=== PATIENT | female | born 1995 | race Caucasian/White ===

== ENCOUNTER 2024-07-10 13:00 | Outpatient (CLI) | payer OTHER, SELFPAY ==
[2024-07-10] VITALS (29 sets, daily range): PULSE 88–107; RESP 16; TEMP 36.7; O2SAT 93–100; BMI 30.2
[2024-07-10] MEDS: Lactated Ringers 1,000 ML 999 ML IV (14:00)
[2024-07-10 14:22] LABS: Absolute Lymphocyte Count 0.48 X10^3/uL (0.83-4.51); Absolute Neutrophil Count 7.3 X10^3/uL (2.0-7.7); Basophil# 0.04 X10^3/uL; Basophil% 0.5 % (0-1); Eosinophil# 0.01 X10^3/uL; Eosinophils% 0.1 % (0-5); Hematocrit 32.6 % (37-47); Lymphocyte # 0.48 X10^3/ul (0.83-4.51); Lymphocyte % 5.5 % (19-41); Mean Corp Hgb Conc 33.7 g/dL (32-36); Mean Corpuscular Hgb 30.8 pg (27.0-32.0); Mean Corpuscular Volume 91.3 fL (81-99); Mean Platelet Vol. 10.8 fl (6.2-12.0); Monocyte# 0.79 X10^3/uL; NRBC Flagged by Analyzer 0 % (0-5); Neutrophil # 7.26 X10^3/uL (2.7-7.7); Neutrophil % 82.7 % (47-70); POSITIVE DIFFERENTIAL YES; Platelet Count 175 K/mm3 (150-450); RBC Distribution Width CV 12.5 % (11.6-14.6); RBC Distribution Width SD 41.5 fl (35.1-43.9); Red Blood Count 3.57 M/mm3 (4.2-5.4); White Blood Count 8.8 K/mm3 (4.4-11.0)
[2024-07-10] MEDS: Ondansetron 4 MG/2 ML Vial IV (14:39)
[2024-07-10 14:42] LABS: ALB/GLOB Ratio 0.6 RATIO (0.9-2.4); AST(SGOT) 21 U/L (15-37); Alanine Aminotransfer ALT/SGPT 17 U/L (13-56); Albumin, Serum 2.4 g/dL (3.2-5.0); Alkaline Phosphatase 107 U/L (45-117); Anion Gap 8 (5-15); BUN 7 mg/dL (7-18); BUN/Creat Ratio 12.1 RATIO (10-20); Calcium,Total 8.7 mg/dL (8.5-10.1); Chloride 104 mmol/L (98-107); Creatinine, Serum 0.58 mg/dL (0.55-1.02); EST Glomerular Filtration Rate 129 mL/min (>60); Est Glom Filt Rate - Afr Amer 156 mL/min (>60); Globulin 3.8 g/dL (2.2-4.2); Glucose 136 mg/dL (74-106); Potassium 3.6 mmol/L (3.5-5.1); Protein, Total 6.2 g/dL (6.4-8.2); Sodium Level 134 mmol/L (136-145)
[2024-07-10] MEDS: LACTATED RINGERS 1,000 ML 999 ML IV (15:29)
[2024-07-10 15:59] LABS: ROM Internal Control Test YES-OK TO RESULT pt. (Internal QC); ROM Patient Test Negative (Negative); Record Kit Lot#, ROM+ K1866
[2024-07-10 16:11] LABS: Fetal Fibronectin Negative; Record Kit Lot#, fFN A4033
--- NOTE | 2024-07-10 17:22 | OB.TRI.NOTE ---
HPI - General General Date of Admission: 07/10/24 Date of Service: 07/03/24 Chief Complaint: decrease fm HPI Narrative JARVIS KING, is a 29 F who presents 2 para 0 at 32-3/7 weeks complaining of nausea and vomiting and diarrhea starting last night. Diarrhea has slowed down but she still having some loose stools. Last emesis was several hours ago but she has not been able to tolerate a lot of p.o. liquids. She still has nausea. She has noticed decreased movement. She admits to sick contacts who have had gastroenteritis in her family. She denies any contractions, vaginal bleeding or leaking of fluid. has been complicated to date by dichorionic diamniotic twin gestation. Maternal Data Information Final LIZZY: 09/01/24 Gestational age: 32 3/7 PFSH PFSH Home Medications ?Medication ?Instructions ?Recorded ?Last Taken ?Type vit no.95-ferrous 1 tab PO DAILY 07/10/24 07/09/24 History fumarate 28 mg-folic acid 800 mcg tablet () Allergy/AdvReac Type Severity Reaction Status Date / Time No Known Allergies Allergy Verified 07/10/24 14:08 Physical Exam Narrative Awake, alert, no acute distress Skin pale, dry Abdomen soft, nondistended, gravid NST FHR Rate Baby A Baseline: 140-150 Variability:: Moderate Decelerations:: None NST Reactive:: Yes FHR Category:: Category I Uterine Activity:: irreg ctxs FHR Rate Baby B Baseline: 140-150 Variability:: Moderate Accelerations:: 15 x 15 Decelerations:: None NST Reactive:: Yes FHR Category:: Category I Uterine Activity:: irreg ctxs Assessment & Plan (1) 32 weeks gestation of : (2) Dichorionic diamniotic twin in third trimester: PLAN: NST reactive x 2. Follow-up in the office as scheduled. (3) Gastroenteritis: (4) Dehydration: PLAN: Improved after IV fluids (5) Supervision of high risk in third trimester: PLAN: Some contractions on the monitor, patient did not appreciate them and they spaced out with IV fluids. fibronectin is negative. DC home to follow-up in the office or return as needed for signs or symptoms of labor (6) Decreased movement affecting management of mother, antepartum: PLAN: NST is reactive x 2. Discharge home with kick counts.
== END 2024-07-10 16:35 | disposition home or self-care (01) ==
LOC: WPOUT 13:12 → WP 13:52
PROVIDERS: PCP Family Medicine; Referring Provider Obstetrics & Gynecology; Visit Provider Obstetrics & Gynecology
DX: O99.613 Diseases of the digestive system complicating pregnancy, third trimester (principal); O36.8130 Decreased fetal movements, third trimester, not applicable or unspecified; O30.043 Twin pregnancy, dichorionic/diamniotic, third trimester; K52.9 Noninfective gastroenteritis and colitis, unspecified; O99.283 Endocrine, nutritional and metabolic diseases complicating pregnancy, third trimester; E86.0 Dehydration; O09.93 Supervision of high risk pregnancy, unspecified, third trimester; Z3A.32 32 weeks gestation of pregnancy
CPT/HCPCS: 96374; 96361; 36415; 59025; 59050; 80053; 82731; 84112; 85025; 99221; J7120; G0378; J2405

== ENCOUNTER 2024-08-18 19:23 | Inpatient (IN) | payer OTHER, SELFPAY ==
--- OUTSIDE RECORDS SUMMARY | 2024-08-18 19:19 | XMS RPT_ITS | CCD ---
Author Organization [facility] Care Team Providers Care Machine Rigger Name Role Phone Washington Tran MD Primary Care Provider WASHINGTON TRAN Primary Care Unavailab addi BAIRES, CONCHA Referring Unavailable BLANCA SKELTON Attending Unavailable WASHINGTON TRAN Primary Care Unavailab ELSIE Gomez Attending Unavailable WASHINGTON TRAN Primary Care Unavailab REBECCA Leavitt Attending Unavailable WASHINGTON TRAN Primary Care Unavailab ELSIE Gomez Attending Unavailable WASHINGTON TRAN Attending Unavailab WASHINGTON Mckeon Primary Care Unavailab WASHINGTON Mckeon Referring Unavailab WASHINGTON Mckeon Primary Care Unavailab WASHINGTON Mckeon Primary Care Unavailab BLANCA Delgado Attending Unavailable WASHINGTON TRAN Primary Care Unavailab le VENKATESH, REBECCA Referring Unavailable WASHINGTON TRAN Primary Care Unavailab addi BAIRES, CONCHA Attending Unavailable ROCHELLE RAMOS Attending Unavailable WASHINGTON TRAN Primary Care Unavailab WASHINGTON Mckeon Primary Care Unavailab WASHINGTON Mckeon Primary Care Unavailab le FONTANEZ, REBECCA Attending Unavailable WASHINGTON TRAN Primary Care Unavailab le FONTANEZ, REBECCA Referring Unavailable COREEN FONTANEZICA Attending Unavailable WASHINGTON TRAN Primary Care Unavailab addi FONTANEZ REBECCA Referring Unavailable WASHINGTON TRAN Primary Care Unavailab BLANCA Delgado Referring Unavailable WASHINGTON TRAN Primary Care Unavailab ELSIE Gomez Referring Unavailable WASHINGTON TRAN Primary Care Unavailab ELSIE Gomez Attending Unavailable WASHINGTON TRAN Primary Care Unavailab BLANCA Delgado Referring Unavailable BURSLEY, CHRISTOPHER B Primary Care Unavailab le PLOTTS, BLANCA Attending Unavailable REBECCA FONTANEZ Referring Unavailable BURSLEY, CHRISTOPHER B Primary Care Unavailab le WISWELL, CONCHA Attending Unavailable ROSA, RAFAELAOPHER B Primary Care Unavailab le PLOTTS, BLANCA Attending Unavailable BURSLEY, CHRISTOPHER B Primary Care Unavailab le WISWELL, CONCHA Referring Unavailable BURSLEY, CHRISTOPHER B Primary Care Unavailab le BURSLEY, CHRISTOPHER B Primary Care Unavailab le WISWELL, CONCHA Referring Unavailable BURSLEY, CHRISTOPHER B Primary Care Unavailab le PLOTTS, BLANCA Attending Unavailable BURSLEY, CHRISTOPHER B Primary Care Unavailab le PLOTTS, BLANCA Attending Unavailable WISWELL, CONCHA Referring Unavailable BURSLEY, CHRISTOPHER B Primary Care Unavailab le GERMAINELEY, RAFAELAOPHER B Primary Care Unavailab le WISWELL, CONCHA Referring Unavailable BURSLEY, CHRISTOPHER B Primary Care Unavailab le PLOTSANG, BLANCA Attending Unavailable ROSA, RAFAELAOPHER B Primary Care Unavailab le WISWELL, CONCHA Referring Unavailable BURSLEY, CHRISTOPHER B Primary Care Unavailab le WISWELL, CONCHA Referring Unavailable WISWELL, CONCHA Attending Unavailable ROSA, RAFAELAOPHER B Primary Care Unavailab STEPHANIE Marsh Attending Unavailab le PLOTSANG, BLANCA Referring Unavailable BURSLEY, CHRISTOPHER B Primary Care Unavailab le PLOTTS, BLANCA Attending Unavailable PLOTTS, BLANCA Referring Unavailable BURSLEY, CHRISTOPHER B Primary Care Unavailab le PLOTTS, BLANCA Referring Unavailable GERMAINELEY, CHRISTOPHER B Primary Care Unavailab le PLOTTS, BLANCA Referring Unavailable BURSLEY, CHRISTOPHER B Primary Care Unavailab le PLOTTS, BLANCA Attending Unavailable PLOTTS, BLANCA Referring Unavailable BURSLEY, CHRISTOPHER B Primary Care Unavailab le WISWELL, CONCHA Referring Unavailable BURSLEY, CHRISTOPHER B Primary Care Unavailab REBECCA Leavitt Referring Unavailable BURSLEY, CHRISTOPHER B Primary Care Unavailab REBECCA Leavitt Attending Unavailable ROSA, RAFAELAOPHER B Primary Care Unavailab le PLOTTS, BLANCA Referring Unavailable BURSLEY, CHRISTOPHER B Primary Care Unavailab addi SKELTON, BLANCA Attending Unavailable ROSA, RAFAELAOPHER B Primary Care Unavailab le GERMAINELEY, CHRISTOPHER B Primary Care Unavailab NOHEMY Frausto Attending Unavailable WASHINGTON TRAN Primary Care Unavailab BLANCA Delgado Referring Unavailable WASHINGTON TRAN Primary Care Unavailab addi SKELTONBLANCA Referring Unavailable WASHINGTON TRAN Primary Care Unavailab addi WESTSANGBLANCA Attending Unavailable WASHINGTON TRAN Primary Care Unavailab NOHEMY Frausto Attending Unavailable REBECCA FONTANEZ Referring Unavailable WASHINGTON TRAN Primary Care Unavailab addi WESTSANGBLANCA Referring Unavailable Medications Current Medications Medication Drug Class(es) Dates Sig (Normalized) Sig (Original) acetaminophen 325 mg / oxyCODONE hydrochloride 5 mg oral tablet (1 source) Opioid Agonist Start: 10-17-2023 End: 10-17-2023 oxyCODONE-acetami nophen (PERCOCET) 5-325 mg tablet Indications: Missed Take 2 tablets by mouth one time only for 1 dose. Bring to the office. Do not start before October 17, 2023. 2 tablet 0 10/17/2023 10/17/2023 Active Comment on above: Take 2 tablets by mo [facility] one time only for 1 dose. Bring to the office. Do not start before October 17, 2023. ALPRAZolam 0.5 mg oral tablet (1 source) Benzodiazepine Start: 10-17-2023 End: 10-17-2023 take 1 tablet by mouth once ALPRAZolam (XANAX) 0.5 mg tablet Indications: Missed Take 1 tablet by mouth one time only for 1 dose. Bring to office with you. Do not start before October 17, 2023. 1 tablet 0 10/17/2023 10/17/2023 Active Comment on above: Take 1 tablet by [place] one time only for 1 dose. Bring to office with you. Do not start before October 17, 2023. aspirin 81 mg oral tablet (20 sources) Platelet Aggregation Inhibitor, Nonsteroidal Anti-inflammatory Drug take 81 mg by mouth once daily BABY ASPIRIN ORAL Take 81 mg by mouth once daily. Active carbamide peroxide 65 mg/ml otic solution (2 sources) Start: 09-15-2023 End: 09-19-2023 carbamide peroxide (DEBROX) 6.5 % otic solution Indications: Impacted cerumen of right ear Use 5 Drops in the right ear two times a day for 4 days. 15 mL 1 09/15/2023 09/19/2023 Active Comment on above: Use 5 Drops in the r ight ear two times a day for 4 days. doxycycline hyclate 100 mg oral capsule (1 source) Tetracycline-class Drug Start: 10-17-2023 End: 10-17-2023 take 2 capsules by mouth once at mealtime doxycycline hyclate (VIBRAMYCIN) 100 mg capsule Take 2 capsules by mouth one time only for 1 dose. Take after procedure with food. 2 capsule 0 10/17/2023 10/17/2023 Active Comment on above: Take 2 capsules by m outh one time only for 1 dose. Take after procedure with food. 1 ml ketorolac tromethamine 30 mg/ml injection (2 sources) Nonsteroidal Anti-inflammatory Drug, Cyclooxygenase Inhibitor Start: 10-17-2023 End: 10-17-2023 keTORolac 30 mg injection (Toradol) ondansetron 4 mg oral tablet (2 sources) Serotonin-3 Receptor Antagonist Start: 07-10-2024 End: 07-20-2024 take 1 tablet by mouth every eight hours as needed ondansetron (ZOFRAN) 4 mg tablet Take 1 tablet by mouth every 8 hours as needed for nausea/vomiting for up to 10 days. 20 tablet 07/10/2024 07/20/2024 Active 25-IRON [id number] ORAL (20 sources) 25-IRON [id number]-MVSEF-NVA ORAL Take by mouth. Active 25-IRON [id number] ORAL Take by mouth. 0 Active Comment on above: Take by mouth. valACYclovir 500 mg oral tablet (20 sources) Herpesvirus Nucleoside Analog DNA Polymerase Inhibitor, Herpes Simplex Virus Nucleoside Analog DNA Polymerase Inhibitor, Herpes Zoster Virus Nucleoside Analog DNA Polymerase Inhibitor Start: take 1 tablet by mouth twice daily valACYclovir (VALTREX) 500 mg tablet Indications: Herpes genitalis in women Take 1 tablet by mouth two times a day. 60 tablet 1 08/06/2024 Active Start: 07-29-2022 End: 08-06-2024 take 1 tablet by mouth once daily valACYclovir (VALTREX) 500 mg tablet Indications: Herpes genitalis in women Take 1 tablet by mouth once daily. 90 tablet 3 08/06/2024 08/06/2024 Discontinued Comment on above: Take 1 tablet by jeremy th once daily. Completed/Discontinued Medications Medication Drug Class(es) Dates Sig (Normalized) Sig (Original) Carboxymethylcellulose (20 sources) End: CARBOXYMETHYLCELLULOSE SODIUM (REFRESH OPHTHALMIC) Use in eyes as needed. occ. use 0 05/06/2024 Discontinued CARBOXYMETHYLCEL LULOSE SODIUM (REFRESH OPHTHALMIC) Use in eyes as needed. occ. use 0 Active Comment on above: Use in eyes as neede d. occ. use Ethinyl Estradiol / Ferrous fumarate / Norethindrone (9 sources) Estrogen Start: 3 End: 3 take 1 tablet by mouth once daily , 1 mg-20 mcg (21)/75 mg (7) per tablet Indications: Medication refill take 1 tablet by mouth every day 84 tablet 0 07/11/2023 08/28/2023 Discontinued (Course of therapy completed) Start: 07-11-2023 take 1 tablet by jeremy th once daily , 1 mg-20 mcg (21)/75 mg (7) per tablet Indications: Medication refill take 1 tablet by mouth every day 84 tablet 0 07/11/2023 Active Start: 07-29-2022 End: 07-11-2023 take 1 tablet by mouth once daily, then take 0.05 tablet by mouth once Norethin Mac-Eth Estrad-FE (11/18, ,) 1 mg-20 mcg (21)/75 mg (7) per tablet Indications: Medication refill Take 1 tablet by mouth once daily. 84 tablet 3 07/29/2022 07/11/2023 Discontinued Start: 07-29-2022 take 1 tablet by jeremy th once daily, then take 0.05 tablet by mouth once Norethin Mac-Eth Estrad-FE (,) 1 mg-20 mcg (21)/75 mg (7) per tablet Indications: Medication refill Take 1 tablet by mouth once daily. 84 tablet 3 07/29/2022 Active Comment on above: Take 1 tablet by jeremy th once daily. take 1 tablet by jeremy th every day ibuprofen 800 mg oral tablet (4 sources) Nonsteroidal Anti-inflammatory Drug Start: 3 End: 3 take 1 tablet by mouth every eight hours as needed ibuprofen (MOTRIN) 800 mg tablet Take 1 tablet by mouth every 8 hours as needed for pain. 30 tablet 0 09/28/2023 10/13/2023 Discontinued (Course of therapy completed) Comment on above: Take 1 tablet by jeremy th every 8 hours as needed for pain. mineral oil 0.425 mg/mg / petrolatum 0.573 mg/mg ophthalmic ointment (20 sources) End: White Petrolatum-Mineral Oil (REFRESH PM) 57.3-42.5 % ointment Use in both eyes at bedtime as needed. 0 05/06/2024 Discontinued White Petrolatum -Mineral Oil (REFRESH PM) 57.3-42.5 % ointment Use in both eyes at bedtime as needed. 0 Active Comment on above: Use in both eyes at bedtime as needed. miSOPROStol 0.2 mg oral tablet (9 sources) Prostaglandin E1 Analog Start: 09-28-2023 End: 02-05-2024 miSOPROStol (CYTOTEC) 200 mcg tablet Please insert 4 tablets into vagina x1 4 tablet 0 10/06/2023 02/05/2024 Discontinued (Course of therapy completed) Comment on above: Please insert 4 tabl ets into vagina x1 vitamin b6 50 mg oral capsule (20 sources) End: 07-24-2024 pyridoxine, vitamin B6, (VITAMIN B-6) 50 mg cap Take by mouth. 07/24/2024 Discontinued (Course of therapy completed) pyridoxine, donna min B6, (VITAMIN B-6) 50 mg cap Take by mouth. 0 Active Comment on above: Take by mouth. Problems Active Problems Problem Classification Problem Date Documented Da te Episodic/Chronic Administrative/social admission (1 source) Repeated prescription; Translations: [Encounter for issue of repeat prescription] 07-11-2023 Episodic Diabetes or abnormal glucose tolerance complicating ; childbirth; or the puerperium (17 sources) Abnormal glucose level; Translations: [Abnormal glucose complicating ] Onset: 06-06-2024 06-06-2024 Episodic Immunizations and screening for infectious disease (2 sources) Vaccination needed; Translations: [Encounter for immunization] Episodic Other complications of ; puerperium affecting management of mother (1 source) Suspected disorder; Translations: [Maternal care for (suspected) abnormality and damage, unspecified, fetus 2] 05-06-2024 Episodic Other complications of (20 sources) High risk ; Translations: [Supervision of high risk , unspecified, first trimester] Onset: 08-28-2023 Resolved: 05-14-2024 08-28-2023 Episodic Other complications of (6 sources) Missed miscarriage; Translations: [Missed ] 09-18-2023 Episodic Other complications of (11 sources) Heartburn; Translations: [Other specified related conditions, third trimester] Onset: 07-03-2024 07-03-2024 Episodic Other ear and sense organ disorders (1 source) Impacted cerumen in right ear; Translations: [Impacted cerumen, right ear] 09-15-2023 Episodic Other infections; including parasitic (6 sources) History of sexually transmitted disease; Translations: [Personal history of other infectious and parasitic diseases] Onset: 07-31-2024 07-31-2024 Episodic Other infections; including parasitic (1 source) Personal history of other infectious and parasitic diseases; Translations: [History of herpes genitalis] Onset: 07-31-2024 Episodic Other and delivery including normal (20 sources) Normal ; Translations: [Encounter for supervision of normal first , unspecified trimester] Onset: 02-05-2024 08-22-2023 Episodic Other upper respiratory disease (20 sources) Seasonal allergy; Translations: [Other seasonal allergic rhinitis] Onset: 08-26-2022 Chronic Residual codes; unclassified (3 sources) Gestation period, 9 weeks; Translations: [9 weeks gestation of ] 08-28-2023 Episodic Residual codes; unclassified (1 source) FH: Thyroid disorder; Translations: [Family history of other endocrine, nutritional and metabolic diseases] 08-28-2023 Episodic Residual codes; unclassified (2 sources) Gestation period, 12 weeks; Translations: [12 weeks gestation of ] 09-15-2023 Episodic Residual codes; unclassified (1 source) Gestation period, 10 weeks; Translations: [10 weeks gestation of ] 02-05-2024 Episodic Residual codes; unclassified (1 source) Gestation period, 14 weeks; Translations: [14 weeks gestation of ] 03-04-2024 Episodic Residual codes; unclassified (1 source) Gestation period, 16 weeks; Translations: [16 weeks gestation of ] 03-20-2024 Episodic Residual codes; unclassified (1 source) Gestation period, 19 weeks; Translations: [19 weeks gestation of ] 04-08-2024 Episodic Residual codes; unclassified (6 sources) Gestation period, 20 weeks; Translations: [20 weeks gestation of ] Onset: 04-15-2024 04-15-2024 Episodic Residual codes; unclassified (3 sources) Gestation period, 23 weeks; Translations: [23 weeks gestation of ] 05-06-2024 Episodic Residual codes; unclassified (1 source) Gestation period, 26 weeks; Translations: [26 weeks gestation of ] 06-03-2024 Episodic Residual codes; unclassified (1 source) Gestation period, 27 weeks; Translations: [27 weeks gestation of ] 06-03-2024 Episodic Residual codes; unclassified (1 source) Gestation period, 28 weeks; Translations: [28 weeks gestation of ] 06-12-2024 Episodic Residual codes; unclassified (1 source) Gestation period, 29 weeks; Translations: [29 weeks gestation of ] 06-17-2024 Episodic Residual codes; unclassified (1 source) Gestation period, 30 weeks; Translations: [30 weeks gestation of ] 06-26-2024 Episodic Residual codes; unclassified (2 sources) Gestation period, 31 weeks; Translations: [31 weeks gestation of ] 07-03-2024 Episodic Residual codes; unclassified (1 source) Gestation period, 33 weeks; Translations: [33 weeks gestation of ] 07-16-2024 Episodic Residual codes; unclassified (1 source) Gestation period, 34 weeks; Translations: [34 weeks gestation of ] 07-24-2024 Episodic Residual codes; unclassified (1 source) Gestation period, 35 weeks; Translations: [35 weeks gestation of ] 07-31-2024 Episodic Residual codes; unclassified (2 sources) Gestation period, 36 weeks; Translations: [36 weeks gestation of ] 08-06-2024 Episodic Residual codes; unclassified (1 source) 36 weeks gestation of ; Translations: [36 weeks gestation of ] Onset: 08-07-2024 Episodic Residual codes; unclassified (1 source) 30 weeks gestation of ; Translations: [30 weeks gestation of ] Onset: 06-26-2024 Episodic Residual codes; unclassified (1 source) 28 weeks gestation of ; Translations: [28 weeks gestation of ] Onset: 06-12-2024 Episodic Residual codes; unclassified (1 source) 23 weeks gestation of ; Translations: [23 weeks gestation of ] Onset: 06-03-2024 Episodic Spontaneous (2 sources) Retained products after miscarriage; Translations: [Incomplete spontaneous without complication] 10-13-2023 Episodic Unclassified (20 sources) [facility] Education - COMMON Onset: 01-30-2024 01-30-2024 Unclassified (20 sources) Education - [place] Onset: 01-30-2024 01-30-2024 Viral infection (12 sources) Herpes simplex of female genitalia; Translations: [Herpesviral infection of other urogenital tract] Onset: 08-26-2022 Chronic Past or Other Problems Problem Classification Problem Date Documented Date Episodic/Chronic Blindness and vision defects (20 sources) Myopia; Translations: [Myopia, unspecified eye] Onset: 03-08-2016 03-08-2016 Episodic Hemorrhage during ; abruptio placenta; placenta previa (2 sources) Antepartum hemorrhage; Translations: [Hemorrhage in early , unspecified] Onset: 01-12-2024 01-12-2024 Episodic Other complications of ; puerperium affecting management of mother (20 sources) condition affecting obstetrical care of mother; Translations: [Maternal care for (suspected) abnormality and damage, unspecified, fetus 1] Onset: 05-07-2024 05-07-2024 Episodic Other complications of ; puerperium affecting management of mother (1 source) Maternal care for (suspected) abnormality and damage, unspecified, fetus 2; Translations: [ abnormality affecting management of mother, fetus 2 of multiple gestation] Onset: 05-09-2024 Episodic Other complications of (20 sources) Genital herpes simplex in mother complicating ; Translations: [Other infections with a predominantly sexual mode of transmission complicating , unspecified trimester] Onset: 08-26-2022 08-28-2023 Episodic Other complications of (2 sources) Supervision of high risk , unspecified, first trimester; Translations: [Supervision of high risk in first trimester] Onset: 02-05-2024 Episodic Other complications of (1 source) Supervision of high risk , unspecified, third trimester; Translations: [Supervision of high risk in third trimester] Onset: 05-14-2024 Episodic Other complications of (1 source) Supervision of high risk , unspecified, second trimester; Translations: [Encounter for supervision of high risk in second trimester, antepartum] Onset: 02-05-2024 Episodic Other complications of (1 source) Other infections with a predominantly sexual mode of transmission complicating , unspecified trimester; Translations: [Genital herpes simplex virus (HSV) infection in mother affecting ] Onset: 02-05-2024 Episodic Other complications of (1 source) Missed ; Translations: [Missed ] Onset: 02-19-2024 Episodic Other screening for suspected conditions (not mental disorders or infectious disease) (5 sources) Patient encounter status; Translations: [Encounter for screening for nuchal translucency] Onset: 02-19-2024 02-19-2024 Episodic Residual codes; unclassified (20 sources) Gestation period, 24 weeks; Translations: [24 weeks gestation of ] Onset: 04-15-2024 05-14-2024 Episodic Residual codes; unclassified (1 source) 10 weeks gestation of ; Translations: [10 weeks gestation of ] Onset: 05-14-2024 Episodic Residual codes; unclassified (1 source) 24 weeks gestation of ; Translations: [24 weeks gestation of ] Onset: 05-14-2024 Episodic Residual codes; unclassified (1 source) 20 weeks gestation of ; Translations: [20 weeks gestation of ] Onset: 04-15-2024 Episodic Residual codes; unclassified (1 source) 19 weeks gestation of ; Translations: [19 weeks gestation of ] Onset: 04-08-2024 Episodic Residual codes; unclassified (1 source) 9 weeks gestation of ; Translations: [9 weeks gestation of ] Onset: 04-08-2024 Episodic Residual codes; unclassified (1 source) 12 weeks gestation of ; Translations: [12 weeks gestation of ] Onset: 02-05-2024 Episodic Residual codes; unclassified (1 source) Family history of other endocrine, nutritional and metabolic diseases; Translations: [Family history of thyroid disorder] Onset: 09-01-2023 Episodic Results Test Name Value Interpretation Reference Range Niraj Horton 08-07-2024 CNOV Office Visit (OBGYWM ) ----- JARVIS KING ([id number]) 1995 F Date Time Provider Department 08/07/24 2:30 PM BLANCA SKELTON OBSAAD During your visit today, we recorded the following information about you: Blood pressure Weight 126/78 88.5 kg Blanca Skelton APRN.CNM 08/07/2024 4:37 PM Signed CP - CENTERING S: Jarvis King is a 29 year old female who presents at 36 weeks gestation for a routine visit and centering. Seen in office yesterday for SHARATH and to discuss plan of care for delivery. Denies headache, visual changes, chest pain, shortness of breath, vaginal bleeding, leakage of fluid, or dysuria. Feeling well, no complaints. O: See flow sheet Gen: No apparent distress Abd: Gravid, nontender ASSESSMENT/PLAN: 1. Supervision of high risk in third trimester - ICD9: V23.9, ICD10: O09.93 (primary diagnosis) 2. Dichorionic diamniotic twin in third trimester - ICD9: 651.03, V91.03, ICD10: O30.043 3. 36 weeks gestation of - ICD9: V22.2, ICD10: Z3A.36 4. History of herpes genitalis - ICD9: V12.09, ICD10: Z86.19 - GBS negative - Continue Valacyclovir PO daily - Seen by physician and induction of labor scheduled for 08/18/24 7pm Cytotec/ Sahw - Labor precautions reviewed and when to call office - RTO 1 week for NST/SHARATH MADELAINE Don Amanda, MA 08/07/2024 2:31 PM Signed SEQUENTIAL SCREENINGS The [facility] offers sequential screenings for women who are interested in screenings for chromosomal abnormalities and certain defects during a . The sequential screen combines ultrasound and blood tests to determine the risk of chromosomal abnormalities, including Down's Syndrome (Trisomy 21) and Trisomy 18, as well as open neural tube defects including spina bifida. Ultrasound examination is performed between 11 weeks and 13 weeks gestational age. Blood tests are drawn after the ultrasound and again later in the between 15 and 21 weeks gestational age. Please let your physician know if you are interested in this testing. It will require an appointment with our assessment technician. This is not an ultrasound performed by a physician in our office during a routine visit. SIGNS AND SYMPTOMS OF LABOR 1. Contractions every 10 minutes or more often 2. Clear, pink, or brownish fluid (water) leaking from vagina 3. Feeling that baby is pushing down, pressure 4. Low, dull backache 5. Cramps that feel like a period 6. Cramps with or without diarrhea If you notice any of the above symptoms, contact our office at [phone] and ask to speak with a nurse. After hours, you can call doctors registry at [phone] OR call [facility] at [phone] and ask to have the doctor computational theory scientist paged. If you consider this an emergency, dial 9-0-7 or go to your nearest emergency department. NEED HELP? Are you dealing with a violent or abusive relationship? Are you a victim of rape or sexual assult? Call [facility] ([place]) 24 hour Crisis Hotline: 163.914.5872 or 411-717-5604. MANUAL Your Guide to a Healthy manual is now on-line. Visit [email or web address] to download your free copy Allergies As of Date: 08/07/2024 (No Known Allergies) Date Reviewed: 08/07/2024 Reviewed by: Blanca Skelton APRN.CNM - Fully Assessed Reason for Visit: Care [86] Primary Visit Diagnosis:Supervision of high risk in third trimester [O09.93] Other Visit Diagnoses:Dichorionic diamniotic twin in third trimester [O30.043] 36 weeks gestation of [Z3A.36] History of herpes genitalis [Z86.19] Prescriptions as of 08/07/2024 - valACYclovir (VALTREX) 500 mg tablet Take 1 tablet by mouth two times a day. - BABY ASPIRIN ORAL Take 81 mg by mouth once daily. - 25-IRON [id number] ORAL Take by mouth. Problem List As Of Date 08/07/2024 Noted Resolved Myopia [H52.10] 03/08/2016 Genital herpes simplex virus (HSV) infection in*08/26/2022 Seasonal allergies [J30.2] 08/26/2022 Supervision of high risk in first tri*08/28/2023 Dichorionic diamniotic twin in second*02/05/2024 Encounter for supervision of high risk pregnanc*02/05/2024 05/14/2024 24 weeks gestation of [Z3A.24] 04/15/2024 abnormality affecting management of mothe*05/07/2024 Abnormal glucose complicating [O99.81*06/06/2024 Heartburn during [O26.899, R12] 07/03/2024 History of herpes genitalis [Z86.19] 07/31/2024 Other instructions from your clinician: SEQUENTIAL SCREENINGS The [facility] offers sequential screenings for women who are interested in screenings for chromosomal abnormalities and certain defects during a . The sequential screen combines ultrasound and blood tests to deter (more content not included)... Normal [facility] ROUTINE, GROUP B ST REP PCRon 07-31-2024 ROUTINE, GROUP B STREP PCR GROUP B STREP PCR: Negative for Group B Streptococcus by PCR. Normal [facility] Comment on above: Performed By: #### G BPCR ####[facility] LABCLIA [id number] [address] STATES OF [facility] CNOVon 07-24-2024 CNOV Office Visit (OBGYWM ) ----- JARVIS KING ([id number]) 1995 F Date Time Provider Department 07/24/24 2:30 PM REBECCA FNOTANEZ During your visit today, we recorded the following information about you: Blood pressure Weight 116/68 85.3 kg StepheniePhani MA 07/24/2024 2:24 PM Signed SEQUENTIAL SCREENINGS The [facility] offers sequential screenings for women who are interested in screenings for chromosomal abnormalities and certain defects during a . The sequential screen combines ultrasound and blood tests to determine the risk of chromosomal abnormalities, including Down's Syndrome (Trisomy 21) and Trisomy 18, as well as open neural tube defects including spina bifida. Ultrasound examination is performed between 11 weeks and 13 weeks gestational age. Blood tests are drawn after the ultrasound and again later in the between 15 and 21 weeks gestational age. Please let your physician know if you are interested in this testing. It will require an appointment with our assessment technician. This is not an ultrasound performed by a physician in our office during a routine visit. SIGNS AND SYMPTOMS OF LABOR 1. Contractions every 10 minutes or more often 2. Clear, pink, or brownish fluid (water) leaking from vagina 3. Feeling that baby is pushing down, pressure 4. Low, dull backache 5. Cramps that feel like a period 6. Cramps with or without diarrhea If you notice any of the above symptoms, contact our office at [phone] and ask to speak with a nurse. After hours, you can call doctors registry at [phone] OR call [facility] at [phone] and ask to have the doctor computational theory scientist paged. If you consider this an emergency, dial 9--3 or go to your nearest emergency department. NEED HELP? Are you dealing with a violent or abusive relationship? Are you a victim of rape or sexual assult? Call [facility] ([place]) 24 hour Crisis Hotline: 640.889.1034 or 749-802-3975. MANUAL Your Guide to a Healthy manual is now on-line. Visit [email or web address] to download your free copy Rebecca Fontanez APRN.CNM 07/24/2024 3:06 PM Addendum ABRAM-Centering Group S: Jarvis King is a 29 year old female who presents at 34w3d with LIZZY:09/01/2024, by Ultrasound for a routine visit. Denies headache, visual changes, chest pain, shortness of breath, vaginal bleeding, leakage of fluid, or dysuria. Feeling well, no complaints. O: See flow sheet Gen: No apparent distress Abd: Gravid, nontender S=D, 40 lb TWG Growth US at 32 weeks The EFW is 1589 g grams, at the 15%. AC is at the 28% for Fetus A. The EFW is 1698 g grams, at the 28% percentile. AC is at the 45% percentile for Fetus B. - Normal amniotic fluid volume with an MVP of 7 cm for Fetus A and 6 cm for Fetus B. Vertex/Vertex ASSESSMENT/PLAN: 1. Encounter for supervision of high risk in second trimester, antepartum -ASA 81mg PO once daily -Discussed IOL at 38-39 weeks, will await next growth US and discuss further. 2. Dichorionic diamniotic twin in second trimester -Growth ultrasound every 4 weeks at 24 weeks -Weekly NST at 36 weeks 3. 24 weeks gestation of 4. 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 -Recommend increasing to 500mg PO BID at 36 weeks. 5. abnormality affecting management of mother, fetus 2 of multiple gestation - echo normal, no further follow up -PTL precautions reviewed and when to call -RTO in 2 weeks Rebecca Fontanez APRN.CNM Allergies As of Date: 07/24/2024 (No Known Allergies) Date Reviewed: 07/24/2024 Reviewed by: Phani Casiano MA - Fully Assessed Reason for Visit: Care [86] Primary Visit Diagnosis:Supervision of high risk in third trimester [O09.93] Other Visit Diagnoses:Dichorionic diamniotic twin in second trimester [O30.042] 34 weeks gestation of [Z3A.34] Order(s): NON-STRESS TEST [[id number]] Order #: [id number] STANDING URINE OB DIP B/O [[id number]] Order #: [id number] Prescriptions as of 07/24/2024 - BABY ASPIRIN ORAL Take 81 mg by mouth once daily. - 25-IRON [id number] ORAL Take by mouth. - valACYclovir (VALTREX) 500 mg tablet Take 1 tablet by mouth once daily. Problem List As Of Date 07/24/2024 Noted Resolved Myopia [H52.10] 03/08/2016 Genital herpes simplex virus (HSV) infection in*08/26/2022 Seasonal allergies [J30.2] 08/26/2022 Supervision of high risk in first tri*08/28/2023 Dichorionic diamniotic twin in second*02/05/2024 Encounter for supervision of high risk pregnanc*02/05/2024 05/14/2024 24 weeks gestation of [Z3A.24] 04/15/2024 abnormality affecting managemen (more content not included)... [facility] ([facility]GYWM) ----- JARVIS KING ([id number]) 1995 F Date Time Provider Department 07/10/24 NOHEMY LYN OBGYWM During your visit today, we recorded the following information about you: Leatha Alva RN 07/10/2024 9:13 AM Signed Patient 32w3d calling with concerns of vomiting and diarrhea since 8 pm last night. Approximately 4-5 episodes of each. States she is trying to sip Gatorade and ice chips and has been able to keep them down for the last 3 hours. The last time patient vomited was 6 am. The last time patient ate was dinner at 6 pm last night. Patient having cramping from the upset stomach and diarrhea but denies any pain currently. Patient has not taken anything for the vomiting or diarrhea. Patient states she had chills last night but denies any fever. Patient currently concerned with decreased movement. Patient states she has been dozing off and on this morning and unsure if she has any movement this morning. States unsure if movement last night or if it was just from the cramping and diarrhea. Patient is supposed to come in to office today for centering appointment, but states she probably won't make it because she doesn't want to get anyone sick. Do you want patient to be seen for decreased movement in office? KAYLEN Gates Rebecca L, MD 07/10/2024 11:40 AM Signed Have her come in for NST and BP check and we ask she please put on a mask when she arrives. If she has decreased urine output to [facility] for NST and IVF. If she thinks she can stay hydrated then immodium and push fluids and I can rx something for nausea. MD Lukas Birch Tara, RN 07/10/2024 12:11 PM Signed Called Pt and Pt states she definitely does feel dehydrated. Advised to go to [facility] for NST and IV fluids. Voiced understanding. [facility] notified. Malika Gaytan RN Allergies As of Date: 07/10/2024 (No Known Allergies) Date Reviewed: 06/26/2024 Reviewed by: Phani Casiano MA - Fully Assessed Reason for Visit: OB-decreased movement [Other] Prescriptions as of 07/10/2024 - BABY ASPIRIN ORAL Take 81 mg by mouth once daily. - pyridoxine, vitamin B6, (VITAMIN B-6) 50 mg cap Take by mouth. - 25-IRON [id number] ORAL Take by mouth. - valACYclovir (VALTREX) 500 mg tablet Take 1 tablet by mouth once daily. Problem List As Of Date 07/10/2024 Noted Resolved Myopia [H52.10] 03/08/2016 Genital herpes simplex virus (HSV) infection in*08/26/2022 Seasonal allergies [J30.2] 08/26/2022 Supervision of high risk in first tri*08/28/2023 Dichorionic diamniotic twin in second*02/05/2024 Encounter for supervision of high risk pregnanc*02/05/2024 05/14/2024 24 weeks gestation of [Z3A.24] 04/15/2024 abnormality affecting management of mothe*05/07/2024 Abnormal glucose complicating [O99.81*06/06/2024 Heartburn during [O26.899, R12] 07/03/2024 Encounter Status:Closed by NOHEMY LYN on 07/10/24 Normal [facility] Examination level ultrasound on 07-03-2024 [facility] Radiology Study observation (narrative) [facility] CNOVon 06-26-2024 CNOV Office Visit (OBGYWM ) ----- JARVIS KING ([id number]) 1995 F Date Time Provider Department 06/26/24 2:30 PM BLANCA SKELTON OBBARTWM During your visit today, we recorded the following information about you: Blood pressure Weight 116/64 83.5 kg Blanca Skelton APRN.CNM 06/26/2024 4:02 PM Signed CP- CENTERING #6 S: Jarvis King is a 29 year old female who presents at 30.3 weeks gestation for a routine visit. Positive movements. Still having difficulty differentiating between baby A and B. Feeling tightening in hands. No pain at this time. Denies headache, visual changes, chest pain, shortness of breath, vaginal bleeding, leakage of fluid, or dysuria. O: See flow sheet Gen: No apparent distress Abd: Gravid, nontender S= D measuring 2 weeks ahead ASSESSMENT/PLAN: 1. 30 weeks gestation of - ICD9: V22.2, ICD10: Z3A.30 (primary diagnosis) 2. Supervision of high risk in third trimester - ICD9: V23.9, ICD10: O09.93 3. Dichorionic diamniotic twin in third trimester - ICD9: 651.03, V91.03, ICD10: O30.043 - Elevated 1 hour - 3 hour GTT normal - PTL precautions and kick counts reviewed - RTO 2 weeks- growth US and SHARATH Skelton, PLACIDO.CN Phani Casiano MA 06/26/2024 2:36 PM Signed SEQUENTIAL SCREENINGS The [facility] offers sequential screenings for women who are interested in screenings for chromosomal abnormalities and certain defects during a . The sequential screen combines ultrasound and blood tests to determine the risk of chromosomal abnormalities, including Down's Syndrome (Trisomy 21) and Trisomy 18, as well as open neural tube defects including spina bifida. Ultrasound examination is performed between 11 weeks and 13 weeks gestational age. Blood tests are drawn after the ultrasound and again later in the between 15 and 21 weeks gestational age. Please let your physician know if you are interested in this testing. It will require an appointment with our assessment technician. This is not an ultrasound performed by a physician in our office during a routine visit. SIGNS AND SYMPTOMS OF LABOR 1. Contractions every 10 minutes or more often 2. Clear, pink, or brownish fluid (water) leaking from vagina 3. Feeling that baby is pushing down, pressure 4. Low, dull backache 5. Cramps that feel like a period 6. Cramps with or without diarrhea If you notice any of the above symptoms, contact our office at [phone] and ask to speak with a nurse. After hours, you can call doctors registry at [phone] OR call [facility] at [phone] and ask to have the doctor computational theory scientist paged. If you consider this an emergency, dial 9-1-6 or go to your nearest emergency department. NEED HELP? Are you dealing with a violent or abusive relationship? Are you a victim of rape or sexual assult? Call [facility] ([place]) 24 hour Crisis Hotline: 850.312.5758 or 595-496-8568. MANUAL Your Guide to a Healthy manual is now on-line. Visit [email or web address] [email or web address] to download your free copy Allergies As of Date: 06/26/2024 (No Known Allergies) Date Reviewed: 06/26/2024 Reviewed by: Phani Casiano MA - Fully Assessed Reason for Visit: Care [86] Primary Visit Diagnosis:30 weeks gestation of [Z3A.30] Other Visit Diagnoses:Supervision of high risk in third trimester [O09.93] Dichorionic diamniotic twin in third trimester [O30.043] Prescriptions as of 06/26/2024 - BABY ASPIRIN ORAL Take 81 mg by mouth once daily. - pyridoxine, vitamin B6, (VITAMIN B-6) 50 mg cap Take by mouth. - 25-IRON NUB-EDFPI-SYT ORAL Take by mouth. - valACYclovir (VALTREX) 500 mg tablet Take 1 tablet by mouth once daily. Problem List As Of Date 06/26/2024 Noted Resolved Myopia [H52.10] 03/08/2016 Genital herpes simplex virus (HSV) infection in*08/26/2022 Seasonal allergies [J30.2] 08/26/2022 Supervision of high risk in first tri*08/28/2023 Dichorionic diamniotic twin in second*02/05/2024 Encounter for supervision of high risk pregnanc*02/05/2024 05/14/2024 24 weeks gestation of [Z3A.24] 04/15/2024 abnormality affecting management of mothe*05/07/2024 Abnormal glucose complicating [O99.81*06/06/2024 Other instructions from your clinician: SEQUENTIAL SCREENINGS The [facility] offers sequential screenings for women who are interested in screenings for chromosomal abnormalities and certain defects during a . The sequential screen combines ultrasound and blood tests to determine the risk of chromosomal abnormalities, including Down's Syndrome (Trisomy 21) and Trisomy 18, as well as open neural tube defects including spina bifida. Ultrasound examination is performed (more content not included)... Normal [facility] CNOVon 06-12-2024 CNOV Office Visit (OBGYWM ) ----- JARVIS KING ([id number]) 1995 F Date Time Provider Department 06/12/24 2:30 PM BLANCA SKELTON OBGYWM During your visit today, we recorded the following information about you: Blood pressure Weight 114/62 81.6 kg Blanca Skelton APRN.CNM 06/12/2024 4:48 PM Signed CP- CENTERING GROUP #5 S: Jarvis King is a 29 year old female who present at at 28 weeks gestation for a routine visit and centering group. Feeling good. Positive movements. Failed GCT but passed GTT. Still watching diet and carbohydrate/sugar intake. Denies headache, visual changes, chest pain, shortness of breath, vaginal bleeding, leakage of fluid, or dysuria. Feeling well, no complaints. O: See flow sheet Gen: No apparent distress Abd: Gravid, nontender ASSESSMENT/PLAN: 1. 28 weeks gestation of - ICD9: V22.2, ICD10: Z3A.28 (primary diagnosis) 2. Supervision of high risk in third trimester - ICD9: V23.9, ICD10: O09.93 3. Dichorionic diamniotic twin in second trimester - ICD9: 651.03, V91.03, ICD10: O30.042 P: 1) PTL precautions reviewed and when to call 2) RTO 2 weeks Blanca Skelton APRN.Phani Corona MA 06/12/2024 2:30 PM Signed SEQUENTIAL SCREENINGS The [facility] offers sequential screenings for women who are interested in screenings for chromosomal abnormalities and certain defects during a . The sequential screen combines ultrasound and blood tests to determine the risk of chromosomal abnormalities, including Down's Syndrome (Trisomy 21) and Trisomy 18, as well as open neural tube defects including spina bifida. Ultrasound examination is performed between 11 weeks and 13 weeks gestational age. Blood tests are drawn after the ultrasound and again later in the between 15 and 21 weeks gestational age. Please let your physician know if you are interested in this testing. It will require an appointment with our assessment technician. This is not an ultrasound performed by a physician in our office during a routine visit. SIGNS AND SYMPTOMS OF LABOR 1. Contractions every 10 minutes or more often 2. Clear, pink, or brownish fluid (water) leaking from vagina 3. Feeling that baby is pushing down, pressure 4. Low, dull backache 5. Cramps that feel like a period 6. Cramps with or without diarrhea If you notice any of the above symptoms, contact our office at [phone] and ask to speak with a nurse. After hours, you can call doctors registry at [phone] OR call [facility] at [phone] and ask to have the doctor computational theory scientist paged. If you consider this an emergency, dial 9-6-5 or go to your nearest emergency department. NEED HELP? Are you dealing with a violent or abusive relationship? Are you a victim of rape or sexual assult? Call [facility] ([place]) 24 hour Crisis Hotline: 510.160.8933 or 204-590-8687. MANUAL Your Guide to a Healthy manual is now on-line. Visit [email or web address] [email or web address] to download your free copy Allergies As of Date: 06/12/2024 (No Known Allergies) Date Reviewed: 06/12/2024 Reviewed by: Phani Casiano MA - Fully Assessed Reason for Visit: Care [86] Primary Visit Diagnosis:28 weeks gestation of [Z3A.28] Other Visit Diagnoses:Supervision of high risk in third trimester [O09.93] Dichorionic diamniotic twin in second trimester [O30.042] Prescriptions as of 06/12/2024 - BABY ASPIRIN ORAL Take 81 mg by mouth once daily. - pyridoxine, vitamin B6, (VITAMIN B-6) 50 mg cap Take by mouth. - 25-IRON FVL-NACMQ-AZJ ORAL Take by mouth. - valACYclovir (VALTREX) 500 mg tablet Take 1 tablet by mouth once daily. Problem List As Of Date 06/12/2024 Noted Resolved Myopia [H52.10] 03/08/2016 Genital herpes simplex virus (HSV) infection in*08/26/2022 Seasonal allergies [J30.2] 08/26/2022 Supervision of high risk in first tri*08/28/2023 Dichorionic diamniotic twin in second*02/05/2024 Encounter for supervision of high risk pregnanc*02/05/2024 05/14/2024 24 weeks gestation of [Z3A.24] 04/15/2024 abnormality affecting management of mothe*05/07/2024 Abnormal glucose complicating [O99.81*06/06/2024 Other instructions from your clinician: SEQUENTIAL SCREENINGS The [facility] offers sequential screenings for women who are interested in screenings for chromosomal abnormalities and certain defects during a . The sequential screen combines ultrasound and blood tests to determine the risk of chromosomal abnormalities, including Down's Syndrome (Trisomy 21) and Trisomy 18, as well as open neural tube defects including spina bifida. Ultrasound examination is performed between 11 weeks and 13 weeks gestational (more content not included)... Normal [facility] GLUCOSE GESTATIONAL, 1 HOURo n 06-07-2024 Glucose 1 Hr post Unsp challenge [Mass/Vol] 192 mg/dL High 74-179 [facility] Comment on above: Order Comment: Terra novak Type: BLOOD SPECIMENOrdering Facility: [facility] Address: [address] [place] [address] Result Comment: [facility] Congress of Obstetricians and Gynecologists (Andra/Halina) guidelines state gestational diabetes mellitus is present when 2 or more of the plasma glucose concentrations meet or exceed the following levels: fastin mg/dl, 1 hr: 180 mg/dl, 2 hr: 155 mg/dl, and 3 hr: 140 mg/dl. Performed By: #### G TGST1 ####[facility] LABCLIA [id number] [address] OF [facility] GLUCOSE GESTATIONAL, 2 HOURo n 06-07-2024 Glucose 2 Hr post Unsp challenge [Mass/Vol] 149 mg/dL Normal 74-154 [facility] Comment on above: Order Comment: Terra novak Type: BLOOD SPECIMENOrdering Facility: [facility] Address: [address] [place] [address] Result Comment: [facility] Congress of Obstetricians and Gynecologists (Andra/Halina) guidelines state gestational diabetes mellitus is present when 2 or more of the plasma glucose concentrations meet or exceed the following levels: fastin mg/dl, 1 hr: 180 mg/dl, 2 hr: 155 mg/dl, and 3 hr: 140 mg/dl. Performed By: #### G TGST2 ####[facility] LABCLIA [id number] [place] [address] GLUCOSE GESTATIONAL, 3 HOURo n 06-07-2024 Glucose 3 Hr post Unsp challenge [Mass/Vol] 99 mg/dL Normal 74-139 [facility] Comment on above: Order Comment: Terra novak Type: BLOOD SPECIMENOrdering Facility: [facility] Address: [address] [place] [address] Result Comment: [facility] Congress of Obstetricians and Gynecologists ([place]ou[place]) guidelines state gestational diabetes mellitus is present when 2 or more of the plasma glucose concentrations meet or exceed the following levels: fastin mg/dl, 1 hr: 180 mg/dl, 2 hr: 155 mg/dl, and 3 hr: 140 mg/dl. Performed By: #### G TGST3 ####[facility] LABCLIA [id number] [address] GLUCOSE GESTATIONAL, FASTING on 06-07-2024 Glucose post fast [Mass/Vol] 91 mg/dL Normal 74-94 [facility] Comment on above: Order Comment: Terra novak Type: BLOOD SPECIMENOrdering Facility: [facility] Address: [address] [place] [address] Result Comment: [facility] Congress of Obstetricians and Gynecologists ([place]/Coustan) guidelines state gestational diabetes mellitus is present when 2 or more of the plasma glucose concentrations meet or exceed the following levels: fastin mg/dl, 1 hr: 180 mg/dl, 2 hr: 155 mg/dl, and 3 hr: 140 mg/dl. Performed By: #### G TGSTF ####[facility] LABCLIA [id number] [address] OF [facility] CNPAngely 06-06-2024 CNPN Telephone (OBGYWM) ----- JARVIS KING ([id number]) 1995 F Date Time Provider Department 06/06/24 CONCHA BAIRES OBSAAD During your visit today, we recorded the following information about you: Concha Baires MD 06/06/2024 10:01 AM Signed See result note 3 hr GTT ordered Allergies As of Date: 06/06/2024 (No Known Allergies) Date Reviewed: 06/03/2024 Reviewed by: Elsie Moreno MD - Fully Assessed Reason for Visit: Orders [681] Primary Visit Diagnosis:Abnormal glucose complicating [O99.810] Order(s):GEST GLUC GINI, 3-HR, 100 GM, FASTING [SQGTGST3] Order #: [id number] FUTURE Prescriptions as of 06/06/2024 - BABY ASPIRIN ORAL Take 81 mg by mouth once daily. - pyridoxine, vitamin B6, (VITAMIN B-6) 50 mg cap Take by mouth. - 25-IRON TQE-RUEYF-PZJ ORAL Take by mouth. - valACYclovir (VALTREX) 500 mg tablet Take 1 tablet by mouth once daily. Problem List As Of Date 06/06/2024 Noted Resolved Myopia [H52.10] 03/08/2016 Genital herpes simplex virus (HSV) infection in*08/26/2022 Seasonal allergies [J30.2] 08/26/2022 Supervision of high risk in first tri*08/28/2023 Dichorionic diamniotic twin in second*02/05/2024 Encounter for supervision of high risk pregnanc*02/05/2024 05/14/2024 24 weeks gestation of [Z3A.24] 04/15/2024 abnormality affecting management of mothe*05/07/2024 Abnormal glucose complicating [O99.81*06/06/2024 Encounter Status:Closed by CONCHA BAIRES on 06/06/24 Normal [facility] [place] 06-05-2024 CNPN Telephone (OBGYWM) ----- CHRISTINEJARVIS R ([id number]) 1995 F Date Time Provider Department 06/05/24 REBECCA FONTANEZ During your visit today, we recorded the following information about you: Malika Gaytan RN 06/05/2024 3:06 PM Signed ----- Message from Rebecca Fontanez APRN.CNM sent at 06/05/2024 1:08 PM EDT ----- Reviewed, please update PN record. Repeat in 4 weeks. MADELAINE Giraldo Tara, RN 06/05/2024 3:06 PM Signed Left message for patient to call office. Pt needs ultrasound scheduled in 4 weeks. KAYLEN Townsend Jennifer, RN 06/05/2024 3:15 PM Signed Patient notified. US scheduled. Elsie Lauren RN Allergies As of Date: 06/05/2024 (No Known Allergies) Date Reviewed: 06/03/2024 Reviewed by: Elsie Moreno MD - Fully Assessed Prescriptions as of 06/05/2024 - BABY ASPIRIN ORAL Take 81 mg by mouth once daily. - pyridoxine, vitamin B6, (VITAMIN B-6) 50 mg cap Take by mouth. - 25-IRON OHI-JUSMN-BOJ ORAL Take by mouth. - valACYclovir (VALTREX) 500 mg tablet Take 1 tablet by mouth once daily. Problem List As Of Date 06/05/2024 Noted Resolved Myopia [H52.10] 03/08/2016 Genital herpes simplex virus (HSV) infection in*08/26/2022 Seasonal allergies [J30.2] 08/26/2022 Supervision of high risk in first tri*08/28/2023 Dichorionic diamniotic twin in second*02/05/2024 Encounter for supervision of high risk pregnanc*02/05/2024 05/14/2024 24 weeks gestation of [Z3A.24] 04/15/2024 abnormality affecting management of mothe*05/07/2024 Encounter Status:Closed by ELSIE LAUREN on 06/05/24 Normal [facility] CBC W Auto Differential pane l (Bld)on 06-03-2024 Basophils (Bld) [#/Vol] 0.03 10*3/uL Normal <0.11 [facility] Comment on above: Order Comment: Speci men Type: BLOOD SPECIMENOrdering Facility: [facility] Address: [address] [place] [address] Performed By: #### 5 7021-8 ####[facility] LABCLIA [id number] [place] [address] [place] Basophils/100 WBC (Bld) 0.3 % Normal [facility] Comment on above: Order Comment: Speci men Type: BLOOD SPECIMENOrdering Facility: [facility] Address: [address] [place] [address] Performed By: #### 5 7021-8 ####[facility] LABCLIA [id number] [place] [address] [place] Differential cell count method Nom (Bld) Auto Normal [facility] Comment on above: Order Comment: Speci men Type: BLOOD SPECIMENOrdering Facility: [facility] Address: [address] [place] [address] Performed By: #### 5 7021-8 ####[facility] LABCLIA [id number] [place] [address] [place] Eosinophils (Bld) [#/Vol] 0.09 10*3/uL Normal <0.46 [facility] Comment on above: Order Comment: Speci men Type: BLOOD SPECIMENOrdering Facility: [facility] Address: [address] [place] [address] Performed By: #### 5 7021-8 ####[facility] LABCLIA [id number] [place] [address] [place] Eosinophils/100 WBC (Bld) 1.0 % Normal [facility] Comment on above: Order Comment: Speci men Type: BLOOD SPECIMENOrdering Facility: [facility] Address: [address] [place] [address] Performed By: #### 5 7021-8 ####[facility] LABIA [id number] [place] [address] [place] Erythrocyte distribution width (RBC) [Ratio] 12.4 % Normal 11.5-15.0 [facility] Comment on above: Order Comment: Speci men Type: BLOOD SPECIMENOrdering Facility: [facility] Address: [address] [place] [address] Performed By: #### 5 7021-8 ####[facility] LABIA [id number] [place] [address] [place] Hematocrit (Bld) [Volume fraction] 34.4 % Low 36.0-46.0 [facility] Comment on above: Order Comment: Speci men Type: BLOOD SPECIMENOrdering Facility: [facility] Address: [address] [place] [address] Performed By: #### 5 7021-8 ####[facility] [id number] [place] [address] [place] Hemoglobin (Bld) [Mass/Vol] 11.3 g/dL Low 11.5-15.5 [facility] Comment on above: Order Comment: Speci men Type: BLOOD SPECIMENOrdering Facility: [facility] Address: [address] [place] [address] Performed By: #### 5 7021-8 ####[facility] LABIA [id number] [place] [address] [place] Immature granulocytes (Bld) [#/Vol] 0.19 10*3/uL High <0.10 [facility] Comment on above: Order Comment: Speci men Type: BLOOD SPECIMENOrdering Facility: [facility] Address: [address] [place] [address] Performed By: #### 5 7021-8 ####[facility] LABCLIA [id number] [place] [address] [place] Immature granulocytes/100 WBC (Bld) 2.1 % Normal [facility] Comment on above: Order Comment: Speci men Type: BLOOD SPECIMENOrdering Facility: [facility] Address: [address] [place] [address] Performed By: #### 5 7021-8 ####[facility] LABCLIA [id number] [place] [address] [place] Lymphocytes (Bld) [#/Vol] 1.71 10*3/uL Normal 1.00-4.00 [facility] Comment on above: Order Comment: Speci men Type: BLOOD SPECIMENOrdering Facility: [facility] Address: [address] [place] [address] Performed By: #### 5 7021-8 ####[facility] LABCLIA [id number] [place] [address] [place] Lymphocytes/100 WBC (Bld) 18.8 % Normal [facility] Comment on above: Order Comment: Speci men Type: BLOOD SPECIMENOrdering Facility: [facility] Address: [address] [place] [address] Performed By: #### 5 7021-8 ####[facility] LABCLIA [id number] [place] [address] [place] MCH (RBC) [Entitic mass] 31.6 pg Normal 26.0-34.0 [facility] Comment on above: Order Comment: Speci men Type: BLOOD SPECIMENOrdering Facility: [facility] Address: [address] [place] [address] Performed By: #### 5 7021-8 ####[facility] LABCLIA [id number] [place] [address] [place] MCHC (RBC) [Mass/Vol] 32.8 g/dL Normal 30.5-36.0 [facility] Comment on above: Order Comment: Speci men Type: BLOOD SPECIMENOrdering Facility: [facility] Address: [address] [place] [address] Performed By: #### 5 7021-8 ####[facility] LABIA [id number] [place] [address] [place] MCV (RBC) [Entitic vol] 96.1 fL Normal 80.0-100.0 [facility] Comment on above: Order Comment: Speci men Type: BLOOD SPECIMENOrdering Facility: [facility] Address: [address] [place] [address] Performed By: #### 5 7021-8 ####[facility] LABIA [id number] [place] [address] [place] Monocytes (Bld) [#/Vol] 0.96 10*3/uL High <0.87 [facility] Comment on above: Order Comment: Speci men Type: BLOOD SPECIMENOrdering Facility: [facility] Address: [address] [place] [address] Performed By: #### 5 7021-8 ####[facility] LABIA [id number] [place] [address] [place] Monocytes/100 WBC (Bld) 10.6 % Normal [facility] Comment on above: Order Comment: Speci men Type: BLOOD SPECIMENOrdering Facility: [facility] Address: [address] [place] [address] Performed By: #### 5 7021-8 ####[facility] LABIA [id number] [place] [address] [place] Neutrophils (Bld) [#/Vol] 6.10 10*3/uL Normal 1.45-7.50 [facility] Comment on above: Order Comment: Speci men Type: BLOOD SPECIMENOrdering Facility: [facility] Address: [address] [place] [address] Performed By: #### 5 7021-8 ####[facility] LABCLIA [id number] [place] [address] [place] Neutrophils/100 WBC (Bld) 67.2 % Normal [facility] Comment on above: Order Comment: Speci men Type: BLOOD SPECIMENOrdering Facility: [facility] Address: [address] [place] [address] Performed By: #### 5 7021-8 ####[facility] LABCLIA [id number] [place] [address] [place] Nucleated RBC (Bld) [#/Vol] 10*3/uL Normal <0.01 [facility] Comment on above: Order Comment: Speci men Type: BLOOD SPECIMENOrdering Facility: [facility] Address: [address] [place] [address] Performed By: #### 5 7021-8 ####[facility] LABIA [id number] [place] [address] [place] Nucleated RBC/100 WBC (Bld) [Ratio] 0.0 /100 WBC Normal [facility] Comment on above: Order Comment: Speci men Type: BLOOD SPECIMENOrdering Facility: [facility] Address: [address] [place] [address] Performed By: #### 5 7021-8 ####[facility] LABIA [id number] [place] [address] [place] Platelet mean volume (Bld) [Entitic vol] 10.9 fL Normal 9.0-12.7 [facility] Comment on above: Order Comment: Speci men Type: BLOOD SPECIMENOrdering Facility: [facility] Address: [address] [place] [address] Performed By: #### 5 7021-8 ####[facility] LABIA [id number] [place] [address] [place] Platelets (Bld) [#/Vol] 201 10*3/uL Normal 150-400 [facility] Comment on above: Order Comment: Speci men Type: BLOOD SPECIMENOrdering Facility: [facility] Address: [address] [place] [address] Performed By: #### 5 7021-8 ####[facility] LABCLIA [id number] [place] [address] [place] RBC (Bld) [#/Vol] 3.58 10*6/uL Low 3.90-5.20 [facility] Comment on above: Order Comment: Speci men Type: BLOOD SPECIMENOrdering Facility: [facility] Address: [address] [place] [address] Performed By: #### 5 7021-8 ####[facility] LABCLIA [id number] [place] [address] [place] WBC (Bld) [#/Vol] 9.08 10*3/uL Normal 3.70-11.00 [facility] Comment on above: Order Comment: Speci men Type: BLOOD SPECIMENOrdering Facility: [facility] Address: [address] [place] [address] Performed By: #### 5 7021-8 ####[facility] LABCLIA [id number] [place] [id number] [place] Examination level ultrasound on 06-03-2024 [facility] Radiology Study observation (narrative) [facility] GESTATIONAL GLUCOSE SCREEN, 1-HOUR, 50 GRAM, NON-FASTINGon 06-03-2024 Glucose [Mass/Vol] 174 mg/dL High 74-134 [facility] Comment on above: Order Comment: Speci men Type: BLOOD SPECIMENOrdering Facility: [facility] Address: [address] [place] [address] Result Comment: [facility] Congress of Obstetricians and Gynecologists (Andra/Halina) guidelines state a gestational diabetes mellitus positive screen is made, in women not previously diagnosed with overt diabetes, when the 1 hr plasma glucose level is equal to or above 140 mg/dL. The [facility] Peer Specialist and [facility] recommends a 135 mg/dL cutoff. Performed By: #### G LTGST ####[facility] LABIA [id number] [place] [address] [place] Reagin and Treponema pallidu m IgG and IgM [Interp]on 06-03-2024 T. pallidum IgG+IgM IA Ql (S) Non-Reactive Normal Nonreactive [facility] Comment on above: Order Comment: Speci men Type: BLOOD SPECIMENOrdering Facility: [facility] Address: [address] [place] [address] Performed By: #### 7 3752-8 ####[facility] LABIA [id number] [place] [address] [place] Reagin+T pallidum IgG+IgM Se rPl-Impon 06-03-2024 Reagin and Treponema pallidum IgG and IgM [Interp] Cannot exclude recent Treponemal infection if specimen collected within 7-10 days after appearance of suspect lesions or 2-3 weeks after an exposure. Clinical correlation is required. Normal [facility] Comment on above: Order Comment: Speci men Type: BLOOD SPECIMENOrdering Facility: [facility] Address: [address] [place] [address] Performed By: #### 7 3752-8 ####[facility] [id number] [place] [address] [place] Examination level ultrasound on 05-15-2024 Indication DCDA twins, Limited scan Impression 29 yo at 24w2d presenting for follow up in the setting of DCDA twins. Anatomy scan completed previously with concern on last growth 1 week ago for possible enlarged PA on 3VV in Twin B. Now s/p unremarkable echoes. - Live, dichorionic/diamniotic twin intrauterine . - Normal amniotic fluid volume with an MVP of 5.3 cm for Fetus A and 5.2 cm for Fetus B. - The placenta is anterior, fundal for Fetus A and posterior, fundal for Fetus B. - No malformations visualized on a limited survey as detailed below. Recommendations Continue serial growth scans every 4 weeks. Maternal Assessment Height 165 cm Height (ft) 5 ft Height (in) 5 in Physical Exam Initial weight (lb) 148 lb Initial BMI 24.63 kg/m Maternal assessment other: 2 Para 0 Fetus A: Growth Overview Exam date GA BPD (mm) HC (mm) AC (mm) FL (mm) HL (mm) EFW (g) 04/08/2024 19w 1d 44.8 68% 163.3 46% 135.1 40% 27.3 33% 26.5 23% 253 22% 05/06/2024 23w 1d 55.7 39% 203.8 30% 187.2 53% 37 17% 528 24% Fetus B: Growth Overview Exam date GA BPD (mm) HC (mm) AC (mm) FL (mm) HL (mm) EFW (g) 04/08/2024 19w 1d 43.7 54% 161.5 42% 140.4 55% 29.1 59% 26.9 28% 276 44% 05/06/2024 23w 1d 57.5 63% 207.8 40% 182.2 38% 40.2 60% 553 35% Method Transabdominal ultrasound examination Twin . Number of fetuses: 2. Dichorionic-diamniotic Dating GA by prior assessment 24 w + 2 d LIZZY by prior assessment: 09/01/2024 Assigned: based on stated LIZZY, selected on 05/14/2024 Assigned GA 24 w + 2 d Assigned LIZZY: 09/01/2024 Fetus A: General Evaluation Cardiac activity present. FHR 153 bpm. movements: present. Presentation: cephalic, maternal right Placenta: Placental site: anterior, fundal Umbilical cord: Cord vessels: 3 vessel cord Amniotic fluid: Amount of AF: normal amount. MVP 5.3 cm Fetus B: General Evaluation Cardiac activity present. FHR 151 bpm. movements: present. Presentation: cephalic, maternal left Placenta: Placental site: posterior, fundal Umbilical cord: Cord vessels: 3 vessel cord Amniotic fluid: Amount of AF: normal amount. MVP 5.2 cm Fetus A: Biometry Standard EFW by: Hadlock (HC-AC-FL) Extended Inventory Accountant 6.5 mm Other Structures FHR 153 bpm Fetus B: Biometry Standard EFW by: Hadlock (HC-AC-FL) Extended Inventory Accountant 4.9 mm Other Structures FHR 151 bpm Performed By: Leatha Pickett RDMS, RVT Read By: Stephanie Barrera MD. MATERNAL MEDICINE [facility] CNOVon 05-14-2024 CNOV Office Visit (OBGYWM ) ----- JARVIS KING ([id number]) 1995 F Date Time Provider Department 05/14/24 2:30 PM REBECCA FONTANEZ OBBARTWCeleste During your visit today, we recorded the following information about you: Blood pressure Weight 114/56 77.5 kg Phani Casiano MA 05/14/2024 1:17 PM Signed SEQUENTIAL SCREENINGS The [facility] offers sequential screenings for women who are interested in screenings for chromosomal abnormalities and certain defects during a . The sequential screen combines ultrasound and blood tests to determine the risk of chromosomal abnormalities, including Down's Syndrome (Trisomy 21) and Trisomy 18, as well as open neural tube defects including spina bifida. Ultrasound examination is performed between 11 weeks and 13 weeks gestational age. Blood tests are drawn after the ultrasound and again later in the between 15 and 21 weeks gestational age. Please let your physician know if you are interested in this testing. It will require an appointment with our assessment technician. This is not an ultrasound performed by a physician in our office during a routine visit. SIGNS AND SYMPTOMS OF LABOR 1. Contractions every 10 minutes or more often 2. Clear, pink, or brownish fluid (water) leaking from vagina 3. Feeling that baby is pushing down, pressure 4. Low, dull backache 5. Cramps that feel like a period 6. Cramps with or without diarrhea If you notice any of the above symptoms, contact our office at [phone] and ask to speak with a nurse. After hours, you can call doctors registry at [phone] OR call [facility] at [phone] and ask to have the doctor computational theory scientist paged. If you consider this an emergency, dial 6-1-5 or go to your nearest emergency department. NEED HELP? Are you dealing with a violent or abusive relationship? Are you a victim of rape or sexual assult? Call [facility] ([place]) 24 hour Crisis Hotline: 695.988.6639 or 890-794-2005. MANUAL Your Guide to a Healthy manual is now on-line. Visit [email or web address] to download your free copy Rebecca Fontanez APRN.CNM 05/14/2024 4:03 PM Signed Rebecca Doll APRN.CNM 05/14/2024 4:03 PM Signed [facility] #[facility] S: Jarvis King is a 29 year old female who presents at 24w2d with LIZZY:09/01/2024, by Ultrasound for a routine visit. Denies headache, visual changes, chest pain, shortness of breath, vaginal bleeding, leakage of fluid, or dysuria. Feeling well, no complaints. O: See flow sheet Gen: No apparent distress Abd: Gravid, nontender S=D, 22 lb TWG US today, awaiting on formal results. ASSESSMENT/PLAN: 1. Encounter for supervision of high risk in second trimester, antepartum -CBC, RPR, and 1hr GCT next visit -Started ASA 81mg PO once daily -Recommend signing up for CBE and classes. 2. Dichorionic diamniotic twin in second trimester -MFM consult today -Growth ultrasound every 4 weeks at 24 weeks -Weekly NST at 36 weeks 3. 24 weeks gestation of 4. 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 -Recommend increasing to 500mg PO BID at 36 weeks. 5. abnormality affecting management of mother, fetus 2 of multiple gestation - echo normal, no further follow up -PTL precautions reviewed and when to call -RTO in 4 weeks Rebecca Fontanez APRN.CNM Allergies As of Date: 05/14/2024 (No Known Allergies) Date Reviewed: 05/14/2024 Reviewed by: Phani Casiano MA - Fully Assessed Reason for Visit: Care [86] Primary Visit Diagnosis:Encounter for supervision of high risk in second trimester, antepartum [O09.92] Other Visit Diagnoses:Dichorionic diamniotic twin in second trimester [O30.042] 24 weeks gestation of [Z3A.24] Genital herpes simplex virus (HSV) infection in mother affecting [O98.319, A60.09] abnormality affecting management of mother, fetus 2 of multiple gestation [O35.9XX2] Order(s): NON-STRESS TEST [[id number]] Order #: [id number] STANDING Prescriptions as of 05/14/2024 - BABY ASPIRIN ORAL Take 81 mg by mouth once daily. - pyridoxine, vitamin B6, (VITAMIN B-6) 50 mg cap Take by mouth. - 25-IRON CON-LHMKN-[id number] ORAL Take by mouth. - valACYclovir (VALTREX) 500 mg tablet Take 1 tablet by mouth once daily. Problem List As Of Date 05/14/2024 Noted Resolved Myopia [H52.10] 03/08/2016 Genital herpes simplex virus (HSV) infection in*08/26/2022 Seasonal allergies [J30.2] 08/26/2022 Supervision of high risk in first tri*08/28/2023 Dichorionic diamniotic twin in second*02/05/2024 Encounter for supervision of high risk pregnanc*02/05/2024 05/14/2024 (more content not included)... Normal [facility] Examination level ultrasound on 05-14-2024 Radiology Study observation (narrative) [facility] Examination level ultrasound on 05-06-2024 [facility] Radiology Study observation (narrative) [facility] CNOVon 04-15-2024 CNOV Office Visit (OBGYWM ) ----- JARVIS KING ([id number]) 1995 F Date Time Provider Department 04/15/24 2:30 PM BLANCA SKELTON During your visit today, we recorded the following information about you: Blood pressure Weight 108/64 74.4 kg Phani Casiano MA 04/15/2024 2:29 PM Signed SEQUENTIAL SCREENINGS The [facility] offers sequential screenings for women who are interested in screenings for chromosomal abnormalities and certain defects during a . The sequential screen combines ultrasound and blood tests to determine the risk of chromosomal abnormalities, including Down's Syndrome (Trisomy 21) and Trisomy 18, as well as open neural tube defects including spina bifida. Ultrasound examination is performed between 11 weeks and 13 weeks gestational age. Blood tests are drawn after the ultrasound and again later in the between 15 and 21 weeks gestational age. Please let your physician know if you are interested in this testing. It will require an appointment with our assessment technician. This is not an ultrasound performed by a physician in our office during a routine visit. SIGNS AND SYMPTOMS OF LABOR 1. Contractions every 10 minutes or more often 2. Clear, pink, or brownish fluid (water) leaking from vagina 3. Feeling that baby is pushing down, pressure 4. Low, dull backache 5. Cramps that feel like a period 6. Cramps with or without diarrhea If you notice any of the above symptoms, contact our office at [phone] and ask to speak with a nurse. After hours, you can call doctors registry at [phone] OR call [facility] at [phone] and ask to have the doctor computational theory scientist paged. If you consider this an emergency, dial 1-6-2 or go to your nearest emergency department. NEED HELP? Are you dealing with a violent or abusive relationship? Are you a victim of rape or sexual assult? Call [facility] ([place]) 24 hour Crisis Hotline: 337.156.2502 or 002-462-3930. MANUAL Your Guide to a Healthy manual is now on-line. Visit [email or web address] to download your free copy Blanca Skelton APRN.CNM 04/15/2024 4:46 PM Signed [facility] #2 S: Jarvis King is a 29 year old female who presents at 20 weeks gestation for SHARATH / Centering group. Feeling good. Appetite increased. No movement to date and sometimes feels panic due to not feeling movement. Reassurance provided. Denies headache, visual changes, chest pain, shortness of breath, vaginal bleeding, leakage of fluid, or dysuria. Feeling well, no complaints. O: See flow sheet Gen: No apparent distress Abd: Gravid, non tender ASSESSMENT/PLAN: 1. 20 weeks gestation of - ICD9: V22.2, ICD10: Z3A.20 (primary diagnosis) 2. Dichorionic diamniotic twin in second trimester - ICD9: 651.03, V91.03, ICD10: O30.042 3. Encounter for supervision of high risk in second trimester, antepartum - ICD9: V23.9, ICD10: O09.92 - Reviewed anatomy US results with patient and - PTL precautions reviewed and when to call - RTO 4 weeks or sooner if needed Blanca Skelton APRN.CNM Allergies As of Date: 04/15/2024 (No Known Allergies) Date Reviewed: 04/08/2024 Reviewed by: Melina Wilson MA - Fully Assessed Reason for Visit: Care [86] Primary Visit Diagnosis:20 weeks gestation of [Z3A.20] Other Visit Diagnoses:Dichorionic diamniotic twin in second trimester [O30.042] Encounter for supervision of high risk in second trimester, antepartum [O09.92] Genital herpes simplex virus (HSV) infection in mother affecting [O98.319, A60.09] Prescriptions as of 04/15/2024 - pyridoxine, vitamin B6, (VITAMIN B-6) 50 mg cap Take by mouth. - 25-IRON OZZ-[id number] ORAL Take by mouth. - valACYclovir (VALTREX) 500 mg tablet Take 1 tablet by mouth once daily. - CARBOXYMETHYLCELLULOSE SODIUM (REFRESH OPHTHALMIC) Use in eyes as needed. occ. use - White Petrolatum-Mineral Oil (REFRESH PM) 57.3-42.5 % ointment Use in both eyes at bedtime as needed. Problem List As Of Date 04/15/2024 Noted Resolved Myopia [H52.10] 03/08/2016 Genital herpes simplex virus (HSV) infection in*08/26/2022 Seasonal allergies [J30.2] 08/26/2022 Supervision of high risk in first tri*08/28/2023 Dichorionic diamniotic twin in second*02/05/2024 Encounter for supervision of high risk pregnanc*02/05/2024 20 weeks gestation of [Z3A.20] 04/15/2024 Other instructions from your clinician: SEQUENTIAL SCREENINGS The [facility] offers sequential screenings for women who are interested in screenings for chromosomal abnormalities and certain defects during a . The sequential screen combines ultrasound and blood tests to determine the risk o (more content not included)... Normal [facility] ALPHA FETOPRO MATERNALon AFP, MATERNAL 0.60 MoM Normal [facility] Comment on above: Order Comment: Speci men Type: BLOOD SPECIMENOrdering Facility: [facility] Address: [address] [place] [address] Result Comment: 65.5 7 ng/mL Performed By: #### A FPMAT ####[facility] LABCLIA [id number] [place] [id number] [place] DATE OF COLLECTION #1 04/08/24 Normal [facility] Comment on above: Order Comment: Speci men Type: BLOOD SPECIMENOrdering Facility: [facility] Address: [address] [place] [address] Performed By: #### A FPMAT ####[facility] LABCLIA [id number] [place] [id number] [place] DATE RECEIVED 04/09/24 [facility] Comment on above: Order Comment: Speci men Type: BLOOD SPECIMENOrdering Facility: [facility] Address: [address] [place] [address] Performed By: #### A FPMAT ####[facility] LABCLIA [id number] [place] [id number] [place] LIZZY 09/01/24 Normal [facility] Comment on above: Order Comment: Speci men Type: BLOOD SPECIMENOrdering Facility: [facility] Address: [address] [place] [address] Performed By: #### A FPMAT ####[facility] LABCLIA [id number] [place] [address] [place] [place] GESTATION AT DATE OF SAMPLE 19 weeks 1 days (by scan) Normal [facility] Comment on above: Order Comment: Speci men Type: BLOOD SPECIMENOrdering Facility: [facility] Address: [address] [place] [address] Performed By: #### A FPMAT ####[facility] LABCLIA [id number] [place] [address] [place] INSULIN DEPENDENT DIABETES None Normal [facility] Comment on above: Order Comment: Surendrai men Type: BLOOD SPECIMENOrdering Facility: [facility] Address: [address] [place] [address] Performed By: #### A FPMAT ####[facility] LABCLIA [id number] [place] [address] [place] IVF No Normal [facility] Comment on above: Order Comment: Terra novak Type: BLOOD SPECIMENOrdering Facility: [facility] Address: [address] [place] [address] Performed By: #### A FPMAT ####[facility] LABCLIA [id number] [place] [address] [place] MATERNAL AFP COMMENT See comments below Normal [facility] Comment on above: Order Comment: Speci men Type: BLOOD SPECIMENOrdering Facility: [facility] Address: [address] [place] [address] Result Comment: INTE RPRETATION Screening result : Screen negative Risk of NTD : 1 in 1,700 Comment : The interpretation is for NTD only A screen negative result does not exclude the possibility of a neural tube defect, because screening does not detect all affected pregnancies Performed By: #### A FPMAT ####[facility] LABCLIA [id number] [place] [address] [place] MATERNAL AGE AT LIZZY 29 years Normal [facility] Comment on above: Order Comment: Speci men Type: BLOOD SPECIMENOrdering Facility: [facility] Address: [address] [place] [address] Performed By: #### A FPMAT ####[facility] LABIA [id number] [place] [address] [place] PATIENT'S WEIGHT DAY OF COLLECTION 159 lb. Normal [facility] Comment on above: Order Comment: Terra novak Type: BLOOD SPECIMENOrdering Facility: [facility] Address: [address] [place] [address] Performed By: #### A FPMAT ####[facility] LABCLIA [id number] [place] [address] [place] INTERP-MATERNAL AFP Negative Normal Screen Negative [facility] Comment on above: Order Comment: Terra novak Type: BLOOD SPECIMENOrdering Facility: [facility] Address: [address] [place] [address] Performed By: #### A FPMAT ####[facility] LABCLIA [id number] [place] [address] [place] PREVIOUS NTD None Normal [facility] Comment on above: Order Comment: Terra novak Type: BLOOD SPECIMENOrdering Facility: [facility] Address: [address] [place] [address] Performed By: #### A FPMAT ####[facility] LABCLIA [id number] [place] [address] [place] RISK OF NTD ;1:1700 Normal [facility] Comment on above: Order Comment: Speci men Type: BLOOD SPECIMENOrdering Facility: [facility] Address: [address] [place] [address] Performed By: #### A FPMAT ####[facility] LABIA [id number] [address] SAMPLE #1 [id number] Normal [facility] Comment on above: Order Comment: Speci men Type: BLOOD SPECIMENOrdering Facility: [facility] Address: [address] [place] [address] Performed By: #### A FPMAT ####[facility] [id number] [address] STAFF REVIEW (MATERNAL SCREENS) Reviewed by Aron Gruber MD, Ph.D ([id number]) Normal [facility] Comment on above: Order Comment: Speci men Type: BLOOD SPECIMENOrdering Facility: [facility] Address: [address] [place] [address] Performed By: #### A FPMAT ####[facility] [id number] [address] CNPAngely 04-05-2024 CNPN Telephone (OBGYWM) ----- JARVIS KING ([id number]) 1995 F Date Time Provider Department 04/05/24 BLANCA SKELTON During your visit today, we recorded the following information about you: Sophie Cadena RN 04/05/2024 4:25 PM Signed Please file anatomy u/s order. Patient is scheduled on Monday. Sophie Cadena RN Allergies As of Date: 04/05/2024 (No Known Allergies) Date Reviewed: 03/20/2024 Reviewed by: Phani Casiano MA - Fully Assessed Reason for Visit: Orders [681] Primary Visit Diagnosis:Dichorionic diamniotic twin in second trimester [O30.042] Order(s):OBSTETRIC ULTRASOUND [facility] [[id number]] Order #: [id number]: 1 FUTURE Prescriptions as of 04/05/2024 - pyridoxine, vitamin B6, (VITAMIN B-6) 50 mg cap Take by mouth. - 25-IRON VTW-UVRSH-IVT ORAL Take by mouth. - valACYclovir (VALTREX) 500 mg tablet Take 1 tablet by mouth once daily. - CARBOXYMETHYLCELLULOSE SODIUM (REFRESH OPHTHALMIC) Use in eyes as needed. occ. use - White Petrolatum-Mineral Oil (REFRESH PM) 57.3-42.5 % ointment Use in both eyes at bedtime as needed. Problem List As Of Date 04/05/2024 Noted Resolved Myopia [H52.10] 03/08/2016 Genital herpes simplex virus (HSV) infection in*08/26/2022 Seasonal allergies [J30.2] 08/26/2022 Supervision of high risk in first tri*08/28/2023 Dichorionic diamniotic twin in first *02/05/2024 Encounter for supervision of high risk pregnanc*02/05/2024 Encounter Status:Closed by BLANCA SKELTON on 04/05/24 [facility] CNOVon 03-20-2024 CNOV Office Visit (OBGYWM ) ----- JARVIS KING ([id number]) 1995 F Date Time Provider Department 03/20/24 2:30 PM BLANCA SKELTON OBGYWM During your visit today, we recorded the following information about you: Blood pressure Weight 116/64 72 kg Phani Casiano MA 03/20/2024 2:34 PM Signed SEQUENTIAL SCREENINGS The [facility] offers sequential screenings for women who are interested in screenings for chromosomal abnormalities and certain defects during a . The sequential screen combines ultrasound and blood tests to determine the risk of chromosomal abnormalities, including Down's Syndrome (Trisomy 21) and Trisomy 18, as well as open neural tube defects including spina bifida. Ultrasound examination is performed between 11 weeks and 13 weeks gestational age. Blood tests are drawn after the ultrasound and again later in the between 15 and 21 weeks gestational age. Please let your physician know if you are interested in this testing. It will require an appointment with our assessment technician. This is not an ultrasound performed by a physician in our office during a routine visit. SIGNS AND SYMPTOMS OF LABOR 1. Contractions every 10 minutes or more often 2. Clear, pink, or brownish fluid (water) leaking from vagina 3. Feeling that baby is pushing down, pressure 4. Low, dull backache 5. Cramps that feel like a period 6. Cramps with or without diarrhea If you notice any of the above symptoms, contact our office at [phone] and ask to speak with a nurse. After hours, you can call doctors registry at [phone] OR call [facility] at [phone] and ask to have the doctor computational theory scientist paged. If you consider this an emergency, dial 9-5-0 or go to your nearest emergency department. NEED HELP? Are you dealing with a violent or abusive relationship? Are you a victim of rape or sexual assult? Call [facility] ([place]) 24 hour Crisis Hotline: 605.328.5630 or 343-819-7244. MANUAL Your Guide to a Healthy manual is now on-line. Visit [email or web address] to download your free copy Blanca Skelton APRN.CNM 03/20/2024 4:07 PM Signed CP CENTERING #1 S: Jarvis King is a 29 year old female who presents at 16.3 weeks gestation for a routine visit. Last visit 4 weeks ago and had ultrasound. No movement to date. Appetite improving. Denies headache, visual changes, chest pain, shortness of breath, vaginal bleeding, leakage of fluid, or dysuria. Feeling well, no complaints. O: See flow sheet Gen: No apparent distress Abd: Gravid, nontender ASSESSMENT/PLAN: 1. Dichorionic diamniotic twin in second trimester - ICD9: 651.03, V91.03, ICD10: O30.042 (primary diagnosis) 2. 16 weeks gestation of - ICD9: V22.2, ICD10: Z3A.16 P: 1) PTL precautions reviewed and when to call 2) RTO 4 weeks for anatomy US and SHARATH Skelton APRN.CNM Allergies As of Date: 03/20/2024 (No Known Allergies) Date Reviewed: 03/20/2024 Reviewed by: Phani Casiano MA - Fully Assessed Reason for Visit: Care [86] Primary Visit Diagnosis:Dichorionic diamniotic twin in second trimester [O30.042] Other Visit Diagnosis:16 weeks gestation of [Z3A.16] Prescriptions as of 03/20/2024 - pyridoxine, vitamin B6, (VITAMIN B-6) 50 mg cap Take by mouth. - 25-IRON BSE-OZEGI-ADY ORAL Take by mouth. - valACYclovir (VALTREX) 500 mg tablet Take 1 tablet by mouth once daily. - CARBOXYMETHYLCELLULOSE SODIUM (REFRESH OPHTHALMIC) Use in eyes as needed. occ. use - White Petrolatum-Mineral Oil (REFRESH PM) 57.3-42.5 % ointment Use in both eyes at bedtime as needed. Problem List As Of Date 03/20/2024 Noted Resolved Myopia [H52.10] 03/08/2016 Genital herpes simplex virus (HSV) infection in*08/26/2022 Seasonal allergies [J30.2] 08/26/2022 Supervision of high risk in first tri*08/28/2023 Dichorionic diamniotic twin in first *02/05/2024 Encounter for supervision of high risk pregnanc*02/05/2024 Other instructions from your clinician: SEQUENTIAL SCREENINGS The [facility] offers sequential screenings for women who are interested in screenings for chromosomal abnormalities and certain defects during a . The sequential screen combines ultrasound and blood tests to determine the risk of chromosomal abnormalities, including Down's Syndrome (Trisomy 21) and Trisomy 18, as well as open neural tube defects including spina bifida. Ultrasound examination is performed between 11 weeks and 13 weeks gestational age. Blood tests are drawn after the ultrasound and again later in the between 15 and 21 weeks gestational age. Please let your physician know if you are interested in this testing. It will require an appointment with our ul (more content not included)... Normal [facility] [id number] PLUSon 02-20-2024 Cell-free DNA./Cell-fiordaliza e DNA.total Dosage of chromosome-specifi c cfDNA (cfDNA) [Molar fraction] Normal [facility] Comment on above: Order Comment: Speci men Type: BLOOD SPECIMENOrdering Facility: [facility] Address: [address] [place] [address] Performed By: #### M AT21, [id number], MAT21C ####[facility] LABCLIA [id number] [place] [address] Chr 13+18+21+X+Y aneuploidy Dosage of chromosome-specifi c cfDNA Ql (cfDNA) Abnormal [facility] Comment on above: Order Comment: Speci men Type: BLOOD SPECIMENOrdering Facility: [facility] Address: [address] [place] [address] Result Comment: Test not performed. Performed By: #### M AT21, [id number], MAT21C ####[facility] LABCLIA [id number] [place] [address] Citation Jose Alfredo (Reference lab test) TNP Normal [facility] Comment on above: Order Comment: Speci men Type: BLOOD SPECIMENOrdering Facility: [facility] Address: [address] [place] [address] Result Comment: 1. P yadiel ROMERO, et al. Claudette Med. 2012;14(3):296-305. 2. Radha TATE, et al. Prenat Diag. 2013;33(6):591-597. 3. Estrada Young et al. Clin Chem. 2015 Apr;61(4):608-616. 4. Olman ROMERO, et al. Claudette Med. 2011;13(11):913-920. 5. ACOG/SMFM Practice Bulletin No. 226, Jul 2020. Performed By: #### M AT21, [id number], MAT21C ####[facility] LABCLIA [id number] [place] [address] Gestational age Estimated from conception date Twins Normal [facility] Comment on above: Order Comment: Speci scarlet Type: BLOOD SPECIMENOrdering Facility: [facility] Address: [address] [place] [address] Performed By: #### M AT21, [id number], MAT21C ####[facility] LABCLIA [id number] [place] [address] GESTATIONALAGE AGE > OR = 9W Yes Normal [facility] Comment on above: Order Comment: Terra novak Type: BLOOD SPECIMENOrdering Facility: [facility] Address: [address] [place] [address] Performed By: #### M AT21, [id number], MAT21C ####[facility] LABCLIA [id number] [place] [address] Laboratory comment Jose Alfredo (Report) [facility] Comment on above: Order Comment: Terra novak Type: BLOOD SPECIMENOrdering Facility: [facility] Address: [address] [place] [address] Result Comment: The MaterniT(R) 21 PLUS laboratory-developed test (LDT) analyzes circulating cell-free DNA from a maternal blood sample. This test is used for screening purposes and not diagnostic. Clinical correlation is recommended. Validation data on twin pregnancies is limited and the ability of this test to detect aneuploidy in higher multiple gestations has not yet been validated. Performed By: #### M AT21, [id number], MAT21C ####[facility] LABCLIA [id number] [place] [address] director of distribution name Nom (Provider) [facility] Comment on above: Order Comment: Terra novak Type: BLOOD SPECIMENOrdering Facility: [facility] Address: [address] [place] [address] Result Comment: Test order updated. Sample processing and resulting under different accession number. No action needed. For inquiries, the physician may contact Client Services at [phone]. [facility] Pop Alatorre MD, PhD, Director, [employer] Performed By: #### M AT21, [id number], MAT21 ####[facility] LABCLIA [id number] [place] [address] LIMITATIONS OF THE TEST [facility] Normal [facility] Comment on above: Order Comment: Speci men Type: BLOOD SPECIMENOrdering Facility: [facility] Address: [address] [place] [address] Result Comment: Patricia driscoll the results of these tests are highly reliable, discordant results, including inaccurate sex prediction, may occur due to placental, maternal, or mosaicism or neoplasm; vanishing twin; prior maternal organ transplant; or other causes. These tests are screening tests and not diagnostic; they do not replace the accuracy and precision of diagnosis with CVS or amniocentesis. A patient with a positive test result should be referred for genetic counseling and offered invasive diagnosis for confirmation of test results.[5] The results of this testing, including the benefits and limitations, should be discussed with a qualified healthcare provider. management decisions, including termination of the , should not be based on the results of these tests alone. The healthcare provider is responsible for the use of this information in the management of their patient. Sex chromosomal aneuploidies are not reportable for known multiple gestations. A negative result does not ensure an unaffected nor does it exclude the possibility of other chromosomal abnormalities or defects which are not a part of these tests. An uninformative result may be reported, the causes of which may include, but are not limited to, insufficient sequencing coverage, noise or artifacts in the region, amplification or sequencing bias, or insufficient fraction. These tests are not intended to identify pregnancies at risk for neural tube defects or ventral wall defects. Testing for whole chromosome abnormalities (including sex chromosomes) and for subchromosomal abnormalities could lead to the potential discovery of both and maternal genomic abnormalities that could have major, minor, or no, clinical significance. Evaluating the significance of a positive or a non-reportable result may involve both invasive testing and additional studies on the mother. Such investigations may lead to a diagnosis of maternal chromosomal or subchromosomal abnormalities, which on occasion may be associated with benign or malignant maternal neoplasms. These tests may not accurately identify triploidy, balanced rearrangements, or the precise location of subchromosomal duplications or deletions; these may be detected by diagnosis with CVS or amniocentesis. The ability to report results may be impacted by maternal BMI, maternal weight, maternal systemic lupus erythematosus (SLE) and/or by certain pharmaceutical agents such as low molecular weight heparin (for example: Lovenox(R), Xaparin(R), Clexane(R) and Fragmin(R)). Performed By: #### M AT21, [id number], MAT21C ####[facility] LABCLIA [id number] [place] [id number] NEGATIVE PREDICTIVE VALUE TNP Normal [facility] Comment on above: Order Comment: Speci men Type: BLOOD SPECIMENOrdering Facility: [facility] Address: [address] [place] [address] Result Comment: The Negative Predictive Value (NPV) for trisomy 21, 18, and 13 is greater than 99%. The NPV for SCA and ESS cannot be calculated as SCA and ESS are only reported when an abnormality is detected. Performed By: #### M AT21, [id number], MAT21C ####[facility] LABCLIA [id number] [place] [id number] NOTE TNP Normal [facility] Comment on above: Order Comment: Speci scarlet Type: BLOOD SPECIMENOrdering Facility: [facility] Address: [address] [place] [address] Result Comment: [employer] is a subsidiary of [employer], using the brand [facility]. This test was developed and its performance characteristics determined by [facility]. It has not been cleared or approved by the Food and Drug Administration. This laboratory is certified under the Clinical Laboratory Improvement Amendments (CLIA) as qualified to perform high complexity clinical laboratory testing and accredited by the [employer] (CAP). Performed By: #### M AT21, [id number], MAT21C ####[facility] LABCLIA [id number] [place] [address] PERFORMANCE CHARACTERISTICS TNP Normal [facility] Comment on above: Order Comment: Terra novak Type: BLOOD SPECIMENOrdering Facility: [facility] Address: [address], [place] [address] Result Comment: ! Sex ! Accuracy: 99.4% ! ! ! ! Region (associated syndrome) ! Est. Sens# ! Est. Spec ! ! ! ! Trisomy 21 (Down Syndrome) ! 99.1% ! 99.9% ! ! ! ! Trisomy 18 (Ceballos Syndrome) ! >99.9% ! 99.6% ! ! ! ! Trisomy 13 (Patau Syndrome) ! 91.7% ! 99.7% ! ! ! ! Sex Chromosome Aneuploidies## ! 96.2% ! 99.7% ! ! ! * As reported in ISCA database nstd37 [https://www.ncbi.nlm.nih.gov/dbvar/studies/nstd37/ ] # Estimated Sensitivity. Sensitivity estimated across the observed size distribution of each syndrome [per ISCA database nstd37] and across the range of fractions observed in routine clinical NIPT. Actual sensitivity can also be influenced by other factors such as the size of the event, total sequence counts, amplification bias, or sequence bias. ## Vera gestation only. Performed By: #### Celeste AT21, [id number], ALICIA21C ####[facility]The RoundsIA [id number] [place] [address] Reference Lab Test Method [facility] Normal [facility] Comment on above: Order Comment: Terra novak Type: BLOOD SPECIMENOrdering Facility: [facility] Address: [address] [place], [place] [id number] Result Comment: Circ ulating cell-free DNA was purified from the plasma component of maternal blood. The extracted DNA was then converted into a genomic DNA library for aneuploidy analysis of chromosomes 21, 18, and 13 via next generation sequencing.[1] Optional findings based on the test order include sex chromosome aneuploidy (SCA)[2], and enhanced sequencing series (ESS)[3], which will only be reported on as an additional finding when an abnormality is detected. SCA testing includes information on X and Y representation, while ESS testing includes deletions in selected regions (22q, 15q, 11q, 8q, 5p, 4p, 1p) and trisomy of chromosomes 16 and 22. Performed By: #### M AT21, [id number], MAT21C ####[facility] [id number] [place] [address] Test performance information Jose Alfredo (Unsp spec) [place] Normal [facility] Comment on above: Order Comment: Terra novak Type: BLOOD SPECIMENOrdering Facility: [facility] Address: [address] [place] [address] Result Comment: The performance characteristics of the MaterniT(R) 21 PLUS laboratory-developed test (LDT) have been determined in a clinical validation study with women at increased risk for chromosomal aneuploidy.[1-4] Performed By: #### M AT21, [id number], MAT21C ####[facility] LABCLIA [id number] [place] [address] [id number]???MULTIPLESon 02-20-2024 Cell-free DNA./Cell-fiordaliza e DNA.total Dosage of chromosome-specifi c cfDNA (cfDNA) [Molar fraction] 7% Normal [facility] Comment on above: Order Comment: Speci men Type: BLOOD SPECIMENOrdering Facility: [facility] Address: [address] [place] [address] Performed By: #### M AT21, [id number], MAT21C ####[facility] LABCLIA [id number] [place] [address] Chr 13+18+21+X+Y aneuploidy Dosage of chromosome-specifi c cfDNA Ql (cfDNA) Negative Normal [facility] Comment on above: Order Comment: Speci men Type: BLOOD SPECIMENOrdering Facility: [facility] Address: [address] [place] [address] Performed By: #### M AT21, [id number], MAT21C ####[facility] LABCLIA [id number] [place] [address] Chr 21 trisomy Dosage of chromosome-specifi c cfDNA Ql (cfDNA) Negative Normal [facility] Comment on above: Order Comment: Speci men Type: BLOOD SPECIMENOrdering Facility: [facility] Address: [address] [place] [address] Performed By: #### M AT21, [id number], MAT21C ####[facility] LABCLIA [id number] [place] [address] Citation Jose Alfredo (Reference lab test) Comment Normal [facility] Comment on above: Order Comment: Speci men Type: BLOOD SPECIMENOrdering Facility: [facility] Address: [address] [place] [address] Result Comment: 1. P yadiel ROMERO, et al. Claudette Med. 2012;14(3):296-305. 2. Radha TATE et al. Prenat Diag. 2013;33(6):591-597. 3. Estrada C, et al. Clin Chem. 2015 Apr;61(4):608-616. 4. Olman ROMERO, et al. Claudette Med. 2011;13(11):913-920. 5. ACOG/SMFM Practice Bulletin No. 226, Jul 2020. Performed By: #### M AT21, [id number], MAT21C ####[facility] LABCLIA [id number] [place] [id number] Laboratory comment Jose Alfredo (Report) Comment Normal [facility] Comment on above: Order Comment: Surendrai scarlet Type: BLOOD SPECIMENOrdering Facility: [facility] Address: [address] [place] [address] Result Comment: The MaterniT(R) 21 PLUS laboratory-developed test (LDT) analyzes circulating cell-free DNA from a maternal blood sample. This test is used for screening purposes and not diagnostic. Clinical correlation is recommended. Validation data on twin pregnancies is limited and the ability of this test to detect aneuploidy in higher multiple gestations has not yet been validated. Performed By: #### M AT21, [id number], MAT21C ####[facility] [id number] [place] [id number] director of distribution name Nom (Provider) Comment Normal [facility] Comment on above: Order Comment: Speci men Type: BLOOD SPECIMENOrdering Facility: [facility] Address: [address] [place] [address] Result Comment: This specimen showed an expected representation of chromosome 21, 18 and 13 material. Clinical correlation is suggested. This is a reported twin gestation with Y chromosome material detected. Based on the amount of Y material, the probability of male/female twins is 95.6% and male/male twins is 4.4% (Jake et al., PLOS ONE 2021). Results should be interpreted in the context of chorionicity and other clinical information. Comment Pop Alatorre MD, PhD, Director, [employer] Performed By: #### M AT21, [id number], MAT21 ####[facility] LABCLIA [id number] [place] [address] LIMITATIONS OF THE TEST Comment Normal [facility] Comment on above: Order Comment: Speci men Type: BLOOD SPECIMENOrdering Facility: [facility] Address: [address] [place] [address] Result Comment: Patricia driscoll the results of these tests are highly reliable, discordant results, including inaccurate sex prediction, may occur due to placental, maternal, or mosaicism or neoplasm; vanishing twin; prior maternal organ transplant; or other causes. These tests are screening tests and not diagnostic; they do not replace the accuracy and precision of diagnosis with CVS or amniocentesis. A patient with a positive test result should be referred for genetic counseling and offered invasive diagnosis for confirmation of test results.[5] The results of this testing, including the benefits and limitations, should be discussed with a qualified healthcare provider. management decisions, including termination of the , should not be based on the results of these tests alone. The healthcare provider is responsible for the use of this information in the management of their patient. Sex chromosomal aneuploidies are not reportable for known multiple gestations. A negative result does not ensure an unaffected nor does it exclude the possibility of other chromosomal abnormalities or defects which are not a part of these tests. An uninformative result may be reported, the causes of which may include, but are not limited to, insufficient sequencing coverage, noise or artifacts in the region, amplification or sequencing bias, or insufficient fraction. These tests are not intended to identify pregnancies at risk for neural tube defects or ventral wall defects. Testing for whole chromosome abnormalities (including sex chromosomes) and for subchromosomal abnormalities could lead to the potential discovery of both and maternal genomic abnormalities that could have major, minor, or no, clinical significance. Evaluating the significance of a positive or a non-reportable result may involve both invasive testing and additional studies on the mother. Such investigations may lead to a diagnosis of maternal chromosomal or subchromosomal abnormalities, which on occasion may be associated with benign or malignant maternal neoplasms. These tests may not accurately identify triploidy, balanced rearrangements, or the precise location of subchromosomal duplications or deletions; these may be detected by diagnosis with CVS or amniocentesis. The ability to report results may be impacted by maternal BMI, maternal weight, maternal systemic lupus erythematosus (SLE) and/or by certain pharmaceutical agents such as low molecular weight heparin (for example: Lovenox(R), Xaparin(R), Clexane(R) and Fragmin(R)). Performed By: #### M AT21, [id number], MAT21C ####[facility] LABCLIA [id number] [place] [address] NEGATIVE PREDICTIVE VALUE Note Normal [facility] Comment on above: Order Comment: Speci men Type: BLOOD SPECIMENOrdering Facility: [facility] Address: [address] [place] [address] Result Comment: The Negative Predictive Value (NPV) for trisomy 21, 18, and 13 is greater than 99%. The NPV for SCA and ESS cannot be calculated as SCA and ESS are only reported when an abnormality is detected. Performed By: #### M AT21, 6122476, MAT21C ####[facility] LABCLIA [id number] [place] [id number] NOTE Comment Normal [facility] Comment on above: Order Comment: Speci men Type: BLOOD SPECIMENOrdering Facility: [facility] Address: [address] [place] [address] Result Comment: See Notes [employer] is a subsidiary of [employer], using the brand [facility]. This test was developed and its performance characteristics determined by [facility]. It has not been cleared or approved by the Food and Drug Administration. This laboratory is certified under the Clinical Laboratory Improvement Amendments (CLIA) as qualified to perform high complexity clinical laboratory testing and accredited by the [employer] [place] [employer] (CAP). Performed By: #### M AT21, 1455923, MAT21C ####[facility] LABCLIA [id number] [place] [address] PERFORMANCE CHARACTERISTICS Note Normal [facility] Comment on above: Order Comment: Speci men Type: BLOOD SPECIMENOrdering Facility: [facility] Address: [address], [place] [address] Result Comment: ! Sex ! Accuracy: 99.4% ! ! ! ! Region (associated syndrome) ! Est. Sens# ! Est. Spec ! ! ! ! Trisomy 21 (Down Syndrome) ! 99.1% ! 99.9% ! ! ! ! Trisomy 18 (Ceballos Syndrome) ! >99.9% ! 99.6% ! ! ! ! Trisomy 13 (Patau Syndrome) ! 91.7% ! 99.7% ! ! ! ! Sex Chromosome Aneuploidies## ! 96.2% ! 99.7% ! ! ! * As reported in ISCA database nstd37 [https://www.ncbi.nlm.nih.gov/dbvar/studies/nstd37/ ] # Estimated Sensitivity. Sensitivity estimated across the observed size distribution of each syndrome [per ISCA database nstd37] and across the range of fractions observed in routine clinical NIPT. Actual sensitivity can also be influenced by other factors such as the size of the event, total sequence counts, amplification bias, or sequence bias. ## Vera gestation only. Performed By: #### M AT21, 3995526, MAT21C ####[facility] LABThe RoundsIA [id number] [place] [address] POSITIVE PREDICTIVE VALUE N/A Normal [facility] Comment on above: Order Comment: Terra novak Type: BLOOD SPECIMENOrdering Facility: [facility] Address: [address] [place] [address] Performed By: #### M AT21, 1197643, MAT21C ####[facility] LABCLIA [id number] [place] [address] Reference Lab Test Method Comment Normal [facility] Comment on above: Order Comment: Terra novak Type: BLOOD SPECIMENOrdering Facility: [facility] Address: [address] [place] [address] Result Comment: See Notes Circulating cell-free DNA was purified from the plasma component of maternal blood. The extracted DNA was then converted into a genomic DNA library for aneuploidy analysis of chromosomes 21, 18, and 13 via next generation sequencing.[1] Optional findings based on the test order include sex chromosome aneuploidy (SCA)[2], and enhanced sequencing series (ESS)[3], which will only be reported on as an additional finding when an abnormality is detected. SCA testing includes information on X and Y representation, while ESS testing includes deletions in selected regions (22q, 15q, 11q, 8q, 5p, 4p, 1p) and trisomy of chromosomes 16 and 22. Performed By: #### M AT21, 4612103, MAT21C ####[facility] LABCLIA [id number] [place] [address] Sex Dosage of chromosome-specifi c cfDNA Nom (cfDNA) Comment Normal [facility] Comment on above: Order Comment: Speci men Type: BLOOD SPECIMENOrdering Facility: [facility] Address: [address] [place] [address] Result Comment: Cons istent with Male Performed By: #### M AT21, 7053754, MAT21C ####[facility] LABCLIA [id number] [place] [address] Test performance information Jose Alfredo (Unsp spec) Comment Normal [facility] Comment on above: Order Comment: Speci men Type: BLOOD SPECIMENOrdering Facility: [facility] Address: [address] [place] [address] Result Comment: The performance characteristics of the MaterniT(R) 21 PLUS laboratory-developed test (LDT) have been determined in a clinical validation study with women at increased risk for chromosomal aneuploidy.[1-4] Performed By: #### M AT21, 1582552, MAT21C ####[facility] LABCLIA [id number] [place] [address] Trisomy 13 risk Dosage of chromosome-specifi c cfDNA Ql (cfDNA) [Interp] Negative Normal [facility] Comment on above: Order Comment: Speci men Type: BLOOD SPECIMENOrdering Facility: [facility] Address: [address] [place] [address] Performed By: #### M AT21, 1329781, MAT21C ####[facility] LABCLIA [id number] [place] [address] Trisomy 18 risk Dosage of chromosome-specifi c cfDNA Ql (Plasma cell-free+WBC DNA) [Interp] Negative Normal [facility] Comment on above: Order Comment: Speci men Type: BLOOD SPECIMENOrdering Facility: [facility] Address: [address] [place] [address] Performed By: #### M AT21, 0104163, MAT21C ####[facility] LABCLIA [id number] [place] [address] SPECIMEN STATUS REPORTon SPECIMEN STATUS REPORT Comment Normal [facility] Comment on above: Order Comment: Speci men Type: BLOOD SPECIMENOrdering Facility: [facility] Address: [address] [place] [address] Result Comment: Writ ten Authorization Written Authorization Written Authorization Received. Authorization received from ELSIE MORENO MD 02-23-2024 Logged by Sandeep Sotelo Performed By: #### M AT21, 5113990, MAT21C ####[facility] LABCLIA [id number] [place] [address] B-HCG SerPl-aCncon 4 HCG.beta subunit Qn 319321.0 m[IU]/mL High <5.0 [facility] Comment on above: Order Comment: Speci men Type: BLOOD SPECIMENOrdering Facility: [facility] Address: [address] [place] [address] Result Comment: LYLA TITATIVE HCG NORMAL RANGES Weeks of Gestation (Weeks Since LMP) 3 Weeks (5.8-71.2 mIU/mL) 4 Weeks (9.5-750 mIU/mL) 5 Weeks (217-7138 mIU/mL) 6 Weeks (158-04209 mIU/mL) 7 Weeks (3697-544369 mIU/mL) 8 Weeks (17352-089392 mIU/mL) 9 Weeks (84684-462356 mIU/mL) 10 Weeks (91188-941288 mIU/mL) 12 Weeks (49598-670147 mIU/mL) Referenced to 4th IS of [facility] Performed By: #### 2 1198-7 ####[facility] LABCLIA [id number] [place] [address] [place] CBC panel Auto (Bld)on 02-18 Erythrocyte distribution width (RBC) [Ratio] 12.1 % Normal 11.5-15.0 [facility] Comment on above: Order Comment: Speci men Type: BLOOD SPECIMENOrdering Facility: [facility] Address: [address] [place] [address] Performed By: #### 5 8410-2 ####[facility] TRUDYNCSHAKILAA [id number] [place] [address] [place] Hematocrit (Bld) [Volume fraction] 34.5 % Low 36.0-46.0 [facility] Comment on above: Order Comment: Speci men Type: BLOOD SPECIMENOrdering Facility: [facility] Address: [address] [place] [address] Performed By: #### 5 8410-2 ####[facility] VIPINMOUNDSVILLENCLIA [id number] [place] [address] [place] Hemoglobin (Bld) [Mass/Vol] 11.8 g/dL Normal 11.5-15.5 [facility] Comment on above: Order Comment: Speci men Type: BLOOD SPECIMENOrdering Facility: [facility] Address: [address] [place] [address] Performed By: #### 5 8410-2 ####[facility] [id number] [place] [address] [place] MCH (RBC) [Entitic mass] 30.5 pg Normal 26.0-34.0 [facility] Comment on above: Order Comment: Speci men Type: BLOOD SPECIMENOrdering Facility: [facility] Address: [address] [place] [address] Performed By: #### 5 8410-2 ####[facility] [id number] [place] [address] [place] MCHC (RBC) [Mass/Vol] 34.2 g/dL Normal 30.5-36.0 [facility] Comment on above: Order Comment: Speci men Type: BLOOD SPECIMENOrdering Facility: [facility] Address: [address] [place] [address] Performed By: #### 5 8410-2 ####[facility] VIPINMarlenaNCLIA [id number] [place] [address] [place] MCV (RBC) [Entitic vol] 89.1 fL Normal 80.0-100.0 [facility] Comment on above: Order Comment: Speci men Type: BLOOD SPECIMENOrdering Facility: [facility] Address: [address] [place] [address] Performed By: #### 5 8410-2 ####[facility] [id number] [place] [address] [place] Nucleated RBC (Bld) [#/Vol] 10*3/uL Normal <0.01 [facility] Comment on above: Order Comment: Speci men Type: BLOOD SPECIMENOrdering Facility: [facility] Address: [address] [place] [address] Performed By: #### 5 8410-2 ####[facility] [id number] [place] [address] [place] Platelet mean volume (Bld) [Entitic vol] 10.4 fL Normal 9.0-12.7 [facility] Comment on above: Order Comment: Speci men Type: BLOOD SPECIMENOrdering Facility: [facility] Address: [address] [place] [address] Performed By: #### 5 8410-2 ####[facility] [id number] [place] [address] [place] Platelets (Bld) [#/Vol] 250 10*3/uL Normal 150-400 [facility] Comment on above: Order Comment: Speci men Type: BLOOD SPECIMENOrdering Facility: [facility] Address: [address] [place] [address] Performed By: #### 5 8410-2 ####[facility] [id number] [place] [address] [place] RBC (Bld) [#/Vol] 3.87 10*6/uL Low 3.90-5.20 [facility] Comment on above: Order Comment: Speci men Type: BLOOD SPECIMENOrdering Facility: [facility] Address: [address] [place] [address] Performed By: #### 5 8410-2 ####[facility] [id number] [place] [address] [place] WBC (Bld) [#/Vol] 10.51 10*3/uL Normal 3.70-11.00 [facility] Comment on above: Order Comment: Speci men Type: BLOOD SPECIMENOrdering Facility: [facility] Address: [address] [place] [address] Performed By: #### 5 8410-2 ####[facility] VIPINMOUNDSVILLENCLIA [id number] [address] OF [facility] CNPNon 02-19-2024 CNPN Telephone (OBGYWM) ----- JARVIS KING ([id number]) 1995 F Date Time Provider Department 02/19/24 ELSIE MORENO During your visit today, we recorded the following information about you: Elsie Lauren RN 02/19/2024 1:43 PM Signed 12w1d Patient with Di/Di twins here for US and wants Materni 21 ordered. Order pending with the # of fetus changed to two. Please file. Thank you. Elsie Lauren RN Allergies As of Date: 02/19/2024 (No Known Allergies) Date Reviewed: 02/05/2024 Reviewed by: Tamia Johnson MA - Fully Assessed Reason for Visit: [id number] Order [Other] Primary Visit Diagnosis:Dichorionic diamniotic twin in first trimester [O30.041] Order(s):[id number] PLUS [SQMAT21] Order #: [id number] FUTURE Prescriptions as of 02/19/2024 - pyridoxine, vitamin B6, (VITAMIN B-6) 50 mg cap Take by mouth. - 25-IRON WUV-CBXLQ-REY ORAL Take by mouth. - valACYclovir (VALTREX) 500 mg tablet Take 1 tablet by mouth once daily. - CARBOXYMETHYLCELLULOSE SODIUM (REFRESH OPHTHALMIC) Use in eyes as needed. occ. use - White Petrolatum-Mineral Oil (REFRESH PM) 57.3-42.5 % ointment Use in both eyes at bedtime as needed. Problem List As Of Date 02/19/2024 Noted Resolved Myopia [H52.10] 03/08/2016 Genital herpes simplex virus (HSV) infection in*08/26/2022 Seasonal allergies [J30.2] 08/26/2022 Supervision of high risk in first tri*08/28/2023 Dichorionic diamniotic twin in first *02/05/2024 Encounter for supervision of high risk pregnanc*02/05/2024 Encounter Status:Closed by ELSIE MORENO on 02/19/24 Normal [facility] nuchal translucency me asured by Callie 02-19-2024 Indication First trimester screening Di-Di twins Impression REMOTE READ 1. Live, dichorionic/diamniotic twin . 2. Ririe rump length measurement is consistent with the established gestational age for both fetuses. 3. The crown rump lengths are concordant. 4. No gross abnormalities are noted for either fetus. 5. The nuchal translucency measurement appears within normal limits for both fetuses. The measurement is 1.8 mm for fetus A and 1.3 mm for fetus B. Maternal Structures: Left Ovary: Size 39 mm x 32 mm x 20 mm Recommendations Return for detailed anatomy ultrasound Maternal Assessment Height 165 cm Height (ft) 5 ft Height (in) 5 in Physical Exam Initial weight (lb) 148 lb Initial BMI 24.63 kg/m Maternal assessment other: 2 Para 0 Method Transabdominal ultrasound examination Twin . Number of fetuses: 2. Dichorionic-diamniotic Dating GA by prior assessment 12 w + 1 d LIZZY by prior assessment: 09/01/2024 Ultrasound examination on: 02/19/2024 GA by U/S based upon: CRL GA by U/S 12 w + 0 d LIZZY by U/S: 09/02/2024 GA by U/S based upon (Fetus 2): CRL GA by U/S (Fetus 2) 12 w + 3 d LIZZY by U/S (Fetus 2): 08/30/2024 Assigned: based on stated LIZZY, selected on 02/19/2024 Assigned GA 12 w + 1 d Assigned LIZZY: 09/01/2024 Fetus A: General Evaluation Cardiac activity present Placenta: anterior Cord vessels: 3 vessel cord Amniotic fluid: normal amount Fetus B: General Evaluation Cardiac activity present Placenta: posterior Cord vessels: 3 vessel cord Amniotic fluid: normal amount Fetus A: Biometry Standard FHR 168 bpm CRL 53.7 mm 12w 0d 24% Hadlock NT 1.80 mm Fetus B: Biometry Standard FHR 162 bpm CRL 59.1 mm 12w 3d 57% Hadlock NT 1.30 mm Fetus A: Anatomy The following structures appear normal: Cranium. Face. Abdominal wall. Stomach. Bladder. Arms. Legs. Fetus B: Anatomy The following structures appear normal: Cranium. Face. Abdominal wall. Stomach. Bladder. Arms. Legs. Maternal Structures Uterus / Cervix Uterus: Visualized Uterus length 177 mm Uterus width 152 mm Uterus height 84 mm Uterus Vol 1,180.7 cm Ovaries / Tubes / Adnexa Rt ovary: Not visualized Lt ovary: Visualized Lt ovary D1 39 mm Lt ovary D2 32 mm Lt ovary D3 20 mm Lt ovary Vol 13.2 cm Performed By: Leatha Pickett RDMS, RVT Read By: Steph Seth M.D. MATERNAL MEDICINE [facility] Radiology Study observation (narrative) [facility] HBV surface Ag Ser Qlon 01-29 HBV surface Ag Ql (S) Negative Normal Negative [facility] Comment on above: Order Comment: Speci men Type: BLOOD SPECIMENOrdering Facility: [facility] Address: [address] [place] [address] Performed By: #### 5 195-3, 22980-9, 02446-6 ####[facility] LABCLIA [id number] [place] [address] [place] HCV Ab Ser Qlon 02-19-2024 HCV Ab Ql (S) Negative Normal Negative [facility] Comment on above: Order Comment: Speci men Type: BLOOD SPECIMENOrdering Facility: [facility] Address: [address] [place] [address] Result Comment: The result suggests no evidence of active infection with Hepatitis C virus. Should recent infection be suspected, repeat testing may be considered 4-6 weeks after this draw. Performed By: #### 1 6128-1 ####[facility] LABCLIA [id number] [place] [address] [place] HIV 1+2 Ab IA Qlon HIV 1 and 2 Ab IA.rapid Nom (S/P/Bld) Normal [facility] Comment on above: Order Comment: Speci men Type: BLOOD SPECIMENOrdering Facility: [facility] Address: [address] [place] [address] Result Comment: Test not indicated. Performed By: #### 5 195-3, 18938-9, 39594-0 ####[facility] LABCLIA [id number] [place] [address] [place] HIV 1+2 Ab+HIV1 p24 Ag IA Ql Non-Reactive Normal Nonreactive [facility] Comment on above: Order Comment: Speci men Type: BLOOD SPECIMENOrdering Facility: [facility] Address: [address] [place] [address] Performed By: #### 5 195-3, 44482-4, 33811-8 ####[facility] LABCLIA [id number] [place] [address] [place] HIV immunoassay testing algorithm interpretation (S/P/Bld) [Interp] Normal [facility] Comment on above: Order Comment: Speci men Type: BLOOD SPECIMENOrdering Facility: [facility] Address: [address] [place] [address] Result Comment: No e vidence of HIV-1 or HIV-2 infection. Should recent infection be suspected, repeat testing may be considered 2-3 weeks after this draw. [place] Rev. Code 3701.243(E): This information has been disclosed to you from confidential records protected from disclosure by state law. ???You shall make no further disclosure of this information without the specific, written, and informed release of the individual to whom it pertains or as otherwise permitted by state law. A general authorization for the release of medical or other information is not sufficient for the purpose of the release of HIV test results or diagnoses. Performed By: #### 5 195-3, 41310-1, 81950-6 ####[facility] LABCLIA [id number] [address] [place] HbA1c (Bld)on 02-19-2024 Average glucose Estimated from glycated hemoglobin (Bld) [Mass/Vol] 108 mg/dL Normal [facility] Comment on above: Order Comment: [facility] Type: BLOOD SPECIMENOrdering Facility: [facility] Address: [address] [place] [address] Result Comment: eAG: (Estimated average glucose) is a calculated value from HgbA1c and is patient relations representative of the average blood glucose level in the last 2-3 month period. Performed By: #### 5 5454-3 ####[facility] LABIA [id number] [address] [place] HbA1c (Bld) [Mass fraction] 5.4 % Normal 4.3-5.6 [facility] Comment on above: Order Comment: [facility] Type: BLOOD SPECIMENOrdering Facility: [facility] Address: [address] [place] [address] Result Comment: [place] Diabetes Association guidelines indicate that patients with HgbA1c in the range 5.7-6.4% are at increased risk for development of diabetes, and intervention by lifestyle modification may be beneficial. HgbA1c greater or equal to 6.5% is considered diagnostic of diabetes. Performed By: #### 5 5454-3 ####[facility] LABCLIA [id number] [place] [address] [place] RUBELLA IGG ANTIBODYon 02-18 RUBELLA IGG AB, QUAL Positive Normal Positive [facility] Comment on above: Order Comment: Speci men Type: BLOOD SPECIMENOrdering Facility: [facility] Address: [address] [place] [address] Result Comment: The result suggests recent or past exposure to Rubella virus or history of Rubella vaccination. Positive result may also be seen due to presence of passively-transferred antibodies. Please correlate with patient's history. Performed By: #### R UBIGG ####[facility] LABCLIA [id number] [place] [address] [place] Reagin and Treponema pallidu m IgG and IgM [Interp]on 02-19-2024 T. pallidum IgG+IgM IA Ql (S) Non-Reactive Normal Nonreactive [facility] Comment on above: Order Comment: Speci men Type: BLOOD SPECIMENOrdering Facility: [facility] Address: [address] [place] [address] Performed By: #### 5 195-3, 34069-3, 89629-8 ####[facility] LABCLIA [id number] [place] [address] [place] Reagin+T pallidum IgG+IgM Se rPl-Impon 02-19-2024 Reagin and Treponema pallidum IgG and IgM [Interp] Cannot exclude recent Treponemal infection if specimen collected within 7-10 days after appearance of suspect lesions or 2-3 weeks after an exposure. Clinical correlation is required. Normal [facility] Comment on above: Order Comment: Speci men Type: BLOOD SPECIMENOrdering Facility: [facility] Address: [address] [place] [address] Performed By: #### 5 195-3, 10143-7, 25666-4 ####[facility] LABCLIA [id number] [place] [address] [place] TYPE + SCREEN PRENATALon ABO O Normal [facility] Comment on above: Order Comment: Speci men Type: BLOOD SPECIMENOrdering Facility: [facility] Address: [address] [place] [address] Performed By: #### T SPN ####[facility] BANKCLIA [id number] [place] [address] [place] HISTORICAL AB SCR STATUS Negative Normal [facility] Comment on above: Order Comment: Speci men Type: BLOOD SPECIMENOrdering Facility: [facility] Address: [address] [place] [address] Performed By: #### T SPN ####[facility]TTE [facility] [id number] [place] [address] [place] Rh Nom (Bld) Positive Normal [facility] Comment on above: Order Comment: Speci men Type: BLOOD SPECIMENOrdering Facility: [facility] Address: [address] [place] [address] Performed By: #### T SPN ####[facility] BLOOD BANKIA [id number] [place] [address] [place] TYPE AND SCREEN EXPIRATION 02/22/2024 23:59 Normal [facility] Comment on above: Order Comment: Speci men Type: BLOOD SPECIMENOrdering Facility: [facility] Address: [address] [place] [address] Performed By: #### T SPN ####[facility] BLOOD BANKCLIA [id number] [place] [address] [place] Bacteria Ur Culton 4 Bacteria identified Cx Nom (U) ORGANISM ID: 1 10,000 -<50,000 CFU/ml Normal urogenital virgilio Normal [facility] Comment on above: Performed By: #### 6 30-4 ####[facility] LABCLIA [id number] [place] [address] [place] C. trachomatis+N. gonorrhoea e DNA FELIX+probe Ql (Unsp spec)on 02-05-2024 C. trachomatis rRNA FELIX+probe Ql (Unsp spec) Negative Normal Negative for Chlamydia trachomatis by amplificaton [facility] Comment on above: Order Comment: Speci men Type: SWABOrdering Facility: [facility] Address: [address] [place] [address] Performed By: #### 3 6902-5 ####[facility] LABCLIA [id number] [address] [place] N. gonorrhoeae rRNA FELIX+probe Ql (Unsp spec) Negative Normal Negative for Neisseria gonorrhoeae by amplification [facility] Comment on above: Order Comment: Speci men Type: SWABOrdering Facility: [facility] Address: [address] [place] [address] Performed By: #### 3 6902-5 ####[facility] LABCLIA [id number] [address] [place] [facility] JARVIS KING ([id number]) 1995 F Date Time Provider Department 02/05/24 HISTORICAL OBGWSR During your visit today, we recorded the following information about you: Kirill Swan 02/05/2024 10:23 AM Signed Referral sent to [facility] team to assist with scheduling. Allergies As of Date: 02/05/2024 (No Known Allergies) Date Reviewed: 02/05/2024 Reviewed by: Tamia Johnson MA - Fully Assessed Prescriptions as of 02/05/2024 - pyridoxine, vitamin B6, (VITAMIN B-6) 50 mg cap Take by mouth. - 25-IRON TZX-DWBNK-ZPS ORAL Take by mouth. - valACYclovir (VALTREX) 500 mg tablet Take 1 tablet by mouth once daily. - CARBOXYMETHYLCELLULOSE SODIUM (REFRESH OPHTHALMIC) Use in eyes as needed. occ. use - White Petrolatum-Mineral Oil (REFRESH PM) 57.3-42.5 % ointment Use in both eyes at bedtime as needed. Problem List As Of Date 02/05/2024 Noted Resolved Myopia [H52.10] 03/08/2016 Genital herpes simplex virus (HSV) infection in*08/26/2022 Seasonal allergies [J30.2] 08/26/2022 Supervision of high risk in first tri*08/28/2023 Dichorionic diamniotic twin in first *02/05/2024 Encounter for supervision of high risk pregnanc*02/05/2024 Encounter Status:Closed by KIRILL SWAN on 02/05/24 Normal [facility] HIGH RISK HUMAN PAPILLOMA RUTHANN (HPV), PCR FOR DETECTION AND GENOTYPINGon 02-05-2024 HPV 16 Ag Ql (Unsp spec) Negative Normal Negative for HPV DNA high risk type 16 by PCR [facility] Comment on above: Order Comment: Speci men Type: FLUID SPECIMENOrdering Facility: [facility] Address: [address] [place] [address] Performed By: #### L [id number], HPVHRT ####[facility] LABCLIA [id number] [place] [address] [place] HPV 18 Ag Ql (Unsp spec) Negative Normal Negative for HPV DNA high risk type 18 by PCR [facility] Comment on above: Order Comment: Speci men Type: FLUID SPECIMENOrdering Facility: [facility] Address: [address] [place] [address] Performed By: #### L [id number], HPVHRT ####[facility] LABCLIA [id number] [place] [address] [place] HPV 31+33+35+39+45+51+ 52+56+58+59+66+68 DNA FELIX+probe Ql (Cvx) Negative for HPV DNA high risk types: 31,33,35,39,45,51,52,56,5 8,59,66,68 by PCR. Normal Negative for HPV DNA high risk types: 31,33,35,39,45,5 1,52,56,58,59,66 ,68 by PCR. [facility] Comment on above: Order Comment: Speci men Type: FLUID SPECIMENOrdering Facility: [facility] Address: [address] [place] [address] Performed By: #### L [id number], HPVHRT ####[facility] LABCLIA [id number] [place] [address] [place] PAP TESTon 02-05-2024 ADEQUACY Satisfactory for interpretation. Normal [facility] Comment on above: Order Comment: Speci men Type: FLUID SPECIMENOrdering Facility: [facility] Address: [address] [place] [address] Performed By: #### L [id number], HPVHRT ####[facility] LABCLIA [id number] [place] [address] [place] CASE REPORT Normal [facility] Comment on above: Order Comment: Speci men Type: FLUID SPECIMENOrdering Facility: [facility] Address: [address] [place] [address] Result Comment: Gyne cologic Cytology Report Case: [id number] Authorizing Provider: Blanca Skelton APRN.CNM Collected: 02/05/2024 09:32 AM Ordering Location: OB/Gynecology Received: 02/05/2024 12:24 PM First Screen: [place], [place], [place], ASCP Specimen: Pap Test, ThinPrep, Cervix Performed By: #### L [id number], HPVHRT ####[facility] LABCLIA [id number] [place] [address] [place] CLINICAL HISTORY, CYTOLOGY, ELECTRICAL DESIGNER DRAFTER Routine Exam Normal [facility] Comment on above: Order Comment: Speci men Type: FLUID SPECIMENOrdering Facility: [facility] Address: [address] [place] [address] Performed By: #### L [id number], HPVHRT ####[facility] LABCLIA [id number] [place] [address] [place] FINAL PERFORMING LAB Normal [facility] Comment on above: Order Comment: Speci men Type: FLUID SPECIMENOrdering Facility: [facility] Address: [address] [place] [address] Result Comment: Tech nical component, compo caster screening performed at [facility], [address] [place], [place] [id number] CLIA# [id number] Diagnostic interpretation performed at [facility], [address] [place], [place] [address] CLIA# [id number] [employer] Supervisor: Noel Seymour M.D. Performed By: #### L [id number], HPVHRT ####[facility] LABCLIA [id number] [place] [address] [place] HPV REFLEX Yes HPV Normal [facility] Comment on above: Order Comment: Speci men Type: FLUID SPECIMENOrdering Facility: [facility] Address: [address] [place] [address] Performed By: #### L [id number], HPVHRT ####[facility] LABCLIA [id number] [place] [address] [place] INTERPRETATION, CYTOLOGY, ELECTRICAL DESIGNER DRAFTER Normal [facility] Comment on above: Order Comment: Speci men Type: FLUID SPECIMENOrdering Facility: [facility] Address: [address] [place] [address] Result Comment: Nega tive for intraepithelial lesion or malignancy. Performed By: #### L [id number], HPVHRT ####[facility] LABCLIA [id number] [address] [place] LMP 11/09/2023 Normal [facility] Comment on above: Order Comment: Speci men Type: FLUID SPECIMENOrdering Facility: [facility] Address: [address] [place] [address] Performed By: #### L [id number], HPVHRT ####[facility] LABCLIA [id number] [address] [place] PAP DISCLAIMER COMMENT The Pap Smear is a screening test for cervical cancer. False negative results occur with all screening tests, emphasizing the need for rescreening at recommended intervals, and clinical correlation. Normal [facility] Comment on above: Order Comment: Speci men Type: FLUID SPECIMENOrdering Facility: [facility] Address: [address] [place] [address] Performed By: #### L [id number], HPVHRT ####[facility] LABIA [id number] [address] [place] PAP CORPORATE PLANNER COMMENT This specimen has be en analyzed by the ThinPrep Imaging System, an automated imaging and review system, which assists the laboratory in evaluating cells on ThinPrep Pap tests. Following automated imaging, selected luque from every slide are reviewed by a compo caster. Normal [facility] Comment on above: Order Comment: Speci men Type: FLUID SPECIMENOrdering Facility: [facility] Address: [address] [place] [address] Performed By: #### L [id number], HPVHRT ####[facility] LABIA [id number] [address] [place] O[place] 01-30-2024 [facility] Telephone (OBGYW) ----- JARVIS KING ([id number]) 1995 F Date Time Provider Department 01/30/24 BLANCA SKELTON During your visit today, we recorded the following information about you: Greer Dolan, RN 01/30/2024 2:00 PM Signed Left message for patient to return phone call. Patient has an appointment with Blanca Skelton for NOB appointment. I attempted to call her to get an update on how she is doing and get intake questions completed. Patient had quant HCG's done 01/11 and 01/14 for c/o brown spotting. Please transfer her to hi or [facility] when she returns phone call Sophie Cadena RN 01/30/2024 3:12 PM Signed Patient called back and transferred to [facility] to complete intake questions. Sophie Cadena RN Allergies As of Date: 01/30/2024 (No Known Allergies) Date Reviewed: 10/17/2023 Reviewed by: Rochelle Ramos MD - Fully Assessed Reason for Visit: 02/04 NOB Intake Questions [Other] Prescriptions as of 01/30/2024 - miSOPROStol (CYTOTEC) 200 mcg tablet Please insert 4 tablets into vagina x1 - 25-IRON [id number]-[id number]-NDE ORAL Take by mouth. - valACYclovir (VALTREX) 500 mg tablet Take 1 tablet by mouth once daily. - CARBOXYMETHYLCELLULOSE SODIUM (REFRESH OPHTHALMIC) Use in eyes as needed. occ. use - White Petrolatum-Mineral Oil (REFRESH PM) 57.3-42.5 % ointment Use in both eyes at bedtime as needed. Problem List As Of Date 01/30/2024 Noted Resolved Myopia [H52.10] 03/08/2016 Genital herpes simplex virus (HSV) infection in*08/26/2022 Seasonal allergies [J30.2] 08/26/2022 Supervision of high risk in first tri*08/28/2023 Encounter Status:Closed by SOPHIE CADENA on 01/30/24 Normal [facility] B-HCG SerPl-aCncon HCG.beta subunit Qn 103141.0 m[IU]/mL High <5.0 [facility] Comment on above: Order Comment: Speci men Type: BLOOD SPECIMENOrdering Facility: [facility] Address: [address] [place] [address] Result Comment: LYLA TITATIVE HCG NORMAL RANGES Weeks of Gestation (Weeks Since LMP) 3 Weeks (5.8-71.2 mIU/mL) 4 Weeks (9.5-750 mIU/mL) 5 Weeks (217-7138 mIU/mL) 6 Weeks (158-60699 mIU/mL) 7 Weeks (3697-188252 mIU/mL) 8 Weeks (63517-257548 mIU/mL) 9 Weeks (46031-204591 mIU/mL) 10 Weeks (98846-198084 mIU/mL) 12 Weeks (87951-456349 mIU/mL) Referenced to 4th IS of NIBS Performed By: #### 2 1198-7 ####[facility] LABCLIA [id number] [place] [address] [place] [facility] 4 [place] [address].0 m[IU]/mL High <5.0 [facility] Comment on above: Order Comment: Speci men Type: BLOOD SPECIMENOrdering Facility: [facility] Address: [address] [place] [address] Result Comment: LYLA TITATIVE HCG NORMAL RANGES Weeks of Gestation (Weeks Since LMP) 3 Weeks (5.8-71.2 mIU/mL) 4 Weeks (9.5-750 mIU/mL) 5 Weeks (217-7138 mIU/mL) 6 Weeks (158-13972 mIU/mL) 7 Weeks (3697-261793 mIU/mL) 8 Weeks (59251-971035 mIU/mL) 9 Weeks (46389-647790 mIU/mL) 10 Weeks (04650-965860 mIU/mL) 12 Weeks (06712-157599 mIU/mL) Referenced to 4th IS of NIBSC Performed By: #### 2 1198-7 ####[facility] LABCLIA [id number] [place] [address], [place] [address] [place] [facility] CNOVon 10-17-2023 CNOV Office Visit (OBGYWM ) ----- JARVIS KING ([id number]) 1995 F Date Time Provider Department 10/17/23 11:10 AM ROCHELLE RAMOS OBGYWM During your visit today, we recorded the following information about you: Pulse Blood pressure Weight 70/minute 98/64 67.6 kg Elsie Lauren RN 10/17/2023 12:35 PM Signed Pre Procedure Assessment: Jarvis King is a 28 year old here for an JOSELYN procedure. Patient's last menstrual period was Patient's last menstrual period was 06/23/2023 (exact date). (approximate). Reason for procedure: Missed Anxiolytic Checklist Has ride home? Yes Current use of prescribed or non-prescribed opioids or benzos: No Medications: Patient self-administered:Xanax 0.5 MG, Toradol 30 MG IM - see MARIANELA Percocet x1 tablet per patient request as she has never had this medication. Blood Type: O Hemoglobin: Hemoglobin Date Value Ref Range Status 09/01/2023 12.2 11.5 - 15.5 g/dL Final Rhophylac Administered:No Procedure end time: 1152 Post Procedure Assessment: Time of first post-procedure assessment: 1155 Vitals: BP 100/66 HR 66 SpO2 99 RR 12 Bleeding:Light Pain rating: none Time of second post-procedure assessment: 1208 Vitals: BP 100/74 HR 80 SpO2 96 RR 12 Bleeding:Light Pain Rating: none Patient discharged via wheelchair accompanied by nurse and . Reviewed discharge instructions. Patient and voiced understanding. All questions answered. KAYLEN Hood Karmon, MD 10/17/2023 1:23 PM Signed UNIVERSAL PROTOCOL / SAFETY CHECKLIST Procedure to be Performed: IPAS Sign In: A Moment of CARE was completed. Personnel directly involved with the procedure wore the appropriate PPE (Personal Protective Equipment). Patient/Surrogate Stated/Verified: PATIENT VERIFIED(optional for EMERGENT procedures): Patient name, Date of , Relevant allergies, and The intended procedure Time Out Communication: Intended patient and procedure match the source documents. Consent documented and matches the intended procedure. Relevant labs, photos, and/or imaging studies have been reviewed. Medications required for procedure verified. Sign Out: SIGN OUT (optional for EMERGENT procedures): All specimen containers correctly labeled. All instruments, equipment, possible retained foreign bodies accounted for. Post-procedure follow-up management communicated and Plan of Care Visit completed when applicable. Procedure note: Speculum was placed in the vagina. After prepping the cervix with betadine paracervical block was performed using 10cc of 1% lidocaine with 1:100,000 epi. Cervix was grasped with single tooth tenaculum. Cervix was dilated. Using sterile technique, the Manual Vacuum Aspiration device with size 6 cannula was inserted into the uterus and contents were evacuated. Post-procedure ultrasound confirmed no retained tissue. Post-procedure vital signs were obtained and stable Specimen was sent to pathology Patient tolerated procedure well. PLAN: Patient was advised to observe for signs and symptoms of infection including but not limited to fever, malodorous vaginal discharge and/or pain. Bleeding expectations were reviewed. Follow up: 1-2 weeks if desired by patient MD Xin Rojas Jennifer, RN 10/17/2023 11:[address] [facility] DANDC POST-OP INSTRUCTIONS What you need to know after having a DANDC. The following instructions will help you know what to expect in the days following your procedure. Do not however hesitate to call if you have questions or concerns. Activities Do not drink alcohol or drive for at least 24 hours following your surgery. Rest and limit activity until pain and nausea/dizziness subside. Exercise is discouraged for the first 24 hours. Aerobic activity may increase heart rate and blood pressure leading to increased bleeding. Sexual Activity You may resume sexual activity 1 week after your procedure. For a miscarriage, please wait until you have completed one menstrual cycle before you attempt to conceive another . Diet Try eating a light evening meal the day of surgery. Tea, soup, toast, Jell-o or crackers may help relieve mild nausea. Vaginal Bleeding Wash hands before and after changing your romana-pad. Change pads every 4 hours as needed. Your normal period will resume in 4 to 6 weeks. Pain Control/Medications You may have a sore throat for a few days. Use throat lozenges or gargle with salt water to help relieve the soreness. Abdominal pain and cramping is expected. An analgesic (Ibuprofen or Tylenol) will be prescribed over the counter. Pain may cause nausea. You are advised to take your prescribed analgesic. When to contact your physician *Contact your physician immediately if you experience any of the following Persistent nausea and (more content not included)... Normal [facility] SURGICAL PATHOLOGYon 023 CASE REPORT Normal [facility] Comment on above: Order Comment: Speci scarlet Type: TISSUE SPECIMENOrdering Facility: [facility] Address: [address] [place] [address] Result Comment: Surg ica Pathology Report Case: [id number] Authorizing Provider: Rochelle Ramos MD Collected: 10/17/2023 01:30 PM Ordering Location: OB/Gynecology Received: 10/17/2023 04:42 PM Pathologist: Tim Demarco MD Specimen: PRODUCTS OF CONCEPTION Performed By: #### S ####[facility] LABIA [id number] [place] [address] [place] CLINICAL HISTORY mab Normal [facility] Comment on above: Order Comment: Speci scarlet Type: TISSUE SPECIMENOrdering Facility: [facility] Address: [address] [place] [address] Performed By: #### S ####[facility] LABIA [id number] [place] [address] [place] FINAL DIAGNOSIS Normal [facility] Comment on above: Order Comment: Terra novak Type: TISSUE SPECIMENOrdering Facility: [facility] Address: [address] [place] [address] Result Comment: A. U terine contents, aspiration following missed : - Fragments of posse cellular mucin, benign endometrium, benign endocervical tissue, hemorrhage, fibrin, necrotic decidua, squamous mucosa, and possible degenerated chorionic villi; compatible with clinical history of remote/missed Performed By: #### S ####[facility] LABCLIA [id number] [address] OF [facility] FINAL PERFORMING LAB Normal [facility] Comment on above: Order Comment: Speci men Type: TISSUE SPECIMENOrdering Facility: [facility] Address: [address] [place] [address] Result Comment: Diag nostic interpretation performed at [facility], [address] [place] [address] CLIA# [id number] [employer] Supervisor: Noel Seymour M.D. Performed By: #### S ####[facility] LABCLIA [id number] [address] GROSS DESCRIPTION Normal [facility] Comment on above: Order Comment: Speci men Type: TISSUE SPECIMENOrdering Facility: [facility] Address: [address] [place] [address] Result Comment: A. P RODUCTS OF CONCEPTION Received in formalin labeled as products of conception , are multiple hemorrhagic soft tissue fragments aggregating to 3.5 x 2.5 x 0.5 cm. Definitive chorionic villi are not grossly appreciated. Vesicles and parts are not present. The entire specimen is submitted in A1-A2. [place] October 18, 2023 12:55 PM Gross examination performed at [facility], [address] [place] [address] CLIA# [id number] Performed By: #### S ####[facility] LABIA [id number] [address] [place] CNOVon 10-13-2023 CNOV Office Visit (OBGYWM ) ----- JARVIS KING ([id number]) 1995 F Date Time Provider Department 10/13/23 11:30 AM BLANCA SKELTON During your visit today, we recorded the following information about you: Blanca Skelton APRN.CNM 10/13/2023 4:27 PM Addendum Jarvis King is a 28 year old female who presents for follow up visit for missed miscarriage. She is s/p two rounds of Cytotec vaginally and seen today for follow up ultrasound. Most recent dose of Cytotec taken last Monday. Reports experiencing minimal bleeding and cramping. Denies any current bleeding or pain. Per US the endometrial lining is still 1.2 cm with visible complex areas. REVIEW OF SYSTEMS Abdomen: No bloating, early satiety, indigestion, or increased flatulence. No abdominal pain, nausea, vomiting, diarrhea, or constipation. Bladder: No dysuria, gross hematuria, urinary frequency, urinary urgency, or incontinence. Breast: No breast lumps, nipple d/c, overlying skin changes, redness or skin retraction. 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 Missed - ICD9: 632, ICD10: O02.1 2. Retained products of conception after miscarriage - RH positive - 10/09/23 HCG level- 29.5 - Discussed US findings with patient who desires IPAS - Orders signed and patient scheduled for 10/17/23 - Support provided Blanca Skelton APRN.CNM Allergies As of Date: 10/13/2023 (No Known Allergies) Date Reviewed: 10/13/2023 Reviewed by: Melina Wilson MA - Fully Assessed Reason for Visit: Follow Up [171] Cmt: MAB Primary Visit Diagnosis:Missed [O02.1] Other Visit Diagnosis:Retained products of conception after miscarriage [O03.4] Order(s):[START ON 10/17/2023] keTORolac 30 mg injection (Toradol)Disp: Rfl: [START ON 10/17/2023] ALPRAZolam (XANAX) 0.5 mg tabletTake 1 tablet by mouth one time only for 1 dose. Bring to office with you. Do not start before October 17, 2023.Disp: 1 tabletRfl: 0 [START ON 10/17/2023] oxyCODONE-acetaminophen (PERCOCET) 5-325 mg tabletTake 2 tablets by mouth one time only for 1 dose. Bring to the office. Do not start before October 17, 2023.Disp: 2 tabletRfl: 0 [START ON 10/17/2023] doxycycline hyclate (VIBRAMYCIN) 100 mg capsuleTake 2 capsules by mouth one time only for 1 dose. Take after procedure with food.Disp: 2 capsuleRfl: 0 WHI (OFFICE IPAS) [[id number]] Order #: [id number] Prescriptions as of 10/13/2023 - ALPRAZolam (XANAX) 0.5 mg tablet Take 1 tablet by mouth one time only for 1 dose. Bring to office with you. Do not start before October 17, 2023. - oxyCODONE-acetaminophen (PERCOCET) 5-325 mg tablet Take 2 tablets by mouth one time only for 1 dose. Bring to the office. Do not start before October 17, 2023. - doxycycline hyclate (VIBRAMYCIN) 100 mg capsule Take 2 capsules by mouth one time only for 1 dose. Take after procedure with food. - miSOPROStol (CYTOTEC) 200 mcg tablet Please insert 4 tablets into vagina x1 - 25-IRON GNE-YVIBS-QLT ORAL Take by mouth. - valACYclovir (VALTREX) 500 mg tablet Take 1 tablet by mouth once daily. - CARBOXYMETHYLCELLULOSE SODIUM (REFRESH OPHTHALMIC) Use in eyes as needed. occ. use - White Petrolatum-Mineral Oil (REFRESH PM) 57.3-42.5 % ointment Use in both eyes at bedtime as needed. Facility-Administered Medications as of 10/13/2023 - keTORolac 30 mg injection (Toradol) Problem List As Of Date 10/13/2023 Noted Resolved Myopia [H52.10] 03/08/2016 Genital herpes simplex virus (HSV) infection in*08/26/2022 Seasonal allergies [J30.2] 08/26/2022 Supervision of high risk in first tri*08/28/2023 Prescriptions ordered this encounter Disp Refills Start End KETOROLAC 30 MG/ML (1 ML) INJECTION * 10/17/2023 10/17/2023 Route: INTRAMUSCULA ALPRAZOLAM 0.5 MG TABLET 1 ta* 0 10/17/2023 10/17/2023 Route: ORAL Sig: Take 1 tablet by mouth one time only for 1 dose. Bring to office with you. Do not start before October 17, 2023. OXYCODONE-ACETAMINOPHEN 5 MG-325 MG * 2 ta* 0 10/17/2023 10/17/2023 Route: ORAL Sig: Take 2 tablets by mouth one time only for 1 dose. Bring to the office. Do not start before October 17, 2023. DOXYCYCLINE HYCLATE 100 MG CAPSULE 2 ca* 0 10/17/2023 10/17/2023 Route: ORAL Sig: Take 2 capsules by mouth one time only for 1 dose. Take after procedure with food. Medications Discontinued During This Encounter Prescriptions - ibuprofen (MOTRIN) 800 mg tablet (Discontinued) Take 1 tablet by mouth every 8 hours as needed for pain. Disposition: Return in about 4 days (around 10/17/2023) for IPAS. Follow-up and Disposition History for Encounter Date Provider De (more content not included)... Normal [facility] OBSTETRIC ULTRASOUND WHIon 1 12-14-2022 [facility] B-HCG SerPl-aCncon 3 HCG.beta subunit Qn 29.5 m[IU]/mL High <5.0 [facility] Comment on above: Order Comment: Speci men Type: BLOOD SPECIMENOrdering Facility: [facility] Address: [address] [place] [address] Result Comment: LYLA TITATIVE HCG NORMAL RANGES Weeks of Gestation (Weeks Since LMP) 3 Weeks (5.8-71.2 mIU/mL) 4 Weeks (9.5-750 mIU/mL) 5 Weeks (217-7138 mIU/mL) 6 Weeks (158-23187 mIU/mL) 7 Weeks (3697-042521 mIU/mL) 8 Weeks (65073-587114 mIU/mL) 9 Weeks (78753-895629 mIU/mL) 10 Weeks (62517-269549 mIU/mL) 12 Weeks (60644-900216 mIU/mL) Referenced to 4th [facility] Performed By: #### 2 1198-7 ####[facility] LABSTEFANO [id number] MARITZA ELAM [id number] [place], [place] [id number] [place] CNOVon 10-06-2023 CNOV Office Visit (OBGYWM ) ----- JARVIS KING ([id number]) 1995 F Date Time Provider Department 10/06/23 2:30 PM BLANCA SKELTON OBGYWM During your visit today, we recorded the following information about you: Blood pressure Weight 102/64 67.6 kg Blanca Skelton APRN.CNM 10/06/2023 4:51 PM Signed Jarvis King is a 28 year old female who presents for problem visit of follow up for missed miscarriage. Placed Cytotec 800 mcg vaginally last Monday morning and began bleeding and passing large clots by the evening. Had heavy bleeding on Monday and it then began to lighten up. Currently today just having small amounts of bleeding/spotting. Denies any current pain. US today pending. REVIEW OF SYSTEMS Abdomen: No bloating, early satiety, indigestion, or increased flatulence. No abdominal pain, nausea, vomiting, diarrhea, or constipation. Bladder: No dysuria, gross hematuria, urinary frequency, urinary urgency, or incontinence. Breast: No breast lumps, nipple d/c, overlying skin changes, redness or skin retraction. 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 Missed - ICD9: 632, ICD10: O02.1 - HCG level- patient did not get level drawn to date - RH positive - US today shows endometrial lining- 1.8 cm with blood clot present. Discussed findings with Dr. Baires which recommended another dose of Cytotec 800 mcg vaginally tonight and repeat ultrasound next week in office. - Called and spoke with patient which agrees with plan of care. - She would like to try second dose of medication first before having IPAS - Support provided - RTO - next week for US and follow up Blanca Skelton APRN.CNM Referring Provider: BLANCA SKELTON [[id number]] Allergies As of Date: 10/06/2023 (No Known Allergies) Date Reviewed: 10/06/2023 Reviewed by: Phani Casiano Cma - Fully Assessed Reason for Visit: Follow Up [171] Cmt: Missed AB Primary Visit Diagnosis:Missed [O02.1] Order(s):miSOPROStol (CYTOTEC) 200 mcg tabletPlease insert 4 tablets into vagina x1Disp: 4 tabletRfl: 0 OBSTETRIC ULTRASOUND WHI [[id number]] Order #: [id number]: 1 FUTURE Prescriptions as of 10/06/2023 - miSOPROStol (CYTOTEC) 200 mcg tablet Please insert 4 tablets into vagina x1 - ibuprofen (MOTRIN) 800 mg tablet Take 1 tablet by mouth every 8 hours as needed for pain. - 25-IRON [id number] ORAL Take by mouth. - valACYclovir (VALTREX) 500 mg tablet Take 1 tablet by mouth once daily. - CARBOXYMETHYLCELLULOSE SODIUM (REFRESH OPHTHALMIC) Use in eyes as needed. occ. use - White Petrolatum-Mineral Oil (REFRESH PM) 57.3-42.5 % ointment Use in both eyes at bedtime as needed. Problem List As Of Date 10/06/2023 Noted Resolved Myopia [H52.10] 03/08/2016 Genital herpes simplex virus (HSV) infection in*08/26/2022 Seasonal allergies [J30.2] 08/26/2022 Supervision of high risk in first tri*08/28/2023 Prescriptions ordered this encounter Disp Refills Start End MISOPROSTOL 200 MCG TABLET 4 ta* 0 10/06/2023 Sig: Please insert 4 tablets into vagina x1 Medications Discontinued During This Encounter Prescriptions - miSOPROStol (CYTOTEC) 200 mcg tablet (Discontinued) Please insert 4 tablets into vagina x1 Disposition: Return in about 1 week (around 10/13/2023). Follow-up and Disposition History for Encounter Date Provider Department Center 10/06/2023 [id number] SKELTON Silvia Carroll Encounter Status:Closed by BLANCA SKELTON on 10/06/23 Normal [facility] OBSTETRIC ULTRASOUND WHIon 1 12-07-2022 [facility] CNPNon 09-28-2023 CNPN Telephone (MARSGYWCeleste) ----- JARVIS KING ([id number]) 1995 F Date Time Provider Department 09/28/23 BLANCA SKELTON During your visit today, we recorded the following information about you: Blanca Skelton APRN.CNM 09/28/2023 5:04 PM Signed Patient interested in now moving on to medical management for missed miscarriage. She stated she has been having minimal spotting since 09/20/23. Denies any cramping or pain. Reviewed R/B/A to medical intervention and answered patient's questions. She is planning on placing medication Monday night. Advised a refill will be placed and if no result in 24 hour, she can repeat dose. Reviewed bleeding precautions and when to contract provider or go to ED. She is already scheduled for in office visit with formal ultrasound next week. Support provided. Patient voiced understanding and appreciative for call and discussion. scallop cutter provider notified of plan of care this weekend. Blanca Skelton APRN.CNM Allergies As of Date: 09/28/2023 (No Known Allergies) Date Reviewed: 09/18/2023 Reviewed by: Blanca Skelton APRN.CNM - Fully Assessed Reason for Visit: Patient Update [1234] Order(s):miSOPROStol (CYTOTEC) 200 mcg tabletPlease insert 4 tablets into vagina x1Disp: 4 tabletRfl: 1 ibuprofen (MOTRIN) 800 mg tabletTake 1 tablet by mouth every 8 hours as needed for pain.Disp: 30 tabletRfl: 0 Prescriptions as of 09/28/2023 - miSOPROStol (CYTOTEC) 200 mcg tablet Please insert 4 tablets into vagina x1 - ibuprofen (MOTRIN) 800 mg tablet Take 1 tablet by mouth every 8 hours as needed for pain. - 25-IRON [id number] ORAL Take by mouth. - valACYclovir (VALTREX) 500 mg tablet Take 1 tablet by mouth once daily. - CARBOXYMETHYLCELLULOSE SODIUM (REFRESH OPHTHALMIC) Use in eyes as needed. occ. use - White Petrolatum-Mineral Oil (REFRESH PM) 57.3-42.5 % ointment Use in both eyes at bedtime as needed. Problem List As Of Date 09/28/2023 Noted Resolved Myopia [H52.10] 03/08/2016 Genital herpes simplex virus (HSV) infection in*08/26/2022 Seasonal allergies [J30.2] 08/26/2022 Supervision of high risk in first tri*08/28/2023 Prescriptions ordered this encounter Disp Refills Start End MISOPROSTOL 200 MCG TABLET 4 ta* 1 09/28/2023 Sig: Please insert 4 tablets into vagina x1 IBUPROFEN 800 MG TABLET 30 t* 0 09/28/2023 Route: ORAL Sig: Take 1 tablet by mouth every 8 hours as needed for pain. Encounter Status:Closed by BLANCA SKELTON on 09/28/23 [facility] [place] 09-18-2023 [facility] ----- JARVIS KING ([id number]) 1995 F Date Time Provider Department 09/18/23 WASHINGTON TRAN During your visit today, we recorded the following information about you: Natalie Ba Ma 09/18/2023 9:57 AM Signed ----- Message from Washington Tran MD sent at 09/17/2023 2:12 PM EST ----- Normal labs. Natalie Ba Ma 09/18/2023 9:58 AM Signed The documentation for this note was completed by Natalie Ba Ma acting as scribe for Washington Tran MD. September 18, 2023 9:58 AM. Allergies As of Date: 09/18/2023 (No Known Allergies) Date Reviewed: 09/15/2023 Reviewed by: Yesy Glover LPN - Fully Assessed Reason for Visit: Results [95] Prescriptions as of 09/18/2023 - carbamide peroxide (DEBROX) 6.5 % otic solution Use 5 Drops in the right ear two times a day for 4 days. - 25-IRON [id number]-MXZ ORAL Take by mouth. - valACYclovir (VALTREX) 500 mg tablet Take 1 tablet by mouth once daily. - CARBOXYMETHYLCELLULOSE SODIUM (REFRESH OPHTHALMIC) Use in eyes as needed. occ. use - White Petrolatum-Mineral Oil (REFRESH PM) 57.3-42.5 % ointment Use in both eyes at bedtime as needed. Problem List As Of Date 09/18/2023 Noted Resolved Myopia [H52.10] 03/08/2016 Genital herpes simplex virus (HSV) infection in*08/26/2022 Seasonal allergies [J30.2] 08/26/2022 Supervision of high risk in first tri*08/28/2023 Encounter Status:Closed by NATALIE BA MA on 09/18/[address] [facility] JARVIS [id number]) 1995 F Date Time Provider Department 09/18/23 BLANCA SKELTON OBSAAD During your visit today, we recorded the following information about you: Blanca Skelton APRN.CNM 09/18/2023 2:32 PM Signed Patient found to have MISSED MISCARRIAGE today via ultrasound. 12.3 weeks gestation by dates but measuring 9.1 weeks gestation. Discussed options with patient and . They would like to go home and think about options. They will contract office this week with decision. Please keep phone note open until they reach out. MADELAINE Don Jennifer RN 09/19/2023 4:36 PM Signed See [employer] message. Blanca Skelton APRN.CNM 09/20/2023 12:54 PM Signed Thank you! Blanca Skelton APRN.CNM Allergies As of Date: 09/18/2023 (No Known Allergies) Date Reviewed: 09/18/2023 Reviewed by: Blanca Skelton APRN.CNM - Fully Assessed Reason for Visit: Patient Update [1234] Prescriptions as of 09/20/2023 - 25-IRON [id number] ORAL Take by mouth. - valACYclovir (VALTREX) 500 mg tablet Take 1 tablet by mouth once daily. - CARBOXYMETHYLCELLULOSE SODIUM (REFRESH OPHTHALMIC) Use in eyes as needed. occ. use - White Petrolatum-Mineral Oil (REFRESH PM) 57.3-42.5 % ointment Use in both eyes at bedtime as needed. Problem List As Of Date 09/18/2023 Noted Resolved Myopia [H52.10] 03/08/2016 Genital herpes simplex virus (HSV) infection in*08/26/2022 Seasonal allergies [J30.2] 08/26/2022 Supervision of high risk in first tri*08/28/2023 Encounter Status:Closed by BLANCA SKELTON on 09/20/23 Normal [facility] NUCHAL TRANSLUCENCY WHIon [facility] CNOVon 09-15-2023 CNOV Office Visit (FAMPWS ) ----- JARVIS KING ([id number]) 1995 F Date Time Provider Department 09/15/23 8:40 AM WASHINGTON TRAN During your visit today, we recorded the following information about you: Pulse Respiration Blood pressure Weight 70/minute 16/minute 110/62 67.7 kg Washington Tran MD 09/15/2023 7:46 PM Signed Chief Complaint Patient presents with: Physical HPI Jarvis King is a 28 year old female who presents here today for annual physical. Notes she is 12 weeks . . Planned . Established with OB and is on vitamin. Feels safe at home. Last pap 06/2021 which was normal. PHQ-2 / Depression screen He in the past two weeks denies having felt down, depressed, hopeless or with little interest or pleasure in doing things. No genital herpes flares with Valtrex. Allergies mild this year. Not on rx OTC. Up to date on flu shot. Refusing COVID vaccine. Past medical history, appointments, medications, allergies reviewed. 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 Seasonal allergies Year round Previous Surgical History PAST SURGICAL HISTORY Procedure Laterality Date DENTAL SURGERY HX wisdom Family History FAMILY HISTORY Problem Relation Age of Onset Thyroid Mother No Known Problems Sister No Known Problems Sister Thyroid Sister Diabetes Maternal Grandmother Cancer Maternal Grandmother Lung, non-smoker Cataract Maternal Grandmother Cancer Maternal Grandfather Lung, non-smoker Cataract Maternal Grandfather Cancer Paternal Grandmother breast Cancer Paternal Grandfather unk Breast Cancer Paternal Aunt Patient Allergies ALLERGIES No Known Allergies Current Medications Current Outpatient Medications on File Prior to Visit Medication Sig 25-IRON [id number] ORAL Take by mouth. valACYclovir (VALTREX) 500 mg tablet Take 1 tablet by mouth once daily. CARBOXYMETHYLCELLULOSE SODIUM (REFRESH OPHTHALMIC) Use in eyes as needed. occ. use White Petrolatum-Mineral Oil (REFRESH PM) 57.3-42.5 % ointment Use in both eyes at bedtime as needed. No current facility-administered medications on file prior to visit. Social History Social History Tobacco Use Smoking status: Never Smokeless tobacco: Never Vaping Use Vaping Use: Never used Substance Use Topics Alcohol use: Not Currently Alcohol/week: 4.0 standard drinks of alcohol Types: 4 Standard drinks or equivalent per week Drug use: Never Review of Symptoms REVIEW OF SYSTEMS GENERAL: No weight loss, malaise or fevers HEENT: Negative for frequent or significant headaches, No changes in hearing or vision, no nose bleeds or other nasal problems NECK: Negative for lumps, goiter, pain and significant neck swelling RESPIRATORY: Negative for cough, hemoptysis, wheezing, COPD, dyspnea or shortness of breath CARDIOVASCULAR: Negative for chest pain, leg swelling, hypertension, CHF or palpitations GI: No nausea, vomiting, or diarrhea : No history of dysuria, frequency or incontinence 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 bleeding, abnormal vaginal discharge MUSCULOSKELETAL: Negative for joint pain or swelling, back pain or muscle pain SKIN: Negative for lesions, rash, and itching PSYCH: Negative for sleep disturbance, mood disorder and recent psychosocial stressors HEMATOLOGY/LYMPHOLOGY: Negative for prolonged bleeding, bruising easily or swollen nodes ENDOCRINE: Negative for cold or heat intolerance, polyuria, polydipsia and goiter NEURO: No history of headaches, syncope, paralysis, seizures or tremors EXAM: BP 110/62 Pulse 70 Resp 16 Wt 67.7 kg (149 lb 3.2 oz) LMP 06/23/2023 (Exact Date) SpO2 99% BMI 24.27 kg/m? General Appearance: Well appearing, alert, in no acute distress, well-hydrated, well nourished.. Skin: Skin color, texture, turgor normal, no suspicious rashes or lesions. Head: Normocephalic, no masses, lesions, tenderness or abnormalities. Eyes: Anicteric sclera. Pupils are equally round and reactive to light. Extraocular movements are intact. . Ears: Positive findings: cerumen on right, amount Moderate. Left canal and TM normal. Nose/Sinuses: Nares normal, septum midline, mucosa normal, no drainage or sinus tenderness. Oropharynx: Lips, mucosa, and tongue normal, teeth and gums normal, oropharynx normal. Neck: Supple, no adenopathy; thyroid symmetric, normal size, no bruits. Lungs: Lungs clear to auscultation. No wheezing, rhonchi, rales.. Heart: RRR without murmur, gallop, or rubs. No ectopy. Abdomen: Normal abdominal exam, Abdomen soft, non-tender. Bowel sounds normal. No masses, organomegaly. Extremities: No deformities, edema, skin discoloration, clubbing or cyanosis. Good capillary refill. . Peripheral Pulses: Normal. Lymph (more content not included)... Normal [facility] metabolic 2000 panelon 09-15-2023 Albumin [Mass/Vol] 4.1 g/dL 3.9 - 4.9 g/dL [facility] ALP [Catalytic activity/Vol] 52 U/L 34 - 123 U/L [facility] ALT [Catalytic activity/Vol] 10 U/L 7 - 38 U/L [facility] Anion gap [Moles/Vol] 10 mmol/L 9 - 18 mmol/L [facility] AST [Catalytic activity/Vol] 18 U/L 13 - 35 U/L [facility] Bilirubin [Mass/Vol] 0.5 mg/dL 0.2 - 1.3 mg/dL [facility] Calcium [Mass/Vol] 9.5 mg/dL 8.5 - 10.2 mg/dL [facility] Chloride [Moles/Vol] 103 mmol/L 97 - 105 mmol/L [facility] CO2 [Moles/Vol] 24 mmol/L 22 - 30 mmol/L [facility] Creatinine [Mass/Vol] 0.51 mg/dL Low 0.58 - 0.96 mg/dL [facility] Estimated Glomerular Filtration Rate 129 mL/min/1.73m >=60 mL/min/1.73m [facility] Glucose [Mass/Vol] 89 mg/dL 74 - 99 mg/dL [facility] Potassium [Moles/Vol] 4.3 mmol/L 3.7 - 5.1 mmol/L [facility] Protein [Mass/Vol] 7.3 g/dL 6.3 - 8.0 g/dL [facility] Sodium [Moles/Vol] 137 mmol/L 136 - 144 mmol/L [facility] Urea nitrogen [Mass/Vol] 5 mg/dL Low 7 - 21 mg/dL [facility] Albumin [Mass/Vol] 4.1 g/dL Normal 3.9-4.9 [facility] Comment on above: Order Comment: Speci men Type: BLOOD SPECIMENOrdering Facility: [facility] Address: [address] [place] [address] Performed By: #### 2 4323-8, 72336-9 ####[facility] LABCLIA [id number] [place] [address] [place] ALP [Catalytic activity/Vol] 52 U/L Normal 34-123 [facility] Comment on above: Order Comment: Speci men Type: BLOOD SPECIMENOrdering Facility: [facility] Address: [address] [place] [address] Performed By: #### 2 4323-8, 57119-1 ####[facility] LABCLIA [id number] [place] [address] [place] ALT [Catalytic activity/Vol] 10 U/L Normal 7-38 [facility] Comment on above: Order Comment: Speci men Type: BLOOD SPECIMENOrdering Facility: [facility] Address: [address] [place] [address] Performed By: #### 2 4323-8, 00389-1 ####[facility] LABCLIA [id number] [place] [address] [place] Anion gap [Moles/Vol] 10 mmol/L Normal 9-18 [facility] Comment on above: Order Comment: Speci men Type: BLOOD SPECIMENOrdering Facility: [facility] Address: [address] [place] [address] Performed By: #### 2 4323-8, 14516-6 ####[facility]CLIA [id number] [place] [address] [place] AST [Catalytic activity/Vol] 18 U/L Normal 13-35 [facility] Comment on above: Order Comment: Speci men Type: BLOOD SPECIMENOrdering Facility: [facility] Address: [address] [place] [address] Performed By: #### 2 4323-8, 41908-9 ####[facility] LABCLIA [id number] [place] [address] [place] Bilirubin [Mass/Vol] 0.5 mg/dL Normal 0.2-1.3 [facility] Comment on above: Order Comment: Speci men Type: BLOOD SPECIMENOrdering Facility: [facility] Address: [address] [place] [address] Performed By: #### 2 4323-8, 33033-0 ####[facility] LABCLIA [id number] [place] [address] [place] Calcium [Mass/Vol] 9.5 mg/dL Normal 8.5-10.2 [facility] Comment on above: Order Comment: Speci men Type: BLOOD SPECIMENOrdering Facility: [facility] Address: [address] [place] [address] Performed By: #### 2 4328, ####[facility] LABCLIA [id number] [place] [address] [place] Chloride [Moles/Vol] 103 mmol/L Normal 97-105 [facility] Comment on above: Order Comment: Speci men Type: BLOOD SPECIMENOrdering Facility: [facility] Address: [address] [place] [address] Performed By: #### 2 4323-8, ####[facility] LABCLIA [id number] [place] [id number] [place] CO2 [Moles/Vol] 24 mmol/L Normal 22-30 [facility] Comment on above: Order Comment: Speci men Type: BLOOD SPECIMENOrdering Facility: [facility] Address: [address] [place] [address] Performed By: #### 2 4323-8, 91798-4 ####[facility]CLIA [id number] [place] [address] [place] Creatinine [Mass/Vol] 0.51 mg/dL Low 0.58-0.96 [facility] Comment on above: Order Comment: Terra novak Type: BLOOD SPECIMENOrdering Facility: [facility] Address: [address] [place] [address] Performed By: #### 2 4323-8, 92124-9 ####[facility] LABCLIA [id number] [address] Creatinine and Glomerular filtration rate.predicted panel (S/P/Bld) 129 mL/min/1.73m??? Normal >=60 [facility] Comment on above: Order Comment: Terra novak Type: BLOOD SPECIMENOrdering Facility: [facility] Address: [address] [place] [address] Result Comment: Katy mated Glomerular Filtration Rate (eGFR) is calculated using the 2020 CKD-EPI creatinine equation. This equation utilizes serum creatinine, sex, and age as parameters. The creatinine assay has traceable calibration to isotope dilution-mass spectrometry. Refer to KDIGO guidelines for clinical interpretation. In patients with unstable renal function, e.g. those with acute kidney injury, the eGFR may not accurately reflect actual GFR. Performed By: #### 2 4323-8, 44395-8 ####[facility] LABCLIA [id number] [place] [address] [place] Glucose [Mass/Vol] 89 mg/dL Normal 74-99 [facility] Comment on above: Order Comment: Terra novak Type: BLOOD SPECIMENOrdering Facility: [facility] Address: [address] [place] [address] Result Comment: The [place] Diabetes Association (ADA) provides guidance for cutoff values for fasting glucose and random glucose. The ADA defines fasting as no caloric intake for at least 8 hours. Fasting plasma glucose results between 100 to 125 mg/dL indicate increased risk for diabetes (prediabetes). Fasting plasma glucose results greater than or equal to 126 mg/dL meet the criteria for diagnosis of diabetes. In the absence of unequivocal hyperglycemia, results should be confirmed by repeat testing. In a patient with classic symptoms of hyperglycemia or hyperglycemic crisis, random plasma glucose results greater than or equal to 200 mg/dL meet the criteria for diagnosis of diabetes. Reference: Standards of Medical Care in Diabetes 2016, [place] [employer]. Diabetes Care. 2016.39(Suppl 1). Performed By: #### 2 4323-8, 87255-9 ####[facility] LABCLIA [id number] [address] [address] [place] Potassium [Moles/Vol] 4.3 mmol/L Normal 3.7-5.1 [facility] Comment on above: Order Comment: Speci men Type: BLOOD SPECIMENOrdering Facility: [facility] Address: [address] [place] [address] Performed By: #### 2 4323-8, 54785-4 ####[facility] LABCLIA [id number] [place] [address] [place] Protein [Mass/Vol] 7.3 g/dL Normal 6.3-8.0 [facility] Comment on above: Order Comment: Speci men Type: BLOOD SPECIMENOrdering Facility: [facility] Address: [address] [place] [address] Performed By: #### 2 4323-8, ####[facility] LABCLIA [id number] [place] [address] [place] Sodium [Moles/Vol] 137 mmol/L Normal 136-144 [facility] Comment on above: Order Comment: Speci men Type: BLOOD SPECIMENOrdering Facility: [facility] Address: [address] [place] [address] Performed By: #### 2 4323-8, 10371-4 ####[facility] LABCLIA [id number] [place] [id number] [place] Urea nitrogen [Mass/Vol] 5 mg/dL Low 7-21 [facility] Comment on above: Order Comment: Speci men Type: BLOOD SPECIMENOrdering Facility: [facility] Address: [address] [place] [id number] Performed By: #### 2 4323-8, 84098-6 ####[facility] LABCLIA [id number] [place] [address] [place] Lipid 1996 panelon 3 Cholesterol [Mass/Vol] 195 mg/dL <200 mg/dL [facility] Cholesterol in HDL [Mass/Vol] 96 mg/dL >39 mg/dL [facility] Cholesterol in LDL [Mass/Vol] 91 mg/dL <100 mg/dL [facility] Cholesterol in LDL/Cholesterol in HDL [Mass ratio] 0.95 {ratio} <2.54 [facility] Cholesterol in VLDL [Mass/Vol] 8 mg/dL <30 mg/dL [facility] [facility] Cholesterol non HDL [Mass/Vol] 99 mg/dL <130 mg/dL [facility] Cholesterol.total/ Cholesterol in HDL [Mass ratio] 2.03 {ratio} <5.10 [facility] Fasting Time 14 hrs [facility] Triglyceride [Mass/Vol] 39 mg/dL <150 mg/dL [facility] Cholesterol [Mass/Vol] 195 mg/dL Normal <200 [facility] Comment on above: Order Comment: Speci men Type: BLOOD SPECIMENOrdering Facility: [facility] Address: [address] [place] [address] Result Comment: <200 mg/dL, Desirable 200-239 mg/dL, Borderline high >239 mg/dL, High Performed By: #### 2 4323-8, 38809-6 ####[facility] LABCLIA [id number] [place] [address] [place] Cholesterol in HDL [Mass/Vol] 96 mg/dL Normal >39 [facility] Comment on above: Order Comment: Speci men Type: BLOOD SPECIMENOrdering Facility: [facility] Address: [address] [place] [address] Result Comment: 40-5 9 mg/dL, Acceptable >59 mg/dL, High: Negative risk factor for coronary heart disease <40 mg/dL, Low: Positive risk factor for coronary heart disease Performed By: #### 2 4323-8, 83663-0 ####[facility] LABCLIA [id number] [place] [address] [place] Cholesterol in LDL [Mass/Vol] 91 mg/dL Normal <100 [facility] Comment on above: Order Comment: Speci men Type: BLOOD SPECIMENOrdering Facility: [facility] Address: [address] [place] [address] Result Comment: <100 mg/dL, Optimal 100-129 mg/dL, Near optimal/above optimal 130-159 mg/dL, Borderline high 160-189 mg/dL, High >189 mg/dL, Very high Secondary prevention optimal LDL Cholesterol levels are recommended to be < 70 mg/dL Performed By: #### 2 4323-8, 95305-2 ####[facility] LABCLIA [id number] [address] [facility] Cholesterol in LDL/Cholesterol in HDL [Mass ratio] 0.95 {ratio} Normal <2.54 [facility] Comment on above: Order Comment: Speci men Type: BLOOD SPECIMENOrdering Facility: [facility] Address: [address] [place] [address] Result Comment: Refhugo moya: 1. National Cholesterol Education Program ATP III Guideline At-A-Glance Quick Desk Reference: National Heart, Lung, and Blood [place]. National Institutes of Health. 2001: NIH Publication No. 01-3305. 2. An International Atherosclerosis Society position paper: global recommendations for the management of dyslipidemia: executive summary, Atherosclerosis. 2014: 232(2):410-413. Performed By: #### 2 4323-8, 18032-5 ####[facility] LABCLIA [id number] [place] [address] [place] Cholesterol in VLDL [Mass/Vol] 8 mg/dL Normal <30 [facility] Comment on above: Order Comment: Surendrai men Type: BLOOD SPECIMENOrdering Facility: [facility] Address: [address] [place] [address] Performed By: #### 2 4323-8, 81014-5 ####[facility] LABCLIA [id number] [address] [place] Cholesterol non HDL [Mass/Vol] 99 mg/dL Normal <130 [facility] Comment on above: Order Comment: Speci men Type: BLOOD SPECIMENOrdering Facility: [facility] Address: [address] [place] [address] Result Comment: <130 mg/dL, Optimal 130-159 mg/dL, Near optimal/above optimal 160-189 mg/dL, Borderline high 190-219 mg/dL, High >219 mg/dL, Very high Secondary prevention optimal non HDL Cholesterol levels are recommended to be <100 mg/dL Performed By: #### 2 4323-8, 43557-3 ####[facility] LABCLIA [id number] [place] [address] [place] Cholesterol.total/ Cholesterol in HDL [Mass ratio] 2.03 {ratio} Normal <5.10 [facility] Comment on above: Order Comment: Speci men Type: BLOOD SPECIMENOrdering Facility: [facility] Address: [address] [place] [address] Performed By: #### 2 4323-8, 31535-2 ####[facility] LABCLIA [id number] [address] [place] FASTING TIME 14 hrs Normal [facility] Comment on above: Order Comment: Speci men Type: BLOOD SPECIMENOrdering Facility: [facility] Address: [address] [place] [address] Performed By: #### 2 4323-8, 27538-5 ####[facility] LABCLIA [id number] [place] [address] [place] Triglyceride [Mass/Vol] 39 mg/dL Normal <150 [facility] Comment on above: Order Comment: Speci men Type: BLOOD SPECIMENOrdering Facility: [facility] Address: [address] [place] [address] Result Comment: <150 mg/dL, Normal 150-199 mg/dL, Borderline high 200-499 mg/dL, High >499 mg/dL, Very high Performed By: #### 2 4323-8, 15629-6 ####[facility] LABCLIA [id number] [facility] [id number] [address] [place] CBC panel Auto (Bld)on 09-01 Erythrocyte distribution width (RBC) [Ratio] 11.9 % Normal 11.5-15.0 [facility] Comment on above: Order Comment: Speci men Type: BLOOD SPECIMENOrdering Facility: [facility] Address: [address] [place] [address] Performed By: #### 5 8410-2 ####[facility] [id number] [place] [address] [place] Hematocrit (Bld) [Volume fraction] 35.4 % Low 36.0-46.0 [facility] Comment on above: Order Comment: Speci men Type: BLOOD SPECIMENOrdering Facility: [facility] Address: [address] [place] [address] Performed By: #### 5 8410-2 ####[facility] [id number] [place] [address] [place] Hemoglobin (Bld) [Mass/Vol] 12.2 g/dL Normal 11.5-15.5 [facility] Comment on above: Order Comment: Speci men Type: BLOOD SPECIMENOrdering Facility: [facility] Address: [address] [place] [address] Performed By: #### 5 8410-2 ####[facility] [id number] [place] [address] [place] MCH (RBC) [Entitic mass] 31.1 pg Normal 26.0-34.0 [facility] Comment on above: Order Comment: Speci men Type: BLOOD SPECIMENOrdering Facility: [facility] Address: [address] [place] [address] Performed By: #### 5 8410-2 ####[facility] [id number] [place] [address] [place] MCHC (RBC) [Mass/Vol] 34.5 g/dL Normal 30.5-36.0 [facility] Comment on above: Order Comment: Speci men Type: BLOOD SPECIMENOrdering Facility: [facility] Address: [address] [place] [address] Performed By: #### 5 8410-2 ####[facility] [id number] [place] [address] [place] MCV (RBC) [Entitic vol] 90.3 fL Normal 80.0-100.0 [facility] Comment on above: Order Comment: Speci men Type: BLOOD SPECIMENOrdering Facility: [facility] Address: [address] [place] [address] Performed By: #### 5 8410-2 ####[facility] [id number] [place] [address] [place] Nucleated RBC (Bld) [#/Vol] 10*3/uL Normal <0.01 [facility] Comment on above: Order Comment: Speci men Type: BLOOD SPECIMENOrdering Facility: [facility] Address: [address] [place] [address] Performed By: #### 5 8410-2 ####[facility] [id number] [place] [address] [place] Platelet mean volume (Bld) [Entitic vol] 10.3 fL Normal 9.0-12.7 [facility] Comment on above: Order Comment: Speci men Type: BLOOD SPECIMENOrdering Facility: [facility] Address: [address] [place] [address] Performed By: #### 5 8410-2 ####[facility] [id number] [place] [address] [place] Platelets (Bld) [#/Vol] 237 10*3/uL Normal 150-400 [facility] Comment on above: Order Comment: Speci men Type: BLOOD SPECIMENOrdering Facility: [facility] Address: [address] [place] [address] Performed By: #### 5 8410-2 ####[facility] [id number] [place] [address] [place] RBC (Bld) [#/Vol] 3.92 10*6/uL Normal 3.90-5.20 [facility] Comment on above: Order Comment: Speci men Type: BLOOD SPECIMENOrdering Facility: [facility] Address: [address] [place] [address] Performed By: #### 5 8410-2 ####[facility] [id number] [place] [address] [place] WBC (Bld) [#/Vol] 7.07 10*3/uL Normal 3.70-11.00 [facility] Comment on above: Order Comment: Speci men Type: BLOOD SPECIMENOrdering Facility: [facility] Address: [address] [place] [address] Performed By: #### 5 8410-2 ####[facility] [id number] [place] [address] [place] HBV surface Ag Ser Qlon HBV surface Ag Ql (S) Negative Normal Negative [facility] Comment on above: Order Comment: Speci men Type: BLOOD SPECIMENOrdering Facility: [facility] Address: [address] [place] [address] Performed By: #### 3 1201-7, 5195-3, 62266-0 ####[facility] LABCLIA [id number] [place] [address] [place] HCV Ab Ser Qlon 09-01-2023 HCV Ab Ql (S) Negative Normal Negative [facility] Comment on above: Order Comment: Speci men Type: BLOOD SPECIMENOrdering Facility: [facility] Address: [address] [place] [address] Result Comment: The result suggests no evidence of active infection with Hepatitis C virus. Should recent infection be suspected, repeat testing may be considered 4-6 weeks after this draw. Performed By: #### 1 6128-1 ####[facility] LABIA [id number] [place] [address] [place] HIV 1+2 Ab IA Qlon 3 HIV 1 and 2 Ab IA.rapid Nom Normal [facility] Comment on above: Order Comment: Speci men Type: BLOOD SPECIMENOrdering Facility: [facility] Address: [address] [place] [address] Result Comment: Test not indicated. Performed By: #### 3 1201-7, 5195-3, 90519-7 ####[facility] LABIA [id number] [place] [address] [place] HIV 1+2 Ab+HIV1 p24 Ag IA Ql Non-Reactive Normal Nonreactive [facility] Comment on above: Order Comment: Speci men Type: BLOOD SPECIMENOrdering Facility: [facility] Address: [address] [place] [address] Performed By: #### 3 1201-7, 5195-3, 77328-9 ####[facility] [id number] [place] [address] [place] HIV immunoassay testing algorithm interpretation (S/P/Bld) [Interp] Normal [facility] Comment on above: Order Comment: Speci men Type: BLOOD SPECIMENOrdering Facility: [facility] Address: [address] [place] [address] Result Comment: No e vidence of HIV-1 or HIV-2 infection. Should recent infection be suspected, repeat testing may be considered 2-3 weeks after this draw. [place] Rev. Code 3701.243(E): This information has been disclosed to you from confidential records protected from disclosure by state law. ???You shall make no further disclosure of this information without the specific, written, and informed release of the individual to whom it pertains or as otherwise permitted by state law. A general authorization for the release of medical or other information is not sufficient for the purpose of the release of HIV test results or diagnoses. Performed By: #### 3 1201-7, 5195-3, 56705-9 ####[facility] LABIA [id number] [place] [address] [place] RUBELLA IGG ABon 09-01-2023 RUBELLA IGG AB, QUAL Positive Normal Positive [facility] Comment on above: Order Comment: Speci men Type: BLOOD SPECIMENOrdering Facility: [facility] Address: [address] [place] [address] Result Comment: The result suggests recent or past exposure to Rubella virus or history of Rubella vaccination. Positive result may also be seen due to presence of passively-transferred antibodies. Please correlate with patient's history. Performed By: #### R UBIGG ####[facility] LABIA [id number] [place] [address] [place] Reagin and Treponema pallidu m IgG and IgM [Interp]on 09-01-2023 T. pallidum IgG+IgM IA Ql (S) Non-Reactive Normal Nonreactive [facility] Comment on above: Order Comment: Speci men Type: BLOOD SPECIMENOrdering Facility: [facility] Address: [address] [place] [address] Performed By: #### 3 1201-7, 5195-3, 87463-1 ####[facility] LABIA [id number] [place] [address] [place] Reagin+T pallidum IgG+IgM Se rPl-Impon 09-01-2023 Reagin and Treponema pallidum IgG and IgM [Interp] Cannot exclude recent Treponemal infection if specimen collected within 7-10 days after appearance of suspect lesions or 2-3 weeks after an exposure. Clinical correlation is required. Normal [facility] Comment on above: Order Comment: Speci men Type: BLOOD SPECIMENOrdering Facility: [facility] Address: [address] [place] [address] Performed By: #### 3 1201-7, 5195-3, 09108-0 ####[facility] LABCLIA [id number] [place] [address] [place] TSH SerPl-aCncon 09-01-2023 TSH Qn 0.699 m[IU]/L Normal 0.270-4.200 [facility] Comment on above: Order Comment: Speci men Type: BLOOD SPECIMENOrdering Facility: [facility] Address: [address] [place] [address] Result Comment: If t he patient is , TSH reference range varies by gestational period: First Trimester (weeks 9-12): 0.180-2.990 mIU/L Second Trimester: 0.110-3.980 mIU/L Third Trimester: 0.480-4.710 mIU/L Jesse Sheth et al. A Practical Approach for the Verifications and Determination of Site- and Trimester-Specific Reference Intervals for Thyroid Function tests in . Thyroid, 2019:29:3:412-420. Ranjit E, et al. 2017 Guidelines of the [place] Thyroid Association for the Diagnosis and Management of Thyroid Disease during and the . Thyroid, 2017:27:3:315-389. Performed By: #### 3 016-3 ####[facility] LABCLIA [id number] [place] [address] [place] TYPE + SCREEN PRENATALon ABO O Normal [facility] Comment on above: Order Comment: Speci men Type: BLOOD SPECIMENOrdering Facility: [facility] Address: [address] [place] [address] Performed By: #### T SPN ####[facility] BLOOD BANKIA [id number] [place] [address] [place] HISTORICAL AB SCR STATUS Negative Normal [facility] Comment on above: Order Comment: Speci men Type: BLOOD SPECIMENOrdering Facility: [facility] Address: [address] [place] [address] Performed By: #### T SPN ####[facility] BLOOD BANKCLIA [id number] [place] [address] [place] Rh Nom (Bld) Positive Normal [facility] Comment on above: Order Comment: Speci men Type: BLOOD SPECIMENOrdering Facility: [facility] Address: [address] [place] [address] Performed By: #### T SPN ####[facility] BLOOD BANKCLIA [id number] [place] [address] [place] TYPE AND SCREEN EXPIRATION 09/04/2023 23:59 Normal [facility] Comment on above: Order Comment: Speci men Type: BLOOD SPECIMENOrdering Facility: [facility] Address: [address] [place] [address] Performed By: #### T SPN ####[facility] BLOOD BANKCLIA [id number] [place] [address] [place] Bacteria Ur Culton Bacteria identified Cx Nom (U) ORGANISM ID: 1 <10,000 CFU/ml Normal urogenital virgilio Normal [facility] Comment on above: Performed By: #### 6 30-4 ####[facility] LABCLIA [id number] [place] [address] [place] C. trachomatis+N. gonorrhoea e DNA FELIX+probe Ql (Unsp spec)on 08-28-2023 C. trachomatis rRNA FELIX+probe Ql (Unsp spec) Negative Normal Negative for Chlamydia trachomatis by amplificaton [facility] Comment on above: Order Comment: Speci men Type: SWABOrdering Facility: [facility] Address: [address] [place] [address] Performed By: #### 3 6902-5 ####[facility] LABCLIA [id number] [place] [address] [place] N. gonorrhoeae rRNA FELIX+probe Ql (Unsp spec) Negative Normal Negative for Neisseria gonorrhoeae by amplification [facility] Comment on above: Order Comment: Speci men Type: SWABOrdering Facility: [facility] Address: [address] [place] [address] Performed By: #### 3 6902-5 ####[facility] LABCLIA [id number] [address] [id number], [place] [address] [place] No Panel Informationon 08-28 [facility] CNNURSEon 08-22-2023 [facility] Nurse Visit (OBGYWM) ----- BILLJARVIS OVALLE ([id number]) 1995 F Date Time Provider Department 08/22/23 9:00 AM NURSE [facility] OBGYWM During your visit today, we recorded the following information about you: Last Period 06/23/23 Greer Dolan RN 08/22/2023 10:04 AM Signed INITIAL OB ASSESSMENT OB Provider: Greer Dolan RN HPI: Jarvis is a 28 year old White here to establish Obstetrical Care. Patient's last menstrual period was 06/23/2023 (exact date). from OB Dating Form. Cycles regular was planned Complaints: None OB History T0 L0 SAB0 IAB0 Ectopic0 Multiple0 Live Births0 Patient's Risk Screening for delivery: Have you had a prior vera between 20w and 36w6d?: No MEDICAL/PSYCHOSOCIAL HISTORY: History of hemorrhage or bleeding concerns: No Thyroid Disease: No History of chronic hypertension: No History of pre-existing diabetes: No No results found for: ABORHD No weight on file for this encounter. History of abnormal pap: No Prior treatment for cervical dysplasia: none. 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 I don't have enough money to pay my bills: Never Within the past 12 months, have you worried that your food would run out before you had money to buy more: Never In the past 12 months, has lack of reliable transportation kept you from going to medical appointments or work, or from keeping things needed for daily living: Never In the past 12 months, have you had any concerns about having a place to live, or about the condition or quality of your housing: Never Are there any cultural or spiritual needs we should be aware of: No Depression/Anxiety Screening: denies symptoms of depression. OB Depression and Anxiety Screening- This Encounter (since 08/21/2023) None Genetic Screening: Partner present: No Patient verbalized knowledge of partner family health history: Yes Do you or your partner have any personal or family history of defects not previously discussed: No Do you have history of a complicated by anomaly, genetic condition, or demise: No ACOG Recommended Screening Screening for early gestational diabetes testing: Criteria for early testing requires elevated BMI plus one other risk factor: No weight on file for this encounter. (risk factor if > than 25 or 23 in Americans) Additional risk factors: None She does not meet ACOG criteria for early gestational DM screening. 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 valACYclovir (VALTREX) 500 mg tablet Take 1 tablet by mouth once daily. 90 tablet 3 CARBOXYMETHYLCELLULOSE SODIUM (REFRESH OPHTHALMIC) Use in eyes as needed. occ. use White Petrolatum-Mineral Oil (REFRESH PM) 57.3-42.5 % ointment Use in both eyes at bedtime as needed. 11/18, 28, 1 mg-20 mcg (21)/75 mg (7) per tablet take 1 tablet by mouth every day 84 tablet 0 No current facility-administered medications for this visit. Allergies As of Date: 08/22/2023 (No Known Allergies) Fully Assessed 08/22/2023 Does patient have penicillin allergy: Greer Nguyen RN 08/22/2023 10:04 AM Signed DISTANCE HEALTH VISIT This Team Access Model visit is a phone encounter. It required patient-provider interaction for the medical decision making as documented below. I have communicated my name and active licensure. The patient's identity and physical location were verified at the time of this visit. Patient has a history of herpes. Discussed the risks of outbreaks during and advised patient to report any outbreaks should they occur. (more content not included)... Normal [facility] Vital Signs Date Time Vital Sign Value Performing Clinician Rajii tommy 08-14-2024 14:05-0400 Body mass index (BMI) [Ratio] 33.12 kg/m2 Nohemy Lyn MD Work Phone: [facility] 08-14-2024 14:05-0400 Body weight 90.27 kg Nohemy Lyn MD Work Phone: [facility] 08-14-2024 14:05-0400 Diastolic blood pressure 82 mm[Hg] Nohemy Lyn MD Work Phone: [facility] 08-14-2024 14:05-0400 Systolic blood pressure 134 mm[Hg] Nohemy Lyn MD Work Phone: [facility] 08-07-2024 14:31-0400 Body mass index (BMI) [Ratio] 32.45 kg/m2 Blanca Skelton NETWORK CONTROL SUPERVISOR.CNM Work Phone: [facility] 08-07-2024 14:31-0400 Body weight 88.45 kg Blanca Skelton NETWORK CONTROL SUPERVISOR.CNM Work Phone: [facility] 08-07-2024 14:31-0400 Diastolic blood pressure 78 mm[Hg] Blanca Skelton NETWORK CONTROL SUPERVISOR.CNM Work Phone: [facility] 08-07-2024 14:31-0400 Systolic blood pressure 126 mm[Hg] Blanca Skelton NETWORK CONTROL SUPERVISOR.CNM Work Phone: [facility] 08-06-2024 14:25-0400 Body mass index (BMI) [Ratio] 32.28 kg/m2 Nohemy Lyn MD Work Phone: [facility] 08-06-2024 14:25-0400 Body weight 88 kg Nohemy Lyn MD Work Phone: [facility] 08-06-2024 14:25-0400 Diastolic blood pressure 77 mm[Hg] Nohemy Lyn MD Work Phone: [facility] 08-06-2024 14:25-0400 Systolic blood pressure 126 mm[Hg] Nohemy Lyn MD Work Phone: [facility] 07-31-2024 15:44-0400 Body mass index (BMI) [Ratio] 31.78 kg/m2 Blanca Skelton NETWORK CONTROL SUPERVISOR.CNM Work Phone: [facility] 07-31-2024 15:44-0400 Body weight 86.64 kg Blanca Plotsang NETWORK CONTROL SUPERVISOR.CNM Work Phone: [facility] 07-31-2024 15:44-0400 Diastolic blood pressure 70 mm[Hg] Blanca Westts NETWORK CONTROL SUPERVISOR.CNM Work Phone: [facility] 07-31-2024 15:44-0400 Systolic blood pressure 124 mm[Hg] Blanca Plotsang NETWORK CONTROL SUPERVISOR.CNM Work Phone: [facility] 07-24-2024 14:26-0400 Body mass index (BMI) [Ratio] 31.28 kg/m2 Rebecca Fontanez NETWORK CONTROL SUPERVISOR.CNM Work Phone: [facility] 07-24-2024 14:26-0400 Body weight 85.28 kg Rebecca Fontanez NETWORK CONTROL SUPERVISOR.CNM Work Phone: [facility] 07-24-2024 14:26-0400 Diastolic blood pressure 68 mm[Hg] Rebecca Fontanez NETWORK CONTROL SUPERVISOR.CNM Work Phone: [facility] 07-24-2024 14:26-0400 Systolic blood pressure 116 mm[Hg] Rebecca Fontanez NETWORK CONTROL SUPERVISOR.CNM Work Phone: [facility] 07-16-2024 08:09-0400 Body mass index (BMI) [Ratio] 30.95 kg/m2 Elsie Moreno MD Work Phone: [facility] 07-16-2024 08:09-0400 Body weight 84.37 kg Elsie Moreno MD Work Phone: [facility] 07-16-2024 08:09-0400 Diastolic blood pressure 60 mm[Hg] Elsie Moreno MD Work Phone: [facility] 07-16-2024 08:09-0400 Systolic blood pressure 120 mm[Hg] Elsie Moreno MD Work Phone: [facility] 07-03-2024 16:02-0400 Body mass index (BMI) [Ratio] 30.85 kg/m2 Blanca Skelton NETWORK CONTROL SUPERVISOR.CNM Work Phone: [facility] 07-03-2024 16:02-0400 Body weight 84.1 kg Blanca Skelton NETWORK CONTROL SUPERVISOR.CNM Work Phone: [facility] 07-03-2024 16:02-0400 Diastolic blood pressure 68 mm[Hg] Blanca Plotts NETWORK CONTROL SUPERVISOR.CNM Work Phone: [facility] 07-03-2024 16:02-0400 Systolic blood pressure 104 mm[Hg] Blanca Skelton NETWORK CONTROL SUPERVISOR.CNM Work Phone: [facility] 06-26-2024 14:39-0400 Body mass index (BMI) [Ratio] 30.62 kg/m2 Blanca Skelton NETWORK CONTROL SUPERVISOR.CNM Work Phone: [facility] 06-26-2024 14:39-0400 Body weight 83.46 kg Blanca Plotts NETWORK CONTROL SUPERVISOR.CNM Work Phone: [facility] 06-26-2024 14:39-0400 Diastolic blood pressure 64 mm[Hg] Blanca Plotts NETWORK CONTROL SUPERVISOR.CNM Work Phone: [facility] 06-26-2024 14:39-0400 Systolic blood pressure 116 mm[Hg] Blanca Plotts NETWORK CONTROL SUPERVISOR.CNM Work Phone: [facility] 06-17-2024 15:54-0400 Body mass index (BMI) [Ratio] 29.79 kg/m2 Concha Baires MD Work Phone: [facility] 06-17-2024 15:54-0400 Body weight 81.19 kg Concha Baires MD Work Phone: [facility] 06-17-2024 15:54-0400 Diastolic blood pressure 62 mm[Hg] Concha Baires MD Work Phone: [facility] 06-17-2024 15:54-0400 Systolic blood pressure 124 mm[Hg] Concha Baires MD Work Phone: [facility] 06-12-2024 14:32-0400 Body mass index (BMI) [Ratio] 29.95 kg/m2 Blanca Plotts NETWORK CONTROL SUPERVISOR.CNM Work Phone: [facility] 06-12-2024 14:32-0400 Body weight 81.65 kg Blanca Plotts NETWORK CONTROL SUPERVISOR.CNM Work Phone: [facility] 06-12-2024 14:32-0400 Diastolic blood pressure 62 mm[Hg] Blanca Plotts NETWORK CONTROL SUPERVISOR.CNM Work Phone: [facility] 06-12-2024 14:32-0400 Systolic blood pressure 114 mm[Hg] Blanca Plotts NETWORK CONTROL SUPERVISOR.CNM Work Phone: [facility] 06-03-2024 15:41-0400 Body mass index (BMI) [Ratio] 29.45 kg/m2 Elsie Moreno MD Work Phone: [facility] 06-03-2024 15:41-0400 Body weight 80.29 kg Elsie Moreno MD Work Phone: [facility] 06-03-2024 15:41-0400 Diastolic blood pressure 64 mm[Hg] Elsie Moreno MD Work Phone: [facility] 06-03-2024 15:41-0400 Systolic blood pressure 118 mm[Hg] Elsie Moreno MD Work Phone: [facility] 05-14-2024 13:17-0400 Body mass index (BMI) [Ratio] 28.42 kg/m2 Rebecca Fontanez NETWORK CONTROL SUPERVISOR.CNM Work Phone: [facility] 05-14-2024 13:17-0400 Body weight 77.47 kg Rebecca Fontanez NETWORK CONTROL SUPERVISOR.CNM Work Phone: [facility] 05-14-2024 13:17-0400 Diastolic blood pressure 56 mm[Hg] Rebecca Fontanez NETWORK CONTROL SUPERVISOR.CNM Work Phone: [facility] 05-14-2024 13:17-0400 Systolic blood pressure 114 mm[Hg] Rebecca Fontanez NETWORK CONTROL SUPERVISOR.CNM Work Phone: [facility] 05-14-2024 10:38-0400 Body mass index (BMI) [Ratio] 28.42 kg/m2 Stephanie Barrera MD Work Phone: [facility] 05-14-2024 10:38-0400 Body weight 77.47 kg Stephanie crawford MD Work Phone: [facility] 05-14-2024 10:38-0400 Diastolic blood pressure 56 mm[Hg] Stephanie Barrera MD Work Phone: [facility] 05-14-2024 10:38-0400 Systolic blood pressure 114 mm[Hg] Stephanie Barrera MD Work Phone: [facility] 05-06-2024 08:53-0400 Body mass index (BMI) [Ratio] 28.16 kg/m2 Concha Baires MD Work Phone: [facility] 05-06-2024 08:53-0400 Body weight 76.75 kg Concha Baires MD Work Phone: [facility] 05-06-2024 08:53-0400 Diastolic blood pressure 64 mm[Hg] Concha Baires MD Work Phone: [facility] 05-06-2024 08:53-0400 Systolic blood pressure 120 mm[Hg] Concha Baires MD Work Phone: [facility] 04-15-2024 14:30-0400 Body mass index (BMI) [Ratio] 27.29 kg/m2 Blanca Plotts NETWORK CONTROL SUPERVISOR.CNM Work Phone: [facility] 04-15-2024 14:30-0400 Body weight 74.39 kg Blanca Plotts NETWORK CONTROL SUPERVISOR.CNM Work Phone: [facility] 04-15-2024 14:30-0400 Diastolic blood pressure 64 mm[Hg] Blanca Plotts NETWORK CONTROL SUPERVISOR.CNM Work Phone: [facility] 04-15-2024 14:30-0400 Systolic blood pressure 108 mm[Hg] Blanca Plotts NETWORK CONTROL SUPERVISOR.CNM Work Phone: [facility] 04-08-2024 09:39-0400 Body mass index (BMI) [Ratio] 27.36 kg/m2 Concha Baires MD Work Phone: [facility] 04-08-2024 09:39-0400 Body weight 74.57 kg Concha Baires MD Work Phone: [facility] 04-08-2024 09:39-0400 Diastolic blood pressure 62 mm[Hg] Concha Baires MD Work Phone: [facility] 04-08-2024 09:39-0400 Systolic blood pressure 110 mm[Hg] Concha Baires MD Work Phone: [facility] 03-20-2024 16:39-0400 Body mass index (BMI) [Ratio] 26.43 kg/m2 Blanca Plotts NETWORK CONTROL SUPERVISOR.CNM Work Phone: [facility] 03-20-2024 16:39-0400 Body weight 72.03 kg Blanca Plotts NETWORK CONTROL SUPERVISOR.CNM Work Phone: [facility] 03-20-2024 16:39-0400 Diastolic blood pressure 64 mm[Hg] Blanca Plotts NETWORK CONTROL SUPERVISOR.CNM Work Phone: [facility] 03-20-2024 16:39-0400 Systolic blood pressure 116 mm[Hg] Blanca Plotts NETWORK CONTROL SUPERVISOR.CNM Work Phone: [facility] 03-04-2024 12:56-0400 Body mass index (BMI) [Ratio] 26.13 kg/m2 Elsie Moreno MD Work Phone: [facility] 03-04-2024 12:56-0400 Body weight 71.22 kg Elsie Moreno MD Work Phone: [facility] 03-04-2024 12:56-0400 Diastolic blood pressure 68 mm[Hg] Elsie Moreno MD Work Phone: [facility] 03-04-2024 12:56-0400 Systolic blood pressure 112 mm[Hg] Elsie Moreno MD Work Phone: [facility] 02-05-2024 08:47-0400 Body height 165.1 cm Blanca Plotts NETWORK CONTROL SUPERVISOR.CNM Work Phone: [facility] 02-05-2024 08:47-0400 Body weight 67.13 kg Blanca Plotts NETWORK CONTROL SUPERVISOR.CNM Work Phone: [facility] 02-05-2024 08:47-0400 Diastolic blood pressure 58 mm[Hg] Blanca Plotts NETWORK CONTROL SUPERVISOR.CNM Work Phone: [facility] 02-05-2024 08:47-0400 Systolic blood pressure 100 mm[Hg] Blanca Plotts NETWORK CONTROL SUPERVISOR.CNM Work Phone: [facility] 10-06-2023 14:35-0500 Body weight 67.59 kg Blanca Skelton NETWORK CONTROL SUPERVISOR.CNM Work Phone: [facility] 10-06-2023 14:35-0500 Diastolic blood pressure 64 mm[Hg] Blanca Westts NETWORK CONTROL SUPERVISOR.CNM Work Phone: [facility] 10-06-2023 14:35-0500 Systolic blood pressure 102 mm[Hg] Blanca Westsang NETWORK CONTROL SUPERVISOR.CNM Work Phone: [facility] 09-15-2023 08:50-0500 Body weight 67.68 kg Washington Tran MD Work Phone: [facility] 09-15-2023 08:50-0500 Diastolic blood pressure 62 mm[Hg] Washington Tran MD Work Phone: [facility] 09-15-2023 08:50-0500 Heart rate 70 /min Washington Tran MD Work Phone: [facility] 09-15-2023 08:50-0500 Respiratory rate 16 /min Washington Tran MD Work Phone: [facility] 09-15-2023 08:50-0500 SaO2% (BldA) [Mass fraction] 99 % Washington Tran MD Work Phone: [facility] 09-15-2023 08:50-0500 Systolic blood pressure 110 mm[Hg] Washington Tran MD Work Phone: [facility] 08-28-2023 08:47-0400 Body weight 66.59 kg Rebecca Fontanez NETWORK CONTROL SUPERVISOR.CNM Work Phone: [facility] 08-28-2023 08:47-0400 Diastolic blood pressure 64 mm[Hg] Rebecca Fontanez NETWORK CONTROL SUPERVISOR.CNM Work Phone: [facility] 08-28-2023 08:47-0400 Systolic blood pressure 112 mm[Hg] Rebecca Fontanez NETWORK CONTROL SUPERVISOR.CNM Work Phone: [facility] 08-26-2022 08:23-0400 Body height 167 cm Washington Tran MD Work Phone: [facility] 08-26-2022 08:23-0400 Body weight 64.59 kg Washington Tran MD Work Phone: [facility] 08-26-2022 08:23-0400 Diastolic blood pressure 70 mm[Hg] Washington Tran MD Work Phone: [facility] 08-26-2022 08:23-0400 Heart rate 66 /min Washington Tran MD Work Phone: [facility] 08-26-2022 08:23-0400 SaO2% (BldA) [Mass fraction] 99 % Washington Tran MD Work Phone: [facility] 08-26-2022 08:23-0400 Systolic blood pressure 108 mm[Hg] Washington Tran MD Work Phone: [facility] Encounters Encounter Date Encounter Type Care Provider Facility Start: 08-14-2024 End: 08-14-2024 Patient encounter procedure Nohemy Lyn MD Work Phone: OB/Gynecology Comment on above: Supervision of high risk in third trimester (Primary Dx); Dichorionic diamniotic twin in third trimester Start: 08-14-2024 End: 08-14-2024 ambulatory WASHINGTON TRAN Facility:[facility] Start: 08-07-2024 End: 08-07-2024 ambulatory WASHINGTON TRAN Facility:[facility] Start: 08-07-2024 End: 08-07-2024 Patient encounter procedure Blanca Skelton APRN.CNM Work Phone: OB/Gynecology Comment on above: Supervision of high risk in third trimester (Primary Dx); Dichorionic diamniotic twin in third trimester; 36 weeks gestation of ; History of herpes genitalis Start: 08-06-2024 End: 08-06-2024 Patient encounter procedure Nohemy Lyn MD Work Phone: OB/Gynecology Comment on above: Supervision of high risk in third trimester (Primary Dx); Dichorionic diamniotic twin in third trimester; 36 weeks gestation of ; Herpes genitalis in women Start: 08-06-2024 End: 08-06-2024 ambulatory WASHINGTON TRAN Facility:[facility] Start: 07-31-2024 End: 07-31-2024 Patient encounter procedure Blanca Skelton APRN.CNM Work Phone: OB/Gynecology Comment on above: 35 weeks gestation o f (Primary Dx); Supervision of high risk in third trimester; Dichorionic diamniotic twin in second trimester; History of herpes genitalis; Genital herpes simplex virus (HSV) infection in mother affecting ; Supervision of high risk in first trimester Start: 07-31-2024 End: 07-31-2024 ambulatory WASHINGTON TRAN Facility:[facility] Start: 07-24-2024 End: 07-24-2024 [facility] Start: 07-24-2024 End: 07-24-2024 Patient encounter procedure Rebecca Fontanez APRN.CNM Work Phone: OB/Gynecology Comment on above: Supervision of high risk in third trimester (Primary Dx); Dichorionic diamniotic twin in second trimester; 34 weeks gestation of Start: 07-16-2024 End: 07-16-2024 ambulatory WASHINGTON TRAN Facility:[facility] Start: 07-16-2024 End: 07-16-2024 Patient encounter procedure Elsie Moreno MD Work Phone: OB/Gynecology Comment on above: Dichorionic diamniot ic twin in third trimester (Primary Dx); 33 weeks gestation of ; Supervision of high risk in third trimester Start: 07-10-2024 End: 07-10-2024 Telephone encounter Nohemy Lyn MD Work Phone: OB/Gynecology Comment on above: OB-decreased m ovement Start: 07-09-2024 End: 07-17-2024 ambulatory [facility] OB/Gynecology Comment on above: FMLA Start: 07-09-2024 End: 07-17-2024 E-mail encounter from caregiver [facility] OB/Gynecology Start: 07-03-2024 End: 07-03-2024 ambulatory WASHINGTON TRAN Facility:[facility] Start: 07-03-2024 End: 07-03-2024 Patient encounter procedure Blanca Skelton APRN.CNM Work Phone: OB/Gynecology Comment on above: 31 weeks gestation o f (Primary Dx); Supervision of high risk in third trimester; Dichorionic diamniotic twin in third trimester; Need for vaccination; Heartburn during in third trimester Encounter for ultras ound to check growth (Primary Dx); Dichorionic diamniotic twin in second trimester; 31 weeks gestation of Start: 06-26-2024 End: 06-26-2024 ambulatory WASHINGTON TRAN Facility:[facility] Start: 06-26-2024 End: 06-26-2024 Patient encounter procedure Blanca Skelton APRN.CNM Work Phone: OB/Gynecology Comment on above: 30 weeks gestation o f (Primary Dx); Supervision of high risk in third trimester; Dichorionic diamniotic twin in third trimester Start: 06-18-2024 End: 06-18-2024 ambulatory Rebecca Fontanez APRN.CNM Work Phone: OB/Gynecology Comment on above: Non Stress Savannah t Start: 06-17-2024 End: 06-17-2024 ambulatory WASHINGTON TRAN Facility:[facility] Start: 06-17-2024 End: 06-17-2024 Patient encounter procedure Concha Baires MD Work Phone: OB/Gynecology Comment on above: Supervision of high risk in third trimester (Primary Dx); 29 weeks gestation of ; Dichorionic diamniotic twin in third trimester Start: 06-12-2024 End: 06-12-2024 Patient encounter procedure Blanca Skelton APRN.CNM Work Phone: OB/Gynecology Comment on above: 28 weeks gestation o f (Primary Dx); Supervision of high risk in third trimester; Dichorionic diamniotic twin in second trimester Start: 06-12-2024 End: 06-12-2024 ambulatory WASHINGTON TRAN Facility:[facility] Start: 06-07-2024 End: 06-07-2024 ambulatory [facility] Facility:[facility] Start: 06-06-2024 Telephone encounter Concha izaguirre MD Work Phone: OB/Gynecology Comment on above: Orders Start: 06-05-2024 Telephone encounter Rebecca espana APRN.CNM Work Phone: OB/Gynecology Start: 06-03-2024 End: 06-03-2024 Patient encounter procedure Elsie Moreno MD Work Phone: OB/Gynecology Comment on above: Encounter for superv ision of high risk in second trimester, antepartum (Primary Dx); Dichorionic diamniotic twin in second trimester; 26 weeks gestation of Dichorionic diamniot ic twin in second trimester (Primary Dx); Encounter for ultrasound to check growth; 27 weeks gestation of Start: 06-03-2024 End: 06-03-2024 [facility] Start: 05-14-2024 End: 05-14-2024 Patient encounter procedure Rebecca Fontanez APRN.CNM Work Phone: OB/Gynecology Comment on above: Encounter for superv ision of high risk in second trimester, antepartum (Primary Dx); Dichorionic diamniotic twin in second trimester; 24 weeks gestation of ; Genital herpes simplex virus (HSV) infection in mother affecting ; abnormality affecting management of mother, fetus 2 of multiple gestation Start: 05-14-2024 End: 05-14-2024 Patient encounter procedure Stephanie Barrera MD Work Phone: Maternal Medicine Comment on above: Dichorionic diamniot ic twin in second trimester (Primary Dx); 24 weeks gestation of ; screening for malformation using ultrasonics Start: 05-14-2024 End: 05-14-2024 ambulatory WASHINGTON TRAN Facility:[facility] Start: 05-07-2024 End: 05-07-2024 ambulatory Karen Dc MD Work Phone: Pediatric Cardiology Start: 05-07-2024 End: 05-07-2024 Patient encounter procedure Karen Dc MD Work Phone: Pediatric Cardiology Start: 05-06-2024 End: 05-06-2024 ambulatory [facility] OB[facility]cology Comment on above: echo Start: 05-06-2024 E-mail encounter shannon grullon caregiver [facility] OB/Gynecology Start: 05-06-2024 End: 05-06-2024 Patient encounter procedure Concha Baires MD Work Phone: OB/Gynecology Comment on above: 23 weeks gestation o f (Primary Dx); Dichorionic diamniotic twin in second trimester; Encounter for supervision of high risk in second trimester, antepartum Dichorionic diamniot ic twin in second trimester (Primary Dx); Suspected anomaly, antepartum, fetus 2 of multiple gestation; 23 weeks gestation of Start: 04-15-2024 End: 04-15-2024 ambulatory WASHINGTON TRAN Facility:[facility] Start: 04-15-2024 End: 04-15-2024 Patient encounter procedure Blanca Skelton APRN.CNM Work Phone: OB/Gynecology Comment on above: 20 weeks gestation o f (Primary Dx); Dichorionic diamniotic twin in second trimester; Encounter for supervision of high risk in second trimester, antepartum; Genital herpes simplex virus (HSV) infection in mother affecting Start: 04-08-2024 End: 04-08-2024 Patient encounter procedure Concha Baires MD Work Phone: OB/Gynecology Comment on above: 19 weeks gestation o f (Primary Dx); Dichorionic diamniotic twin in second trimester Start: 04-08-2024 End: 04-08-2024 ambulatory WASHINGTON TRAN Facility:[facility] Start: 04-05-2024 Telephone encounter Blanca cota APRN.CNM Work Phone: OB/Gynecology Comment on above: Orders Start: 03-20-2024 End: 03-20-2024 ambulatory WASHINGTON TRAN Facility:[facility] Start: 03-20-2024 End: 03-20-2024 Patient encounter procedure Blanca Skelton APRN.CNM Work Phone: OB/Gynecology Comment on above: Dichorionic diamniot ic twin in second trimester (Primary Dx); 16 weeks gestation of Start: 03-04-2024 End: 03-04-2024 ambulatory WASHINGTON TRAN Facility:[facility] Start: 03-04-2024 End: 03-04-2024 Patient encounter procedure Elsie Moreno MD Work Phone: OB/Gynecology Comment on above: 14 weeks gestation o f (Primary Dx); Dichorionic diamniotic twin in second trimester Start: 02-23-2024 Chart abstracting Raheem Tejada [facility] Work Phone: Genetic Healthcare Comment on above: NIPT Update Start: 02-20-2024 End: 02-20-2024 ambulatory WASHINGTON TRAN Facility:[facility] Start: 02-19-2024 End: 02-19-2024 ambulatory WASHINGTON TRAN Facility:[facility] Start: 02-19-2024 Telephone encounter Elsie glasgow MD Work Phone: OB/Gynecology Comment on above: Uglnple23 Order Start: 02-19-2024 End: 02-19-2024 Patient encounter procedure Vice President [employer] [facility] Work Phone: OB/Gynecology Comment on above: Encounter for (NT) n uchal translucency scan (Primary Dx); Dichorionic diamniotic twin in first trimester; 12 weeks gestation of Start: 02-19-2024 End: 02-19-2024 ambulatory WASHINGTON TRAN Facility:[facility] Start: 02-05-2024 Telephone encounter Historical Mat ernal Medicine Start: 02-05-2024 End: 02-05-2024 ambulatory WASHINGTON TRAN Facility:[facility] Start: 02-05-2024 End: 02-05-2024 Patient encounter procedure Blanca Skelton APRN.CNM Work Phone: OB/Gynecology Comment on above: 10 weeks gestation o f (Primary Dx); Encounter for supervision of high risk in first trimester, antepartum; with uncertain dates in first trimester; Dichorionic diamniotic twin in first trimester; Genital herpes simplex virus (HSV) infection in mother affecting Start: 01-30-2024 Telephone encounter Blanca cota APRN.CHELA Work Phone: OB/Gynecology Comment on above: 02/04 NOB Intake [facility] Start: 01-15-2024 End: 01-15-2024 ambulatory WASHINGTON TRAN Facility:[facility] Start: 01-12-2024 End: 01-12-2024 ambulatory Blanca Skelton APRN.CNM Work Phone: OB/Gynecology Comment on above: Possible second misc arriage Start: 10-17-2023 End: 10-17-2023 ambulatory ROCHELLE RAMOS Facility:[facility] Start: 10-13-2023 End: 10-13-2023 [facility] Start: 10-13-2023 End: 10-13-2023 Patient encounter procedure Blanca Skelton APRN.CHELA Work Phone: OB/Gynecology Comment on above: Missed (Theresa jim Dx); Retained products of conception after miscarriage Retained products of conception after miscarriage (Primary Dx); Missed Start: 10-09-2023 End: 10-09-2023 ambulatory WASHINGTON TRAN Facility:[facility] Start: 10-06-2023 End: 10-06-2023 ambulatory [facility] Facility:[facility] Start: 10-06-2023 End: 10-06-2023 Patient encounter procedure Blanca Skelton APRN.CNCeleste Work Phone: OB/Gynecology Comment on above: Missed (Theresa jim Dx) Missed Start: 09-28-2023 Telephone encounter lBanca cota APRN.CNM Work Phone: OB/Gynecology Comment on above: Patient Update Start: 09-19-2023 ambulatory Blanca johnson APRN.CNM Work Phone: OB/Gynecology Comment on above: Missed miscarriage Start: 09-18-2023 End: 09-18-2023 Patient encounter procedure 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 President [employer] [facility] Work Phone: OB/Gynecology Comment on above: Missed [O02 .1] (Primary Dx); Supervision of normal first , antepartum; 9 weeks gestation of Start: 09-18-2023 End: 09-18-2023 ambulatory WASHINGTON TARN Facility:[facility] Start: 09-15-2023 End: 09-15-2023 ambulatory WASHINGTON TRAN Facility:[facility] Start: 09-15-2023 End: 09-15-2023 Patient encounter procedure Washington Tran MD Work Phone: Family Medicine [facility] Comment on above: Annual physical exam (Primary Dx); Impacted cerumen of right ear; 12 weeks gestation of ; Genital herpes simplex virus (HSV) infection in mother affecting ; Seasonal allergies Start: 09-01-2023 End: 09-01-2023 ambulatory WASHINGTON TRAN Facility:[facility] Start: 08-30-2023 ambulatory Rebecca Fontanez APRN.CNM Work Phone: OB/Gynecology Comment on above: Sep 25 Appts Resched ule? Start: 08-28-2023 End: 08-28-2023 Patient encounter procedure Rebecca Fontanez APRN.CNM Work Phone: OB/Gynecology Comment on above: Supervision of salty l first , antepartum (Primary Dx); 9 weeks gestation of ; with uncertain dates in first trimester Start: 08-28-2023 End: 08-28-2023 ambulatory WASHINGTON TRAN Facility:[facility] Start: 08-28-2023 End: 08-28-2023 [facility] WASHINGTON TRAN Facility:[facility] Start: 08-28-2023 End: 08-28-2023 Patient encounter procedure Rebecca Fontanez APRN.CNM Work Phone: OB/Gynecology Comment on above: Supervision of salty l first , antepartum (Primary Dx); 9 weeks gestation of ; Genital herpes simplex virus (HSV) infection in mother affecting ; Family history of thyroid disorder; Supervision of high risk in first trimester Start: 08-22-2023 End: 08-22-2023 ambulatory WASHINGTON TRAN Facility:[facility] Start: 08-22-2023 End: 08-22-2023 Nursing evaluation of patient and report Nurse [facility] Work Phone: OB/Gynecology Comment on above: Supervision of salty erna first , antepartum (Primary Dx); Herpes genitalis in women Start: 08-18-2023 Refill Washington Tran MD Work Phone: Family [facility] [place] Comment on above: Refill Request Start: 08-16-2023 Telephone encounter Rebecca espana NETWORK CONTROL SUPERVISOR.CNM Work Phone: Urology Comment on above: upcoming appointment Start: 07-11-2023 Refill Marysol Mchugh MD Work Phone: OB/Gynecology Comment on above: Refill Request; Refi ll Request Start: 11-16-2022 ambulatory Washington Tran MD Work Phone: Family [facility] [place] Comment on above: Billing Change Reque st Start: 11-04-2022 Telephone encounter Vasiliy Tran MD Work Phone: Family [facility] [place] Comment on above: Billing (Error in co de for annual physical) Start: 08-26-2022 End: 08-26-2022 Patient encounter procedure Washington Tran MD Work Phone: [facility] [place] Comment on above: Annual physical exam (Primary Dx); Herpes genitalis in women; Seasonal allergies; Need for COVID-19 vaccine Procedures Date Procedure Procedure Detail Performing Clinician Start: 07-31-2024 RSV VACCINE, BIVALEN T (ABRYSVO) Blanca Skelton NETWORK CONTROL SUPERVISOR.CNM Work Phone: Start: 07-03-2024 Us preg uterus after 1st trimest / gestation Concha Baires MD Work Phone: Start: 06-03-2024 Us preg uterus after 1st trimest 1/1st gestation Blanca Skelton NETWORK CONTROL SUPERVISOR.CNM Work Phone: Start: 05-14-2024 Us preg uterus after 1st trimest /1st gestation Concha Baires MD Work Phone: Start: 05-06-2024 Us preg uterus after 1st trimest 1/ gestation Concha Baires MD Work Phone: Start: 02-19-2024 Antibody screen DAYA TRAN Comment on above: Order Comment: Speci men Type: BLOOD SPECIMENOrdering Facility: [facility] Address: [address] [place] [address] Performed By: #### T SPN ####CC MAIN BLOOD BANKCLIA [id number] [place] [address] [place] Start: 02-19-2024 Us nuchal dominguez slucency 1st gestation Blanca Skelton NETWORK CONTROL SUPERVISOR.CNM Work Phone: Start: 10-13-2023 Us preg uterus after 1st trimest 1/ gestation Blanca Skelton NETWORK CONTROL SUPERVISOR.CNM Work Phone: Start: 10-06-2023 Us preg uterus after 1st trimest 1/1st gestation Blanca Skelton NETWORK CONTROL SUPERVISOR.CNM Work Phone: Start: 09-18-2023 Us nuchal dominguez slucency 1st gestation Rebecca Fontanez NETWORK CONTROL SUPERVISOR.CNM Work Phone: Start: 09-01-2023 Antibody screen DAYA TRAN Comment on above: Order Comment: Speci men Type: BLOOD SPECIMENOrdering Facility: [facility] Address: [address] [place] [address] Performed By: #### T SPN ####CC MAIN BLOOD BANKCLIA [id number] [place] [address] [place] Start: 08-28-2023 Us uterus l imited 1/> fetuses Rebecca Fontanez NETWORK CONTROL SUPERVISOR.CNM Work Phone: Start: 08-26-2022 Zenring-Pull COVI D-19 BIVALENT BOOSTER VACCINE, AGE 12+ YR Washington Tran MD Work Phone: Plan of Treatment Date Care Activity Detail Author Start: 07-03-2034 Urine microalbumin profile DTaP,Tdap,Td Vaccine (10 - Td or Tdap) [facility] Start: 03-20-2029 Urine microalbumin profile [facility] Start: 02-04-2029 Screening for malign ant neoplasm of cervix [facility] Start: 07-16-2026 Pap Testing Pap Testing [facility] Start: 07-16-2026 Screening for malign ant neoplasm of cervix Pap Testing [facility] Start: 10-01-2024 End: 10-01-2024 Patient encounter procedure 10/01/2024 9:00 AM EST Office Visit OB/Gynecology [address] [place], [place] [id number] Rochelle Ramos MD [address] [place] [id number] PP OB/Gynecology Comment on above: PP Start: 09-15-2024 Covid-19 Vaccine () Covid-19 Vaccine () [facility] Comment on above: Postponed from 06/30 (Declined at this time) Start: 09-15-2024 HPV Testing HPV Testing [facility] Comment on above: Postponed from 03/17 (Declined at this time) Start: 09-15-2024 Screening for malign ant neoplasm of cervix HPV Testing [facility] Comment on above: Postponed from 03/17 (Declined at this time) Start: 08-28-2024 End: 08-28-2024 Patient encounter procedure Maternal Medicine Comment on above: Growth u/s OB Start: 08-26-2024 End: 08-26-2024 Patient encounter procedure 08/26/2024 10:50 AM EDT Office Visit OB/Gynecology [address] [place], [place] [id number] Nohemy Lyn MD [address] [place] [id number] PP OB/Gynecology Comment on above: PP Start: 08-21-2024 End: 08-21-2024 Patient encounter procedure 08/21/2024 2:30 PM EDT Office Visit OB/Gynecology [address] [place] [address] Rebceca Fontanez APRN.CNM [address] [place] [address] centering OB/Gynecology Comment on above: centering Start: 08-14-2024 End: 08-14-2024 Patient encounter procedure 08/14/2024 3:10 PM EDT Routine Office Visit OB/Gynecology [address] [place] [address] Nohemy Lyn MD [address] [place] [address] OB OB/Gynecology Comment on above: OB Start: 08-14-2024 End: 08-14-2024 Patient encounter procedure OB/Gynecology Comment on above: OB Encounter for superv ision of high risk in second trimester, antepartum [O09.92]; Dichorionic diamniotic twin in second trimester [O30.042] Start: 08-07-2024 End: 08-07-2024 Patient encounter procedure 08/07/2024 2:30 PM EDT Office Visit OB/Gynecology [address] [place] [address] Blanca Skelton APRN.CNM [address] [place] [address] centering OB/Gynecology Comment on above: centering Start: 08-06-2024 End: 08-06-2024 Patient encounter procedure OB/Gynecology Comment on above: Encounter for superv ision of high risk in second trimester, antepartum [O09.92]; Dichorionic diamniotic twin in second trimester [O30.042] Start: 07-31-2024 End: 07-31-2024 Patient encounter procedure Maternal Medicine Comment on above: Growth OB Start: 07-24-2024 End: 07-24-2024 Patient encounter procedure OB/Gynecology Comment on above: centering centering - FMLA pap erwork in [facility] chart prep folder Start: 07-16-2024 PAP TESTING PAP TESTING [facility] Start: 07-10-2024 End: 07-10-2024 Patient encounter procedure 07/10/2024 2:30 PM EDT Office Visit OB/Gynecology [address] [place] [address] Blanca Skelton APRN.CNM [address] [place] [address] centering OB/Gynecology Comment on above: centering Start: 07-07-2024 RSV Vaccine (1 - Ris k 1-dose series) RSV Vaccine (1 - Risk 1-dose series) [facility] Start: 07-03-2024 End: 07-03-2024 Patient encounter procedure OB/Gynecology Comment on above: Growth OB Start: 06-30-2024 Covid-19 Vaccine ( season) Covid-19 Vaccine ( season) [facility] Start: 06-30-2024 Covid-19 Vaccine ( season) Covid-19 Vaccine ( season) [facility] Start: 06-30-2024 Influenza vaccination Influenza Vacc ine (#1) [facility] Start: 06-30-2024 RSV Vaccine (1 - Ris k 1-dose series) RSV Vaccine (1 - Risk 1-dose series) [facility] Start: 06-26-2024 End: 06-26-2024 Patient encounter procedure 06/26/2024 2:30 PM EDT Office Visit OB/Gynecology [address] [place] [address] Blanca Skelton APRN.CNM [address] [place] [address] centering OB/Gynecology Comment on above: centering Start: 06-17-2024 End: 06-17-2024 Patient encounter procedure 06/17/2024 3:40 PM EDT Routine Office Visit OB/Gynecology [address] [place] [address] Concha Baires MD [address] [place] [address] OB OB/Gynecology Comment on above: OB Start: 06-12-2024 End: 06-12-2024 Patient encounter procedure 06/12/2024 2:30 PM EDT Office Visit OB/Gynecology [address] [place] [address] Blnaca Skelton APRN.CN [address] [place] [address] centering OB/Gynecology Comment on above: centering Start: 06-07-2024 End: 06-07-2024 ambulatory 06/07/2024 8:45 AM EDT Results Only [place] [facility] Draw Station [address] [place] [address] Blood work, Abnormal glucose complicating [O99.810] [facility] Draw Station Comment on above: Blood work, Abnormal glucose complicating [O99.810] Start: 06-06-2024 End: 09-05-2024 CBC W Auto Differential panel - Blood COMPLETE BLOOD COUNT AND DIFFERENTIAL Lab Routine 23 weeks gestation of Dichorionic diamniotic twin in second trimester Encounter for supervision of high risk in second trimester, antepartum Expected: 06/06/2024 (Approximate), Expires: 09/05/2024 [facility] Comment on above: Expected: 06/06/2024 (Approximate), Expires: 09/05/2024 Start: 06-06-2024 End: 09-05-2024 GEST GLUC GINI, 3-HR, 100 GM, FASTING GEST GLUC GINI, 3-HR, 100 GM, FASTING Lab Routine Abnormal glucose complicating Expected: 06/06/2024, Expires: 09/05/2024 [facility] Work Phone: Comment on above: Expected: 06/06/2024 , Expires: 09/05/2024 Start: 06-06-2024 End: 09-05-2024 GESTATIONAL GLUCOSE SCREEN, 1-HOUR, 50 GRAM, NON-FASTING GESTATIONAL GLUCOSE SCREEN, 1-HOUR, 50 GRAM, NON-FASTING Lab Routine 23 weeks gestation of Dichorionic diamniotic twin in second trimester Encounter for supervision of high risk in second trimester, antepartum Expected: 06/06/2024 (Approximate), Expires: 09/05/2024 [facility] Work Phone: Comment on above: Expected: 06/06/2024 (Approximate), Expires: 09/05/2024 Start: 06-06-2024 End: 09-05-2024 SYPHILIS TOTAL W/REFLEX SYPHILIS TOTAL W/REFLEX Lab Routine 23 weeks gestation of Dichorionic diamniotic twin in second trimester Encounter for supervision of high risk in second trimester, antepartum Expected: 06/06/2024 (Approximate), Expires: 09/05/2024 [facility] Comment on above: Expected: 06/06/2024 (Approximate), Expires: 09/05/2024 Start: 06-03-2024 End: 06-03-2024 Patient encounter procedure OB/Gynecology Comment on above: Twins Growth OB Start: 06-03-2024 End: 06-03-2024 ambulatory 06/03/2024 2:45 PM EDT Results Only [place] [facility] Laboratory [address] [place] [address] Glucose Test [facility] Comment on above: Glucose Test Start: 05-21-2024 End: 05-21-2024 ambulatory Pediatric Cardiology Comment on above: 23 weeks gestation o f [Z3A.23] Start: 05-21-2024 End: 05-21-2024 Patient encounter procedure Pediatric Cardiology Comment on above: 23 weeks gestation o f [Z3A.23] Start: 05-14-2024 End: 05-14-2024 Patient encounter procedure 05/14/2024 2:30 PM EDT Office Visit OB/Gynecology [address] [place] [address] Rebecca Fontanez APRN.CN [address] [place] [address] centering OB/Gynecology Comment on above: centering Start: 05-14-2024 End: 05-14-2024 Patient encounter procedure 05/14/2024 10:30 AM EDT Routine Office Visit Maternal Medicine [address] [address] Stephanie Barrera MD [address] [place], [place] [id number] MFM Consult- Twins Maternal Medicine Comment on above: MFM Consult- Twins Start: 05-06-2024 End: 05-06-2024 Patient encounter procedure OB/Gynecology Comment on above: Growth OB Growth twins Start: 04-15-2024 End: 04-15-2024 Patient encounter procedure 04/15/2024 2:30 PM EDT Office Visit OB/Gynecology [address] [place], [place] [phone] Blanca Skelton APRN.CNM [address] [place] [address] centering OB/Gynecology Comment on above: centering Start: 04-08-2024 End: 07-08-2024 ALPHA FETOPRO MATERNAL [facility] Work Phone: Comment on above: Expected: 04/08/2024 , Expires: 07/08/2024 Start: 04-08-2024 End: 04-08-2024 Patient encounter procedure OB/Gynecology Comment on above: Anatomy OB Start: 04-05-2024 End: 04-05-2025 OBSTETRIC ULTRASOUND WHI OBSTETRIC ULTRASOUND WHI Anc Imaging Routine Dichorionic diamniotic twin in second trimester Expected: 04/05/2024, Expires: 04/05/2025 [facility] Work Phone: Comment on above: Expected: 04/05/2024 , Expires: 04/05/2025 Start: 03-04-2024 End: 03-04-2024 Patient encounter procedure 03/04/2024 12:50 PM EDT Routine Office Visit OB/Gynecology [address] [place] [address] Elsie Moreno MD [address] [place] [address] OB OB/Gynecology Comment on above: OB Start: 02-19-2024 End: 05-20-2024 Chromosome 21 trisomy [Presence] in Blood or Tissue by Cytogenetics [id number] PLUS Lab Routine Dichorionic diamniotic twin in first trimester Expected: 02/19/2024, Expires: 05/20/2024 [facility] Work Phone: Comment on above: Expected: 02/19/2024 , Expires: 05/20/2024 Start: 02-05-2024 End: 05-06-2024 CBC panel - Blood by Automated count CBC Lab Routine Encounter for supervision of high risk in first trimester, antepartum Expected: 02/05/2024, Expires: 05/06/2024 [facility] Work Phone: Comment on above: Expected: 02/05/2024 , Expires: 05/06/2024 Start: 02-05-2024 End: 05-06-2024 Hemoglobin A1c in Blood HGB A1C Lab Routine Encounter for supervision of high risk in first trimester, antepartum Expected: 02/05/2024, Expires: 05/06/2024 [facility] Work Phone: Comment on above: Expected: 02/05/2024 , Expires: 05/06/2024 Start: 02-05-2024 End: 05-06-2024 Hepatitis B virus surface Ag [Presence] in Serum HEP B SURF AG SCRN Lab Routine Encounter for supervision of high risk in first trimester, antepartum Expected: 02/05/2024, Expires: 05/06/2024 [facility] Work Phone: Comment on above: Expected: 02/05/2024 , Expires: 05/06/2024 Start: 02-05-2024 End: 05-06-2024 Hepatitis C virus Ab [Presence] in Serum HEPATITIS C ANTIBODY IA WITH CONFIRMATION Lab Routine Encounter for supervision of high risk in first trimester, antepartum Expected: 02/05/2024, Expires: 05/06/2024 [facility] Work Phone: Comment on above: Expected: 02/05/2024 , Expires: 05/06/2024 Start: 02-05-2024 End: 05-06-2024 HIV 1+2 Ab [Presence] in Serum or Plasma by Immunoassay HIV 1 2 COMBO(AG/AB),WITH REFLEX TO DIFFERENTIATION Lab Routine Encounter for supervision of high risk in first trimester, antepartum Expected: 02/05/2024, Expires: 05/06/2024 [facility] Work Phone: Comment on above: Expected: 02/05/2024 , Expires: 05/06/2024 Start: 02-05-2024 End: 02-04-2025 NUCHAL TRANSLUCENCY WHI NUCHAL TRANSLUCENCY WHI Anc Imaging Routine Encounter for supervision of high risk in first trimester, antepartum with uncertain dates in first trimester Expected: 02/05/2024, Expires: 02/04/2025 [facility] Work Phone: Comment on above: Expected: 02/05/2024 , Expires: 02/04/2025 Start: 02-05-2024 End: 05-06-2024 RUBELLA IGG AB RUBELLA IGG AB Lab Routine Encounter for supervision of high risk in first trimester, antepartum Expected: 02/05/2024, Expires: 05/06/2024 [facility] Work Phone: Comment on above: Expected: 02/05/2024 , Expires: 05/06/2024 Start: 02-05-2024 End: 05-06-2024 SYPHILIS TOTAL W/REFLEX SYPHILIS TOTAL W/REFLEX Lab Routine Encounter for supervision of high risk in first trimester, antepartum Expected: 02/05/2024, Expires: 05/06/2024 [facility] Work Phone: Comment on above: Expected: 02/05/2024 , Expires: 05/06/2024 Start: 02-05-2024 End: 05-06-2024 TYPE + SCREEN TYPE + SCREEN Blood Bank Routine Encounter for supervision of high risk in first trimester, antepartum Expected: 02/05/2024, Expires: 05/06/2024 [facility] Work Phone: Comment on above: Expected: 02/05/2024 , Expires: 05/06/2024 Start: 10-30-2023 Behavioral Health Screening Behavioral Health Screening [facility] Start: 10-30-2023 Depression Assessment Depression Ass essment [facility] Start: 10-06-2023 End: 10-06-2024 OBSTETRIC ULTRASOUND WHI OBSTETRIC ULTRASOUND WHI Anc Imaging Routine Missed Expected: 10/06/2023, Expires: 10/06/2024 [facility] Work Phone: Comment on above: Expected: 10/06/2023 , Expires: 10/06/2024 Start: 09-20-2023 End: 09-20-2024 OBSTETRIC ULTRASOUND WHI OBSTETRIC ULTRASOUND WHI Anc Imaging Routine Missed Expected: 09/20/2023, Expires: 09/20/2024 [facility] Work Phone: Comment on above: Expected: 09/20/2023 , Expires: 09/20/2024 Start: 08-28-2023 End: 11-27-2023 CBC panel - Blood by Automated count CBC Lab Routine Supervision of normal first , antepartum 9 weeks gestation of Expected: 08/28/2023, Expires: 11/27/2023 [facility] Work Phone: Comment on above: Expected: 08/28/2023 , Expires: 11/27/2023 Start: 08-28-2023 End: 11-27-2023 Hepatitis B virus surface Ag [Presence] in Serum HEP B SURF AG SCRN Lab Routine Supervision of normal first , antepartum 9 weeks gestation of Expected: 08/28/2023, Expires: 11/27/2023 [facility] Work Phone: Comment on above: Expected: 08/28/2023 , Expires: 11/27/2023 Start: 08-28-2023 End: 11-27-2023 Hepatitis C virus Ab [Presence] in Serum HEPATITIS C ANTIBODY IA WITH CONFIRMATION Lab Routine Supervision of normal first , antepartum 9 weeks gestation of Expected: 08/28/2023, Expires: 11/27/2023 [facility] Work Phone: Comment on above: Expected: 08/28/2023 , Expires: 11/27/2023 Start: 08-28-2023 End: 11-27-2023 HIV 1+2 Ab [Presence] in Serum or Plasma by Immunoassay HIV 1 2 COMBO(AG/AB),WITH REFLEX TO DIFFERENTIATION Lab Routine Supervision of normal first , antepartum 9 weeks gestation of Expected: 08/28/2023, Expires: 11/27/2023 [facility] Work Phone: Comment on above: Expected: 08/28/2023 , Expires: 11/27/2023 Start: 08-28-2023 End: 08-28-2024 NUCHAL TRANSLUCENCY WHI NUCHAL TRANSLUCENCY WHI Anc Imaging Routine Supervision of normal first , antepartum 9 weeks gestation of Expected: 08/28/2023, Expires: 08/28/2024 [facility] Work Phone: Comment on above: Expected: 08/28/2023 , Expires: 08/28/2024 Start: 08-28-2023 End: 08-28-2024 OBSTETRIC ULTRASOUND WHI OBSTETRIC ULTRASOUND WHI Anc Imaging Routine Supervision of normal first , antepartum 9 weeks gestation of Expected: 08/28/2023, Expires: 08/28/2024 [facility] Work Phone: Comment on above: Expected: 08/28/2023 , Expires: 08/28/2024 Start: 08-28-2023 End: 11-27-2023 RUBELLA IGG AB RUBELLA IGG AB Lab Routine Supervision of normal first , antepartum 9 weeks gestation of Expected: 08/28/2023, Expires: 11/27/2023 [facility] Work Phone: Comment on above: Expected: 08/28/2023 , Expires: 11/27/2023 Start: 08-28-2023 End: 01-29-2024 SYPHILIS TOTAL W/REFLEX SYPHILIS TOTAL W/REFLEX Lab Routine Supervision of normal first , antepartum 9 weeks gestation of Expected: 08/28/2023, Expires: 11/27/2023 [facility] Work Phone: Comment on above: Expected: 08/28/2023 , Expires: 11/27/2023 Start: 08-28-2023 End: 11-27-2023 Thyrotropin [Units/volume] in Serum or Plasma TSH BLD Lab Routine Family history of thyroid disorder Expected: 08/28/2023, Expires: 11/27/2023 [facility] Work Phone: Comment on above: Expected: 08/28/2023 , Expires: 11/27/2023 Start: 08-28-2023 End: 11-27-2023 TYPE + SCREEN TYPE + SCREEN Blood Bank Routine Supervision of normal first , antepartum 9 weeks gestation of Expected: 08/28/2023, Expires: 11/27/2023 [facility] Work Phone: Comment on above: Expected: 08/28/2023 , Expires: 11/27/2023 Start: 06-30-2023 Covid-19 Vaccine ( season) Covid-19 Vaccine ( season) [facility] Start: 06-30-2023 Influenza vaccination Influenza Vacc ine (#1) [facility] Start: 04-28-2023 Influenza vaccination INFLUENZA (#1) [facility] Comment on above: Postponed from 06/30 (Declined at this time) Start: 2023 HPV Testing HPV Testing [facility] Start: 10-30-2022 DEPRESSION ASSESSMENT DEPRESSION ASS ESSMENT [facility] Start: 08-26-2022 End: 10-26-2022 CBC panel - Blood by Automated count [facility] Work Phone: Comment on above: Expected: 08/26/2022 , Expires: 10/26/2022 Start: 08-26-2022 End: 10-26-2022 Comprehensive metabolic 2000 panel - Serum or Plasma [facility] Work Phone: Comment on above: Expected: 08/26/2022 , Expires: 10/26/2022 Start: 08-26-2022 End: 10-26-2022 Lipid 1996 panel - Serum or Plasma [facility] Work Phone: Comment on above: Expected: 08/26/2022 , Expires: 10/26/2022 Start: 2011 Anxiety Screening Anxiety Screening [facility] Start: 2011 Depression Screening Depression Scre ening [facility] Bacteria identified in Urine by Culture URINE CULTURE Microbiology Routine Supervision of normal first , antepartum 9 weeks gestation of 08/28/2023 9:43 AM T [facility] Work Phone: Bacteria identified in Urine by Culture URINE CULTURE Microbiology Routine Encounter for supervision of high risk in first trimester, antepartum 02/05/2024 9:32 AM [facility] Work Phone: Chlamydia trachomatis+Neisseria gonorrhoeae DNA [Presence] in Unspecified specimen by FELIX with probe detection GONORRHEA/CHLAMYDIA NAAT Lab Routine Supervision of normal first , antepartum 9 weeks gestation of 08/28/2023 9:43 AM T [facility] Work Phone: Chlamydia trachomatis+Neisseria gonorrhoeae DNA [Presence] in Unspecified specimen by FELIX with probe detection GONORRHEA/CHLAMYDIA NAAT Lab Routine Encounter for supervision of high risk in first trimester, antepartum 02/05/2024 9:32 AM [facility] Work Phone: End: 09-19-2024 Choriogonadotropin.beta subunit [Units/volume] in Serum or Plasma HCG QUANTITATIVE Lab Routine Missed 2x per week for 10 Occurrences starting 09/20/2023 until 09/19/2024 [facility] Work Phone: Comment on above: 2x per week for 10 O ccurrences starting 09/20/2023 until 09/19/2024 End: 01-11-2025 Choriogonadotropin.beta subunit [Units/volume] in Serum or Plasma HCG QUANTITATIVE Lab Routine Bleeding in early 2x per week for 2 Occurrences starting 01/12/2024 until 01/11/2025 [facility] Work Phone: Comment on above: 2x per week for 2 Oc currences starting 01/12/2024 until 01/11/2025 Choriogonadotropin.b eta subunit [Units/volume] in Serum or Plasma HCG QUANTITATIVE Lab Routine Bleeding in early 01/12/2024 4:39 PM EDT [facility] Work Phone: End: 05-06-2025 ECHO [facility] Comment on above: 1 Occurrences starti ng 05/06/2024 until 05/06/2025 End: 09-16-2024 nonstress test NON-STRESS TEST Procedures Routine Encounter for supervision of high risk in second trimester, antepartum Dichorionic diamniotic twin in second trimester Once per week for 4 Occurrences starting 05/14/2024 until 09/16/2024 [facility] Work Phone: Comment on above: Once per week for 4 Occurrences starting 05/14/2024 until 09/16/2024 End: 07-24-2024 nonstress test NON-STRESS TEST Procedures Routine Supervision of high risk in third trimester Dichorionic diamniotic twin in second trimester Once per week for 5 Occurrences starting 07/24/2024 until 07/24/2024 [facility] Work Phone: Comment on above: Once per week for 5 Occurrences starting 07/24/2024 until 07/24/2024 End: 09-29-2024 OBSTETRIC ULTRASOUND WHI OBSTETRIC ULTRASOUND WHI Anc Imaging Routine 19 weeks gestation of Dichorionic diamniotic twin in second trimester Once per month for 4 Occurrences starting 04/08/2024 until 09/29/2024 [facility] Comment on above: Once per month for 4 Occurrences starting 04/08/2024 until 09/29/2024 PAP TEST PAP TEST Lab Rou judith 10 weeks gestation of Encounter for supervision of high risk in first trimester, antepartum 02/05/2024 9:32 AM EDT [facility] Work Phone: POC DIRECTOR OF MARKET RESEARCH ULTRASOUND POC DIRECTOR OF MARKET RESEARCH ULTRASO UND Anc Imaging Routine 10 weeks gestation of Encounter for supervision of high risk in first trimester, antepartum with uncertain dates in first trimester Ordered: 02/05/2024 [facility] Work Phone: Comment on above: Ordered: 02/05/2024 ROUTINE, GR OUP B STREP PCR ROUTINE, GROUP B STREP PCR Microbiology Routine 35 weeks gestation of Supervision of high risk in third trimester Dichorionic diamniotic twin in second trimester Ordered: 07/31/2024 [facility] [facility] [place] Comment on above: Ordered: 07/31/2024 URINE OB DIP B/O URINE OB DIP B/ O Lab Routine Supervision of high risk in third trimester Dichorionic diamniotic twin in second trimester 34 weeks gestation of Ordered: 07/24/2024 [facility] [place] Comment on above: Ordered: 07/24/2024 URINE OB DIP B/O URINE OB DIP B/ O Lab Routine 35 weeks gestation of Supervision of high risk in third trimester Dichorionic diamniotic twin in second trimester Ordered: 07/31/2024 [facility] Work Phone: Comment on above: Ordered: 07/31/2024 URINE OB DIP B/O URINE OB DIP B/ O Lab Routine Supervision of high risk in third trimester 36 weeks gestation of Ordered: 08/06/2024 [facility] Work Phone: Comment on above: Ordered: 08/06/2024 [facility] (OFFICE IPAS) [facility] (OFFICE IP ) Procedures Routine Missed Ordered: 10/13/2023 [facility] Work Phone: Comment on above: Ordered: 10/13/2023 [facility] Immunizations Immunization Date Immunization Notes Care Provider Ttuu ogden 07-31-2024 respiratory syncytia l virus (RSV) vaccine, bivalent (ABRYSVO) Blanca Skelton APRN.CNM Work Phone: [facility] [place] 07-03-2024 tetanus toxoid, redu lópez diphtheria toxoid, and acellular pertussis vaccine, adsorbed Blanca Skelton APRN.CHELA Work Phone: [facility] [place] 08-08-2023 influenza virus vaccine, unspecified formulation Washington Tran MD Work Phone: [facility] [place] Work Phone: 08-26-2022 COVID-19 booster vaccine, age 12+ yr, bivalent (PFIZER-BIONTECH) aWshington Tran MD Work Phone: [facility] [place] 10-13-2021 COVID-19 original vaccine, age 12+ yr, monovalent (PFIZER-BIONTECH - PURPLE TOP) Washington Tran MD Work Phone: [facility] [place] 08-02-2021 influenza, injectabl e, quadrivalent, contains preservative Washington Tran MD Work Phone: [facility] [place] 08-02-2021 influenza virus vaccine, unspecified formulation Marysol Mchugh MD Work Phone: [facility] [place] 07-25-2019 influenza virus vaccine, unspecified formulation Washington Tran MD Work Phone: [facility] [place] Work Phone: 03-20-2019 tetanus toxoid, redu lópez diphtheria toxoid, and acellular pertussis vaccine, adsorbed Washington Tran MD Work Phone: [facility] [place] 06-13-2011 meningococcal polysaccharide (groups A, C, Y and W-135) diphtheria toxoid conjugate vaccine (MCV4P) Washington Tran MD Work Phone: [facility] [place] Work Phone: 05-18-2010 hepatitis A vaccine, pediatric/adolescent dosage, 2 dose schedule Washington Tran MD Work Phone: [facility] [place] Work Phone: 05-18-2010 tetanus toxoid, redu lópez diphtheria toxoid, and acellular pertussis vaccine, adsorbed Washington Tran MD Work Phone: [facility] [place] Work Phone: 10-19-2009 HPV, unspecified formulation Washington Trna MD Work Phone: [facility] [place] Work Phone: 05-08-2009 hepatitis A vaccine, pediatric/adolescent dosage, 2 dose schedule Washington Tran MD Work Phone: [facility] [place] Work Phone: 05-08-2009 HPV, unspecified formulation Washington Tran MD Work Phone: [facility] [place] Work Phone: 11-04-2008 HPV, unspecified formulation Washington Tran MD Work Phone: [facility] [place] Work Phone: 05-03-2005 meningococcal ACWY vaccine, unspecified formulation Washington Tran MD Work Phone: [facility] [place] Work Phone: 05-11-2004 tetanus toxoid, redu lópez diphtheria toxoid, and acellular pertussis vaccine, adsorbed Washington Tran MD Work Phone: [facility] [place] Work Phone: 08-16-2001 measles, mumps and rubella virus vaccine Washington Tran MD Work Phone: [facility] [place] Work Phone: 06-04-1998 diphtheria, tetanus toxoids and pertussis vaccine Washington Tran MD Work Phone: [facility] [place] Work Phone: 06-04-1998 poliovirus vaccine, unspecified formulation Washington Tran MD Work Phone: [facility] [place] Work Phone: 07-18-1994 diphtheria, tetanus toxoids and pertussis vaccine Washington Tran MD Work Phone: [facility] [place] Work Phone: 07-18-1994 haemophilus influenz ae type b vaccine, conjugate unspecified formulation Washington Tran MD Work Phone: [facility] [place] Work Phone: 07-18-1994 measles, mumps and rubella virus vaccine Washington Tran MD Work Phone: [facility] [place] Work Phone: 1993 diphtheria, tetanus toxoids and pertussis vaccine Washington Tran MD Work Phone: [facility] [place] Work Phone: 1993 haemophilus influenz ae type b vaccine, conjugate unspecified formulation Washington Tran MD Work Phone: [facility] [place] Work Phone: 1993 hepatitis B vaccine, pediatric or pediatric/adolescent dosage Washington Tran MD Work Phone: [facility] [place] Work Phone: 1993 poliovirus vaccine, unspecified formulation Washington Tran MD Work Phone: [facility] [place] Work Phone: 1993 diphtheria, tetanus toxoids and pertussis vaccine Washington Tran MD Work Phone: [facility] [place] Work Phone: 1993 haemophilus influenz ae type b vaccine, conjugate unspecified formulation Washington Tran MD Work Phone: [facility] [place] Work Phone: 1993 hepatitis B vaccine, pediatric or pediatric/adolescent dosage Washington Tran MD Work Phone: [facility] [place] Work Phone: 1993 poliovirus vaccine, unspecified formulation Washington Tran MD Work Phone: [facility] [place] Work Phone: 1993 diphtheria, tetanus toxoids and pertussis vaccine Washington Tran MD Work Phone: [facility] [place] Work Phone: 1993 haemophilus influenz ae type b vaccine, conjugate unspecified formulation Washington Tran MD Work Phone: [facility] [place] Work Phone: 1993 hepatitis B vaccine, pediatric or pediatric/adolescent dosage Washington Tran MD Work Phone: [facility] [place] Work Phone: 1993 poliovirus vaccine, unspecified formulation Washington Tran MD Work Phone: [facility] [place] Work Phone: Payers Date Payer Category Payer Private Health Insurance [id number] 2021 Private Health Insurance [id number] Social History Date Type Detail Facility Start: 07-29-2022 Tobacco smoking stat [facility] Never smoked tobacco [facility] [place] Start: 07-29-2022 Tobacco use and exposure Smoke less tobacco non-user [facility] [place] Start: 08-26-2022 Alcohol intake Current drinke r of alcohol (finding) [facility] [place] Start: 08-26-2022 End: 08-22-2023 Alcohol intake [facility] [place] Start: 09-22-2021 History SDOH Alcohol Frequency 4 [facility] [place] Start: 09-22-2021 End: 08-25-2022 History SDOH Alcohol Std Drinks 1 [facility] [place] Start: 09-22-2021 History SDOH Social Connections Phone 5 [facility] [place] Start: 09-22-2021 End: 08-25-2022 History SDOH Social Connections Get Together 2 [facility] [place] Start: 09-22-2021 History SDOH Social Connections Living 7 [facility] [place] Start: 1995 Sex Assigned At Not on file [facility] Start: 08-16-2022 End: 08-26-2022 Exposure to SARS-CoV-2 (event) Not sure [facility] [place] Start: 09-22-2021 End: 08-22-2023 Social connection and isolation panel [facility] [place] Do you belong to any clubs or organizations such as denominational groups, unions, fraternal or athletic groups, or school groups? No [facility] [place] Attends Club or Organization Meetings Not on file [facility] [place] Are you now , , , , never or living with a partner? Never [facility] [place] How often to you hav e a drink containing alcohol? 2-3 time sa week [facility] [place] How many standard dr inks containing alcohol do you have on a typical day? 1 or 2 [facility] [place] How often do you hav e 6 or more drinks on 1 occasion? Never [facility] [place] Do you feel stress - tense, restless, nervous, or anxious, or unable to sleep at night because your mind is troubled all the time - these days [OSQ] Not at all [facility] [place] (I/We) worried wheth er (my/our) food would run out before (I/we) got money to buy more. Never true [facility] [place] Start: 07-28-2022 Sexual orientation Heterosexual (jun simon) [facility] [place] Start: 08-22-2023 End: 08-07-2024 Alcohol intake Ex-drinker (finding) [facility] [place] Start: 08-22-2023 Education 18 [facility] [place] Start: 07-07-2023 [facility] [place] Do you belong to any clubs or organizations such as denominational groups, [employer], fraHiberna or athletic groups, or school groups? Yes [facility] [place] Are you now , , , , never or living with a partner? [facility] [place] Start: 09-15-2023 Alcohol Comment not during [facility] [place] Goals Date Patient Goal Desired Activity /State Personal health goal Personal health goal Clinical Notes 08-26-2022 to 08-14-2024 Nohemy Lyn MD - 08/14/2024 3:09 PM EDTPrenatal Quick Notes - Nohemy Lyn MD - 08/14/2024 2:20 PM EDTPrenatal Quick Notes - Nohemy Lyn MD - 08/14/2024 2:20 PM EDT Note Date & Type Note Facility 08-14-2024 Note HNO ID: [id number] Author: NOHEMY LYN MD Service: ? Author Type: Physician Type: Progress Notes Filed: 08/14/2024 15:11 Note Text: NST (TWINS) SUMMARY PROVIDER ASSESSMENT AND INTERPRETATION Jarvis King is a 29 year old female, , who is at 37w3d with an LIZZY of 09/01/2024, by Ultrasound dating method. Indications for NST: Other: christelle twins BABY A: Baseline: 135 Variability: Moderate Accelerations: Present 15 X 15 Decelerations: None BABY B: Baseline: 145 Variability: Moderate Accelerations: Present 15 X 15 Decelerations: None Contractions: TOCO: Irregular Interpretation: Baby A: Reactive Baby B: Reactive SIGNATURE: Nohemy Lyn MD [facility] 08-14-2024 History of Presen t illness Narrative NST (TWINS) SUMMARY PROVIDER ASSESSMENT AND INTERPRETATION Jarvis King is a 29 year old female, , who is at 37w3d with an LIZZY of 09/01/2024, by Ultrasound dating method. Indications for NST: Other: christelle twins BABY A: Baseline: 135 Variability: Moderate Accelerations: Present 15 X 15 Decelerations: None BABY B: Baseline: 145 Variability: Moderate Accelerations: Present 15 X 15 Decelerations: None Contractions: TOCO: Irregular Interpretation: Baby A: Reactive Baby B: Reactive SIGNATURE: Nohemy Lyn MD documented in this encounter [facility] [place] 08-14-2024 Progress note Formatting of t his note might be different from the original. RR- VB No. LOF No. CTXS irreg . Movement: present. Other c/o: some increased edema, pubic bone area discomfort and some vagijnal pressure. Denies HAAS or visual changes Medication list reviewed. Physical Exam See Flow Sheet Abd: soft, nontender, gravid Ext: edema: 1+, symetrical: Yes, DTRS: 2+, clonus: Absent A/P 37w3d Estimated Date of Delivery: 09/01/24 high risk nulliparrous/christelle twins, vtx,vtx TRue BP normal. Call/return for signs symptoms of preeclampsia or labor plan induction/delivery at 38 week if nho labor before then NST reactive x2 . Nohemy Lyn M.D. [facility] [place] 08-14-2024 Miscellaneous Notes RR- VB No. LOF No. CTXS irreg . Movement: present. Other c/o: some increased edema, pubic bone area discomfort and some vagijnal pressure. Denies HAAS or visual changes Medication list reviewed. Physical Exam See Flow Sheet Abd: soft, nontender, gravid Ext: edema: 1+, symetrical: Yes, DTRS: 2+, clonus: Absent A/P 37w3d Estimated Date of Delivery: 09/01/24 high risk nulliparrous/christelle twins, vtx,vtx TRue BP normal. Call/return for signs symptoms of preeclampsia or labor plan induction/delivery at 38 week if nho labor before then NST reactive x2 . Nohemy Lyn M.D. documented in this encounter [facility] [place] 08-07-2024 Instructions Melina Wilson, MA - 08/07/2024 2:31 PM EDT SEQUENTIAL SCREENINGS The [facility] [place] offers sequential screenings for women who are interested in screenings for chromosomal abnormalities and certain defects during a . The sequential screen combines ultrasound and blood tests to determine the risk of chromosomal abnormalities, including Down's Syndrome (Trisomy 21) and Trisomy 18, as well as open neural tube defects including spina bifida. Ultrasound examination is performed between 11 weeks and 13 weeks gestational age. Blood tests are drawn after the ultrasound and again later in the between 15 and 21 weeks gestational age. Please let your physician know if you are interested in this testing. It will require an appointment with our assessment technician. This is not an ultrasound performed by a physician in our office during a routine visit. SIGNS AND SYMPTOMS OF LABOR 1. Contractions every 10 minutes or more often 2. Clear, pink, or brownish fluid (water) leaking from vagina 3. Feeling that baby is pushing down, pressure 4. Low, dull backache 5. Cramps that feel like a period 6. Cramps with or without diarrhea If you notice any of the above symptoms, contact our office at [phone] and ask to speak with a nurse. After hours, you can call doctors registry at [phone] OR call [facility] at [phone] and ask to have the doctor computational theory scientist paged. If you consider this an emergency, dial 9--1 or go to your nearest emergency department. NEED HELP? Are you dealing with a violent or abusive relationship? Are you a victim of rape or sexual assult? Call [facility] ([place]) 24 hour Crisis Hotline: 996.552.2083 or 434-808-0568. MANUAL Your Guide to a Healthy manual is now on-line. Visit [email or web address] to download your free copy documented in this encounter [facility] [place] 08-07-2024 Progress note Formatting of t his note might be different from the original. CP - CENTERING S: Jarvis King is a 29 year old female who presents at 36 weeks gestation for a routine visit and centering. Seen in office yesterday for SHARATH and to discuss plan of care for delivery. Denies headache, visual changes, chest pain, shortness of breath, vaginal bleeding, leakage of fluid, or dysuria. Feeling well, no complaints. O: See flow sheet Gen: No apparent distress Abd: Gravid, nontender ASSESSMENT/PLAN: 1. Supervision of high risk in third trimester - ICD9: V23.9, ICD10: O09.93 (primary diagnosis) 2. Dichorionic diamniotic twin in third trimester - ICD9: 651.03, V91.03, ICD10: O30.043 3. 36 weeks gestation of - ICD9: V22.2, ICD10: Z3A.36 4. History of herpes genitalis - ICD9: V12.09, ICD10: Z86.19 - GBS negative - Continue Valacyclovir PO daily - Seen by physician and induction of labor scheduled for 08/18/24 7pm Cytotec/ [facility] - Labor precautions reviewed and when to call office - RTO 1 week for NST/SHARATH Blanca Skelton APRN.CNM [facility] [place] 08-07-2024 Miscellaneous Notes CP - CENTERМАРИНА S: Jarvis King is a 29 year old female who presents at 36 weeks gestation for a routine visit and centering. Seen in office yesterday for SHARATH and to discuss plan of care for delivery. Denies headache, visual changes, chest pain, shortness of breath, vaginal bleeding, leakage of fluid, or dysuria. Feeling well, no complaints. O: See flow sheet Gen: No apparent distress Abd: Gravid, nontender ASSESSMENT/PLAN: 1. Supervision of high risk in third trimester - ICD9: V23.9, ICD10: O09.93 (primary diagnosis) 2. Dichorionic diamniotic twin in third trimester - ICD9: 651.03, V91.03, ICD10: O30.043 3. 36 weeks gestation of - ICD9: V22.2, ICD10: Z3A.36 4. History of herpes genitalis - ICD9: V12.09, ICD10: Z86.19 - GBS negative - Continue Valacyclovir PO daily - Seen by physician and induction of labor scheduled for 08/18/24 7pm Cytotec/ [facility] - Labor precautions reviewed and when to call office - RTO 1 week for NST/SHARATH Skelton APRN.CNM documented in this encounter [facility] [place] 08-06-2024 Note HNO ID: [id number] Author: NOHEMY LYN MD Service: ? Author Type: Physician Type: Progress Notes Filed: 08/06/2024 16:13 Note Text: NST (TWINS) SUMMARY PROVIDER ASSESSMENT AND INTERPRETATION Jarvis King is a 29 year old female, , who is at 36w2d with an LIZZY of 09/01/2024, by Ultrasound dating method. Indications for NST: Other: di/ditwins BABY A: Baseline: 120 Variability: Moderate Accelerations: Present 15 X 15 Decelerations: None BABY B: Baseline: 130 Variability: Moderate Accelerations: Present 15 X 15 Decelerations: None Contractions: TOCO: no regular ctxs Interpretation: Baby A: Category I and Reactive Baby B: Category I and Reactive SIGNATURE: Nohemy Lyn MD [facility] 08-06-2024 History of Presen t illness Narrative NST (TWINS) SUMMARY PROVIDER ASSESSMENT AND INTERPRETATION Jarvis King is a 29 year old female, , who is at 36w2d with an LIZZY of 09/01/2024, by Ultrasound dating method. Indications for NST: Other: di/ditwins BABY A: Baseline: 120 Variability: Moderate Accelerations: Present 15 X 15 Decelerations: None BABY B: Baseline: 130 Variability: Moderate Accelerations: Present 15 X 15 Decelerations: None Contractions: TOCO: no regular ctxs Interpretation: Baby A: Category I and Reactive Baby B: Category I and Reactive SIGNATURE: Nohemy Lyn MD documented in this encounter [facility] [place] 08-06-2024 Progress note Formatting of t his note might be different from the original. RR- VB No. LOF No. CTXSfew, irreg Movement: present. Other c/o: No. Medication list reviewed. Physical Exam See Flow Sheet Abd: soft, nontender, gravid Ext: edema: 1+ A/P 36w2d Estimated Date of Delivery: 09/01/24 Di/di twins. R/B/a to inuction at 38 weeks reveiwed, questions answered, desires to proceed. Consent signed NST reactive x 2 HSV h/o of - prophylaxis ordered f/u in 1 week or prn Nohemy Lyn M.D. [facility] [place] 08-06-2024 Miscellaneous Notes RR- VB No. LOF No. CTXSfew, irreg Movement: present. Other c/o: No. Medication list reviewed. Physical Exam See Flow Sheet Abd: soft, nontender, gravid Ext: edema: 1+ A/P 36w2d Estimated Date of Delivery: 09/01/24 Di/di twins. R/B/a to inuction at 38 weeks reveiwed, questions answered, desires to proceed. Consent signed NST reactive x 2 HSV h/o of - prophylaxis ordered f/u in 1 week or prn Nohemy Lyn M.D. documented in this encounter [facility] [place] 08-06-2024 Instructions Hilda Mitchell MA - 08/06/2024 2:24 PM EDT SEQUENTIAL SCREENINGS The [facility] [place] offers sequential screenings for women who are interested in screenings for chromosomal abnormalities and certain defects during a . The sequential screen combines ultrasound and blood tests to determine the risk of chromosomal abnormalities, including Down's Syndrome (Trisomy 21) and Trisomy 18, as well as open neural tube defects including spina bifida. Ultrasound examination is performed between 11 weeks and 13 weeks gestational age. Blood tests are drawn after the ultrasound and again later in the between 15 and 21 weeks gestational age. Please let your physician know if you are interested in this testing. It will require an appointment with our assessment technician. This is not an ultrasound performed by a physician in our office during a routine visit. SIGNS AND SYMPTOMS OF LABOR 1. Contractions every 10 minutes or more often 2. Clear, pink, or brownish fluid (water) leaking from vagina 3. Feeling that baby is pushing down, pressure 4. Low, dull backache 5. Cramps that feel like a period 6. Cramps with or without diarrhea If you notice any of the above symptoms, contact our office at [phone] and ask to speak with a nurse. After hours, you can call doctors registry at [phone] OR call [facility] at [phone] and ask to have the doctor computational theory scientist paged. If you consider this an emergency, dial 9-1-1 or go to your nearest emergency department. NEED HELP? Are you dealing with a violent or abusive relationship? Are you a victim of rape or sexual assult? Call [facility] ([place]) 24 hour Crisis Hotline: 199.355.8657 or 442-791-1604. MANUAL Your Guide to a Healthy manual is now on-line. Visit [email or web address] to download your free copy documented in this encounter [facility] [place] 07-31-2024 Progress note Formatting of t his note might be different from the original. S: Jarvis King is a 29 year old female who presents at 35.3 weeks gestation for a routine visit. Just completed growth US. Baby A EFW 15% and Baby B EFW 49%. Positive movements. Denies headache, visual changes, chest pain, shortness of breath, vaginal bleeding, leakage of fluid, or dysuria. Feeling well, no complaints. O: See flow sheet Gen: No apparent distress Abd: Gravid, non tender TAUS- confirms vertex positions ASSESSMENT/PLAN: 1. 35 weeks gestation of - ICD9: V22.2, ICD10: Z3A.35 (primary diagnosis) 2. Supervision of high risk in third trimester - ICD9: V23.9, ICD10: O09.93 3. Dichorionic diamniotic twin in second trimester - ICD9: 651.03, V91.03, ICD10: O30.042 4. History of herpes genitalis - ICD9: V12.09, ICD10: Z86.19 5. Genital herpes simplex virus (HSV) infection in mother affecting - ICD9: 647.63, 054.19, ICD10: O98.319, A60.09 6. Supervision of high risk in first trimester - ICD9: V23.9, ICD10: O09.91 - Taking Acyclovir daily - URINE OB DIP B/O - ROUTINE, GROUP B STREP PCR - RSV VACCINE, BIVALENT (ABRYSVO) - Discussed induction of labor guidelines of 38-38.6 weeks gestation. Patient to see physician next week to finalize plan of care for delivery - RTO 1 week for SEBT/ SHARATH Skelton APRN.CNM [facility] [place] 07-31-2024 Miscellaneous Notes S: Jarvis King is a 29 year old female who presents at 35.3 weeks gestation for a routine visit. Just completed growth US. Baby A EFW 15% and Baby B EFW 49%. Positive movements. Denies headache, visual changes, chest pain, shortness of breath, vaginal bleeding, leakage of fluid, or dysuria. Feeling well, no complaints. O: See flow sheet Gen: No apparent distress Abd: Gravid, non tender TAUS- confirms vertex positions ASSESSMENT/PLAN: 1. 35 weeks gestation of - ICD9: V22.2, ICD10: Z3A.35 (primary diagnosis) 2. Supervision of high risk in third trimester - ICD9: V23.9, ICD10: O09.93 3. Dichorionic diamniotic twin in second trimester - ICD9: 651.03, V91.03, ICD10: O30.042 4. History of herpes genitalis - ICD9: V12.09, ICD10: Z86.19 5. Genital herpes simplex virus (HSV) infection in mother affecting - ICD9: 647.63, 054.19, ICD10: O98.319, A60.09 6. Supervision of high risk in first trimester - ICD9: V23.9, ICD10: O09.91 - Taking Acyclovir daily - URINE OB DIP B/O - ROUTINE, GROUP B STREP PCR - RSV VACCINE, BIVALENT (ABRYSVO) - Discussed induction of labor guidelines of 38-38.6 weeks gestation. Patient to see physician next week to finalize plan of care for delivery - RTO 1 week for SEBT/ SHARATH Skelton APRN.CNM documented in this encounter [facility] 07-31-2024 Instructions Melina Wilson MA - 07/31/2024 3:38 PM EDT SEQUENTIAL SCREENINGS The [facility] offers sequential screenings for women who are interested in screenings for chromosomal abnormalities and certain defects during a . The sequential screen combines ultrasound and blood tests to determine the risk of chromosomal abnormalities, including Down's Syndrome (Trisomy 21) and Trisomy 18, as well as open neural tube defects including spina bifida. Ultrasound examination is performed between 11 weeks and 13 weeks gestational age. Blood tests are drawn after the ultrasound and again later in the between 15 and 21 weeks gestational age. Please let your physician know if you are interested in this testing. It will require an appointment with our assessment technician. This is not an ultrasound performed by a physician in our office during a routine visit. SIGNS AND SYMPTOMS OF LABOR 1. Contractions every 10 minutes or more often 2. Clear, pink, or brownish fluid (water) leaking from vagina 3. Feeling that baby is pushing down, pressure 4. Low, dull backache 5. Cramps that feel like a period 6. Cramps with or without diarrhea If you notice any of the above symptoms, contact our office at [phone] and ask to speak with a nurse. After hours, you can call doctors registry at [phone] OR call [facility] at [phone] and ask to have the doctor computational theory scientist paged. If you consider this an emergency, dial 5-1-0 or go to your nearest emergency department. NEED HELP? Are you dealing with a violent or abusive relationship? Are you a victim of rape or sexual assult? Call [facility] ([place]) 24 hour Crisis Hotline: 792.922.1210 or 395-511-6458. MANUAL Your Guide to a Healthy manual is now on-line. Visit [email or web address] to download your free copy documented in this encounter [facility] 07-24-2024 Miscellaneous Notes [facility] S: Jarvis King is a 29 year old female who presents at 34w3d with LIZZY:09/01/2024, by Ultrasound for a routine visit. Denies headache, visual changes, chest pain, shortness of breath, vaginal bleeding, leakage of fluid, or dysuria. Feeling well, no complaints. O: See flow sheet Gen: No apparent distress Abd: Gravid, nontender S=D, 40 lb TWG Growth US at 32 weeks The EFW is 1589 g grams, at the 15%. AC is at the 28% for Fetus A. The EFW is 1698 g grams, at the 28% percentile. AC is at the 45% percentile for Fetus B. - Normal amniotic fluid volume with an MVP of 7 cm for Fetus A and 6 cm for Fetus B. Vertex/Vertex ASSESSMENT/PLAN: 1. Encounter for supervision of high risk in second trimester, antepartum -ASA 81mg PO once daily -Discussed IOL at 38-39 weeks, will await next growth US and discuss further. 2. Dichorionic diamniotic twin in second trimester -Growth ultrasound every 4 weeks at 24 weeks -Weekly NST at 36 weeks 3. 24 weeks gestation of 4. 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 -Recommend increasing to 500mg PO BID at 36 weeks. 5. abnormality affecting management of mother, fetus 2 of multiple gestation - echo normal, no further follow up -PTL precautions reviewed and when to call -RTO in 2 weeks Rebecca Fontanez APRN.CNM documented in this encounter [facility] 07-24-2024 Progress note Formatting of t his note is different from the original. [facility] [employer] S: Jarvis King is a 29 year old female who presents at 34w3d with LIZZY:09/01/2024, by Ultrasound for a routine visit. Denies headache, visual changes, chest pain, shortness of breath, vaginal bleeding, leakage of fluid, or dysuria. Feeling well, no complaints. O: See flow sheet Gen: No apparent distress Abd: Gravid, nontender S=D, 40 lb TWG Growth US at 32 weeks The EFW is 1589 g grams, at the 15%. AC is at the 28% for Fetus A. The EFW is 1698 g grams, at the 28% percentile. AC is at the 45% percentile for Fetus B. - Normal amniotic fluid volume with an MVP of 7 cm for Fetus A and 6 cm for Fetus B. Vertex/Vertex ASSESSMENT/PLAN: 1. Encounter for supervision of high risk in second trimester, antepartum -ASA 81mg PO once daily -Discussed IOL at 38-39 weeks, will await next growth US and discuss further. 2. Dichorionic diamniotic twin in second trimester -Growth ultrasound every 4 weeks at 24 weeks -Weekly NST at 36 weeks 3. 24 weeks gestation of 4. 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 -Recommend increasing to 500mg PO BID at 36 weeks. 5. abnormality affecting management of mother, fetus 2 of multiple gestation - echo normal, no further follow up -PTL precautions reviewed and when to call -RTO in 2 weeks Rebecca Fontanez APRN.CNM [facility] 07-24-2024 Instructions Phani Casiano MA - 07/24/2024 2:24 PM EDT SEQUENTIAL SCREENINGS The [facility] offers sequential screenings for women who are interested in screenings for chromosomal abnormalities and certain defects during a . The sequential screen combines ultrasound and blood tests to determine the risk of chromosomal abnormalities, including Down's Syndrome (Trisomy 21) and Trisomy 18, as well as open neural tube defects including spina bifida. Ultrasound examination is performed between 11 weeks and 13 weeks gestational age. Blood tests are drawn after the ultrasound and again later in the between 15 and 21 weeks gestational age. Please let your physician know if you are interested in this testing. It will require an appointment with our assessment technician. This is not an ultrasound performed by a physician in our office during a routine visit. SIGNS AND SYMPTOMS OF LABOR 1. Contractions every 10 minutes or more often 2. Clear, pink, or brownish fluid (water) leaking from vagina 3. Feeling that baby is pushing down, pressure 4. Low, dull backache 5. Cramps that feel like a period 6. Cramps with or without diarrhea If you notice any of the above symptoms, contact our office at [phone] and ask to speak with a nurse. After hours, you can call doctors registry at [phone] OR call [facility] at [phone] and ask to have the doctor computational theory scientist paged. If you consider this an emergency, dial 9--8 or go to your nearest emergency department. NEED HELP? Are you dealing with a violent or abusive relationship? Are you a victim of rape or sexual assult? Call [facility] ([place]) 24 hour Crisis Hotline: 422.644.5852 or 074-589-0361. MANUAL Your Guide to a Healthy manual is now on-line. Visit [email or web address] to download your free copy documented in this encounter [facility] 07-17-2024 Telephone encounter Note FMLA paperwork is completed and patient notified. Patient would like to pick it up at her next appointment. Phani Casiano MA [facility] 07-17-2024 Miscellaneous Notes FMLA paperwork is completed and patient notified. Patient would like to pick it up at her next appointment. Phani Casiano MA FMLA completed and placed on providers desk for signature. Phani Casiano MA documented in this encounter [facility] 07-16-2024 Progress note Formatting of t his note might be different from the original. S: Jarvis King is a 29 year old female who presents at 09/01/2024, by Ultrasound for a routine visit. Denies headache, visual changes, chest pain, shortness of breath, vaginal bleeding, leakage of fluid, or dysuria. Feeling well, no complaints. Good movement, No contractions Recovering from the stomach flu last week.BH Ctx only. Heartburn has bee better O: See flow sheet Gen: No apparent distress Abd: Gravid, nontender VTX/VTX ASSESSMENT/PLAN: 1. Dichorionic diamniotic twin in third trimester - ICD9: 651.03, V91.03, ICD10: O30.043 (primary diagnosis) PTL precautions 2. 33 weeks gestation of - ICD9: V22.2, ICD10: Z3A.33 3. Supervision of high risk in third trimester - ICD9: V23.9, ICD10: O09.93 Elsie Moreno MD [facility] 07-16-2024 Miscellaneous Notes S: Jarvis King is a 29 year old female who presents at 09/01/2024, by Ultrasound for a routine visit. Denies headache, visual changes, chest pain, shortness of breath, vaginal bleeding, leakage of fluid, or dysuria. Feeling well, no complaints. Good movement, No contractions Recovering from the stomach flu last week.BH Ctx only. Heartburn has bee better O: See flow sheet Gen: No apparent distress Abd: Gravid, nontender VTX/VTX ASSESSMENT/PLAN: 1. Dichorionic diamniotic twin in third trimester - ICD9: 651.03, V91.03, ICD10: O30.043 (primary diagnosis) PTL precautions 2. 33 weeks gestation of - ICD9: V22.2, ICD10: Z3A.33 3. Supervision of high risk in third trimester - ICD9: V23.9, ICD10: O09.93 Elsie Moreno MD documented in this encounter [facility] 07-16-2024 Instructions Raven Archibald MA - 07/16/2024 8:08 AM EDT SEQUENTIAL SCREENINGS The [facility] offers sequential screenings for women who are interested in screenings for chromosomal abnormalities and certain defects during a . The sequential screen combines ultrasound and blood tests to determine the risk of chromosomal abnormalities, including Down's Syndrome (Trisomy 21) and Trisomy 18, as well as open neural tube defects including spina bifida. Ultrasound examination is performed between 11 weeks and 13 weeks gestational age. Blood tests are drawn after the ultrasound and again later in the between 15 and 21 weeks gestational age. Please let your physician know if you are interested in this testing. It will require an appointment with our assessment technician. This is not an ultrasound performed by a physician in our office during a routine visit. SIGNS AND SYMPTOMS OF LABOR 1. Contractions every 10 minutes or more often 2. Clear, pink, or brownish fluid (water) leaking from vagina 3. Feeling that baby is pushing down, pressure 4. Low, dull backache 5. Cramps that feel like a period 6. Cramps with or without diarrhea If you notice any of the above symptoms, contact our office at [phone] and ask to speak with a nurse. After hours, you can call doctors registry at [phone] OR call [facility] at [phone] and ask to have the doctor computational theory scientist paged. If you consider this an emergency, dial 9-1-9 or go to your nearest emergency department. NEED HELP? Are you dealing with a violent or abusive relationship? Are you a victim of rape or sexual assult? Call [facility] ([place]) 24 hour Crisis Hotline: 784.701.8318 or 460-141-5916. MANUAL Your Guide to a Healthy manual is now on-line. Visit [email or web address] to download your free copy documented in this encounter [facility] 07-15-2024 Telephone encounter Note FMLA completed and placed on providers desk for signature. Phani Casiano MA [facility] 07-10-2024 Telephone encounter Note Called Pt and Pt states she definitely does feel dehydrated. Advised to go to L&D for NST and IV fluids. Voiced understanding. L&D notified. Malika Gaytan RN [facility] 07-10-2024 Miscellaneous Notes Called Pt and Pt states she definitely does feel dehydrated. Advised to go to L&D for NST and IV fluids. Voiced understanding. L&D notified. Malika Gaytan RN Have her come in for NST and BP check and we ask she please put on a mask when she arrives. If she has decreased urine output to L&D for NST and IVF. If she thinks she can stay hydrated then immodium and push fluids and I can rx something for nausea. Nohemy Lyn MD Patient 32w3d calling with concerns of vomiting and diarrhea since 8 pm last night. Approximately 4-5 episodes of each. States she is trying to sip Gatorade and ice chips and has been able to keep them down for the last 3 hours. The last time patient vomited was 6 am. The last time patient ate was dinner at 6 pm last night. Patient having cramping from the upset stomach and diarrhea but denies any pain currently. Patient has not taken anything for the vomiting or diarrhea. Patient states she had chills last night but denies any fever. Patient currently concerned with decreased movement. Patient states she has been dozing off and on this morning and unsure if she has any movement this morning. States unsure if movement last night or if it was just from the cramping and diarrhea. Patient is supposed to come in to office today for centering appointment, but states she probably won't make it because she doesn't want to get anyone sick. Do you want patient to be seen for decreased movement in office? Leatha Alva RN documented in this encounter [facility] 07-10-2024 Telephone encounter Note Have her come in for NST and BP check and we ask she please put on a mask when she arrives. If she has decreased urine output to L&D for NST and IVF. If she thinks she can stay hydrated then immodium and push fluids and I can rx something for nausea. Nohemy Lyn MD [facility] Work Phone: 07-10-2024 Telephone encounter Note Patient 32w3d calling with concerns of vomiting and diarrhea since 8 pm last night. Approximately 4-5 episodes of each. States she is trying to sip Gatorade and ice chips and has been able to keep them down for the last 3 hours. The last time patient vomited was 6 am. The last time patient ate was dinner at 6 pm last night. Patient having cramping from the upset stomach and diarrhea but denies any pain currently. Patient has not taken anything for the vomiting or diarrhea. Patient states she had chills last night but denies any fever. Patient currently concerned with decreased movement. Patient states she has been dozing off and on this morning and unsure if she has any movement this morning. States unsure if movement last night or if it was just from the cramping and diarrhea. Patient is supposed to come in to office today for centering appointment, but states she probably won't make it because she doesn't want to get anyone sick. Do you want patient to be seen for decreased movement in office? Leahta Alva RN [facility] 07-03-2024 Note Indication Evaluation of growth Di-Di twins Impression REMOTE READ Live, dichorionic/diamniotic intrauterine . - The biometry is consistent with the assigned gestational dating for both fetuses. - The EFW is 1589 g grams, at the 15%. AC is at the 28% for Fetus A. - The EFW is 1698 g grams, at the 28% percentile. AC is at the 45% percentile for Fetus B. - Normal amniotic fluid volume with an MVP of 7 cm for Fetus A and 6 cm for Fetus B. - The placenta is anterior, fundal for Fetus A and posterior, fundal for Fetus B. - No malformations visualized on a limited survey as detailed below. Recommendations Growth in four weeks Maternal Assessment Height 165 cm Height (ft) 5 ft Height (in) 5 in Physical Exam Initial weight (lb) 148 lb Initial BMI 24.63 kg/m Maternal assessment other: 2 Para 0 Method Transabdominal ultrasound examination Twin . Number of fetuses: 2. Dichorionic-diamniotic Dating GA by prior assessment 31 w + 3 d LIZZY by prior assessment: 09/01/2024 Ultrasound examination on: 07/03/2024 GA by U/S based upon: AC, BPD, Femur, HC GA by U/S 31 w + 0 d LIZZY by U/S: 09/04/2024 GA by U/S based upon (Fetus 2): AC, BPD, Femur, HC GA by U/S (Fetus 2) 32 w + 0 d LIZZY by U/S (Fetus 2): 08/28/2024 Assigned: based on stated LIZZY, selected on 07/03/2024 Assigned GA 31 w + 3 d Assigned LIZZY: 09/01/2024 Fetus A: General Evaluation Cardiac activity present. FHR 147 bpm. movements: present. Presentation: cephalic, maternal right Placenta: Placental site: anterior, fundal Umbilical cord: 3 vessel cord Amniotic fluid: Amount of AF: normal amount. MVP 7.0 cm Fetus B: General Evaluation Cardiac activity present. FHR 152 bpm. movements: present. Presentation: cephalic, maternal left Placenta: Placental site: posterior, fundal Umbilical cord: 3 vessel cord Amniotic fluid: Amount of AF: normal amount. MVP 6.0 cm Fetus A: Growth Overview Exam date GA BPD (mm) HC (mm) AC (mm) FL (mm) HL (mm) EFW (g) 04/08/2024 19w 1d 44.8 68% 163.3 46% 135.1 40% 27.3 33% 26.5 23% 253 22% 05/06/2024 23w 1d 55.7 39% 203.8 30% 187.2 53% 37 17% 528 24% 06/03/2024 27w 1d 71 82% 262.7 73% 221.6 25% 45.8 7% 934 16% 07/03/2024 31w 3d 80 62% 300.6 71% 266.5 28% 54.3 3% 1589 15% Fetus B: Growth Overview Exam date GA BPD (mm) HC (mm) AC (mm) FL (mm) HL (mm) EFW (g) 04/08/2024 19w 1d 43.7 54% 161.5 42% 140.4 55% 29.1 59% 26.9 28% 276 44% 05/06/2024 23w 1d 57.5 63% 207.8 40% 182.2 38% 40.2 60% 553 35% 06/03/2024 27w 1d 71.3 84% 263.5 75% 232.7 57% 48.7 39% 1065 47% 07/03/2024 31w 3d 84.9 97% 306.8 83% 272.6 45% 55.2 6% 1698 28% Fetus A: Biometry Standard BPD 80.0 mm 32w 1d 62% Hadlock OFD 107.2 mm 32w 0d 70% Nicolaides HC 300.6 mm 32w 3d 71% Deisy AC 266.5 mm 30w 5d 28% Hadlock Femur 54.3 mm 28w 5d 3% Deisy EFW 1,589 g 30w 1d 15% Hadlock EFW discordance 6.4 % EFW (lb) 3 lb EFW (oz) 8 oz EFW by: Hadlock (HC-AC-FL) Extended Inventory Accountant 8.7 mm Extremities / Bony Struc FL / HC 0.18 Other Structures FHR 147 bpm Fetus B: Biometry Standard BPD 84.9 mm 34w 1d 97% Hadlock OFD 106.8 mm 31w 6d 68% Nicolaides HC 306.8 mm 33w 2d 83% Deisy AC 272.6 mm 31w 2d 45% Hadlock Femur 55.2 mm 29w 1d 6% Deisy EFW 1,698 g 30w 5d 28% Hadlock EFW discordance 6.4 % EFW (lb) 3 lb EFW (oz) 12 oz EFW by: Hadlock (HC-AC-FL) Extended Inventory Accountant 5.1 mm Extremities / Bony Struc FL / HC 0.18 Other Structures FHR 152 bpm Fetus A: Anatomy Lateral ventricles: normal Cavum septi pellucidi: normal Cerebellum: normal Cisterna magna: normal 4-chamber view: normal RVOT view: normal LVOT view: normal 3-vessel view: normal Heart / Thorax Situs: situs solitus (normal) Diaphragm: normal Stomach: normal Kidneys: normal Bladder: normal sex: male Wants to know sex: yes Fetus B: Anatomy Lateral ventricles: normal Cavum septi pellucidi: normal Cerebellum: normal Cisterna magna: normal 4-chamber view: suboptimal RVOT view: (more content not included)... [facility] 07-03-2024 Progress note Formatting of t his note might be different from the original. S: Javris King is a 29 year old female who presents at 31 weeks gestation for a routine visit. Just completed growth US. EFW Baby A- 15%, B- 28%. Positive movements. Increased acid reflux. Minimal relief with TDenies headache, visual changes, chest pain, shortness of breath, vaginal bleeding, leakage of fluid, or dysuria. Feeling well, no complaints. O: See flow sheet Gen: No apparent distress Abd: Gravid, nontender ASSESSMENT/PLAN: 1. 31 weeks gestation of - ICD9: V22.2, ICD10: Z3A.31 (primary diagnosis) 2. Supervision of high risk in third trimester - ICD9: V23.9, ICD10: O09.93 3. Dichorionic diamniotic twin in third trimester - ICD9: 651.03, V91.03, ICD10: O30.043 4. Need for vaccination - ICD9: V05.9, ICD10: Z23 - TDAP today - Start Pepcid 20 mg PO BID - PTL precautions reviewed and when to call - RTO 2 week / centering and 4 weeks repeat growth US Blanca Skelton APRN.CNM [facility] 07-03-2024 Miscellaneous Notes S: Jarvis King is a 29 year old female who presents at 31 weeks gestation for a routine visit. Just completed growth US. EFW Baby A- 15%, B- 28%. Positive movements. Increased acid reflux. Minimal relief with TDenies headache, visual changes, chest pain, shortness of breath, vaginal bleeding, leakage of fluid, or dysuria. Feeling well, no complaints. O: See flow sheet Gen: No apparent distress Abd: Gravid, nontender ASSESSMENT/PLAN: 1. 31 weeks gestation of - ICD9: V22.2, ICD10: Z3A.31 (primary diagnosis) 2. Supervision of high risk in third trimester - ICD9: V23.9, ICD10: O09.93 3. Dichorionic diamniotic twin in third trimester - ICD9: 651.03, V91.03, ICD10: O30.043 4. Need for vaccination - ICD9: V05.9, ICD10: Z23 - TDAP today - Start Pepcid 20 mg PO BID - PTL precautions reviewed and when to call - RTO 2 week / centering and 4 weeks repeat growth US Blanca Skelton APRN.CNM documented in this encounter [facility] 07-03-2024 Note HNO ID: [id number] Author: MELINA WILSON MA Service: ? Author Type: Purchasing Internship Type: Progress Notes Filed: 07/03/2024 16:36 Note Text: Patient identified by name and date of . Jarvis Crawford Billdedra presents today for a vaccination of Tdap. Patient denies an allergy to latex: yes Patient denies a severe (life-threatening) allergy to a previous dose of Tdap, DTP, DTaP, DT or Td vaccine. Yes Patient denies history of epilepsy or neurological problems: Yes Patient is afebrile and denies being moderately or severely ill: Yes Patient denies history of Guillain-Dover Syndrome (a severe paralytic illness): Yes Tdap Adacel injection was given without incident. See immunizations for details of immunizations administered today. VIS sheet provided: Yes Provider Blanca Skelton CNM was present in office at time of injection. Melina Wilson MA [facility] 07-03-2024 History of Presen t illness Narrative Patient identified by name and date of . Jarvis King presents today for a vaccination of Tdap. Patient denies an allergy to latex: yes Patient denies a severe (life-threatening) allergy to a previous dose of Tdap, DTP, DTaP, DT or Td vaccine. Yes Patient denies history of epilepsy or neurological problems: Yes Patient is afebrile and denies being moderately or severely ill: Yes Patient denies history of Guillain-Dover Syndrome (a severe paralytic illness): Yes Tdap Adacel injection was given without incident. See immunizations for details of immunizations administered today. VIS sheet provided: Yes Provider Blanca Skelton CNM was present in office at time of injection. Melina Wilson MA documented in this encounter [facility] 07-03-2024 Instructions Mony Cheema LPN - 07/03/2024 3:44 PM EDT SEQUENTIAL SCREENINGS The [facility] offers sequential screenings for women who are interested in screenings for chromosomal abnormalities and certain defects during a . The sequential screen combines ultrasound and blood tests to determine the risk of chromosomal abnormalities, including Down's Syndrome (Trisomy 21) and Trisomy 18, as well as open neural tube defects including spina bifida. Ultrasound examination is performed between 11 weeks and 13 weeks gestational age. Blood tests are drawn after the ultrasound and again later in the between 15 and 21 weeks gestational age. Please let your physician know if you are interested in this testing. It will require an appointment with our assessment technician. This is not an ultrasound performed by a physician in our office during a routine visit. SIGNS AND SYMPTOMS OF LABOR 1. Contractions every 10 minutes or more often 2. Clear, pink, or brownish fluid (water) leaking from vagina 3. Feeling that baby is pushing down, pressure 4. Low, dull backache 5. Cramps that feel like a period 6. Cramps with or without diarrhea If you notice any of the above symptoms, contact our office at [phone] and ask to speak with a nurse. After hours, you can call doctors registry at [phone] OR call [facility] at [phone] and ask to have the doctor computational theory scientist paged. If you consider this an emergency, dial 9-1-1 or go to your nearest emergency department. NEED HELP? Are you dealing with a violent or abusive relationship? Are you a victim of rape or sexual assult? Call [facility] ([facility] 24 hour Crisis Hotline: 335.219.5630 or 673-602-7854. MANUAL Your Guide to a Healthy manual is now on-line. Visit [email or web address] to download your free copy documented in this encounter [facility] 06-26-2024 Instructions Phani Casiano MA - 06/26/2024 2:36 PM EDT SEQUENTIAL SCREENINGS The [facility] offers sequential screenings for women who are interested in screenings for chromosomal abnormalities and certain defects during a . The sequential screen combines ultrasound and blood tests to determine the risk of chromosomal abnormalities, including Down's Syndrome (Trisomy 21) and Trisomy 18, as well as open neural tube defects including spina bifida. Ultrasound examination is performed between 11 weeks and 13 weeks gestational age. Blood tests are drawn after the ultrasound and again later in the between 15 and 21 weeks gestational age. Please let your physician know if you are interested in this testing. It will require an appointment with our assessment technician. This is not an ultrasound performed by a physician in our office during a routine visit. SIGNS AND SYMPTOMS OF LABOR 1. Contractions every 10 minutes or more often 2. Clear, pink, or brownish fluid (water) leaking from vagina 3. Feeling that baby is pushing down, pressure 4. Low, dull backache 5. Cramps that feel like a period 6. Cramps with or without diarrhea If you notice any of the above symptoms, contact our office at [phone] and ask to speak with a nurse. After hours, you can call doctors registry at [phone] OR call [facility] at [phone] and ask to have the doctor computational theory scientist paged. If you consider this an emergency, dial 9-1-5 or go to your nearest emergency department. NEED HELP? Are you dealing with a violent or abusive relationship? Are you a victim of rape or sexual assult? Call [facility] ([place]) 24 hour Crisis Hotline: 469.585.5340 or 709-807-7037. MANUAL Your Guide to a Healthy manual is now on-line. Visit [email or web address] to download your free copy documented in this encounter [facility] 06-26-2024 Miscellaneous Notes CP- CENTERING #6 S: Jarvis King is a 29 year old female who presents at 30.3 weeks gestation for a routine visit. Positive movements. Still having difficulty differentiating between baby A and B. Feeling tightening in hands. No pain at this time. Denies headache, visual changes, chest pain, shortness of breath, vaginal bleeding, leakage of fluid, or dysuria. O: See flow sheet Gen: No apparent distress Abd: Gravid, nontender S= D measuring 2 weeks ahead ASSESSMENT/PLAN: 1. 30 weeks gestation of - ICD9: V22.2, ICD10: Z3A.30 (primary diagnosis) 2. Supervision of high risk in third trimester - ICD9: V23.9, ICD10: O09.93 3. Dichorionic diamniotic twin in third trimester - ICD9: 651.03, V91.03, ICD10: O30.043 - Elevated 1 hour - 3 hour GTT normal - PTL precautions and kick counts reviewed - RTO 2 weeks- growth US and SHARATH Skelton APRN.CNM documented in this encounter [facility] 06-26-2024 Progress note Formatting of t his note might be different from the original. CP- CENTERING #6 S: Jarvis King is a 29 year old female who presents at 30.3 weeks gestation for a routine visit. Positive movements. Still having difficulty differentiating between baby A and B. Feeling tightening in hands. No pain at this time. Denies headache, visual changes, chest pain, shortness of breath, vaginal bleeding, leakage of fluid, or dysuria. O: See flow sheet Gen: No apparent distress Abd: Gravid, nontender S= D measuring 2 weeks ahead ASSESSMENT/PLAN: 1. 30 weeks gestation of - ICD9: V22.2, ICD10: Z3A.30 (primary diagnosis) 2. Supervision of high risk in third trimester - ICD9: V23.9, ICD10: O09.93 3. Dichorionic diamniotic twin in third trimester - ICD9: 651.03, V91.03, ICD10: O30.043 - Elevated 1 hour - 3 hour GTT normal - PTL precautions and kick counts reviewed - RTO 2 weeks- growth US and SHARATH Skelton APRN.CNM [facility] 06-17-2024 Progress note Formatting of t his note might be different from the original. SW- Pt doing well. No pain, ctx, vb, lof. +FM x 2 PE: Gen- NAD, well appearing Abd- Soft, gravid, NT Bedside TAUS with +FHT x 2 and movement noted x 2 See flowsheet A/p 29 wk gestation - Passed 3 hr GTT: Discussed routine exercise in and balanced diet - Growth US q 4 weeks - RTO 2 wks Concha Baires DO [facility] 06-17-2024 Miscellaneous Notes SW- Pt doing well. No pain, ctx, vb, lof. +FM x 2 PE: Gen- NAD, well appearing Abd- Soft, gravid, NT Bedside TAUS with +FHT x 2 and movement noted x 2 See flowsheet A/p 29 wk gestation - Passed 3 hr GTT: Discussed routine exercise in and balanced diet - Growth US q 4 weeks - RTO 2 wks Concha Baires DO documented in this encounter [facility] 06-17-2024 Instructions Hilda Mitchell MA - 06/17/2024 3:47 PM EDT SEQUENTIAL SCREENINGS The [facility] offers sequential screenings for women who are interested in screenings for chromosomal abnormalities and certain defects during a . The sequential screen combines ultrasound and blood tests to determine the risk of chromosomal abnormalities, including Down's Syndrome (Trisomy 21) and Trisomy 18, as well as open neural tube defects including spina bifida. Ultrasound examination is performed between 11 weeks and 13 weeks gestational age. Blood tests are drawn after the ultrasound and again later in the between 15 and 21 weeks gestational age. Please let your physician know if you are interested in this testing. It will require an appointment with our assessment technician. This is not an ultrasound performed by a physician in our office during a routine visit. SIGNS AND SYMPTOMS OF LABOR 1. Contractions every 10 minutes or more often 2. Clear, pink, or brownish fluid (water) leaking from vagina 3. Feeling that baby is pushing down, pressure 4. Low, dull backache 5. Cramps that feel like a period 6. Cramps with or without diarrhea If you notice any of the above symptoms, contact our office at [phone] and ask to speak with a nurse. After hours, you can call doctors registry at [phone] OR call [facility] at [phone] and ask to have the doctor computational theory scientist paged. If you consider this an emergency, dial 5-4-2 or go to your nearest emergency department. NEED HELP? Are you dealing with a violent or abusive relationship? Are you a victim of rape or sexual assult? Call [facility] ([place]) 24 hour Crisis Hotline: 680.751.4200 or 544-421-0038. MANUAL Your Guide to a Healthy manual is now on-line. Visit [email or web address] to download your free copy documented in this encounter [facility] 06-12-2024 Instructions Phani Casiano MA - 06/12/2024 2:30 PM EDT SEQUENTIAL SCREENINGS The [facility] offers sequential screenings for women who are interested in screenings for chromosomal abnormalities and certain defects during a . The sequential screen combines ultrasound and blood tests to determine the risk of chromosomal abnormalities, including Down's Syndrome (Trisomy 21) and Trisomy 18, as well as open neural tube defects including spina bifida. Ultrasound examination is performed between 11 weeks and 13 weeks gestational age. Blood tests are drawn after the ultrasound and again later in the between 15 and 21 weeks gestational age. Please let your physician know if you are interested in this testing. It will require an appointment with our assessment technician. This is not an ultrasound performed by a physician in our office during a routine visit. SIGNS AND SYMPTOMS OF LABOR 1. Contractions every 10 minutes or more often 2. Clear, pink, or brownish fluid (water) leaking from vagina 3. Feeling that baby is pushing down, pressure 4. Low, dull backache 5. Cramps that feel like a period 6. Cramps with or without diarrhea If you notice any of the above symptoms, contact our office at [phone] and ask to speak with a nurse. After hours, you can call doctors registry at [phone] OR call [facility] at [phone] and ask to have the doctor computational theory scientist paged. If you consider this an emergency, dial or go to your nearest emergency department. NEED HELP? Are you dealing with a violent or abusive relationship? Are you a victim of rape or sexual assult? Call [facility] ([place]) 24 hour Crisis Hotline: 559.344.2500 or 809-017-3413. MANUAL Your Guide to a Healthy manual is now on-line. Visit [email or web address] to download your free copy documented in this encounter [facility] 06-12-2024 Miscellaneous Notes CP- CENTERING GROUP #5 S: Jarvis King is a 29 year old female who present at at 28 weeks gestation for a routine visit and centering group. Feeling good. Positive movements. Failed GCT but passed GTT. Still watching diet and carbohydrate/sugar intake. Denies headache, visual changes, chest pain, shortness of breath, vaginal bleeding, leakage of fluid, or dysuria. Feeling well, no complaints. O: See flow sheet Gen: No apparent distress Abd: Gravid, nontender ASSESSMENT/PLAN: 1. 28 weeks gestation of - ICD9: V22.2, ICD10: Z3A.28 (primary diagnosis) 2. Supervision of high risk in third trimester - ICD9: V23.9, ICD10: O09.93 3. Dichorionic diamniotic twin in second trimester - ICD9: 651.03, V91.03, ICD10: O30.042 P: 1) PTL precautions reviewed and when to call 2) RTO 2 weeks Blanca Skelton APRN.CNM documented in this encounter [facility] 06-12-2024 Progress note Formatting of t his note might be different from the original. CP- CENTERING GROUP #5 S: Jarvis King is a 29 year old female who present at at 28 weeks gestation for a routine visit and centering group. Feeling good. Positive movements. Failed GCT but passed GTT. Still watching diet and carbohydrate/sugar intake. Denies headache, visual changes, chest pain, shortness of breath, vaginal bleeding, leakage of fluid, or dysuria. Feeling well, no complaints. O: See flow sheet Gen: No apparent distress Abd: Gravid, nontender ASSESSMENT/PLAN: 1. 28 weeks gestation of - ICD9: V22.2, ICD10: Z3A.28 (primary diagnosis) 2. Supervision of high risk in third trimester - ICD9: V23.9, ICD10: O09.93 3. Dichorionic diamniotic twin in second trimester - ICD9: 651.03, V91.03, ICD10: O30.042 P: 1) PTL precautions reviewed and when to call 2) RTO 2 weeks Blanca Skelton APRN.CNM [facility] 06-06-2024 Telephone encounter Note See result note 3 hr GTT ordered [facility] 06-06-2024 Miscellaneous Notes See result note 3 hr GTT ordered documented in this encounter [facility] 06-05-2024 Telephone encounter Note Patient notified. US scheduled. Elsie Lauren, RN [facility] 06-05-2024 Miscellaneous Notes Patient notified. US scheduled. Elsie Lauren RN Left message for patient to call office. Pt needs ultrasound scheduled in 4 weeks. Malika Gaytan RN ----- Message from Rebecca Fontanez APRN.CNM sent at 06/05/2024 1:08 PM EDT ----- Reviewed, please update PN record. Repeat in 4 weeks. Rebecca Fontanez APRN.CNM documented in this encounter [facility] 06-05-2024 Telephone encounter Note Left message for patient to call office. Pt needs ultrasound scheduled in 4 weeks. Malika Gaytan RN [facility] 06-05-2024 Telephone encounter Note ----- Message from Rebecca Fontanez APRN.CNM sent at 06/05/2024 1:08 PM EDT ----- Reviewed, please update PN record. Repeat in 4 weeks. Rebecca Fontanez APRN.CNM [facility] 06-03-2024 Progress note Formatting of t his note might be different from the original. S: Jarvis King is a 29 year old female who presents at 09/01/2024, by Ultrasound for a routine visit. Denies headache, visual changes, chest pain, shortness of breath, vaginal bleeding, leakage of fluid, or dysuria. Feeling well, no complaints. Good movement, Some xiomara huynh contractions O: See flow sheet Gen: No apparent distress Abd: Gravid, nontender EFW A 16% boy EFW B 47% girl GCT today TDAP next time LARC declined ASSESSMENT/PLAN: 1. Encounter for supervision of high risk in second trimester, antepartum - ICD9: V23.9, ICD10: O09.92 (primary diagnosis) PL precautions 2. Dichorionic diamniotic twin in second trimester - ICD9: 651.03, V91.03, ICD10: O30.042 Growth q 4 weeks 3. 26 weeks gestation of - ICD9: V22.2, ICD10: Z3A.26 Elsie Moreno MD [facility] 06-03-2024 Miscellaneous Notes S: Jarvis King is a 29 year old female who presents at 09/01/2024, by Ultrasound for a routine visit. Denies headache, visual changes, chest pain, shortness of breath, vaginal bleeding, leakage of fluid, or dysuria. Feeling well, no complaints. Good movement, Some xiom[place] hu[place]h contractions O: See flow sheet Gen: No apparent distress Abd: Gravid, nontender EFW A 16% boy EFW B 47% girl GCT today TDAP next time LARC declined ASSESSMENT/PLAN: 1. Encounter for supervision of high risk in second trimester, antepartum - ICD9: V23.9, ICD10: O09.92 (primary diagnosis) PL precautions 2. Dichorionic diamniotic twin in second trimester - ICD9: 651.03, V91.03, ICD10: O30.042 Growth q 4 weeks 3. 26 weeks gestation of - ICD9: V22.2, ICD10: Z3A.26 Elsie Moreno MD documented in this encounter [facility] 06-03-2024 Note Indication Evaluation of dichorionic/diamniotic twins Impression REMOTE READ Live, dichorionic/diamniotic intrauterine . - The biometry is consistent with the assigned gestational dating for both fetuses. - The EFW is 934 g grams, at the 16%. AC is at the 25% for Fetus A. - The EFW is 1065 g grams, at the 47% percentile. AC is at the 57% percentile for Fetus B. - Normal amniotic fluid volume with an MVP of 5.7 cm for Fetus A and 5.2 cm for Fetus B. - The placenta is anterior, fundal for Fetus A and posterior, fundal for Fetus B. - No malformations visualized on a limited survey as detailed below. Recommendations Growth in four weeks Maternal Assessment Height 165 cm Height (ft) 5 ft Height (in) 5 in Physical Exam Initial weight (lb) 148 lb Initial BMI 24.63 kg/m Maternal assessment other: 2 Para 0 Method Transabdominal ultrasound examination Twin . Number of fetuses: 2. Dichorionic-diamniotic Dating GA by prior assessment 27 w + 1 d LIZZY by prior assessment: 09/01/2024 Ultrasound examination on: 06/03/2024 GA by U/S based upon: AC, BPD, Femur, HC GA by U/S 27 w + 1 d LIZZY by U/S: 09/01/2024 GA by U/S based upon (Fetus 2): AC, BPD, Femur, HC GA by U/S (Fetus 2) 27 w + 5 d LIZZY by U/S (Fetus 2): 08/28/2024 Assigned: based on stated LIZZY, selected on 06/03/2024 Assigned GA 27 w + 1 d Assigned LIZZY: 09/01/2024 Fetus A: General Evaluation Cardiac activity present. FHR 146 bpm. movements: present. Presentation: cephalic, maternal right Placenta: Placental site: anterior, fundal Umbilical cord: 3 vessel cord Amniotic fluid: Amount of AF: normal amount. MVP 5.7 cm Fetus B: General Evaluation Cardiac activity present. FHR 149 bpm. movements: present. Presentation: cephalic, maternal left Placenta: Placental site: posterior, fundal Umbilical cord: 3 vessel cord Amniotic fluid: Amount of AF: normal amount. MVP 5.2 cm Fetus A: Growth Overview Exam date GA BPD (mm) HC (mm) AC (mm) FL (mm) HL (mm) EFW (g) 04/08/2024 19w 1d 44.8 68% 163.3 46% 135.1 40% 27.3 33% 26.5 23% 253 22% 05/06/2024 23w 1d 55.7 39% 203.8 30% 187.2 53% 37 17% 528 24% 06/03/2024 27w 1d 71 82% 262.7 73% 221.6 25% 45.8 7% 934 16% Fetus B: Growth Overview Exam date GA BPD (mm) HC (mm) AC (mm) FL (mm) HL (mm) EFW (g) 04/08/2024 19w 1d 43.7 54% 161.5 42% 140.4 55% 29.1 59% 26.9 28% 276 44% 05/06/2024 23w 1d 57.5 63% 207.8 40% 182.2 38% 40.2 60% 553 35% 06/03/2024 27w 1d 71.3 84% 263.5 75% 232.7 57% 48.7 39% 1065 47% Fetus A: Biometry Standard BPD 71.0 mm 28w 4d 82% Hadlock OFD 92.5 mm 27w 3d 72% Nicolaides HC 262.7 mm 28w 1d 73% Deisy AC 221.6 mm 26w 4d 25% Hadlock Femur 45.8 mm 25w 2d 7% Deisy EFW 934 g 26w 1d 16% Hadlock EFW discordance 12.2 % EFW (lb) 2 lb EFW (oz) 1 oz EFW by: Hadlock (HC-AC-FL) Extended Inventory Accountant 6.4 mm Extremities / Bony Struc FL / HC 0.17 Other Structures FHR 146 bpm Fetus B: Biometry Standard BPD 71.3 mm 28w 4d 84% Hadlock OFD 93.1 mm 27w 4d 76% Nicolaides HC 263.5 mm 28w 1d 75% Deisy AC 232.7 mm 27w 4d 57% Hadlock Femur 48.7 mm 26w 4d 39% Deisy EFW 1,065 g 27w 0d 47% Hadlock EFW discordance 12.2 % EFW (lb) 2 lb EFW (oz) 6 oz EFW by: Hadlock (HC-AC-FL) Extended Inventory Accountant 3.6 mm Extremities / Bony Struc FL / HC 0.18 Other Structures FHR 149 bpm Fetus A: Anatomy Lateral ventricles: normal Cavum septi pellucidi: normal Cerebellum: normal Cisterna magna: normal 4-chamber view: normal RVOT view: normal LVOT view: normal 3-vessel view: normal Heart / Thorax Situs: situs solitus (normal) Diaphragm: normal Stomach: normal Kidneys: normal Bladder: normal sex: male Wants to know sex: yes Fetus B: Anatomy Lateral ventricles: normal Cavum septi pellucidi: normal Cerebellum: normal Cisterna magna: normal 4-chamber view: normal RVOT view: normal LVOT view: normal 3-vessel view: normal Heart / Thorax Situs: situs solitus (normal) Diaphragm: normal Stomach: normal Kidneys: normal Bladder: normal sex: female Wants to know sex: yes Performed By: Leatha Pickett RDMS, RVT Read By: Steph Seth M.D. [facility] 06-03-2024 Instructions Hilda Mitchell MA - 06/03/2024 3:40 PM EDT SEQUENTIAL SCREENINGS The [facility] offers sequential screenings for women who are interested in screenings for chromosomal abnormalities and certain defects during a . The sequential screen combines ultrasound and blood tests to determine the risk of chromosomal abnormalities, including Down's Syndrome (Trisomy 21) and Trisomy 18, as well as open neural tube defects including spina bifida. Ultrasound examination is performed between 11 weeks and 13 weeks gestational age. Blood tests are drawn after the ultrasound and again later in the between 15 and 21 weeks gestational age. Please let your physician know if you are interested in this testing. It will require an appointment with our assessment technician. This is not an ultrasound performed by a physician in our office during a routine visit. SIGNS AND SYMPTOMS OF LABOR 1. Contractions every 10 minutes or more often 2. Clear, pink, or brownish fluid (water) leaking from vagina 3. Feeling that baby is pushing down, pressure 4. Low, dull backache 5. Cramps that feel like a period 6. Cramps with or without diarrhea If you notice any of the above symptoms, contact our office at [phone] and ask to speak with a nurse. After hours, you can call doctors registry at [phone] OR call [facility] at [phone] and ask to have the doctor computational theory scientist paged. If you consider this an emergency, dial 6--5 or go to your nearest emergency department. NEED HELP? Are you dealing with a violent or abusive relationship? Are you a victim of rape or sexual assult? Call [facility] ([place]) 24 hour Crisis Hotline: 986.546.8443 or 090-023-3360. MANUAL Your Guide to a Healthy manual is now on-line. Visit [email or web address] to download your free copy documented in this encounter [facility] 05-14-2024 History of Presen t illness Narrative Images from the original note were not included. [facility] OUTPATIENT VISIT DATE May 15, 2024 OUTPATIENT VISIT TYPE CONSULT REFERRING PROVIDER: Blanca Skelton APRN.* Recommendations from today's consultation will be conveyed through the electronic medical record. History of Present Illness: 29 year old at 24w2d with Estimated Date of Delivery: 09/01/24 presenting for consultation with Maternal- Medicine at the [facility] in the setting of dichorionic twins. She is feeling well overall and has already completed anatomic surveys and echo given concern for possible enlarged PA in Twin B, which appeared normal on echo. Low risk cfDNA screening. 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 pyridoxine, vitamin B6, (VITAMIN B-6) 50 mg cap Take by mouth. 25-IRON [id number] ORAL Take by mouth. valACYclovir (VALTREX) 500 mg tablet Take 1 tablet by mouth once daily. No current facility-administered medications on file prior to visit. Allergies: ALLERGIES No Known Allergies Social History: Social History Tobacco Use Smoking status: Never Smokeless tobacco: Never Vaping Use Vaping Use: Never used Substance Use Topics Alcohol use: Not Currently Comment: not during Drug use: Never Family History: FAMILY HISTORY Problem Relation Age of Onset Thyroid Mother No Known Problems Sister No Known Problems Sister Thyroid Sister Diabetes Maternal Grandmother Cancer Maternal Grandmother Lung, non-smoker Cataract Maternal Grandmother Cancer Maternal Grandfather Lung, non-smoker Cataract Maternal Grandfather Cancer Paternal Grandmother breast Cancer Paternal Grandfather unk Breast Cancer Paternal Aunt Review of Systems: Negative other than as noted above. Physical Exam: Height Weight BMI 170 lb 12.8 oz (77.5 kg) 0 Pulse BP Resp O2 Sat Temp Pain 114/56 Gen: Well-appearing, no acute distress CV/Resp: Non-labored breathing on room air Abd: Gravid, non-tender Ext: Moving spontaneously, no significant edema b/l FHTs+ on US Assessment and Plan: 29 year old at 24w2d presenting for MFM consultation due to dichorionic twins. We reviewed the maternal and risks of dichorionic multiple gestation in detail today. Maternal risks include an increased risk of anemia, preeclampsia, GDM, delivery, PPH. Twin pregnancies are associated with increased risks including SAB, aneuploidy, congenital anomalies, PTL/PTB (~40%), selective FGR, and malpresentation requiring delivery. In regards to the risk of PTL/PTB we reviewed gestational-age dependent risks of prematurity. Recommended management for at this point including: serial growth US and clinical evaluation/screening for labor. We reviewed that in the absence of labor, delivery is recommended at/by 38 weeks gestation in uncomplicated dichorionic diamniotic twin pregnancies. We also had a detailed discussion regarding mode of delivery in multiple gestations. Reviewed recommendation for considering trial of labor as long as twin A has vertex presentation and gestational age/EFW and status appropriate. Reviewed breech extraction of non-vertex second twins in detail, including discussion of procedure and risks/benefits, as well as structural limitation as not all obstetric providers perform this procedure. We also reviewed that in setting of planned trial of labor for twins, the risk of requiring a delivery for twin B is ~2-3%. Jarvis is considering all of this and will continue to think through desired delivery planning as progresses. Summary of Recommendations: -Continue PNV, ASA -Serial growth scans q4 weeks -Delivery by 38 weeks or sooner as indicated with mode of delivery pending size/presentation and patient desires Thank you for allowing us to participate in the care of this patient. Please do not hesitate to contact our office with any questions or concerns. I spent a total of 60 minutes on the date of the service which included preparing to see the patient, [id number] patient care, completing clinical documentation, obtaining and/or reviewing separately obtained history, performing a medically appropriate examination, counseling and educating the patient/family/caregiver, and ordering medications, tests, or procedures. SIGNATURE: Stephanie Barrera MD PATIENT NAME: Jarvis King DATE: May 15, 2024 TIME: 9:56 AM documented in this encounter [facility] 05-14-2024 Note HNO ID: [id number] Author: STEPHANIE BARRERA MD Service: ? Author Type: Physician Type: Progress Notes Filed: 05/15/2024 10:14 Note Text: Peer Specialist [facility] OUTPATIENT VISIT DATE May 15, 2024 OUTPATIENT VISIT TYPE CONSULT REFERRING PROVIDER: Blanca Skelton APRN.* Recommendations from today's consultation will be conveyed through the electronic medical record. History of Present Illness: 29 year old at 24w2d with Estimated Date of Delivery: 09/01/24 presenting for consultation with Maternal- Medicine at the [facility] in the setting of dichorionic twins. She is feeling well overall and has already completed anatomic surveys and echo given concern for possible enlarged PA in Twin B, which appeared normal on echo. Low risk cfDNA screening. 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 pyridoxine, vitamin B6, (VITAMIN B-6) 50 mg cap Take by mouth. 25-IRON [id number]-JNFEL-[id number] ORAL Take by mouth. valACYclovir (VALTREX) 500 mg tablet Take 1 tablet by mouth once daily. No current facility-administered medications on file prior to visit. Allergies: ALLERGIES No Known Allergies Social History: Social History Tobacco Use Smoking status: Never Smokeless tobacco: Never Vaping Use Vaping Use: Never used Substance Use Topics Alcohol use: Not Currently Comment: not during Drug use: Never Family History: FAMILY HISTORY Problem Relation Age of Onset Thyroid Mother No Known Problems Sister No Known Problems Sister Thyroid Sister Diabetes Maternal Grandmother Cancer Maternal Grandmother Lung, non-smoker Cataract Maternal Grandmother Cancer Maternal Grandfather Lung, non-smoker Cataract Maternal Grandfather Cancer Paternal Grandmother breast Cancer Paternal Grandfather unk Breast Cancer Paternal Aunt Review of Systems: Negative other than as noted above. Physical Exam: Height Weight BMI 170 lb 12.8 oz (77.5 kg) 0 Pulse BP Resp O2 Sat Temp Pain 114/56 Gen: Well-appearing, no acute distress CV/Resp: Non-labored breathing on room air Abd: Gravid, non-tender Ext: Moving spontaneously, no significant edema b/l FHTs+ on US Assessment and Plan: 29 year old at 24w2d presenting for MFM consultation due to dichorionic twins. We reviewed the maternal and risks of dichorionic multiple gestation in detail today. Maternal risks include an increased risk of anemia, preeclampsia, GDM, delivery, PPH. Twin pregnancies are associated with increased risks including SAB, aneuploidy, congenital anomalies, PTL/PTB (~40%), selective FGR, and malpresentation requiring delivery. In regards to the risk of PTL/PTB we reviewed gestational-age dependent risks of prematurity. Recommended management for at this point including: serial growth US and clinical evaluation/screening for labor. We reviewed that in the absence of labor, delivery is recommended at/by 38 weeks gestation in uncomplicated dichorionic diamniotic twin pregnancies. We also had a detailed discussion regarding mode of delivery in multiple gestations. Reviewed recommendation for considering trial of labor as long as twin A has vertex presentation and gestational age/EFW and status appropriate. Reviewed breech extraction of non-vertex second twins in detail, including discussion of procedure and risks/benefits, as well as structural limitation as not all obstetric providers perform this procedure. We also reviewed that in setting of planned trial of labor for twins, the risk of requiring a delivery for twin B is ~2-3%. Jarvis is considering all of this and will continue to think through desired delivery planning as progresses. Summary of Recommendations: -Continue PNV, ASA -Serial growth scans q4 weeks -Delivery by 38 weeks or sooner as indicated with mode of delivery pending size/presentation and patient desires Thank you for allowing us to participate in the care of this patient. Please do not hesitate to contact our office with any questions or concerns. I spent a total of 60 minutes on the date of the service which included (more content not included)... [facility] 05-14-2024 Progress note Formatting of t his note might be different from the original. ABRAM-Centering Group #4 S: Jarvis King is a 29 year old female who presents at 24w2d with LIZZY:09/01/2024, by Ultrasound for a routine visit. Denies headache, visual changes, chest pain, shortness of breath, vaginal bleeding, leakage of fluid, or dysuria. Feeling well, no complaints. O: See flow sheet Gen: No apparent distress Abd: Gravid, nontender S=D, 22 lb TWG US today, awaiting on formal results. ASSESSMENT/PLAN: 1. Encounter for supervision of high risk in second trimester, antepartum -CBC, RPR, and 1hr GCT next visit -Started ASA 81mg PO once daily -Recommend signing up for CBE and classes. 2. Dichorionic diamniotic twin in second trimester -M consult today -Growth ultrasound every 4 weeks at 24 weeks -Weekly NST at 36 weeks 3. 24 weeks gestation of 4. 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 -Recommend increasing to 500mg PO BID at 36 weeks. 5. abnormality affecting management of mother, fetus 2 of multiple gestation - echo normal, no further follow up -PTL precautions reviewed and when to call -RTO in 4 weeks Rebecca Fontanez APRN.CNM [facility] 05-14-2024 Miscellaneous Notes A[facility]AM-[facility] #4 S: Jarvis King is a 29 year old female who presents at 24w2d with LIZZY:09/01/2024, by Ultrasound for a routine visit. Denies headache, visual changes, chest pain, shortness of breath, vaginal bleeding, leakage of fluid, or dysuria. Feeling well, no complaints. O: See flow sheet Gen: No apparent distress Abd: Gravid, nontender S=D, 22 lb TWG US today, awaiting on formal results. ASSESSMENT/PLAN: 1. Encounter for supervision of high risk in second trimester, antepartum -CBC, RPR, and 1hr GCT next visit -Started ASA 81mg PO once daily -Recommend signing up for CBE and classes. 2. Dichorionic diamniotic twin in second trimester -M consult today -Growth ultrasound every 4 weeks at 24 weeks -Weekly NST at 36 weeks 3. 24 weeks gestation of 4. 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 -Recommend increasing to 500mg PO BID at 36 weeks. 5. abnormality affecting management of mother, fetus 2 of multiple gestation - echo normal, no further follow up -PTL precautions reviewed and when to call -RTO in 4 weeks Rebecca Fontanez APRN.CNM documented in this encounter [facility] 05-14-2024 Note HNO ID: [id number] Author: REBECCA FONTANEZ APRN.CNM Service: ? Author Type: Edm Operator Type: Progress Notes Filed: 05/14/2024 16:03 Note Text: ABRAM- [facility] 05-14-2024 History of Presen t illness Narrative ABRAM- documented in this encounter [facility] 05-14-2024 Instructions Phani Casiano MA - 05/14/2024 1:17 PM EDT SEQUENTIAL SCREENINGS The [facility] offers sequential screenings for women who are interested in screenings for chromosomal abnormalities and certain defects during a . The sequential screen combines ultrasound and blood tests to determine the risk of chromosomal abnormalities, including Down's Syndrome (Trisomy 21) and Trisomy 18, as well as open neural tube defects including spina bifida. Ultrasound examination is performed between 11 weeks and 13 weeks gestational age. Blood tests are drawn after the ultrasound and again later in the between 15 and 21 weeks gestational age. Please let your physician know if you are interested in this testing. It will require an appointment with our assessment technician. This is not an ultrasound performed by a physician in our office during a routine visit. SIGNS AND SYMPTOMS OF LABOR 1. Contractions every 10 minutes or more often 2. Clear, pink, or brownish fluid (water) leaking from vagina 3. Feeling that baby is pushing down, pressure 4. Low, dull backache 5. Cramps that feel like a period 6. Cramps with or without diarrhea If you notice any of the above symptoms, contact our office at [phone] and ask to speak with a nurse. After hours, you can call doctors registry at [phone] OR call [facility] at [phone] and ask to have the doctor computational theory scientist paged. If you consider this an emergency, dial 06-30- or go to your nearest emergency department. NEED HELP? Are you dealing with a violent or abusive relationship? Are you a victim of rape or sexual assult? Call [facility] [place] ([place]) 24 hour Crisis Hotline: 401.348.8650 or 227-303-4663. MANUAL Your Guide to a Healthy manual is now on-line. Visit [email or web address] to download your free copy documented in this encounter [facility] 05-07-2024 History of Presen t illness Narrative NAME: Jarvis King [facility] Number.: [id number] Date of : 1995 Date of Visit: May 07, 2024 Referring Provider: Concha Baires Dear Concha Baires, Consultation requested for an opinion regarding Jarvis King. My final recommendations will be communicated back to the requesting physician by way of shared Medical record or letter to requesting physician via US mail. Ms. Jarvis King was seen for echocardiogram and pediatric cardiology consultation on May 07, 2024. She is a 29 year old woman, at 23 2/7 weeks gestation referred due to abnormal 3 vessel view in twin B seen on recent ultrasound. She has had genetic testing with NIPT and the results were low risk. She herself has no significant past medical history. There is no family history of congenital heart disease. Echocardiogram Summary Twin A: 1. Normal segmental cardiac anatomy. 2. Patent foramen ovale with normal intrauterine right to left flow. 3. Qualitatively normal right ventricular size and systolic function. 4. Qualitatively normal left ventricular size and systolic function. 5. Normal appearing aortic and ductal arches with normal flow velocities. 6. Normal heart rhythm and rate of 160 bpm. 7. No pericardial effusion. Echocardiogram Summary Twin B: 1. Normal segmental cardiac anatomy. 2. Patent foramen ovale with normal intrauterine right to left flow. Anuerysmal atrial septum 3. Qualitatively normal right ventricular size and systolic function. 4. Qualitatively normal left ventricular size and systolic function. 5. Normal main and branch pulmonary arteries. 6. Normal appearing aortic and ductal arches with normal flow velocities. 7. Normal heart rhythm and rate of 147 bpm. 8. No pericardial effusion. Please see full echocardiogram report for complete details. Assessment and Plan: In summary, the echocardiogram today showed normal intracardiac anatomy with normal ventricular function and normal heart rate and rhythm. We discussed these findings with Ms. Jarvis Kign. In addition, the limitations of the echocardiogram and echocardiography in general, including the inability to exclude ASDs, some VSDs, minor valvar abnormalities, partial anomalous pulmonary venous return, persistent patent ductus arteriosus, and coarctation of the aorta, were explained. Based on these data we did not recommend any specific further or cardiac evaluation, though we would be happy to see her back should new concerns arise. Thank you for allowing me to participate in the care of your patient and please do not hesitate to contact me if I can be any further assistance. I spent a total of 45 minutes on the date of the service which included preparing to see the patient, [id number] patient care, completing clinical documentation, obtaining and/or reviewing separately obtained history, counseling and educating the patient/family/caregiver, communicating with other HCPs (not separately reported), and communicating results to the patient/family/caregiver. Sincerely, Karen Dc MD May 07, 2024 documented in this encounter [facility] 05-06-2024 Telephone encounter Note Patient called in asking if they will do the echo for both twins even though possible abnormality was only found in one? States if only one needs done if she could get it done at another location then sooner then what she is scheduled for at [facility]. Sophie Cadena RN [facility] 05-06-2024 Miscellaneous Notes Patient called in asking if they will do the echo for both twins even though possible abnormality was only found in one? States if only one needs done if she could get it done at another location then sooner then what she is scheduled for at [facility]. Sophie Cadena RN I am sorry I did not realize she would be limited on location given twin gestation. I think it is reasonable, but I know she is probably anxious to have it completed 23w1d Patient called and said that because it's twins, her echo needs done at [facility]. Soonest appointment is 05/21/24. Patient asking if there is anything we can do to get her visit moved up. Is this appointment time reasonable or does she need it sooner? Elsie Lauren RN documented in this encounter [facility] 05-06-2024 Telephone encounter Note I am sorry I did not realize she would be limited on location given twin gestation. I think it is reasonable, but I know she is probably anxious to have it completed [facility] Work Phone: 05-06-2024 Telephone encounter Note 23w1d Patient called and said that because it's twins, her echo needs done at [facility]. Soonest appointment is 05/21/24. Patient asking if there is anything we can do to get her visit moved up. Is this appointment time reasonable or does she need it sooner? Elsie Lauren RN [facility] 05-06-2024 Note Indication Evaluation of growth. Evaluation of multiple gestation Impression REMOTE READ Live, dichorionic/diamniotic intrauterine . - The biometry is consistent with the assigned gestational dating for both fetuses. - The EFW is 528 g grams, at the 24%. AC is at the 53% for Fetus A. - The EFW is 553 g grams, at the 35% percentile. AC is at the 38% percentile for Fetus B. - Normal amniotic fluid volume with an MVP of 5.5 cm for Fetus A and 5.7 cm for Fetus B. - The placenta is anterior, fundal for Fetus A and posterior, fundal for Fetus B. - The main pulmonary outflow appears subjectively large for fetus B in RVOT, 3VV and ductal arch. No malformations visualized on a limited survey as detailed below. Recommendations echocardiogram recommended Growth ultrasound in four weeks Maternal Assessment Height 165 cm Height (ft) 5 ft Height (in) 5 in Physical Exam Initial weight (lb) 148 lb Initial BMI 24.63 kg/m Method Transabdominal ultrasound examination Twin . Number of fetuses: 2. Dichorionic-diamniotic Dating GA by prior assessment 23 w + 1 d LIZZY by prior assessment: 09/01/2024 Ultrasound examination on: 05/06/2024 GA by U/S based upon: AC, BPD, Femur, HC GA by U/S 22 w + 5 d LIZZY by U/S: 09/04/2024 GA by U/S based upon (Fetus 2): AC, BPD, Femur, HC GA by U/S (Fetus 2) 23 w + 1 d LIZZY by U/S (Fetus 2): 09/01/2024 Assigned: based on stated LIZZY, selected on 02/19/2024 Assigned GA 23 w + 1 d Assigned LIZZY: 09/01/2024 Fetus A: General Evaluation Cardiac activity present. FHR 145 bpm. movements: present. Presentation: breech, inferior,maternal right Placenta: Placental site: anterior, fundal Umbilical cord: 3 vessel cord Amniotic fluid: Amount of AF: normal amount. Q1 5.5 cm Fetus B: General Evaluation Cardiac activity present. FHR 144 bpm. movements: present. Presentation: cephalic, transverse head left, maternal left Placenta: Placental site: posterior, fundal Umbilical cord: 3 vessel cord Amniotic fluid: Amount of AF: normal amount. MVP 5.7 cm Fetus A: Growth Overview Exam date GA BPD (mm) HC (mm) AC (mm) FL (mm) HL (mm) EFW (g) 04/08/2024 19w 1d 44.8 68% 163.3 46% 135.1 40% 27.3 33% 26.5 23% 253 22% 05/06/2024 23w 1d 55.7 39% 203.8 30% 187.2 53% 37 17% 528 24% Fetus B: Growth Overview Exam date GA BPD (mm) HC (mm) AC (mm) FL (mm) HL (mm) EFW (g) 04/08/2024 19w 1d 43.7 54% 161.5 42% 140.4 55% 29.1 59% 26.9 28% 276 44% 05/06/2024 23w 1d 57.5 63% 207.8 40% 182.2 38% 40.2 60% 553 35% Fetus A: Biometry Standard BPD 55.7 mm 23w 0d 39% Hadlock OFD 72.2 mm 22w 2d 35% Nicolaides HC 203.8 mm 22w 3d 30% Deisy AC 187.2 mm 23w 3d 53% Hadlock Femur 37.0 mm 22w 0d 17% Deisy EFW 528 g 22w 4d 24% Hadlock EFW discordance 4.5 % EFW (lb) 1 lb EFW (oz) 3 oz EFW by: Hadlock (HC-AC-FL) Extended Inventory Accountant 5.7 mm Extremities / Bony Struc FL / HC 0.18 Other Structures FHR 145 bpm Fetus B: Biometry Standard BPD 57.5 mm 23w 4d 63% Hadlock OFD 73.1 mm 22w 4d 44% Nicolaides HC 207.8 mm 22w 6d 40% Deisy AC 182.2 mm 23w 0d 38% Hadlock Femur 40.2 mm 23w 1d 60% Deisy EFW 553 g 22w 6d 35% Hadlock EFW discordance 4.5 % EFW (lb) 1 lb EFW (oz) 4 oz EFW by: Hadlock (HC-AC-FL) Extended Inventory Accountant 4.7 mm Extremities / Bony Struc FL / HC 0.19 Other Structures FHR 144 bpm Fetus A: Anatomy Lateral ventricles: normal Cavum septi pellucidi: normal Cerebellum: normal Cisterna magna: normal Profile: normal 4-chamber view: normal RVOT view: normal LVOT view: normal 3-vessel view: normal Heart / Thorax Situs: situs solitus (normal) Aortic arch view: normal Diaphragm: normal Stomach: normal Kidneys: normal Bladder: normal Cervical spine: suboptimal Thoracic spine: suboptimal Lumbar spine: suboptimal Sacral spine: suboptimal sex: male Wants to know sex: yes Fetus B: Anatomy Lateral ventricles: normal Cavum septi pellucidi: normal Cerebellum: normal Cisterna magna: normal Profile: normal 4-chamber view: normal RVOT view: abnormal LVOT view: normal 3-vessel view: abnormal Heart / Thorax Situs: situs solitus (normal) Aortic arch view: normal Bicaval view: normal Diaphragm: normal Stomach: normal Kidneys: normal Bladder: normal Cervical spine: suboptimal Thoracic spine: suboptimal Lumbar spine: sub (more content not included)... [facility] 05-06-2024 Progress note Formatting of t his note might be different from the original. SW- pt doing well. No pain, vb, lof. +FM x 2. Ultrasound today and final report pending. Per integrity specialist possible abnormality of heart baby B. echo ordered and instructed patient to schedule. Will wait for final report. 28 wk labs ordered. Start baby ASA. RTO 4 wks. Concha Baires DO [facility] Work Phone: 05-06-2024 Miscellaneous Notes SW- pt doing well. No pain, vb, lof. +FM x 2. Ultrasound today and final report pending. Per integrity specialist possible abnormality of heart baby B. echo ordered and instructed patient to schedule. Will wait for final report. 28 wk labs ordered. Start baby ASA. RTO 4 wks. Concha Baires DO documented in this encounter [facility] 05-06-2024 Instructions Melina Wilson MA - 05/06/2024 8:19 AM EDT SEQUENTIAL SCREENINGS The [facility] offers sequential screenings for women who are interested in screenings for chromosomal abnormalities and certain defects during a . The sequential screen combines ultrasound and blood tests to determine the risk of chromosomal abnormalities, including Down's Syndrome (Trisomy 21) and Trisomy 18, as well as open neural tube defects including spina bifida. Ultrasound examination is performed between 11 weeks and 13 weeks gestational age. Blood tests are drawn after the ultrasound and again later in the between 15 and 21 weeks gestational age. Please let your physician know if you are interested in this testing. It will require an appointment with our assessment technician. This is not an ultrasound performed by a physician in our office during a routine visit. SIGNS AND SYMPTOMS OF LABOR 1. Contractions every 10 minutes or more often 2. Clear, pink, or brownish fluid (water) leaking from vagina 3. Feeling that baby is pushing down, pressure 4. Low, dull backache 5. Cramps that feel like a period 6. Cramps with or without diarrhea If you notice any of the above symptoms, contact our office at [phone] and ask to speak with a nurse. After hours, you can call doctors registry at [phone] OR call [facility] at [phone] and ask to have the doctor computational theory scientist paged. If you consider this an emergency, dial 5-4-9 or go to your nearest emergency department. NEED HELP? Are you dealing with a violent or abusive relationship? Are you a victim of rape or sexual assult? Call [facility] [place] ([place]) 24 hour Crisis Hotline: 836.770.6004 or 964-976-1668. MANUAL Your Guide to a Healthy manual is now on-line. Visit [email or web address] to download your free copy documented in this encounter [facility] 04-15-2024 Miscellaneous Notes CENTERING #2 S: Jarvis King is a 29 year old female who presents at 20 weeks gestation for SHARATH / Centering group. Feeling good. Appetite increased. No movement to date and sometimes feels panic due to not feeling movement. Reassurance provided. Denies headache, visual changes, chest pain, shortness of breath, vaginal bleeding, leakage of fluid, or dysuria. Feeling well, no complaints. O: See flow sheet Gen: No apparent distress Abd: Gravid, non tender ASSESSMENT/PLAN: 1. 20 weeks gestation of - ICD9: V22.2, ICD10: Z3A.20 (primary diagnosis) 2. Dichorionic diamniotic twin in second trimester - ICD9: 651.03, V91.03, ICD10: O30.042 3. Encounter for supervision of high risk in second trimester, antepartum - ICD9: V23.9, ICD10: O09.92 - Reviewed anatomy US results with patient and - PTL precautions reviewed and when to call - RTO 4 weeks or sooner if needed Blanca Skelton APRN.CNM documented in this encounter [facility] 04-15-2024 Progress note Formatting of t his note might be different from the original. CP CENTERING #2 S: Jarvis King is a 29 year old female who presents at 20 weeks gestation for SHARATH / Centering group. Feeling good. Appetite increased. No movement to date and sometimes feels panic due to not feeling movement. Reassurance provided. Denies headache, visual changes, chest pain, shortness of breath, vaginal bleeding, leakage of fluid, or dysuria. Feeling well, no complaints. O: See flow sheet Gen: No apparent distress Abd: Gravid, non tender ASSESSMENT/PLAN: 1. 20 weeks gestation of - ICD9: V22.2, ICD10: Z3A.20 (primary diagnosis) 2. Dichorionic diamniotic twin in second trimester - ICD9: 651.03, V91.03, ICD10: O30.042 3. Encounter for supervision of high risk in second trimester, antepartum - ICD9: V23.9, ICD10: O09.92 - Reviewed anatomy US results with patient and - PTL precautions reviewed and when to call - RTO 4 weeks or sooner if needed Blanca Skelton APRN.CNM [facility] 04-15-2024 Instructions Phani Casiano MA - 04/15/2024 2:29 PM EDT SEQUENTIAL SCREENINGS The [facility] offers sequential screenings for women who are interested in screenings for chromosomal abnormalities and certain defects during a . The sequential screen combines ultrasound and blood tests to determine the risk of chromosomal abnormalities, including Down's Syndrome (Trisomy 21) and Trisomy 18, as well as open neural tube defects including spina bifida. Ultrasound examination is performed between 11 weeks and 13 weeks gestational age. Blood tests are drawn after the ultrasound and again later in the between 15 and 21 weeks gestational age. Please let your physician know if you are interested in this testing. It will require an appointment with our assessment technician. This is not an ultrasound performed by a physician in our office during a routine visit. SIGNS AND SYMPTOMS OF LABOR 1. Contractions every 10 minutes or more often 2. Clear, pink, or brownish fluid (water) leaking from vagina 3. Feeling that baby is pushing down, pressure 4. Low, dull backache 5. Cramps that feel like a period 6. Cramps with or without diarrhea If you notice any of the above symptoms, contact our office at [phone] and ask to speak with a nurse. After hours, you can call [facility] registry at [phone] OR call [facility] at [phone] and ask to have the doctor computational theory scientist paged. If you consider this an emergency, dial 9-3-3 or go to your nearest emergency department. NEED HELP? Are you dealing with a violent or abusive relationship? Are you a victim of rape or sexual assult? Call [facility] ([place]) 24 hour Crisis Hotline: 656.988.4121 or 181-409-6819. MANUAL Your Guide to a Healthy manual is now on-line. Visit [email or web address] to download your free copy documented in this encounter [facility] 04-08-2024 Progress note Formatting of t his note might be different from the original. SW- pt doing well. No complaints. No pain, vb, lof. She is not sure she is feeling FM yet. Serial growth US's ordered. AFP today. RTO 4 weeks for US and visit after. Concha Baires DO [facility] Work Phone: 04-08-2024 Miscellaneous Notes SW- pt doing well. No complaints. No pain, vb, lof. She is not sure she is feeling FM yet. Serial growth US's ordered. AFP today. RTO 4 weeks for US and visit after. Concha Baires DO documented in this encounter [facility] 04-08-2024 Instructions Melina Wilson MA - 04/08/2024 9:30 AM EDT SEQUENTIAL SCREENINGS The [facility] offers sequential screenings for women who are interested in screenings for chromosomal abnormalities and certain defects during a . The sequential screen combines ultrasound and blood tests to determine the risk of chromosomal abnormalities, including Down's Syndrome (Trisomy 21) and Trisomy 18, as well as open neural tube defects including spina bifida. Ultrasound examination is performed between 11 weeks and 13 weeks gestational age. Blood tests are drawn after the ultrasound and again later in the between 15 and 21 weeks gestational age. Please let your physician know if you are interested in this testing. It will require an appointment with our assessment technician. This is not an ultrasound performed by a physician in our office during a routine visit. SIGNS AND SYMPTOMS OF LABOR 1. Contractions every 10 minutes or more often 2. Clear, pink, or brownish fluid (water) leaking from vagina 3. Feeling that baby is pushing down, pressure 4. Low, dull backache 5. Cramps that feel like a period 6. Cramps with or without diarrhea If you notice any of the above symptoms, contact our office at [phone] and ask to speak with a nurse. After hours, you can call doctors registry at [phone] OR call [facility] at [phone] and ask to have the doctor computational theory scientist paged. If you consider this an emergency, dial or go to your nearest emergency department. NEED HELP? Are you dealing with a violent or abusive relationship? Are you a victim of rape or sexual assult? Call [facility] ([place]) 24 hour Crisis Hotline: 585.751.2324 or 043-806-2791. MANUAL Your Guide to a Healthy manual is now on-line. Visit [email or web address] to download your free copy documented in this encounter [facility] 04-05-2024 Telephone encounter Note Please file anatomy u/s order. Patient is scheduled on Monday. Sophie Cadena RN [facility] 04-05-2024 Miscellaneous Notes Please file anatomy u/s order. Patient is scheduled on Monday. Sophie Cadena RN documented in this encounter [facility] 03-20-2024 Progress note Formatting of t his note might be different from the original. CP CENTERING #1 S: Jarvis King is a 29 year old female who presents at 16.3 weeks gestation for a routine visit. Last visit 4 weeks ago and had ultrasound. No movement to date. Appetite improving. Denies headache, visual changes, chest pain, shortness of breath, vaginal bleeding, leakage of fluid, or dysuria. Feeling well, no complaints. O: See flow sheet Gen: No apparent distress Abd: Gravid, nontender ASSESSMENT/PLAN: 1. Dichorionic diamniotic twin in second trimester - ICD9: 651.03, V91.03, ICD10: O30.042 (primary diagnosis) 2. 16 weeks gestation of - ICD9: V22.2, ICD10: Z3A.16 P: 1) PTL precautions reviewed and when to call 2) RTO 4 weeks for anatomy US and SHARATH Skelton APRN.CNM [facility] 03-20-2024 Miscellaneous Notes CP CENTERING #1 S: Jarvis King is a 29 year old female who presents at 16.3 weeks gestation for a routine visit. Last visit 4 weeks ago and had ultrasound. No movement to date. Appetite improving. Denies headache, visual changes, chest pain, shortness of breath, vaginal bleeding, leakage of fluid, or dysuria. Feeling well, no complaints. O: See flow sheet Gen: No apparent distress Abd: Gravid, nontender ASSESSMENT/PLAN: 1. Dichorionic diamniotic twin in second trimester - ICD9: 651.03, V91.03, ICD10: O30.042 (primary diagnosis) 2. 16 weeks gestation of - ICD9: V22.2, ICD10: Z3A.16 P: 1) PTL precautions reviewed and when to call 2) RTO 4 weeks for anatomy US and SHARATH Skelton APRN.CNM documented in this encounter [facility] 03-20-2024 Instructions Phani Casiano MA - 03/20/2024 2:34 PM EDT SEQUENTIAL SCREENINGS The [facility] offers sequential screenings for women who are interested in screenings for chromosomal abnormalities and certain defects during a . The sequential screen combines ultrasound and blood tests to determine the risk of chromosomal abnormalities, including Down's Syndrome (Trisomy 21) and Trisomy 18, as well as open neural tube defects including spina bifida. Ultrasound examination is performed between 11 weeks and 13 weeks gestational age. Blood tests are drawn after the ultrasound and again later in the between 15 and 21 weeks gestational age. Please let your physician know if you are interested in this testing. It will require an appointment with our assessment technician. This is not an ultrasound performed by a physician in our office during a routine visit. SIGNS AND SYMPTOMS OF LABOR 1. Contractions every 10 minutes or more often 2. Clear, pink, or brownish fluid (water) leaking from vagina 3. Feeling that baby is pushing down, pressure 4. Low, dull backache 5. Cramps that feel like a period 6. Cramps with or without diarrhea If you notice any of the above symptoms, contact our office at [phone] and ask to speak with a nurse. After hours, you can call doctors registry at [phone] OR call [facility] at [phone] and ask to have the doctor computational theory scientist paged. If you consider this an emergency, dial 0-5-7 or go to your nearest emergency department. NEED HELP? Are you dealing with a violent or abusive relationship? Are you a victim of rape or sexual assult? Call [facility] ([place]) 24 hour Crisis Hotline: 848.797.5442 or 376-644-2433. MANUAL Your Guide to a Healthy manual is now on-line. Visit [email or web address] to download your free copy documented in this encounter [facility] 03-04-2024 Progress note Formatting of t his note might be different from the original. VB No. LOF No. CTXS No. Movement: absent. Other c/o: Yes: GI: nausea, does better when snacking frequently. Vomiting with brushing teeth. [id number] low risk. Suspect boy/girl. Would like to do centering. Anatomy us already scheduled Medication list reviewed. Physical Exam See Flow Sheet A/P 14w1d Estimated Date of Delivery: 09/01/24 Anatomy US, Scheduled centering appointment HSV prophylaxis at 36 weeks or sooner if suspect PTL. Elsie Moreno M.D. [facility] 03-04-2024 Miscellaneous Notes VB No. LOF No. CTXS No. Movement: absent. Other c/o: Yes: GI: nausea, does better when snacking frequently. Vomiting with brushing teeth. [id number] low risk. Suspect boy/girl. Would like to do centering. Anatomy us already scheduled Medication list reviewed. Physical Exam See Flow Sheet A/P 14w1d Estimated Date of Delivery: 09/01/24 Anatomy US, Scheduled centering appointment HSV prophylaxis at 36 weeks or sooner if suspect PTL. Elsie Moreno M.D. documented in this encounter [facility] 03-04-2024 Instructions Tamia Johnson MA - 03/04/2024 12:53 PM EDT SEQUENTIAL SCREENINGS The [facility] offers sequential screenings for women who are interested in screenings for chromosomal abnormalities and certain defects during a . The sequential screen combines ultrasound and blood tests to determine the risk of chromosomal abnormalities, including Down's Syndrome (Trisomy 21) and Trisomy 18, as well as open neural tube defects including spina bifida. Ultrasound examination is performed between 11 weeks and 13 weeks gestational age. Blood tests are drawn after the ultrasound and again later in the between 15 and 21 weeks gestational age. Please let your physician know if you are interested in this testing. It will require an appointment with our assessment technician. This is not an ultrasound performed by a physician in our office during a routine visit. SIGNS AND SYMPTOMS OF LABOR 1. Contractions every 10 minutes or more often 2. Clear, pink, or brownish fluid (water) leaking from vagina 3. Feeling that baby is pushing down, pressure 4. Low, dull backache 5. Cramps that feel like a period 6. Cramps with or without diarrhea If you notice any of the above symptoms, contact our office at [phone] and ask to speak with a nurse. After hours, you can call doctors registry at [phone] OR call [facility] at [phone] and ask to have the doctor computational theory scientist paged. If you consider this an emergency, dial 9-1-8 or go to your nearest emergency department. NEED HELP? Are you dealing with a violent or abusive relationship? Are you a victim of rape or sexual assult? Call [facility] ([place]) 24 hour Crisis Hotline: 377.728.9126 or 565-318-2894. MANUAL Your Guide to a Healthy manual is now on-line. Visit [email or web address] to download your free copy documented in this encounter [facility] 02-23-2024 Note HNO ID: [id number] Author: RAHEEM TEJADA LGC Service: ? Author Type: Genetic Counselor Type: Progress Notes Filed: 02/23/2024 18:16 Note Text: Received notification from [facility] that patient's NIPT was not processing as [id number] was ordered for a twin gestation. Informed [facility] to run sample as [id number]. This has been updated on the lab's end and the sample is processing. Edited results should be available when complete. This provider will track these results to ensure they get into EMR and patient is aware. A Examifyt message will be sent to the patient notifying her of this in case abnormal [id number] result is released before results are available. Of note, result is not abnormal, but is flagged as abnormal as the test order was updated and is running under a different accession number. Ordering provider has been notified. Raheem Tejada CGC [facility] 02-23-2024 History of Presen t illness Narrative Received notification from [facility] that patient's NIPT was not processing as [id number] was ordered for a twin gestation. Informed [facility] to run sample as [id number]. This has been updated on the lab's end and the sample is processing. Edited results should be available when complete. This provider will track these results to ensure they get into EMR and patient is aware. A Examifyt message will be sent to the patient notifying her of this in case abnormal [id number] result is released before results are available. Of note, result is not abnormal, but is flagged as abnormal as the test order was updated and is running under a different accession number. Ordering provider has been notified. Raheem Tejada CGC documented in this encounter [facility] 02-19-2024 Telephone encounter Note 12w1d Patient with Di/Di twins here for US and wants Materni 21 ordered. Order pending with the # of fetus changed to two. Please file. Thank you. Elsie Lauren RN [place] [id number] Miscellaneous Notes 12w1d Patient with Di/Di twins here for US and wants Materni 21 ordered. Order pending with the # of fetus changed to two. Please file. Thank you. Elsie Lauren, RN documented in this encounter [facility] 02-05-2024 Miscellaneous Notes Referral sent to [facility] team to assist with scheduling. documented in this encounter [facility] 02-05-2024 Miscellaneous Notes Patient seen for NOB. TAUS completed. DI/DI twins visualized. US tech to room for verification and dating. See progress note. Blanca Skelton APRN.CNM documented in this encounter [facility] 02-05-2024 Note HNO ID: [id number] Author: TAMIA JOHNSON MA Service: ? Author Type: Purchasing Internship Type: Progress Notes Filed: 02/05/2024 09:52 Note Text: OB point of care ultrasound was performed. See imaging tab for details. Tamia Johnson MA [facility] 02-05-2024 History of Presen t illness Narrative OB point of care ultrasound was performed. See imaging tab for details. Tamia Johnson MA INITIAL OB ASSESSMENT HPI: Jarvis is a 28 year old White here to establish Obstetrical Care. Patient's last menstrual period was 11/09/2023. from OB Dating Form. was planned Previous miscarriage August 2023 Complaints: (!) Abdominal pain; Severe nausea/vomiting OB History T0 L0 SAB1 IAB0 Ectopic0 Multiple0 Live Births0 Previous history: Prior : never History of 4th degree laceration: No History of shoulder dystocia: No History of Hypertensive disorders including pre-eclampsia or gestational hypertension: No History of gestational diabetes: No Patient's Risk Screening for delivery: Have you had a prior vera between 20w and 36w6d? No How many pregnancies have you had before? 0 Did you have a previous baby with a GBS Infection? No Please select all that apply for any prior : N/A MEDICAL/PSYCHOSOCIAL HISTORY: History of hemorrhage or bleeding concerns: No History question Answer Diagnosis Date Comment Thyroid Disease No Thyroid disease 08/22/2023 History of chronic hypertension: No History of pre-existing diabetes: No No results found for: ABORHD BMI 24.63 kg/(m^2) Last Pap: 07/27/2021 History of abnormal pap: Abnormal Pap No Prior treatment for cervical dysplasia: none. History of STDs: HSV Partner History of STDs: None and Herpes Did you have a partner with Herpes? (!) Yes Tobacco use: No E-Cigarette/Vaping Use: No Caffeine use: Yes Drug use: No Alcohol use: No Multivitamin with Folic acid: Yes Would refuse blood transfusion if medically necessary: No Social Needs: How often does this describe you? I don't have enough money to pay my bills: Never Within the past 12 months, have you worried that your food would run out before you had money to buy more? Never In the past 12 months, has lack of reliable transportation kept you from going to medical appointments or work, or from getting things needed for daily living? Never In the past 12 months, have you had any concerns about having a place to live, or about the condition or quality of your housing? Never Would you like more information on any of the following (please check all that apply)? Centering (group care classes) Social History: Do you have any history of depression, anxiety, PTSD, or other mood problems? No Do you have a history of abuse or trauma that may impact your experience? No Are you currently employed? Yes Depression/Anxiety Screening: denies symptoms of depression. OB Depression and Anxiety Screening- This Encounter (since 01/29/2024) None Genetic Screening: Partner present: Yes Patient verbalized knowledge of partner family health history: No Do you or your partner have any personal or family history of defects not previously discussed: No Do you have history of a complicated by anomaly, genetic condition, or demise: No ACOG Recommended Screening: Screening for early gestational diabetes testing: Criteria for early testing requires elevated BMI plus one other risk factor: No weight on file for this encounter. (risk factor if > than 25 or 23 in Americans) Additional risk factors: None She does not meet ACOG criteria for early gestational DM screening. 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 valACYclovir (VALTREX) 500 mg tablet Take 1 tablet by mouth once daily. 90 tablet 3 CARBOXYMETHYLCELLULOSE SODIUM (REFRESH OPHTHALMIC) Use in eyes as needed. occ. use White Petrolatum-Mineral Oil (REFRESH PM) 57.3-42.5 % ointment Use in both eyes at bedtime as needed. No current facility-administered medications for this visit. Allergies As of Date: 02/05/2024 (No Known Allergies) Fully Assessed 10/17/2023 Does patient have penicillin allergy: No REVIEW OF SYSTEMS: GENERAL: Negative for: Fever or Chills and Positive for: Fatigue HEENT: Negative for: Headache, Impaired Vision, Ringing in Ears, Nosebleeds NECK: Negative for: Swelling, Pain, Stiffness RESPIRATORY: Negative for: Cough, Shortness of breath, Wheezing GASTROINTESTINAL: Negative for: Heartburn, Constipation, Diarrhea, Blood in stool, Vomiting and Positive for: Constipation Positive for nausea MUSCULOSKELETAL: Negative for: Muscle or joint pain, stiffness, Joint swelling NEUROLOGIC/PSYCHIATRIC: Negative for: Weakness, Paralysis, Numbness, Tingling, Tremor, Anxiety, Depression, Memory loss SKIN: Negative for: Rash, Itching GENITOURINARY: Negative for: vaginal itching, vaginal discharge, hematuria or dysuria and Positive for: urinary frequency PHYSICAL EXAM: BP 100/58 Ht 5' 5 (1.65m) Wt 148 lb (67.1kg) LMP 11/09/2023 BMI 24.63 kg/(m^2). GENERAL: pleasant in no apparent distress DERMATOLOGY: Normal and without lesions NECK: Supple, full range of motion, no adenopathy, and thyroid normal CHEST: Normal inspiratory effort BREAST: soft, non-tender, symmetric, no dominant mass, normal nipple-areolar complex, no lymphadenopathy, and no nipple discharge ABDOMEN: soft, non-tender, and no masses NEURO: alert and oriented x3,exam grossly non-focal PELVIS: External genitalia normal without lesions. Perineal body intact. No vaginal or cervical lesions. Cervix closed. Uterus 11 week size. No adnexal masses or tenderness. Clinical Pelvimetry: Pelvimetry clinically assessed as adequate POC US completed/ TAUS positive cardiac activity and Dichorionic diamniotic twin visualized. Brooks Pickett to room for verification and measurements ASSESSMENT/PLAN: 1. 10 weeks gestation of - ICD9: V22.2, ICD10: Z3A.10 (primary diagnosis) 2. Encounter for supervision of high risk in first trimester, antepartum - ICD9: V23.9, ICD10: O09.91 3. with uncertain dates in first trimester - ICD9: V22.1, ICD10: Z34.91 4. Dichorionic diamniotic twin in first trimester - ICD9: 651.03, V91.03, ICD10: O30.041 5. Genital herpes simplex virus (HSV) infection in mother affecting - ICD9: 647.63, 054.19, ICD10: O98.319, A60.09 PLAN: 1) Patient oriented to practice. Discussed nutrition, folic acid supplementation, dietary guidelines, exercise, smoking, alcohol, caffeine, and drug use. Discussed routine OB labs including STD/HIV. Discussed how to access Your guide to a health and the Roll Tension Tester. Discussed aneuploidy screening, nuchal translucency/first trimester early anatomy ultrasound and NIPT. The risks/benefits and limitations of NIPT/aneuploidy screening were reviewed including the potential for false negative and false positive results. The availability of genetic counseling was reviewed. Information on aneuploidy screening was provided. The patient chooses to proceed with First trimester early anatomy ultrasound (12-13w6d) and NIPT (10 weeks) Reviewed midwifery and sewing room supervisor services that are available. 2) Patient offered option of Virtual Visits. Patient prefers in person visits. 3) DI/DI TWINS- CONSULT MFM Follow up in 2 weeks for NT US and 4 week SHARATH Blanca Skelton APRN.CNM documented in this encounter [facility] 01-30-2024 Note HNO ID: [id number] Author: BLANCA SKELTON APRN.CNM Service: ? Author Type: Edm Operator Type: Progress Notes Filed: 02/05/2024 09:52 Note Text: INITIAL OB ASSESSMENT HPI: Jarvis is a 28 year old White here to establish Obstetrical Care. Patient's last menstrual period was 11/09/2023. from OB Dating Form. was planned Previous miscarriage August 2023 Complaints: (!) Abdominal pain; Severe nausea/vomiting OB History T0 L0 SAB1 IAB0 Ectopic0 Multiple0 Live Births0 Previous history: Prior : never History of 4th degree laceration: No History of shoulder dystocia: No History of Hypertensive disorders including pre-eclampsia or gestational hypertension: No History of gestational diabetes: No Patient's Risk Screening for delivery: Have you had a prior vera between 20w and 36w6d? No How many pregnancies have you had before? 0 Did you have a previous baby with a GBS Infection? No Please select all that apply for any prior : N/A MEDICAL/PSYCHOSOCIAL HISTORY: History of hemorrhage or bleeding concerns: No History question Answer Diagnosis Date Comment Thyroid Disease No Thyroid disease 08/22/2023 History of chronic hypertension: No History of pre-existing diabetes: No No results found for: ABORHD BMI 24.63 kg/(m2) Last Pap: 07/27/2021 History of abnormal pap: Abnormal Pap No Prior treatment for cervical dysplasia: none. History of STDs: HSV Partner History of STDs: None and Herpes Did you have a partner with Herpes? (!) Yes Tobacco use: No E-Cigarette/Vaping Use: No Caffeine use: Yes Drug use: No Alcohol use: No Multivitamin with Folic acid: Yes Would refuse blood transfusion if medically necessary: No Social Needs: How often does this describe you? I don't have enough money to pay my bills: Never Within the past 12 months, have you worried that your food would run out before you had money to buy more? Never In the past 12 months, has lack of reliable transportation kept you from going to medical appointments or work, or from getting things needed for daily living? Never In the past 12 months, have you had any concerns about having a place to live, or about the condition or quality of your housing? Never Would you like more information on any of the following (please check all that apply)? Centering (group care classes) Social History: Do you have any history of depression, anxiety, PTSD, or other mood problems? No Do you have a history of abuse or trauma that may impact your experience? No Are you currently employed? Yes Depression/Anxiety Screening: denies symptoms of depression. OB Depression and Anxiety Screening- This Encounter (since 01/29/2024) None Genetic Screening: Partner present: Yes Patient verbalized knowledge of partner family health history: No Do you or your partner have any personal or family history of defects not previously discussed: No Do you have history of a complicated by anomaly, genetic condition, or demise: No ACOG Recommended Screening: Screening for early gestational diabetes testing: Criteria for early testing requires elevated BMI plus one other risk factor: No weight on file for this encounter. (risk factor if > than 25 or 23 in Americans) Additional risk factors: None She does not meet ACOG criteria for early gestational DM screening. 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 valACYclovir (VALTREX) 500 mg tablet Take 1 tablet by mouth once daily. 90 tablet 3 CARBOXYMETHYLCELLULOSE SODIUM (REFRESH OPHTHALMIC) Use in eyes as needed. occ. use White Petrolatum-Mineral Oil (REFRESH PM) 57.3-42.5 % ointment Use in both eyes at bedtime as needed. No current facility-administered medications for this visit. Allergies As of Date: 02/05/2024 (No Known Allergies) Fully Assessed 10/17/2023 Does patient have penicillin allergy: No REVIEW OF SYSTEMS: GENERAL: Negative for: Fever or C (more content not included)... [facility] 01-30-2024 Instructions Tejal Land MA - 01/30/2024 3:14 PM EDT Please select the following link to access the [facility] Your Guide to a Healthy . [email or web address] documented in this encounter [facility] 01-30-2024 Miscellaneous Notes Patient called back and transferred to [facility] to complete intake questions. Sophie Cadena RN Left message for patient to return phone call. Patient has an appointment with Blanca Skelton for NOB appointment. I attempted to call her to get an update on how she is doing and get intake questions completed. Patient had quant HCG's done 01/11 and 01/14 for c/o brown spotting. Please transfer her to me or [facility] when she returns phone call documented in this encounter [facility] 01-12-2024 Miscellaneous Notes HCG ordered and I sent message to patient. Blanca Skelton APRN.CNM Do you want quants done? Leatha Alva RN documented in this encounter [facility] 10-17-2023 Note HNO ID: [id number] Author: Rochelle Ramos MD Service: ? Author Type: Physician Type: Progress Notes Filed: 10/17/2023 1:23 PM Note Text: UNIVERSAL PROTOCOL / SAFETY CHECKLIST Procedure to be Performed: IPAS Sign In: A Moment of CARE was completed. Personnel directly involved with the procedure wore the appropriate PPE (Personal Protective Equipment). Patient/Surrogate Stated/Verified: PATIENT VERIFIED(optional for EMERGENT procedures): Patient name, Date of , Relevant allergies, and The intended procedure Time Out Communication: Intended patient and procedure match the source documents. Consent documented and matches the intended procedure. Relevant labs, photos, and/or imaging studies have been reviewed. Medications required for procedure verified. Sign Out: SIGN OUT (optional for EMERGENT procedures): All specimen containers correctly labeled. All instruments, equipment, possible retained foreign bodies accounted for. Post-procedure follow-up management communicated and Plan of Care Visit completed when applicable. Procedure note: Speculum was placed in the vagina. After prepping the cervix with betadine paracervical block was performed using 10cc of 1% lidocaine with 1:100,000 epi. Cervix was grasped with single tooth tenaculum. Cervix was dilated. Using sterile technique, the Manual Vacuum Aspiration device with size 6 cannula was inserted into the uterus and contents were evacuated. Post-procedure ultrasound confirmed no retained tissue. Post-procedure vital signs were obtained and stable Specimen was sent to pathology Patient tolerated procedure well. PLAN: Patient was advised to observe for signs and symptoms of infection including but not limited to fever, malodorous vaginal discharge and/or pain. Bleeding expectations were reviewed. Follow up: 1-2 weeks if desired by patient Rochelle Ramos MD [facility] 10-13-2023 Note HNO ID: [id number] Author: Blanca Skelton APRN.CNM Service: ? Author Type: Edm Operator Type: Progress Notes Filed: 10/13/2023 4:27 PM Note Text: Jarvis King is a 28 year old female who presents for follow up visit for missed miscarriage. She is s/p two rounds of Cytotec vaginally and seen today for follow up ultrasound. Most recent dose of Cytotec taken last Monday. Reports experiencing minimal bleeding and cramping. Denies any current bleeding or pain. Per US the endometrial lining is still 1.2 cm with visible complex areas. REVIEW OF SYSTEMS Abdomen: No bloating, early satiety, indigestion, or increased flatulence. No abdominal pain, nausea, vomiting, diarrhea, or constipation. Bladder: No dysuria, gross hematuria, urinary frequency, urinary urgency, or incontinence. Breast: No breast lumps, nipple d/c, overlying skin changes, redness or skin retraction. 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 Missed - ICD9: 632, ICD10: O02.1 2. Retained products of conception after miscarriage - RH positive - 10/09/23 HCG level- 29.5 - Discussed US findings with patient who desires IPAS - Orders signed and patient scheduled for 10/17/23 - Support provided Blanca Skelton APRN.CNM [facility] 10-13-2023 History of Presen t illness Narrative Jarvis King is a 28 year old female who presents for follow up visit for missed miscarriage. She is s/p two rounds of Cytotec vaginally and seen today for follow up ultrasound. Most recent dose of Cytotec taken last Monday. Reports experiencing minimal bleeding and cramping. Denies any current bleeding or pain. Per US the endometrial lining is still 1.2 cm with visible complex areas. REVIEW OF SYSTEMS Abdomen: No bloating, early satiety, indigestion, or increased flatulence. No abdominal pain, nausea, vomiting, diarrhea, or constipation. Bladder: No dysuria, gross hematuria, urinary frequency, urinary urgency, or incontinence. Breast: No breast lumps, nipple d/c, overlying skin changes, redness or skin retraction. 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 Missed - ICD9: 632, ICD10: O02.1 2. Retained products of conception after miscarriage - RH positive - 10/09/23 HCG level- 29.5 - Discussed US findings with patient who desires IPAS - Orders signed and patient scheduled for 10/17/23 - Support provided Blanca Skelton APRN.CNM documented in this encounter [facility] 10-06-2023 Note HNO ID: [id number] Author: Blanca Skelton APRN.CNM Service: ? Author Type: Edm Operator Type: Progress Notes Filed: 10/06/2023 4:51 PM Note Text: Jarvis King is a 28 year old female who presents for problem visit of follow up for missed miscarriage. Placed Cytotec 800 mcg vaginally last Monday morning and began bleeding and passing large clots by the evening. Had heavy bleeding on Monday and it then began to lighten up. Currently today just having small amounts of bleeding/spotting. Denies any current pain. US today pending. REVIEW OF SYSTEMS Abdomen: No bloating, early satiety, indigestion, or increased flatulence. No abdominal pain, nausea, vomiting, diarrhea, or constipation. Bladder: No dysuria, gross hematuria, urinary frequency, urinary urgency, or incontinence. Breast: No breast lumps, nipple d/c, overlying skin changes, redness or skin retraction. 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 Missed - ICD9: 632, ICD10: O02.1 - HCG level- patient did not get level drawn to date - RH positive - US today shows endometrial lining- 1.8 cm with blood clot present. Discussed findings with Dr. Baires which recommended another dose of Cytotec 800 mcg vaginally tonight and repeat ultrasound next week in office. - Called and spoke with patient which agrees with plan of care. - She would like to try second dose of medication first before having IPAS - Support provided - RTO - next week for US and follow up [facility] History of Presen t illness Narrative Jarvis King is a 28 year old female who presents for problem visit of follow up for missed miscarriage. Placed Cytotec 800 mcg vaginally last Monday morning and began bleeding and passing large clots by the evening. Had heavy bleeding on Monday and it then began to lighten up. Currently today just having small amounts of bleeding/spotting. Denies any current pain. US today pending. REVIEW OF SYSTEMS Abdomen: No bloating, early satiety, indigestion, or increased flatulence. No abdominal pain, nausea, vomiting, diarrhea, or constipation. Bladder: No dysuria, gross hematuria, urinary frequency, urinary urgency, or incontinence. Breast: No breast lumps, nipple d/c, overlying skin changes, redness or skin retraction. 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 Missed - ICD9: 632, ICD10: O02.1 - HCG level- patient did not get level drawn to date - RH positive - US today shows endometrial lining- 1.8 cm with blood clot present. Discussed findings with Dr. Baires which recommended another dose of Cytotec 800 mcg vaginally tonight and repeat ultrasound next week in office. - Called and spoke with patient which agrees with plan of care. - She would like to try second dose of medication first before having IPAS - Support provided - RTO - next week for US and follow up Blanca Skelton APRN.CNM documented in this encounter [facility] 09-28-2023 Miscellaneous Notes Patient interested in now moving on to medical management for missed miscarriage. She stated she has been having minimal spotting since 09/20/23. Denies any cramping or pain. Reviewed R/B/A to medical intervention and answered patient's questions. She is planning on placing medication Monday night. Advised a refill will be placed and if no result in 24 hour, she can repeat dose. Reviewed bleeding precautions and when to contract provider or go to ED. She is already scheduled for in office visit with formal ultrasound next week. Support provided. Patient voiced understanding and appreciative for call and discussion. scallop cutter provider notified of plan of care this weekend. Blanca Skelton APRN.CNM documented in this encounter [facility] 09-20-2023 Miscellaneous Notes Yes! This is fine. Thank you. Blanca Skelton APRN.CNM The opening with ABRAM no longer available. Scheduled patient 10/06 2:30 with you and US 2:00 if that's ok. Petrona Carranza, KAYLEN Go ahead and schedule with ABRAM in 2 weeks with ultrasound. Blanca Skelton APRN.CNM Do you want patient to see you? No openings with you for visit type in two weeks. Several US openings October 06 if you could see her that day. ABRAM is only other opening that week 10/04 but no US opening near the appointment. Please advise. Thanks Petrona Carranza RN Please reach out to patient and assist with scheduling an office visit and an ultrasound for 2 weeks. I already notified patient that you will be calling. Orders placed. Blanca Skelton APRN.CNM documented in this encounter [facility] 09-15-2023 Note HNO ID: [id number] Author: Washington Tran MD Service: ? Author Type: Physician Type: Progress Notes Filed: 09/15/2023 7:46 PM Note Text: Chief Complaint Patient presents with: Physical HPI Jarvis King is a 28 year old female who presents here today for annual physical. Notes she is 12 weeks . . Planned . Established with OB and is on vitamin. Feels safe at home. Last pap 06/2021 which was normal. PHQ-2 / Depression screen He in the past two weeks denies having felt down, depressed, hopeless or with little interest or pleasure in doing things. No genital herpes flares with Valtrex. Allergies mild this year. Not on rx OTC. Up to date on flu shot. Refusing COVID vaccine. Past medical history, appointments, medications, allergies reviewed. 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 Seasonal allergies Year round Previous Surgical History PAST SURGICAL HISTORY Procedure Laterality Date DENTAL SURGERY HX wisdom Family History FAMILY HISTORY Problem Relation Age of Onset Thyroid Mother No Known Problems Sister No Known Problems Sister Thyroid Sister Diabetes Maternal Grandmother Cancer Maternal Grandmother Lung, non-smoker Cataract Maternal Grandmother Cancer Maternal Grandfather Lung, non-smoker Cataract Maternal Grandfather Cancer Paternal Grandmother breast Cancer Paternal Grandfather unk Breast Cancer Paternal Aunt Patient Allergies ALLERGIES No Known Allergies Current Medications Current Outpatient Medications on File Prior to Visit Medication Sig 25-IRON [id number] ORAL Take by mouth. valACYclovir (VALTREX) 500 mg tablet Take 1 tablet by mouth once daily. CARBOXYMETHYLCELLULOSE SODIUM (REFRESH OPHTHALMIC) Use in eyes as needed. occ. use White Petrolatum-Mineral Oil (REFRESH PM) 57.3-42.5 % ointment Use in both eyes at bedtime as needed. No current facility-administered medications on file prior to visit. Social History Social History Tobacco Use Smoking status: Never Smokeless tobacco: Never Vaping Use Vaping Use: Never used Substance Use Topics Alcohol use: Not Currently Alcohol/week: 4.0 standard drinks of alcohol Types: 4 Standard drinks or equivalent per week Drug use: Never Review of Symptoms REVIEW OF SYSTEMS GENERAL: No weight loss, malaise or fevers HEENT: Negative for frequent or significant headaches, No changes in hearing or vision, no nose bleeds or other nasal problems NECK: Negative for lumps, goiter, pain and significant neck swelling RESPIRATORY: Negative for cough, hemoptysis, wheezing, COPD, dyspnea or shortness of breath CARDIOVASCULAR: Negative for chest pain, leg swelling, hypertension, CHF or palpitations GI: No nausea, vomiting, or diarrhea : No history of dysuria, frequency or incontinence 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 bleeding, abnormal vaginal discharge MUSCULOSKELETAL: Negative for joint pain or swelling, back pain or muscle pain SKIN: Negative for lesions, rash, and itching PSYCH: Negative for sleep disturbance, mood disorder and recent psychosocial stressors HEMATOLOGY/LYMPHOLOGY: Negative for prolonged bleeding, bruising easily or swollen nodes ENDOCRINE: Negative for cold or heat intolerance, polyuria, polydipsia and goiter NEURO: No history of headaches, syncope, paralysis, seizures or tremors EXAM: BP 110/62 Pulse 70 Resp 16 Wt 67.7 kg (149 lb 3.2 oz) LMP 06/23/2023 (Exact Date) SpO2 99% BMI 24.27 kg/m? General Appearance: Well appearing, alert, in no acute distress, well-hydrated, well nourished.. Skin: Skin color, texture, turgor normal, no suspicious rashes or lesions. Head: Normocephalic, no masses, lesions, tenderness or abnormalities. Eyes: Anicteric sclera. Pupils are equally round and reactive to light. Extraocular movements are intact. . Ears: Positive findings: cerumen on right, amount Moderate. Left canal and TM normal. Nose/Sinuses: Nares normal, septum midline, mucosa normal, no drainage or sinus tenderness. Oropharynx: Lips, mucosa, and tongue normal, teeth and gums normal, oropharynx normal. Neck: Supple, no adenopathy; thyroid symmetric, normal size, no bruits. Lungs: Lungs clear to auscultation. No wheezing, rhonchi, rales.. Heart: RRR without murmur, gallop, or rubs. No ectopy. Abdomen: Normal abdominal exam, Abdomen soft, non-tender. Bowel sounds normal. No masses, organomegaly. Extremities: No deformities, edema, skin discoloration, clubbing or cyanosis. Good capillary refill. . Peripheral Pulses: Normal. Lymph Nodes: No cervical lymphadenopathy and No supraclavicular lymphadenopathy. Health Maintenance List Depression Assessment due on 10/30/2022 HPV Testing Never done Covid-19 Vaccine( season) due on 06/30/2023 Pap Testing due on 07/16/2026 DTaP,Tdap,Td Vacc (more content not included)... [facility] 09-15-2023 History of Presen t illness Narrative Chief Complaint Patient presents with: Physical HPI Jarvis King is a 28 year old female who presents here today for annual physical. Notes she is 12 weeks . . Planned . Established with OB and is on vitamin. Feels safe at home. Last pap 06/2021 which was normal. PHQ-2 / Depression screen He in the past two weeks denies having felt down, depressed, hopeless or with little interest or pleasure in doing things. No genital herpes flares with Valtrex. Allergies mild this year. Not on rx OTC. Up to date on flu shot. Refusing COVID vaccine. Past medical history, appointments, medications, allergies reviewed. 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 Seasonal allergies Year round Previous Surgical History PAST SURGICAL HISTORY Procedure Laterality Date DENTAL SURGERY HX wisdom Family History FAMILY HISTORY Problem Relation Age of Onset Thyroid Mother No Known Problems Sister No Known Problems Sister Thyroid Sister Diabetes Maternal Grandmother Cancer Maternal Grandmother Lung, non-smoker Cataract Maternal Grandmother Cancer Maternal Grandfather Lung, non-smoker Cataract Maternal Grandfather Cancer Paternal Grandmother breast Cancer Paternal Grandfather unk Breast Cancer Paternal Aunt Patient Allergies ALLERGIES No Known Allergies Current Medications Current Outpatient Medications on File Prior to Visit Medication Sig 25-IRON [id number] ORAL Take by mouth. valACYclovir (VALTREX) 500 mg tablet Take 1 tablet by mouth once daily. CARBOXYMETHYLCELLULOSE SODIUM (REFRESH OPHTHALMIC) Use in eyes as needed. occ. use White Petrolatum-Mineral Oil (REFRESH PM) 57.3-42.5 % ointment Use in both eyes at bedtime as needed. No current facility-administered medications on file prior to visit. Social History Social History Tobacco Use Smoking status: Never Smokeless tobacco: Never Vaping Use Vaping Use: Never used Substance Use Topics Alcohol use: Not Currently Alcohol/week: 4.0 standard drinks of alcohol Types: 4 Standard drinks or equivalent per week Drug use: Never Review of Symptoms REVIEW OF SYSTEMS GENERAL: No weight loss, malaise or fevers HEENT: Negative for frequent or significant headaches, No changes in hearing or vision, no nose bleeds or other nasal problems NECK: Negative for lumps, goiter, pain and significant neck swelling RESPIRATORY: Negative for cough, hemoptysis, wheezing, COPD, dyspnea or shortness of breath CARDIOVASCULAR: Negative for chest pain, leg swelling, hypertension, CHF or palpitations GI: No nausea, vomiting, or diarrhea : No history of dysuria, frequency or incontinence 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 bleeding, abnormal vaginal discharge MUSCULOSKELETAL: Negative for joint pain or swelling, back pain or muscle pain SKIN: Negative for lesions, rash, and itching PSYCH: Negative for sleep disturbance, mood disorder and recent psychosocial stressors HEMATOLOGY/LYMPHOLOGY: Negative for prolonged bleeding, bruising easily or swollen nodes ENDOCRINE: Negative for cold or heat intolerance, polyuria, polydipsia and goiter NEURO: No history of headaches, syncope, paralysis, seizures or tremors EXAM: BP 110/62 Pulse 70 Resp 16 Wt 67.7 kg (149 lb 3.2 oz) LMP 06/23/2023 (Exact Date) SpO2 99% BMI 24.27 kg/m General Appearance: Well appearing, alert, in no acute distress, well-hydrated, well nourished.. Skin: Skin color, texture, turgor normal, no suspicious rashes or lesions. Head: Normocephalic, no masses, lesions, tenderness or abnormalities. Eyes: Anicteric sclera. Pupils are equally round and reactive to light. Extraocular movements are intact. . Ears: Positive findings: cerumen on right, amount Moderate. Left canal and TM normal. Nose/Sinuses: Nares normal, septum midline, mucosa normal, no drainage or sinus tenderness. Oropharynx: Lips, mucosa, and tongue normal, teeth and gums normal, oropharynx normal. Neck: Supple, no adenopathy; thyroid symmetric, normal size, no bruits. Lungs: Lungs clear to auscultation. No wheezing, rhonchi, rales.. Heart: RRR without murmur, gallop, or rubs. No ectopy. Abdomen: Normal abdominal exam, Abdomen soft, non-tender. Bowel sounds normal. No masses, organomegaly. Extremities: No deformities, edema, skin discoloration, clubbing or cyanosis. Good capillary refill. . Peripheral Pulses: Normal. Lymph Nodes: No cervical lymphadenopathy and No supraclavicular lymphadenopathy. Health Maintenance List Depression Assessment due on 10/30/2022 HPV Testing Never done Covid-19 Vaccine(2022-24 season) due on 06/30/2023 Pap Testing due on 07/16/2026 DTaP,Tdap,Td Vaccine(9 - Td or Tdap) due on 03/20/2029 Hepatitis B Vaccine Completed HPV Vaccine Completed Influenza Vaccine Completed Hepatitis C Screening Completed HIV Screening Completed Data reviewed Component Latest Ref Rng & Units 09/01/2023 WBC 3.70 - 11.00 k/uL 7.07 RBC 3.90 - 5.20 m/uL 3.92 Hemoglobin 11.5 - 15.5 g/dL 12.2 Hematocrit 36.0 - 46.0 % 35.4 (L) MCV 80.0 - 100.0 fL 90.3 MCH 26.0 - 34.0 pg 31.1 MCHC 30.5 - 36.0 g/dL 34.5 RDW-CV 11.5 - 15.0 % 11.9 Platelet Count 150 - 400 k/uL 237 MPV 9.0 - 12.7 fL 10.3 Absolute nRBC <0.01 k/uL <0.01 ABO O Rh(D) Positive Antibody Screen Negative Type+Scr Expiration 09/04/2023 23:59 Historical Ab Scr Status NEGATIVE HIV 12 Combo (Ag/Ab) Nonreactive Nonreactive HIV 1/2 Ab HIV Interpretation Syphilis Screen Result Nonreactive Nonreactive Syphilis Interpretation Cannot exclude recent Treponemal infection if specimen collected within 7-10 days after appearance of suspect lesions or 2-3 weeks after an exposure. Clinical correlation is required. Rubella IgG, Qual Positive Positive Hep B Surface Ag Negative Negative Hep C Antibody IA Negative Negative TSH 0.270 - 4.200 mIU/L 0.699 ASSESSMENT/PLAN: 1. Annual physical exam - ICD9: V70.0, ICD10: Z00.00 (primary diagnosis) - Counseled on healthy diet and regular exercise - Recommend vitamin containing 0.4 mg of folic acid - Calcium intake with supplements or by diet of 1000 mg/day for under 50, 3029-9587 mg/day for 50+ - Follow up for annual exam in one year - COMP METABOLIC PANEL - LIPID PANEL BASIC - DEPRESSION SCREENING/ASSESSMENT 2. Impacted cerumen of right ear - ICD9: 380.4, ICD10: H61.21 Discussed use of debrox BID x 4 days, then PRN. Call if this does not clear out wax. - DEBROX 6.5 % EAR DROPS 3. 12 weeks gestation of - ICD9: V22.2, ICD10: Z3A.12 Congratulated on . Continue vitamin and valtrex. F/u with OB as scheduled. 4. Genital herpes simplex virus (HSV) infection in mother affecting - ICD9: 647.63, 054.19, ICD10: O98.319, A60.09 Denies flare. Continue valtrex. F/u with OB. 5. Seasonal allergies - ICD9: 477.9, ICD10: J30.2 Mild symptoms without need for antihistamines. Call if worsening. Washingotn Tran MD documented in this encounter [facility] 08-30-2023 Miscellaneous Notes Patient called in and re scheduled appointments for week before. Petrona Carranza RN documented in this encounter [facility] 08-28-2023 Note HNO ID: [id number] Author: Rebecca Fontanez APRN.CNM Service: ? Author Type: Edm Operator Type: Progress Notes Filed: 08/28/2023 10:07 AM Note Text: OB point of care ultrasound was performed. See imaging tab for details. Rebecca Fontanez APRN.CNM [facility] 08-28-2023 History of Presen t illness Narrative OB point of care ultrasound was performed. See imaging tab for details. Rebecca Fontanez APRN.CNM documented in this encounter [facility] 08-28-2023 Miscellaneous Notes NOB. See progress note. Would like NIPT, declines carrier screening. Interested in Centering, will send dates once outlined. NT US and to verify dating. Rebecca Fontanez APRN.CNM documented in this encounter [facility] 08-28-2023 History of Presen t illness Narrative INITIAL OB ASSESSMENT OB Provider: Rebecca Fontanez APRN CNM HPI: Jarvis is a 28 year old White here to establish Obstetrical Care. Patient's last menstrual period was 06/23/2023 (exact date). from OB Dating Form. Cycles regular was planned Complaints: None OB History T0 L0 SAB0 IAB0 Ectopic0 Multiple0 Live Births0 Patient's Risk Screening for delivery: Have you had a prior vera between 20w and 36w6d?: No MEDICAL/PSYCHOSOCIAL HISTORY: History of hemorrhage or bleeding concerns: No Thyroid Disease: No History of chronic hypertension: No History of pre-existing diabetes: No BMI 23.88 kg/(m^2) History of abnormal pap: No Prior treatment for cervical dysplasia: none. 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 I don't have enough money to pay my bills: Never Within the past 12 months, have you worried that your food would run out before you had money to buy more: Never In the past 12 months, has lack of reliable transportation kept you from going to medical appointments or work, or from keeping things needed for daily living: Never In the past 12 months, have you had any concerns about having a place to live, or about the condition or quality of your housing: Never Are there any cultural or spiritual needs we should be aware of: No Depression/Anxiety Screening: denies symptoms of depression. OB Depression and Anxiety Screening- This Encounter (since 08/27/2023) Over the past 2 weeks have you felt down, depressed, or hopeless? Negative Over the past two weeks, have you felt little interest or pleasure in doing things? Negative Feeling nervous, anxious or on edge 0-Not at all Not being able to stop or control worrying 0-Not al all Anxiety Pre-Screening Total (If >/= 3 additional questions will be reviewed) 0 Genetic Screening: Partner present: No Patient verbalized knowledge of partner family health history: Yes Do you or your partner have any personal or family history of defects not previously discussed: No Do you have history of a complicated by anomaly, genetic condition, or demise: No ACOG Recommended Screening Screening for early gestational diabetes testing: Criteria for early testing requires elevated BMI plus one other risk factor: BMI 23.88 kg/(m^2) (risk factor if > than 25 or 23 in Americans) Additional risk factors: None She does not meet ACOG criteria for early gestational DM screening. 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 valACYclovir (VALTREX) 500 mg tablet Take 1 tablet by mouth once daily. 90 tablet 3 CARBOXYMETHYLCELLULOSE SODIUM (REFRESH OPHTHALMIC) Use in eyes as needed. occ. use White Petrolatum-Mineral Oil (REFRESH PM) 57.3-42.5 % ointment Use in both eyes at bedtime as needed. 11/18, 28, 1 mg-20 mcg (21)/75 mg (7) per tablet take 1 tablet by mouth every day 84 tablet 0 No current facility-administered medications for this visit. Allergies As of Date: 08/28/2023 (No Known Allergies) Fully Assessed 08/28/2023 Does patient have penicillin allergy: No REVIEW OF SYSTEMS: GENERAL: Negative for: Fever or Chills HEENT: Negative for: Headache, Impaired Vision, Ringing in Ears, Nosebleeds NECK: Negative for: Swelling, Pain, Stiffness RESPIRATORY: Negative for: Cough, Shortness of breath, Wheezing GASTROINTESTINAL: Negative for: Heartburn, Constipation, Diarrhea, Blood in stool, Vomiting MUSCULOSKELETAL: Negative for: Muscle or joint pain, stiffness, Joint swelling NEUROLOGIC/PSYCHIATRIC: Negative for: Weakness, Paralysis, Numbness, Tingling, Tremor, Anxiety, Depression, Memory loss SKIN: Negative for: Rash, Itching GENITOURINARY: Negative for: vaginal itching, vaginal discharge, hematuria or dysuria PHYSICAL EXAM: BP 112/64 Wt 146 lb 12.8 oz (66.6kg) LMP 06/23/2023 GENERAL: pleasant in no apparent distress DERMATOLOGY: Normal, without lesions, non-icteric, and non-hirsute NECK: Supple, full range of motion, no adenopathy, and thyroid normal CHEST: Normal inspiratory effort BREAST: soft, non-tender, symmetric, no dominant mass, normal nipple-areolar complex, no lymphadenopathy, and no nipple discharge ABDOMEN: soft, non-tender, and no masses NEURO: alert and oriented x3,exam grossly non-focal PELVIS: External genitalia normal without lesions. Perineal body intact. No vaginal or cervical lesions. Cervix closed. Uterus 8 week size. No adnexal masses or tenderness. Clinical Pelvimetry: Pelvimetry clinically assessed as adequate Limited OB ultrasound exam: single intrauterine , positive cardiac activity, crown-rump length 8w4d, and normal bilateral adnexa OB Risk Screening: Completed, positive findings include: Patient answered 'Yes' to Partner with Herpes ASSESSMENT: 28 year old at 9w3d wks gestational age PLAN: 1) Patient oriented to practice. Patient given new OB orientation folder. Discussed nutrition, folic acid supplementation, dietary guidelines, exercise, smoking, alcohol, caffeine, and drug use. Discussed gestational weight gain guidelines. Discussed routine OB labs including STD/HIV. Discussed how to access Your guide to a health and the Roll Tension Tester. Discussed aneuploidy and carrier screening. Regarding aneuploidy screening, nuchal translucency/first trimester early anatomy ultrasound and NIPT were discussed. Regarding carrier screening, the myriad screen was discussed. The risks/benefits and limitations of NIPT/aneuploidy screening were reviewed including the potential for false negative and false positive results. We discussed the availability of professional-society guided carrier screening and reviewed the conditions screened and limitations of screening. The availability of genetic counseling was reviewed. Information on aneuploidy/carrier screening was provided. The patient chooses: Aneuploidy screening: chooses to proceed with NIPT (10 weeks) and Carrier screening: Declines Discussed hemoglobin electrophoresis. Patient: Accepts Patient offered option of Virtual Visits. Patient prefers in person visits. Reviewed midwifery and sewing room supervisor services that are available. 2) Discussed Aspirin for prevention, one moderate risk factor but reviewed may take after 12 weeks 3) Dating inconsistent with LMP, will confirm at NT US 4) HSV, taking valtrex for suppressive therapy. Follow up in 4 weeks or sooner prnikolay Fontanez APRN.CNM documented in this encounter [facility] 08-28-2023 Note HNO ID: [id number] Author: Rebecca Fontanez APRN.CNM Service: ? Author Type: Edm Operator Type: Progress Notes Filed: 08/28/2023 10:06 AM Note Text: INITIAL OB ASSESSMENT OB Provider: Rebecca Fontanez APRN CNM HPI: Jarvis is a 28 year old White here to establish Obstetrical Care. Patient's last menstrual period was 06/23/2023 (exact date). from OB Dating Form. Cycles regular was planned Complaints: None OB History T0 L0 SAB0 IAB0 Ectopic0 Multiple0 Live Births0 Patient's Risk Screening for delivery: Have you had a prior vera between 20w and 36w6d?: No MEDICAL/PSYCHOSOCIAL HISTORY: History of hemorrhage or bleeding concerns: No Thyroid Disease: No History of chronic hypertension: No History of pre-existing diabetes: No BMI 23.88 kg/(m2) History of abnormal pap: No Prior treatment for cervical dysplasia: none. 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 I don't have enough money to pay my bills: Never Within the past 12 months, have you worried that your food would run out before you had money to buy more: Never In the past 12 months, has lack of reliable transportation kept you from going to medical appointments or work, or from keeping things needed for daily living: Never In the past 12 months, have you had any concerns about having a place to live, or about the condition or quality of your housing: Never Are there any cultural or spiritual needs we should be aware of: No Depression/Anxiety Screening: denies symptoms of depression. OB Depression and Anxiety Screening- This Encounter (since 08/27/2023) Over the past 2 weeks have you felt down, depressed, or hopeless? Negative Over the past two weeks, have you felt little interest or pleasure in doing things?? Negative Feeling nervous, anxious or on edge 0-Not at all Not being able to stop or control worrying 0-Not al all Anxiety Pre-Screening Total (If >/= 3 additional questions will be reviewed) 0 Genetic Screening: Partner present: No Patient verbalized knowledge of partner family health history: Yes Do you or your partner have any personal or family history of defects not previously discussed: No Do you have history of a complicated by anomaly, genetic condition, or demise: No ACOG Recommended Screening Screening for early gestational diabetes testing: Criteria for early testing requires elevated BMI plus one other risk factor: BMI 23.88 kg/(m2) (risk factor if > than 25 or 23 in Americans) Additional risk factors: None She does not meet ACOG criteria for early gestational DM screening. 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 valACYclovir (VALTREX) 500 mg tablet Take 1 tablet by mouth once daily. 90 tablet 3 CARBOXYMETHYLCELLULOSE SODIUM (REFRESH OPHTHALMIC) Use in eyes as needed. occ. use White Petrolatum-Mineral Oil (REFRESH PM) 57.3-42.5 % ointment Use in both eyes at bedtime as needed. 11/18, 28, 1 mg-20 mcg (21)/75 mg (7) per tablet take 1 tablet by mouth every day 84 tablet 0 No current facility-administered medications for this visit. Allergies As of Date: 08/28/2023 (No Known Allergies) Fully Assessed 08/28/2023 Does patient have penicillin allergy: No REVIEW OF SYSTEMS: GENERAL: Negative for: Fever or Chills HEENT: Negative for: Headache, Impaired Vision, Ringing in Ears, Nosebleeds NECK: Negative for: Swelling, Pain, Stiffness RESPIRATORY: Negative for: Cough, Shortness of breath, Wheezing GASTROINTESTINAL: Negative for: Heartburn, Constipation, Diarrhea, Blood in stool, Vomiting MUSCULOSKELETAL: Negative for: Muscle or joint pain, stiffness, Joint swelling NEUROLOGIC/PS (more content not included)... [facility] 08-28-2023 Instructions Rebecca Fontanez APRN.CNM - 08/28/2023 8:30 AM EDT Please select the following link to access the [facility] Your Guide to a Healthy . [email or web address] Aspirin 81mg once daily after 12 weeks documented in this encounter [facility] 08-22-2023 Miscellaneous Notes DISTANCE HEALTH VISIT This Team Access Model visit is a phone encounter. It required patient-provider interaction for the medical decision making as documented below. I have communicated my name and active licensure. The patient's identity and physical location were verified at the time of this visit. Patient has a history of herpes. Discussed the risks of outbreaks during and advised patient to report any outbreaks should they occur. Patient considering aneuploidy screening and genetic carrier screening testing. Contact information for integrated genetics and myriad labs given to patient to check on insurance coverage.Greer Dolan RN documented in this encounter [facility] 08-22-2023 Note HNO ID: [id number] Author: Greer Dolan RN Service: ? Author Type: ? Type: Progress Notes Filed: 08/22/2023 10:04 AM Note Text: INITIAL OB ASSESSMENT OB Provider: Greer Dolan RN HPI: Jarvis is a 28 year old White here to establish Obstetrical Care. Patient's last menstrual period was 06/23/2023 (exact date). from OB Dating Form. Cycles regular was planned Complaints: None OB History T0 L0 SAB0 IAB0 Ectopic0 Multiple0 Live Births0 Patient's Risk Screening for delivery: Have you had a prior vera between 20w and 36w6d?: No MEDICAL/PSYCHOSOCIAL HISTORY: History of hemorrhage or bleeding concerns: No Thyroid Disease: No History of chronic hypertension: No History of pre-existing diabetes: No No results found for: ABORHD No weight on file for this encounter. History of abnormal pap: No Prior treatment for cervical dysplasia: none. 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 I don't have enough money to pay my bills: Never Within the past 12 months, have you worried that your food would run out before you had money to buy more: Never In the past 12 months, has lack of reliable transportation kept you from going to medical appointments or work, or from keeping things needed for daily living: Never In the past 12 months, have you had any concerns about having a place to live, or about the condition or quality of your housing: Never Are there any cultural or spiritual needs we should be aware of: No Depression/Anxiety Screening: denies symptoms of depression. OB Depression and Anxiety Screening- This Encounter (since 08/21/2023) None Genetic Screening: Partner present: No Patient verbalized knowledge of partner family health history: Yes Do you or your partner have any personal or family history of defects not previously discussed: No Do you have history of a complicated by anomaly, genetic condition, or demise: No ACOG Recommended Screening Screening for early gestational diabetes testing: Criteria for early testing requires elevated BMI plus one other risk factor: No weight on file for this encounter. (risk factor if > than 25 or 23 in Americans) Additional risk factors: None She does not meet ACOG criteria for early gestational DM screening. 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 valACYclovir (VALTREX) 500 mg tablet Take 1 tablet by mouth once daily. 90 tablet 3 CARBOXYMETHYLCELLULOSE SODIUM (REFRESH OPHTHALMIC) Use in eyes as needed. occ. use White Petrolatum-Mineral Oil (REFRESH PM) 57.3-42.5 % ointment Use in both eyes at bedtime as needed. 11/18, 28, 1 mg-20 mcg (21)/75 mg (7) per tablet take 1 tablet by mouth every day 84 tablet 0 No current facility-administered medications for this visit. Allergies As of Date: 08/22/2023 (No Known Allergies) Fully Assessed 08/22/2023 Does patient have penicillin allergy: No [facility] 08-22-2023 History of Presen t illness Narrative INITIAL OB ASSESSMENT OB Provider: Greer Dolan RN HPI: Jarvis is a 28 year old White here to establish Obstetrical Care. Patient's last menstrual period was 06/23/2023 (exact date). from OB Dating Form. Cycles regular was planned Complaints: None OB History T0 L0 SAB0 IAB0 Ectopic0 Multiple0 Live Births0 Patient's Risk Screening for delivery: Have you had a prior vera between 20w and 36w6d?: No MEDICAL/PSYCHOSOCIAL HISTORY: History of hemorrhage or bleeding concerns: No Thyroid Disease: No History of chronic hypertension: No History of pre-existing diabetes: No No results found for: ABORHD No weight on file for this encounter. History of abnormal pap: No Prior treatment for cervical dysplasia: none. 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 I don't have enough money to pay my bills: Never Within the past 12 months, have you worried that your food would run out before you had money to buy more: Never In the past 12 months, has lack of reliable transportation kept you from going to medical appointments or work, or from keeping things needed for daily living: Never In the past 12 months, have you had any concerns about having a place to live, or about the condition or quality of your housing: Never Are there any cultural or spiritual needs we should be aware of: No Depression/Anxiety Screening: denies symptoms of depression. OB Depression and Anxiety Screening- This Encounter (since 08/21/2023) None Genetic Screening: Partner present: No Patient verbalized knowledge of partner family health history: Yes Do you or your partner have any personal or family history of defects not previously discussed: No Do you have history of a complicated by anomaly, genetic condition, or demise: No ACOG Recommended Screening Screening for early gestational diabetes testing: Criteria for early testing requires elevated BMI plus one other risk factor: No weight on file for this encounter. (risk factor if > than 25 or 23 in Americans) Additional risk factors: None She does not meet ACOG criteria for early gestational DM screening. 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 valACYclovir (VALTREX) 500 mg tablet Take 1 tablet by mouth once daily. 90 tablet 3 CARBOXYMETHYLCELLULOSE SODIUM (REFRESH OPHTHALMIC) Use in eyes as needed. occ. use White Petrolatum-Mineral Oil (REFRESH PM) 57.3-42.5 % ointment Use in both eyes at bedtime as needed. 11/18, 28, 1 mg-20 mcg (21)/75 mg (7) per tablet take 1 tablet by mouth every day 84 tablet 0 No current facility-administered medications for this visit. Allergies As of Date: 08/22/2023 (No Known Allergies) Fully Assessed 08/22/2023 Does patient have penicillin allergy: No documented in this encounter [facility] 08-18-2023 Miscellaneous Notes Patient phones requesting refills as follows: Requested Prescriptions Pending Prescriptions Disp Refills valACYclovir (VALTREX) 500 mg tablet 90 tablet 3 Sig: Take 1 tablet by mouth once daily. JOSEY-08/26/23 Labs-08/26/23 NOV-09/15/23 Please review and advise. Noelle Neri LPN documented in this encounter [facility] 08-16-2023 Miscellaneous Notes Pt scheduled. Patient is complaining of nausea and occasional vomiting in . Dietary considerations discussed . Vitamin B6 recommended. Advised patient to call/come in if she is unable to keep any food or fluids down in a 24-hour period. Left message for patient to return phone call. Patient has an appointment with Rebecca Fontanez for NOB appointment. Please schedule PNOB appointment. documented in this encounter [facility] 07-11-2023 Miscellaneous Notes Please see pharmacy generated refill request below. Pt sent mychart message that she will be due for her yearly exam after 07/29/23. Breanne Apple LPN documented in this encounter [facility] 11-04-2022 Miscellaneous Notes Patient returned call and went over notes below from Dr Tran with understanding. Patient asking me when will she know if will be corrected, told her I have no access to billing will need to check with billing office. VM left for pt to call PCP office for message below. Diane Sánchez RN I have placed charge for [id number] which is preventative screening based on her age. Let me know if this does not correct the issue. Patient calling because she received a bill for her annual physical that was on 08/26/22. She states that she spoke with the billing department who stated that the billing code used was biometric screening instead of annual physical. Billing is submitting for review but instructed the patient to contact the doctor's office. Please contact the patient to advise. documented in this encounter [facility] 08-26-2022 History of Presen t illness Narrative Chief Complaint Patient presents with: Physical: Biometric screening (waist measurement 29 11/02 )- valacyclovir to [facility] due to [facility] too costly HPI Jarvis King is a 27 year old female who presents here today for Above Complaints. Patient has biometric screening forms through her employer. Is fasting today. No questions or concerns today. Up to date on cervical cancer screening with normal pap June 2021.No recent flares of her genital herpes. Started on Valtrex suppression dose at OV with [facility] in June, but has not filled yet due to cost. Would like refill to [facility]. Walking and going to the gym 5 nights per week for exercise. Eating healthy diet. Weight in normal range. PHQ-2 / Depression screen He in the past two weeks denies having felt down, depressed, hopeless or with little interest or pleasure in doing things. Past medical history, appointments, medications, allergies reviewed. 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 Seasonal allergies Year round Previous Surgical History PAST SURGICAL HISTORY Procedure Laterality Date DENTAL SURGERY HX wisdom Family History FAMILY HISTORY Problem Relation Age of Onset Diabetes Maternal Grandmother Cancer Maternal Grandmother Lung, non-smoker Cataract Maternal Grandmother Thyroid Mother None Father Cancer Maternal Grandfather Lung, non-smoker Cataract Maternal Grandfather Cancer Paternal Grandmother breast Breast Cancer Paternal Aunt Cancer Paternal Grandfather unk No Known Problems Sister No Known Problems Sister Thyroid Sister Patient Allergies ALLERGIES No Known Allergies Current Medications Current Outpatient Medications on File Prior to Visit Medication Sig Norethin Mac-Eth Estrad-FE (11/18, ,) 1 mg-20 mcg (21)/75 mg (7) per tablet Take 1 tablet by mouth once daily. valACYclovir (VALTREX) 500 mg tablet Take 1 tablet by mouth once daily. CARBOXYMETHYLCELLULOSE SODIUM (REFRESH OPHTHALMIC) Use in eyes as needed. occ. use White Petrolatum-Mineral Oil (REFRESH PM) 57.3-42.5 % ointment Use in both eyes at bedtime as needed. No current facility-administered medications on file prior to visit. Social History Social History Tobacco Use Smoking status: Never Smokeless tobacco: Never Vaping Use Vaping Use: Never used Substance Use Topics Alcohol use: Yes Alcohol/week: 7.5 standard drinks Types: 1 Glasses of Wine (5oz), 2 Cans of Beer (12oz) per week Drug use: No Review of Symptoms REVIEW OF SYSTEMS GENERAL: No weight loss, malaise or fevers HEENT: Negative for frequent or significant headaches, No changes in hearing or vision, no nose bleeds or other nasal problems NECK: Negative for lumps, goiter, pain and significant neck swelling RESPIRATORY: Negative for cough, hemoptysis, wheezing, COPD, dyspnea or shortness of breath CARDIOVASCULAR: Negative for chest pain, leg swelling, hypertension, CHF or palpitations GI: No nausea, vomiting, or diarrhea : No history of dysuria, frequency or incontinence 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 bleeding, abnormal vaginal discharge MUSCULOSKELETAL: Negative for joint pain or swelling, back pain or muscle pain SKIN: Negative for lesions, rash, and itching EXAM: BP 108/70 Pulse 66 Ht 167 cm (5' 5.75 ) Wt 64.6 kg (142 lb 6.4 oz) LMP 05/01/2017 SpO2 99% BMI 23.16 kg/m General Appearance: Well appearing, alert, in no acute distress, well-hydrated, well nourished.. Skin: Skin color, texture, turgor normal, no suspicious rashes or lesions. Head: Normocephalic, no masses, lesions, tenderness or abnormalities. Eyes: Anicteric sclera. Pupils are equally round and reactive to light. Extraocular movements are intact. . Ears: External ears normal, canals clear. Nose/Sinuses: Nares normal, septum midline, mucosa normal, no drainage or sinus tenderness. Oropharynx: Lips, mucosa, and tongue normal, teeth and gums normal, oropharynx normal. Neck: Supple, no adenopathy; thyroid symmetric, normal size, no bruits. Lungs: Lungs clear to auscultation. No wheezing, rhonchi, rales.. Heart: RRR without murmur, gallop, or rubs. No ectopy. Abdomen: Normal abdominal exam, Abdomen soft, non-tender. Bowel sounds normal. No masses, organomegaly. Extremities: No deformities, edema, skin discoloration, clubbing or cyanosis. Good capillary refill. . Health Maintenance List DEPRESSION ASSESSMENT Never done COVID-19 VACCINE(4 - Booster for Pfizer series) due on 12/08/2021 INFLUENZA(1) due on 06/30/2022 PAP TESTING due on 07/16/2024 DTAP,TDAP,TD(9 - Td or Tdap) due on 03/20/2029 HEPATITIS B Completed HEPATITIS C SCREENING Completed HIV SCREENING Completed Data reviewed Component Latest Ref Rng & Units 09/22/2021 Protein, Total 6.3 - 8.0 g/dL 7.5 Albumin 3.9 - 4.9 g/dL 4.4 Calcium 8.5 - 10.2 mg/dL 9.6 Bilirubin, Total 0.2 - 1.3 mg/dL 0.3 Alkaline Phosphatase 34 - 123 U/L 68 AST 13 - 35 U/L 17 Glucose 74 - 99 mg/dL 97 BUN 7 - 21 mg/dL 10 Creatinine 0.58 - 0.96 mg/dL 0.66 Sodium 136 - 144 mmol/L 139 Potassium 3.7 - 5.1 mmol/L 4.0 Chloride 97 - 105 mmol/L 103 CO2 22 - 30 mmol/L 25 Anion Gap 9 - 18 mmol/L 11 ALT 7 - 38 U/L 7 eGFR- >60 eGFR-All Other Races . >60 WBC 3.70 - 11.00 k/uL 6.10 RBC 3.90 - 5.20 m/uL 4.07 Hemoglobin 11.5 - 15.5 g/dL 12.1 Hematocrit 36.0 - 46.0 % 38.1 MCV 80.0 - 100.0 fL 93.6 MCH 26.0 - 34.0 pG 29.7 MCHC 30.5 - 36.0 g/dL 31.8 RDW-CV 11.5 - 15.0 % 11.7 Platelet Count 150 - 400 k/uL 267 MPV 9.0 - 12.7 fL 11.1 Absolute nRBC <0.01 k/uL <0.01 Cholesterol, Total <200 mg/dL 187 Triglyceride <150 mg/dL 56 HDL Cholesterol >39 mg/dL 88 LDL Cholesterol <100 mg/dL 88 Non HDL Cholesterol <130 mg/dL 99 Fasting Time hrs 12 VLDL Cholesterol <30 mg/dL 11 TC:HDL Ratio <5.10 2.13 LDL:HDL Ratio <2.54 1.00 HIV 12 Combo (Ag/Ab) Non Reactive Non Reactive HIV-1/2 AB Test Not Indicated HIV Interpretation Negative Hep C Antibody IA Negative Negative ASSESSMENT/PLAN: 1. Annual physical exam - ICD9: V70.0, ICD10: Z00.00 (primary diagnosis) - Counseled on healthy diet and regular exercise - Calcium intake with supplements or by diet of 1000 mg/day for under 50, 6660-7716 mg/day for 50+ - Counseled patient on limiting alcohol intake to 1 drink per day - Depression screening tool completed and reviewed with patient. Based on score and interview, patient is not at risk for depression and recommended no further intervention at this time. - Follow up for annual exam in one year - CBC - COMP METABOLIC PANEL - LIPID PANEL BASIC 2. Herpes genitalis in women - ICD9: 054.10, ICD10: A60.09 Start suppression dose. Rx sent to requested pharmacy. - VALACYCLOVIR 500 MG TABLET 3. Seasonal allergies - ICD9: 477.9, ICD10: J30.2 Controlled with OTC antihistamines. 4. Need for COVID-19 vaccine - ICD9: V04.89, ICD10: Z23 - PFIZER-BIONTECH COVID-19 BIVALENT BOOSTER VACCINE, AGE 12+ YR [place] Tran MD documented in this encounter [facility] Evaluation note Diagnosis Annual physical exam- Primary Routine general medical examination at a health care facility Herpes genitalis in women Genital herpes, unspecified Seasonal allergies Allergic rhinitis, cause unspecified Need for COVID-19 vaccine [facility] Medication refill Issue of repeat prescriptions [facility] Diagnosis Herpes genitalis in women Genital herpes, unspecified [facility] Diagnosis Supervision of normal first , antepartum- Primary Herpes genitalis in women Genital herpes, unspecified [facility] Diagnosis Supervision of normal first , antepartum- Primary 9 weeks gestation of state, incidental Genital herpes simplex virus (HSV) infection in mother affecting Family history of thyroid disorder Family history of other endocrine and metabolic diseases Supervision of high risk in first trimester Unspecified high-risk [facility] Diagnosis Supervision of normal first , antepartum- Primary 9 weeks gestation of state, incidental with uncertain dates in first trimester [facility] Diagnosis Annual physical exam- Primary Routine general medical examination at a health care facility Impacted cerumen of right ear Impacted cerumen 12 weeks gestation of state, incidental Genital herpes simplex virus (HSV) infection in mother affecting Seasonal allergies Allergic rhinitis, cause unspecified [facility] Diagnosis Missed [O02.1]- Primary Missed Supervision of normal first , antepartum 9 weeks gestation of state, incidental [facility] Diagnosis Missed - Primary [facility] Diagnosis Missed - Primary [facility] Diagnosis Missed [facility] Diagnosis Missed - Primary Retained products of conception after miscarriage [facility] Diagnosis Retained products of conception after miscarriage- Primary Missed documented in this encounter [facility] note* Diagnosis Bleeding in early - Primary Unspecified hemorrhage in early , unspecified as to episode of care documented in this encounter [facility] note* Diagnosis 10 weeks gestation of - Primary state, incidental Encounter for supervision of high risk in first trimester, antepartum with uncertain dates in first trimester Dichorionic diamniotic twin in first trimester Twin , antepartum Genital herpes simplex virus (HSV) infection in mother affecting documented in this encounter [facility] note* Diagnosis Dichorionic diamniotic twin in first trimester- Primary Twin , antepartum documented in this encounter [facility] note* Diagnosis Encounter for (NT) nuchal translucency scan- Primary Other specified screening Dichorionic diamniotic twin in first trimester Twin , antepartum 12 weeks gestation of state, incidental documented in this encounter [facility] note* Diagnosis 14 weeks gestation of - Primary state, incidental Dichorionic diamniotic twin in second trimester Twin , antepartum documented in this encounter [facility] note* Diagnosis Dichorionic diamniotic twin in second trimester- Primary Twin , antepartum 16 weeks gestation of state, incidental documented in this encounter [facility] note* Diagnosis Dichorionic diamniotic twin in second trimester- Primary Twin , antepartum documented in this encounter [facility] note* Diagnosis 19 weeks gestation of - Primary state, incidental Dichorionic diamniotic twin in second trimester Twin , antepartum documented in this encounter [facility] note* Diagnosis 20 weeks gestation of - Primary state, incidental Dichorionic diamniotic twin in second trimester Twin , antepartum Encounter for supervision of high risk in second trimester, antepartum Genital herpes simplex virus (HSV) infection in mother affecting documented in this encounter [facility] note* Diagnosis 23 weeks gestation of - Primary state, incidental Dichorionic diamniotic twin in second trimester Twin , antepartum Encounter for supervision of high risk in second trimester, antepartum documented in this encounter [facility] note* Diagnosis Dichorionic diamniotic twin in second trimester- Primary Twin , antepartum Suspected anomaly, antepartum, fetus 2 of multiple gestation 23 weeks gestation of state, incidental [facility] Diagnosis abnormality affecting management of mother, fetus 1 of multiple gestation- Primary 23 weeks gestation of state, incidental Dichorionic diamniotic twin in second trimester Twin , antepartum Encounter for supervision of high risk in second trimester, antepartum abnormality affecting management of mother, fetus 2 of multiple gestation [facility] Diagnosis Encounter for supervision of high risk in second trimester, antepartum- Primary Dichorionic diamniotic twin in second trimester Twin , antepartum 24 weeks gestation of state, incidental Genital herpes simplex virus (HSV) infection in mother affecting abnormality affecting management of mother, fetus 2 of multiple gestation [facility] Diagnosis Dichorionic diamniotic twin in second trimester- Primary Twin , antepartum 24 weeks gestation of state, incidental screening for malformation using ultrasonics Encounter for routine screening for malformation using ultrasonics [facility] Diagnosis Encounter for supervision of high risk in second trimester, antepartum- Primary Dichorionic diamniotic twin in second trimester Twin , antepartum 26 weeks gestation of state, incidental [facility] Diagnosis Dichorionic diamniotic twin in second trimester- Primary Twin , antepartum Encounter for ultrasound to check growth Encounter for routine screening for malformation using ultrasonics 27 weeks gestation of state, incidental [facility] Diagnosis Abnormal glucose complicating - Primary Abnormal maternal glucose tolerance, complicating , childbirth, or the puerperium, unspecified as to episode of care [facility] Diagnosis 28 weeks gestation of - Primary state, incidental Supervision of high risk in third trimester Unspecified high-risk Dichorionic diamniotic twin in second trimester Twin , antepartum [facility] Diagnosis Supervision of high risk in third trimester- Primary Unspecified high-risk 29 weeks gestation of state, incidental Dichorionic diamniotic twin in third trimester Twin , antepartum [facility] Diagnosis 30 weeks gestation of - Primary state, incidental Supervision of high risk in third trimester Unspecified high-risk Dichorionic diamniotic twin in third trimester Twin , antepartum [facility] Diagnosis 31 weeks gestation of - Primary state, incidental Supervision of high risk in third trimester Unspecified high-risk Dichorionic diamniotic twin in third trimester Twin , antepartum Need for vaccination Need for prophylactic vaccination and inoculation against unspecified single disease Heartburn during in third trimester [facility] Diagnosis Encounter for ultrasound to check growth- Primary Encounter for routine screening for malformation using ultrasonics Dichorionic diamniotic twin in second trimester Twin , antepartum 31 weeks gestation of state, incidental [facility] Diagnosis Dichorionic diamniotic twin in third trimester- Primary Twin , antepartum 33 weeks gestation of state, incidental Supervision of high risk in third trimester Unspecified high-risk [facility] Diagnosis Supervision of high risk in third trimester- Primary Unspecified high-risk Dichorionic diamniotic twin in second trimester Twin , antepartum 34 weeks gestation of state, incidental [facility] Diagnosis 35 weeks gestation of - Primary state, incidental Supervision of high risk in third trimester Unspecified high-risk Dichorionic diamniotic twin in second trimester Twin , antepartum History of herpes genitalis Personal history of other infectious and parasitic disease Genital herpes simplex virus (HSV) infection in mother affecting Supervision of high risk in first trimester Unspecified high-risk [facility] Diagnosis Supervision of high risk in third trimester- Primary Unspecified high-risk Dichorionic diamniotic twin in third trimester Twin , antepartum 36 weeks gestation of state, incidental Herpes genitalis in women Genital herpes, unspecified [facility] Diagnosis Supervision of high risk in third trimester- Primary Unspecified high-risk Dichorionic diamniotic twin in third trimester Twin , antepartum 36 weeks gestation of state, incidental History of herpes genitalis Personal history of other infectious and parasitic disease [facility] Diagnosis Supervision of high risk in third trimester- Primary Unspecified high-risk Dichorionic diamniotic twin in third trimester Twin , antepartum documented in this encounter [facility] for referral (narrative)* Diagnostic Procedure Only (Routine) - Authorized Specialty Diagnoses / Procedures Referred By Contac t Referred To Contact [facility] Diagnoses Supervision of normal first , antepartum 9 weeks gestation of Procedures NUCHAL TRANSLUCENCY WHI US NUCHAL TRANSLUCENCY 1ST GESTATION Rebecca Fontanez APRN.CNM [address] [place] [address] [facility] [address] [place] [id number] Referral ID Status Reason Start Date Expiration Date Visits Requested Visits Authorized [id number] Authorized Auto-Generat ed Referral 3 08/27/2024 1 1 * Diagnostic Procedure Only (Routine) - Pending Review Specialty Diagnoses / Procedures Referred By Contac t Referred To Contact [facility] Diagnoses Supervision of normal first , antepartum 9 weeks gestation of Procedures OBSTETRIC ULTRASOUND WHI US PREG UTERUS AFTER 1ST TRIMEST GESTATION Rebecca Fontanez APRN.CNM [address] [place] [address] [facility] [address] [place] [address] Referral ID Status Reason Start Date Expiration Date Visits Requested Visits Authorized [id number] Pending Review Auto-Generat ed Referral 3 08/27/2024 1 1 [facility] for referral (narrative)* Diagnostic Procedure Only (Routine) - Authorized Specialty Diagnoses / Procedures Referred By Contac t Referred To Contact [facility] Diagnoses Missed Procedures OBSTETRIC ULTRASOUND WHI US PREG UTERUS AFTER 1ST TRIMEST GESTATION Blanca Skelton APRN.CNM [address] [place] [address] [facility] [address] [place] [address] Referral ID Status Reason Start Date Expiration Date Visits Requested Visits Authorized [id number] Authorized Auto-Generat ed Referral 09/19/2024 1 1 [facility] for referral (narrative)* Diagnostic Procedure Only (Routine) - Authorized Specialty Diagnoses / Procedures Referred By Contac t Referred To Contact [facility] Diagnoses Missed Procedures OBSTETRIC ULTRASOUND WHI US PREG UTERUS AFTER 1ST TRIMEST GESTATION Blanca Skelton APRN.CNM [address] [place] [address] [facility] [address] [place] [address] Referral ID Status Reason Start Date Expiration Date Visits Requested Visits Authorized [id number] Authorized Auto-Generat ed Referral 10/06/2023 10/05/2024 1 1 [facility] for referral (narrative)* Diagnostic Procedure Only (Routine) - Pending Review Specialty Diagnoses / Procedures Referred By Contac t Referred To Contact [facility] Diagnoses Dichorionic diamniotic twin in second trimester Procedures OBSTETRIC ULTRASOUND WHI US PREG UTERUS AFTER 1ST TRIMEST GESTATION Blanca Skelton APRN.CNM [address] [place] [address] [facility] [address] [place] [address] Referral ID Status Reason Start Date Expiration Date Visits Requested Visits Authorized [id number] Pending Review Auto-Generat ed Referral 04/05/2024 04/05/2025 1 1 [facility] for referral (narrative)* Diagnostic Procedure Only (Routine) - Authorized Specialty Diagnoses / Procedures Referred By Contac t Referred To Contact [facility] Diagnoses 19 weeks gestation of Dichorionic diamniotic twin in second trimester Procedures OBSTETRIC ULTRASOUND WHI US PREG UTERUS AFTER 1ST TRIMEST GESTATION Concha Baires MD [address] [place] [address] [facility] [address] [place] [address] Referral ID Status Reason Start Date Expiration Date Visits Requested Visits Authorized [id number] Authorized Auto-Generat ed Referral 04/08/2024 04/08/2025 4 1 T [facility] for referral (narrative)* Outpatient Procedure (Routine) - Authorized Specialty Diagnoses / Procedures Referred By Contac t Referred To Contact [facility] Diagnoses 23 weeks gestation of Dichorionic diamniotic twin in second trimester Encounter for supervision of high risk in second trimester, antepartum Procedures ECHO Concha Baires MD [address] [place] [address] [facility] [address] [place] [address] Referral ID Status Reason Start Date Expiration Date Visits Requested Visits Authorized [id number] Authorized Auto-Generat ed Referral 05/06/2024 05/06/2025 1 1 [facility] for referral (narrative)* Outpatient Procedure (Routine) - Authorized Specialty Diagnoses / Procedures Referred By Contac t Referred To Contact [facility] Diagnoses Dichorionic diamniotic twin in second trimester [place] [address] [place] [address] [facility] [address] [place] [address] Referral ID Status Reason Start Date Expiration Date Visits Requested Visits Authorized [id number] Authorized Auto-Generat ed Referral 05/06/2024 05/06/2025 1 1 [facility] for referral (narrative)* Outpatient Procedure (Routine) - New Request Specialty Diagnoses / Procedures Referred By Alice powell Referred To Contact [facility] Diagnoses Encounter for supervision of high risk in second trimester, antepartum Dichorionic diamniotic twin in second trimester Procedures NON-STRESS TEST NON-STRESS TEST Rebecca Fontanez APRN.CNM [address] [place] [address] [facility] [address] [place] [address] Referral ID Status Reason Start Date Expiration Date Visits Requested Visits Authorized [id number] New Request Auto-Generat ed Referral 05/14/2024 05/14/2025 4 1 [facility] for referral (narrative)* Outpatient Procedure (Routine) - New Request Specialty Diagnoses / Procedures Referred By Alice powell Referred To Contact [facility] Diagnoses Supervision of high risk in first trimester Dichorionic diamniotic twin in second trimester Procedures NON-STRESS TEST NON-STRESS TEST Rebecca Fontanez APRN.CNM [address] [place] [address] [facility] [address] [place] [address] Referral ID Status Reason Start Date Expiration Date Visits Requested Visits Authorized [id number] New Request Auto-Generat ed Referral 07/24/2024 07/24/2025 5 1 [facility] for visit Narrative* Diagnostic Procedure Only (Routine) - Closed Specialty Diagnoses / Procedures Referred By Alice powell Referred To Contact [facility] Diagnoses Encounter for supervision of high risk in first trimester, antepartum with uncertain dates in first trimester Procedures NUCHAL TRANSLUCENCY WHI US NUCHAL TRANSLUCENCY 1ST GESTATION Blanca Skelton APRN.CNM [address] [place] [address] [facility] [address] [place] [address] Referral ID Status Reason Start Date Expiration Date V isits Requested Visits Authorized [id number] Closed Auto-Generate d Referral 02/19/2024 10/29/2024 1 1 [facility] Outpatient Procedure (Routine) - Closed Specialty Diagnoses / Procedures Referred By Alice powell Referred To Contact [facility] Diagnoses 23 weeks gestation of Dichorionic diamniotic twin in second trimester Encounter for supervision of high risk in second trimester, antepartum Procedures ECHO Concha Baires MD [address] [place] [address] [facility] [address] [place] [address] Referral ID Status Reason Start Date Expiration Date V isits Requested Visits Authorized [id number] Closed Auto-Generate d Referral 05/06/2024 05/06/2025 1 1 [facility] Concerns Problem Noted Date Diagnosed Date [facility] Education - [facility]ON 08/28/2023 [place] - [place] 08/28/2023 Problem Noted Date Diagnosed Date [facility] Education - [facility]ON 08/28/2023 [place] - [place] 08/28/2023 Problem Noted Date Diagnosed Date [facility] Education - COMMON 08/28/2023 [place] - [place] 08/28/2023 Problem Noted Date Diagnosed Date [facility] Education - COMMON 08/28/2023 [place] - [place] 08/28/2023 Active Problems Noted Date Diagnosed Date [facility] Education - COMMON 01/30/2024 [place] - [place] 01/30/2024 Active Problems Noted Date Diagnosed Date [facility] Education - COMMON 01/30/2024 [place] - [place] 01/30/2024 Reason for Referral Specialty Diagnoses / Procedures Referred By Alice powell Referred To Contact Diagnoses Missed Blanca Skelton APRN.CN [address] [place] [address] Referral ID Status Reason Start Date Expiration Date Visits Re quested Visits Authorized [id number] Closed 1 1 Specialty Diagnoses / Procedures Referred By Alice t Referred To Contact Diagnoses 10 weeks gestation of Dichorionic diamniotic twin in first trimester Procedures CONSULT TO MATERNAL MEDI OFFICE/OUTPATIENT NEW HIGH MDM 60 MINUTES Blanca Skelton APRN.CNCeleste [address] [place] [address] Referral ID Status Reason Start Date Expiration Date Visits Requested Visits Authorized [id number] Authorized PCP Requested Referral Auto-Generate d Referral 02/05/2024 02/04/2025 1 1 Specialty Diagnoses / Procedures Referred By Alice powell Referred To Contact [facility] Diagnoses Encounter for supervision of high risk in first trimester, antepartum with uncertain dates in first trimester Procedures NUCHAL TRANSLUCENCY WHI US NUCHAL TRANSLUCENCY 1ST GESTATION MarianoBlanca domínguez APRN.CHELA [address] [place] [address] [facility] [address] [place] [address] Referral ID Status Reason Start Date Expiration Date Visits Requested Visits Authorized [id number] Pending Review Auto-Generat ed Referral 02/05/2024 02/04/2025 1 1 Summary Purpose Family History No Family History Records Found Advance Directives No Advanced Directives Records Found Additional Source Comments Source Comments (unrecognize d section and content) In the event this informatio n is protected by the Federal Confidentiality of Alcohol and Drug Abuse Patient Records regulations: The Federal rules restrict any use of the information to criminally investigate or prosecute any alcohol or drug abuse patient.[facility] the event this information is protected by the Federal Confidentiality of Alcohol and Drug Abuse Patient Records regulations: The Federal rules restrict any use of the information to criminally investigate or prosecute any alcohol or drug abuse patient.[facility] the event this information is protected by the Federal Confidentiality of Alcohol and Drug Abuse Patient Records regulations: The Federal rules restrict any use of the information to criminally investigate or prosecute any alcohol or drug abuse patient.[facility] the event this information is protected by the Federal Confidentiality of Alcohol and Drug Abuse Patient Records regulations: The Federal rules restrict any use of the information to criminally investigate or prosecute any alcohol or drug abuse patient.[facility] the event this information is protected by the Federal Confidentiality of Alcohol and Drug Abuse Patient Records regulations: The Federal rules restrict any use of the information to criminally investigate or prosecute any alcohol or drug abuse patient.[facility] the event this information is protected by the Federal Confidentiality of Alcohol and Drug Abuse Patient Records regulations: The Federal rules restrict any use of the information to criminally investigate or prosecute any alcohol or drug abuse patient.[facility] the event this information is protected by the Federal Confidentiality of Alcohol and Drug Abuse Patient Records regulations: The Federal rules restrict any use of the information to criminally investigate or prosecute any alcohol or drug abuse patient.[facility] the event this information is protected by the Federal Confidentiality of Alcohol and Drug Abuse Patient Records regulations: The Federal rules restrict any use of the information to criminally investigate or prosecute any alcohol or drug abuse patient.[facility] the event this information is protected by the Federal Confidentiality of Alcohol and Drug Abuse Patient Records regulations: The Federal rules restrict any use of the information to criminally investigate or prosecute any alcohol or drug abuse patient.[facility] the event this information is protected by the Federal Confidentiality of Alcohol and Drug Abuse Patient Records regulations: The Federal rules restrict any use of the information to criminally investigate or prosecute any alcohol or drug abuse patient.[facility] the event this information is protected by the Federal Confidentiality of Alcohol and Drug Abuse Patient Records regulations: The Federal rules restrict any use of the information to criminally investigate or prosecute any alcohol or drug abuse patient.[facility] the event this information is protected by the Federal Confidentiality of Alcohol and Drug Abuse Patient Records regulations: The Federal rules restrict any use of the information to criminally investigate or prosecute any alcohol or drug abuse patient.[facility] the event this information is protected by the Federal Confidentiality of Alcohol and Drug Abuse Patient Records regulations: The Federal rules restrict any use of the information to criminally investigate or prosecute any alcohol or drug abuse patient.[facility] the event this information is protected by the Federal Confidentiality of Alcohol and Drug Abuse Patient Records regulations: The Federal rules restrict any use of the information to criminally investigate or prosecute any alcohol or drug abuse patient.[facility] the event this information is protected by the Federal Confidentiality of Alcohol and Drug Abuse Patient Records regulations: The Federal rules restrict any use of the information to criminally investigate or prosecute any alcohol or drug abuse patient.[facility] the event this information is protected by the Federal Confidentiality of Alcohol and Drug Abuse Patient Records regulations: The Federal rules restrict any use of the information to criminally investigate or prosecute any alcohol or drug abuse patient.[facility] the event this information is protected by the Federal Confidentiality of Alcohol and Drug Abuse Patient Records regulations: The Federal rules restrict any use of the information to criminally investigate or prosecute any alcohol or drug abuse patient.[facility] the event this information is protected by the Federal Confidentiality of Alcohol and Drug Abuse Patient Records regulations: The Federal rules restrict any use of the information to criminally investigate or prosecute any alcohol or drug abuse patient.[facility] the event this information is protected by the Federal Confidentiality of Alcohol and Drug Abuse Patient Records regulations: The Federal rules restrict any use of the information to criminally investigate or prosecute any alcohol or drug abuse patient.[facility]In the event this information is protected by the Federal Confidentiality of Alcohol and Drug Abuse Patient Records regulations: The Federal rules restrict any use of the information to criminally investigate or prosecute any alcohol or drug abuse patient.[facility]In the event this information is protected by the Federal Confidentiality of Alcohol and Drug Abuse Patient Records regulations: The Federal rules restrict any use of the information to criminally investigate or prosecute any alcohol or drug abuse patient.[facility] the event this information is protected by the Federal Confidentiality of Alcohol and Drug Abuse Patient Records regulations: The Federal rules restrict any use of the information to criminally investigate or prosecute any alcohol or drug abuse patient.[facility] the event this information is protected by the Federal Confidentiality of Alcohol and Drug Abuse Patient Records regulations: The Federal rules restrict any use of the information to criminally investigate or prosecute any alcohol or drug abuse patient.[facility]In the event this information is protected by the Federal Confidentiality of Alcohol and Drug Abuse Patient Records regulations: The Federal rules restrict any use of the information to criminally investigate or prosecute any alcohol or drug abuse patient.[facility] the event this information is protected by the Federal Confidentiality of Alcohol and Drug Abuse Patient Records regulations: The Federal rules restrict any use of the information to criminally investigate or prosecute any alcohol or drug abuse patient.[facility] the event this information is protected by the Federal Confidentiality of Alcohol and Drug Abuse Patient Records regulations: The Federal rules restrict any use of the information to criminally investigate or prosecute any alcohol or drug abuse patient.[facility]stownIn the event this information is protected by the Federal Confidentiality of Alcohol and Drug Abuse Patient Records regulations: The Federal rules restrict any use of the information to criminally investigate or prosecute any alcohol or drug abuse patient.[facility]stownIn the event this information is protected by the Federal Confidentiality of Alcohol and Drug Abuse Patient Records regulations: The Federal rules restrict any use of the information to criminally investigate or prosecute any alcohol or drug abuse patient.[facility]In the event this information is protected by the Federal Confidentiality of Alcohol and Drug Abuse Patient Records regulations: The Federal rules restrict any use of the information to criminally investigate or prosecute any alcohol or drug abuse patient.[facility]stownIn the event this information is protected by the Federal Confidentiality of Alcohol and Drug Abuse Patient Records regulations: The Federal rules restrict any use of the information to criminally investigate or prosecute any alcohol or drug abuse patient.[facility]stownIn the event this information is protected by the Federal Confidentiality of Alcohol and Drug Abuse Patient Records regulations: The Federal rules restrict any use of the information to criminally investigate or prosecute any alcohol or drug abuse patient.[facility]In the event this information is protected by the Federal Confidentiality of Alcohol and Drug Abuse Patient Records regulations: The Federal rules restrict any use of the information to criminally investigate or prosecute any alcohol or drug abuse patient.[facility]In the event this information is protected by the Federal Confidentiality of Alcohol and Drug Abuse Patient Records regulations: The Federal rules restrict any use of the information to criminally investigate or prosecute any alcohol or drug abuse patient.[facility]In the event this information is protected by the Federal Confidentiality of Alcohol and Drug Abuse Patient Records regulations: The Federal rules restrict any use of the information to criminally investigate or prosecute any alcohol or drug abuse patient.[facility]stownIn the event this information is protected by the Federal Confidentiality of Alcohol and Drug Abuse Patient Records regulations: The Federal rules restrict any use of the information to criminally investigate or prosecute any alcohol or drug abuse patient.[facility]In the event this information is protected by the Federal Confidentiality of Alcohol and Drug Abuse Patient Records regulations: The Federal rules restrict any use of the information to criminally investigate or prosecute any alcohol or drug abuse patient.[facility]stownIn the event this information is protected by the Federal Confidentiality of Alcohol and Drug Abuse Patient Records regulations: The Federal rules restrict any use of the information to criminally investigate or prosecute any alcohol or drug abuse patient.[facility]In the event this information is protected by the Federal Confidentiality of Alcohol and Drug Abuse Patient Records regulations: The Federal rules restrict any use of the information to criminally investigate or prosecute any alcohol or drug abuse patient.[facility]In the event this information is protected by the Federal Confidentiality of Alcohol and Drug Abuse Patient Records regulations: The Federal rules restrict any use of the information to criminally investigate or prosecute any alcohol or drug abuse patient.[facility]In the event this information is protected by the Federal Confidentiality of Alcohol and Drug Abuse Patient Records regulations: The Federal rules restrict any use of the information to criminally investigate or prosecute any alcohol or drug abuse patient.[facility]In the event this information is protected by the Federal Confidentiality of Alcohol and Drug Abuse Patient Records regulations: The Federal rules restrict any use of the information to criminally investigate or prosecute any alcohol or drug abuse patient.[facility]In the event this information is protected by the Federal Confidentiality of Alcohol and Drug Abuse Patient Records regulations: The Federal rules restrict any use of the information to criminally investigate or prosecute any alcohol or drug abuse patient.[facility]stownIn the event this information is protected by the Federal Confidentiality of Alcohol and Drug Abuse Patient Records regulations: The Federal rules restrict any use of the information to criminally investigate or prosecute any alcohol or drug abuse patient.[facility]stownIn the event this information is protected by the Federal Confidentiality of Alcohol and Drug Abuse Patient Records regulations: The Federal rules restrict any use of the information to criminally investigate or prosecute any alcohol or drug abuse patient.[facility]stownIn the event this information is protected by the Federal Confidentiality of Alcohol and Drug Abuse Patient Records regulations: The Federal rules restrict any use of the information to criminally investigate or prosecute any alcohol or drug abuse patient.[facility]stownIn the event this information is protected by the Federal Confidentiality of Alcohol and Drug Abuse Patient Records regulations: The Federal rules restrict any use of the information to criminally investigate or prosecute any alcohol or drug abuse patient.[facility]stownIn the event this information is protected by the Federal Confidentiality of Alcohol and Drug Abuse Patient Records regulations: The Federal rules restrict any use of the information to criminally investigate or prosecute any alcohol or drug abuse patient.[facility]stownIn the event this information is protected by the Federal Confidentiality of Alcohol and Drug Abuse Patient Records regulations: The Federal rules restrict any use of the information to criminally investigate or prosecute any alcohol or drug abuse patient.[facility]stownIn the event this information is protected by the Federal Confidentiality of Alcohol and Drug Abuse Patient Records regulations: The Federal rules restrict any use of the information to criminally investigate or prosecute any alcohol or drug abuse patient.[facility]stownIn the event this information is protected by the Federal Confidentiality of Alcohol and Drug Abuse Patient Records regulations: The Federal rules restrict any use of the information to criminally investigate or prosecute any alcohol or drug abuse patient.[facility]stownIn the event this information is protected by the Federal Confidentiality of Alcohol and Drug Abuse Patient Records regulations: The Federal rules restrict any use of the information to criminally investigate or prosecute any alcohol or drug abuse patient.[facility]In the event this information is protected by the Federal Confidentiality of Alcohol and Drug Abuse Patient Records regulations: The Federal rules restrict any use of the information to criminally investigate or prosecute any alcohol or drug abuse patient.[facility]In the event this information is protected by the Federal Confidentiality of Alcohol and Drug Abuse Patient Records regulations: The Federal rules restrict any use of the information to criminally investigate or prosecute any alcohol or drug abuse patient.[facility]In the event this information is protected by the Federal Confidentiality of Alcohol and Drug Abuse Patient Records regulations: The Federal rules restrict any use of the information to criminally investigate or prosecute any alcohol or drug abuse patient.[facility] Reason for Visit (unrecogniz ed section and content) Reason Comments 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[employer]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[employer]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[employer] Ultrasound Specialty Diagnoses / Procedures Referred By Alice t Referred To Contact [facility] Diagnoses Missed Procedures OBSTETRIC ULTRASOUND WHI US PREG UTERUS AFTER 1ST TRIMEST GESTATION Blanca Skelton APRN.CHELA [address] [place] [address] [facility] [address] [place] [address] Referral ID Status Reason Start Date Expiration Date V isits Requested Visits Authorized [id number] Closed Auto-Generate d Referral 10/06/2023 10/05/2024 1 1 Reason Comments Physical Biometric screening (waist measurement 29 11/02 )- valacyclovir to [facility] to [facility] too costly Reason Comments Billing Error in code for an nual physical Reason Onset Date Comments Refill Request Refill Request 07/17/2023 Reason Comments upcoming appointment Reason Onset Date Comments Refill Request 08/18/2023 Reason Comments Care Reason Comments Physical Reason Comments US Specialty Diagnoses / Procedures Referred By Contac t Referred To Contact [facility] Diagnoses Supervision of normal first , antepartum 9 weeks gestation of Procedures NUCHAL TRANSLUCENCY WHI US NUCHAL TRANSLUCENCY 1ST GESTATION Rebecca Fontanez APRN.CN [address] [place] [address] [id number] [place] [address] Referral ID Status Reason Start Date Expiration Date V isits Requested Visits Authorized [id number] Closed Auto-Generate d Referral 08/28/2023 08/27/2024 1 1 Reason Comments Patient Update Reason Comments Follow Up Missed AB Reason Comments Miscarriage Referral ID Status Reason Start Date Expiration Date V isits Requested Visits Authorized [id number] Closed Auto-Generate d Referral 09/20/2023 09/19/2024 1 1 Reason Comments Follow Up MAB Reason Comments 02/04 NOB Intake Questions Reason Comments Initial OB Visit Reason Comments Tuffonk16 Order Reason Comments NIPT Update Reason Onset Date Comments Care 03/04/2024 Reason Onset Date Comments Care 03/20/2024 Reason Comments Orders Reason Onset Date Comments Care 04/08/2024 Reason Onset Date Comments Care 04/15/2024 Reason Onset Date Comments Care 05/06/2024 Reason Comments US Specialty Diagnoses / Procedures Referred By Contac t Referred To Contact [facility] Diagnoses 19 weeks gestation of Dichorionic diamniotic twin in second trimester Procedures OBSTETRIC ULTRASOUND WHI US PREG UTERUS AFTER 1ST TRIMEST GESTATION Concha Baires MD [address] [place] [address] [address] Referral ID Status Reason Start Date Expiration Date V isits Requested Visits Authorized [id number] Closed Auto-Generate d Referral 04/08/2024 04/08/2025 4 1 Reason Onset Date Comments Care 05/14/2024 Reason Comments US Routine Specialty Diagnoses / Procedures Referred By Alice t Referred To Contact Diagnoses 10 weeks gestation of Dichorionic diamniotic twin in first trimester Procedures CONSULT TO MATERNAL MEDI OFFICE/OUTPATIENT NEW HIGH MDM 60 MINUTES Blanca Skelton APRN.Celeste [address] [place] [address] Referral ID Status Reason Start Date Expiration Date V isits Requested Visits Authorized [id number] Closed PCP Requested Referral Auto-Generated Referral 02/05/2024 02/04/2025 1 1 Reason Onset Date Comments Care 06/03/2024 Specialty Diagnoses / Procedures Referred By Alice powell Referred To Contact [facility] Diagnoses Dichorionic diamniotic twin in second trimester Procedures OBSTETRIC ULTRASOUND WHI US PREG UTERUS AFTER 1ST TRIMEST GESTATION Blanca Skelton APRN.CHELA [address] [place] [address] [facility] [address] [place] [address] Referral ID Status Reason Start Date Expiration Date V isits Requested Visits Authorized [id number] Closed Auto-Generate d Referral 04/05/2024 04/05/2025 1 1 Reason Comments Orders Reason Onset Date Comments Care 06/12/2024 Reason Onset Date Comments Care 06/17/2024 Reason Onset Date Comments Care 06/26/2024 Reason Onset Date Comments Care 07/03/2024 Specialty Diagnoses / Procedures Referred By Alice powell Referred To Contact [facility] Diagnoses 19 weeks gestation of Dichorionic diamniotic twin in second trimester Procedures OBSTETRIC ULTRASOUND WHI US PREG UTERUS AFTER 1ST TRIMEST GESTATION Concha Baires MD [address] [place] [address] [facility] [address] [place] [address] Reason Comments OB-decreased movement Reason Onset Date Comments Care 07/16/2024 Reason Onset Date Comments Care 07/24/2024 Reason Onset Date Comments Care 07/31/2024 Reason Onset Date Comments Care 08/06/2024 Reason Onset Date Comments Care 08/07/2024 Care Teams (unrecognized sec tion and content) Machine Rigger Relationship Specialty Start Date End Date Washington Tran MD [address] [facility] [place] [address] PCP - General Family Medicine 09/22/21 Machine Rigger Relationship Specialty Start Date End Date Washington Tran MD [address] [place] [address] PCP - General Family Medicine 09/22/21 Machine Rigger Relationship Specialty Start Date End Date Washington Tran MD [address] [place] [address] PCP - General Family Medicine 09/22/21 Machine Rigger Relationship Specialty Start Date End Date Washington Tran MD [address] [place] [address] PCP - General Family Medicine 09/22/21 Machine Rigger Relationship Specialty Start Date End Date Washington Tran MD [address] [place] [address] PCP - General Family Medicine 09/22/21 Machine Rigger Relationship Specialty Start Date End Date Washington Tran MD [address] [place] [address] PCP - General Family Medicine 09/22/21 Machine Rigger Relationship Specialty Start Date End Date Washington Tran MD [address] [place] [address] PCP - General Family Medicine 09/22/21 Machine Rigger Relationship Specialty Start Date End Date Washington Tran MD [address] [facility] [place] [address] PCP - General Family Medicine 09/22/21 Machine Rigger Relationship Specialty Start Date End Date Washington Tran MD [address] [facility] [place] [address] PCP - General Family Medicine 09/22/21 Machine Rigger Relationship Specialty Start Date End Date Washington Tran MD [address] [facility] [place] [address] PCP - General Family Medicine 09/22/21 Machine Rigger Relationship Specialty Start Date End Date Washington Tran MD [address] [facility] [place] [address] PCP - General Family Medicine 09/22/21 Machine Rigger Relationship Specialty Start Date End Date Washington Tran MD [address] [facility] [place] [address] PCP - General Family Medicine 09/22/21 Machine Rigger Relationship Specialty Start Date End Date Washington Tran MD [address] [facility] [place] [address] PCP - General Family Medicine 09/22/21 Machine Rigger Relationship Specialty Start Date End Date Washington Tran MD [address] [facility] [place] [address] PCP - General Family Medicine 09/22/21 Machine Rigger Relationship Specialty Start Date End Date Washington Tran MD [address] [facility] [place] [address] PCP - General Family Medicine 09/22/21 Machine Rigger Relationship Specialty Start Date End Date Washington Tran MD [address] [place] [address] PCP - General Family Medicine 09/22/21 Machine Rigger Relationship Specialty Start Date End Date Washington Tran MD [address] [place] [address] PCP - General Family Medicine 09/22/21 Machine Rigger Relationship Specialty Start Date End Date Washington Tran MD [address] [place] [address] PCP - General Family Medicine 09/22/21 Machine Rigger Relationship Specialty Start Date End Date Washington Tran MD [address] [place] [address] PCP - General Family Medicine 09/22/21 Machine Rigger Relationship Specialty Start Date End Date Washington Tran MD [address] [place] [address] PCP - General Family Medicine 09/22/21 Machine Rigger Relationship Specialty Start Date End Date Washington Tran MD [address] [place] [address] PCP - General Family Medicine 09/22/21 Machine Rigger Relationship Specialty Start Date End Date Washington Tran MD [address] [place] [address] PCP - General Family Medicine 09/22/21 Machine Rigger Relationship Specialty Start Date End Date Washington Tran MD [address] [facility] [place] [address] PCP - General Family Medicine 09/22/21 Machine Rigger Relationship Specialty Start Date End Date Washington Tran MD [address] [facility] [place] [address] PCP - General Family Medicine 09/22/21 Machine Rigger Relationship Specialty Start Date End Date Washington Tran MD [address] [facility] [place] [address] PCP - General Family Medicine 09/22/21 Machine Rigger Relationship Specialty Start Date End Date Washington Tran MD [address] [facility] [place] [address] PCP - General Family Medicine 09/22/21 Machine Rigger Relationship Specialty Start Date End Date Washington Tran MD [address] [facility] [place] [address] PCP - General Family Medicine 09/22/21 Machine Rigger Relationship Specialty Start Date End Date Washington Tran MD [address] [facility] [place] [place] [address] PCP - General Family Medicine 09/22/21 Machine Rigger Relationship Specialty Start Date End Date Washington Tran MD [address] [facility] [place] [address] PCP - General Family Medicine 09/22/21 Machine Rigger Relationship Specialty Start Date End Date Washington Tran MD [address] [facility] [place] [address] PCP - General Family Medicine 09/22/21 Machine Rigger Relationship Specialty Start Date End Date Washington Tran MD [address] [place] [address] PCP - General Family Medicine 09/22/21 Machine Rigger Relationship Specialty Start Date End Date Washington Tran MD [address] [place] [address] PCP - General Family Medicine 09/22/21 Machine Rigger Relationship Specialty Start Date End Date Washington Tran MD [address] [place] [address] PCP - General Family Medicine 09/22/21 Machine Rigger Relationship Specialty Start Date End Date Washington Tran MD [address] [place] [address] PCP - General Family Medicine 09/22/21 Machine Rigger Relationship Specialty Start Date End Date Washington Tran MD [address] [place] [address] PCP - General Family Medicine 09/22/21 Machine Rigger Relationship Specialty Start Date End Date Washington Tran MD [address] [place] [address] PCP - General Family Medicine 09/22/21 INFORMATION SOURCE (unrecogn ized section and content) DATE CREATED AUTHOR 08/16/2024 [facility] FOR RECORDS PERTAINING TO PATIENTS WHO ARE OR HAVE BEEN ENROLLED IN A CHEMICAL DEPENDENCY/SUBSTANCEABUSE PROGRAM, SOME INFORMATION MAY BE OMITTED. This clinical summary was aggregated from multiple sources. Caution should be exercised in using it in the provision of clinical care. This summary normalizes information from multiple sources, and as a consequence, information in this document may materially change the coding, format and clinical context of patient data. In addition, data may be omitted in some cases. CLINICAL DECISIONS SHOULD BE BASED ON THE PRIMARY CLINICAL RECORDS. [facility] [employer] [facility]. provides no warranty or guarantee of the accuracy or completeness of information in this document.
[2024-08-18 19:26] VITALS: BMI 33.1
[2024-08-18 19:37] VITALS: BP 137/82; PULSE 78
[2024-08-18 19:38] VITALS: PULSE 80; RESP 16; TEMP 37.5; O2SAT 98
[2024-08-18 19:39] VITALS: TEMP 37.5
[2024-08-18] MEDS: Lactated Ringers 1,000 ML 15 ML IV (20:00)
[2024-08-18 20:19] LABS: Absolute Neutrophil Count 5.8 X10^3/uL (2.0-7.7); Basophil# 0.03 X10^3/uL; Basophil% 0.3 % (0-1); Eosinophil# 0.05 X10^3/uL; Eosinophils% 0.6 % (0-5); Hematocrit 30.3 % (37-47); Hemoglobin 10.4 g/dL (12.0-15.0); Mean Corp Hgb Conc 34.3 g/dL (32-36); Mean Corpuscular Hgb 31.5 pg (27.0-32.0); Mean Corpuscular Volume 91.8 fL (81-99); Mean Platelet Vol. 12.3 fl (6.2-12.0); Monocyte# 0.78 X10^3/uL; Monocyte% 8.9 % (0-10); NRBC Flagged by Analyzer 0 % (0-5); Neutrophil # 5.76 X10^3/uL (2.7-7.7); Neutrophil % 65.7 % (47-70); Platelet Count 197 K/mm3 (150-450); RBC Distribution Width CV 13.1 % (11.6-14.6); RBC Distribution Width SD 42.4 fl (35.1-43.9); White Blood Count 8.8 K/mm3 (4.4-11.0)
--- NOTE | 2024-08-18 20:21 | PCM.HP.OB ---
HPI - General General Date of Admission: 08/18/24 Date of Service: 08/18/24 Chief Complaint: IOL twins HPI Narrative JARVIS KING, is a 29 F who presents induction of labor with di/di twins. Vtx/vtx. GBS negative. Maternal Data Information Final LIZZY: 09/01/24 Gestational age: 36 PFSH PFSH Medical History Genital herpes affecting Home Medications ?Medication ?Instructions ?Recorded ?Last Taken ?Type vit no.95-ferrous 1 tab PO DAILY 07/10/24 08/18/24 History fumarate 28 mg-folic acid 800 mcg tablet () aspirin 81 mg tablet,delayed 81 mg PO DAILY 08/18/24 08/18/24 History release (Adult Low Dose Aspirin) diphenhydramine HCl 25 mg capsule 25 mg PO Q8H PRN allergic reaction 08/18/24 08/17/24 History (Benadryl) valacyclovir 500 mg tablet 500 mg PO Q12H HSV 08/18/24 08/18/24 History Allergy/AdvReac Type Severity Reaction Status Date / Time No Known Allergies Allergy Verified 08/18/24 19:55 Surgical History History of surgery Social History Smoking Status: Never smoker History 2 Elective abortions Hx Para 0 Spontaneous abortions Hx # Term Pregnancies Ectopic pregnancies Hx # Pregnancies Multiple births # of living children NST FHR Rate Baby A Baseline: 140 Variability:: Moderate Accelerations:: 15 x 15 Decelerations:: None NST Reactive:: Yes FHR Category:: Category I Uterine Activity:: quiet FHR Rate Baby B Baseline: 140 Variability:: Moderate Accelerations:: 15 x 15 Decelerations:: None NST Reactive:: Yes FHR Category:: Category I Uterine Activity:: quiet ROS Constitutional Constitutional: Denies fatigue, fever(s) or malaise Eyes Eyes: Denies change in vision ENT HEENT: Denies dizziness or headache(s) Cardiovascular Cardiovascular: Denies chest pain, dyspnea or lightheadedness Respiratory/Chest Respiratory/Chest: Denies cough or dyspnea Gastrointestinal Gastrointestinal: Denies change in bowel habits Genitourinary Genitourinary: Denies burning urination or genital lesions Integumentary Integumentary: Denies rash Neurologic Neurologic: Denies confusion, dizziness, headache(s), numbness or weakness Vital Signs Vital Signs Vital Signs: 08/18/24 19:37 08/18/24 19:37 08/18/24 19:38 Temperature Temperature Source Pulse Rate 78 80 Respiratory Rate Blood Pressure 137/82 H BP Systolic 137 BP Diastolic 82 Pulse Ox 08/18/24 19:38 08/18/24 19:38 08/18/24 19:38 Temperature Temperature Source Temporal Pulse Rate Respiratory Rate 16 Blood Pressure BP Systolic BP Diastolic Pulse Ox 98 08/18/24 19:38 08/18/24 19:39 Temperature 99.5 F H 99.5 F H Temperature Source Pulse Rate Respiratory Rate Blood Pressure BP Systolic BP Diastolic Pulse Ox Weight Weight: 90.446 kg Body Mass Index (BMI) 33.1 Physical Exam Const alert and no apparent distress General Appearance: cooperative HEENT normocephalic Resp normal respiratory effort Cardio regular rate GI soft to palpation GI Narrative: gravid, nontender, appropriate for gestational age Extremity no calf tenderness General Extremity: edema Skin no wounds Rashes: No rashes noted Psych activity/motor behavior normal Labs Labs Labs: Antibody Screen Pending Hct 32.6 % (37-47) L Hgb 11.0 g/dL (12.0-15.0) L Syphilis Total Ab Pending Assessment & Plan (1) Dichorionic diamniotic twin in third trimester: (2) 38 weeks gestation of : PLAN: Plan Cytotec and avery bulb Epidural planned
[2024-08-18 20:22] LABS: POSITIVE COUNT NO; POSITIVE DIFFERENTIAL NO; POSITIVE MORPHOLOGY NO
[2024-08-18 20:38] VITALS: BP 139/79; PULSE 78; RESP 16; TEMP 37.4
[2024-08-18] MEDS: miSOPROStol 25 MCG TABLET VAGINAL (20:45)
[2024-08-18 20:52] LABS: Syphilis Antibodies Non-reactive
[2024-08-19] VITALS (44 sets, daily range): BP systolic 100–144; BP diastolic 57–92; PULSE 54–114; RESP 14–18; TEMP 36.5–37.2; O2SAT 93–100
--- OUTSIDE RECORDS SUMMARY | 2024-08-19 00:34 | XMS RPT_ITS | CCD ---
Author Organization [facility] Care Team Providers Care Business Account Leader Name Role Phone Washington Tran MD Primary [...] on above: Take 2 tablets by [facility] one time only for 1 dose. Bring [...] Comment on above: Take 1 tablet by [facility] one time only for 1 dose. Bring [...] days. 20 tablet 07/10/2024 07/20/2024 Active 25-IRON YCN-LLQZK-IQL ORAL (20 sources) 25-IRON NPX-UBXWU-PUP ORAL Take by mouth. Active 25-IRON OLU-AJQWJ-OYV ORAL Take by mouth. 0 Active Comment [...] Office Visit (OBGYWM ) ----- JARVIS KING ([id number]) 1995 F Date Time Provider Department 08/07/24 [...] 08/07/2024 2:31 PM Signed SEQUENTIAL SCREENINGS [facility] offers sequential screenings for women who are [...] It will require an appointment with our air conditioning service technician. This is not an ultrasound performed [...] the above symptoms, contact our office at [phone] and ask to speak with a nurse. After hours, you can call doctors registry at [phone] OR call [facility] at [phone] and ask to have the doctor tongue binder paged. If you consider this an emergency, dial [phone] or go to your nearest emergency department. NEED HELP? Are you dealing with a violent or abusive relationship? Are you a victim of rape or sexual assult? Call [facility] ([place]) 24 hour Crisis Hotline: 563.463.3044 or 166-964-6744. MANUAL Your Guide to a Healthy manual is now on-line. Visit [email or web address] to download your free copy [...] mg by mouth once daily. - 25-IRON GQH-JBGCQ-TIK ORAL Take by mouth. Problem List As [...] instructions from your clinician: SEQUENTIAL SCREENINGS [facility] offers sequential screenings for women who are interested in screenings for chromosomal abnormalities and certain defects during a . The sequential screen combines ultrasound and blood tests to deter (more content not included)... Normal [facility] ROUTINE, GROUP B ST REP PCRon 07-31-2024 ROUTINE, GROUP B STREP PCR GROUP B STREP PCR: Negative for Group B Streptococcus by PCR. Normal [facility] Comment on above: Performed By: #### G BPCR ####[facility] LABCLIA [id number] [address] STATES OF [facility] CNOVon 07-24-2024 CNOV Office Visit (OBGYWM ) ----- JARVIS KING ([id number]) 1995 F Date Time Provider Department 07/24/24 2:30 PM REBECCA FONTANEZ During your visit today, we recorded the following information about you: Blood pressure Weight 116/68 85.3 kg StepheniePhani MA 07/24/2024 2:24 PM Signed SEQUENTIAL SCREENINGS [facility] offers sequential screenings for women who are [...] It will require an appointment with our air conditioning service technician. This is not an ultrasound performed [...] the above symptoms, contact our office at [phone] and ask to speak with a nurse. After hours, you can call doctors registry at [phone] OR call [facility] at [phone] and ask to have the doctor tongue binder paged. If you consider this an emergency, dial 9--7 or go to your nearest emergency department. NEED HELP? Are you dealing with a violent or abusive relationship? Are you a victim of rape or sexual assult? Call [facility] ([place]) 24 hour Crisis Hotline: 481.922.1857 or 116-373-5132. MANUAL Your Guide to a Healthy manual is now on-line. Visit [email or web address] to download your free copy [...] weeks gestation of [Z3A.34] Order(s): NON-STRESS TEST [1508122] Order #: [id number] STANDING URINE OB DIP B/O [[id number]] Order #: [id number] Prescriptions as of 07/24/2024 - BABY ASPIRIN ORAL Take 81 mg by mouth once daily. - 25-IRON OCC-ULTPX-SWX ORAL Take by mouth. - valACYclovir (VALTREX) [...] affecting managemen (more content not included)... [facility] ([facility]GYWM) ----- JARVIS KING ([id number]) 1995 F Date Time Provider Department 07/10/24 [...] If she has decreased urine output to [facility] for NST and IVF. If she thinks she can stay hydrated then immodium and push fluids and I can rx something for nausea. MD Lukas Birch Tara, RN 07/10/2024 12:11 PM Signed Called Pt and Pt states she definitely does feel dehydrated. Advised to go to [facility] for NST and IV fluids. Voiced understanding. [facility] notified. Malika Gaytan RN Allergies As of Date: 07/10/2024 (No Known Allergies) Date Reviewed: 06/26/2024 Reviewed by: Phani Casiano MA - Fully Assessed Reason for Visit: OB-decreased movement [Other] Prescriptions as of 07/10/2024 - BABY ASPIRIN ORAL Take 81 mg by mouth once daily. - pyridoxine, vitamin B6, (VITAMIN B-6) 50 mg cap Take by mouth. - 25-IRON DEM-UZWAK-UQG ORAL Take by mouth. - valACYclovir (VALTREX) [...] Status:Closed by NOHEMY LYN on 07/10/24 Normal [facility] Examination level ultrasound on 07-03-2024 [facility] Radiology Study observation (narrative) [facility] CNOVon 06-26-2024 CNOV Office Visit (OBGYWM ) ----- JARVIS KING ([id number]) 1995 F Date Time Provider Department 06/26/24 [...] 06/26/2024 2:36 PM Signed SEQUENTIAL SCREENINGS [facility] offers sequential screenings for women who are [...] It will require an appointment with our air conditioning service technician. This is not an ultrasound performed [...] the above symptoms, contact our office at [phone] and ask to speak with a nurse. After hours, you can call doctors registry at [phone] OR call [facility] at [phone] and ask to have the doctor tongue binder paged. If you consider this an emergency, dial 9-1-5 or go to your nearest emergency department. NEED HELP? Are you dealing with a violent or abusive relationship? Are you a victim of rape or sexual assult? Call [facility] ([place]) 24 hour Crisis Hotline: 407.800.8892 or 478-800-2063. MANUAL Your Guide to a Healthy manual is now on-line. Visit [email or web address] to download your free copy [...] mg cap Take by mouth. - 25-IRON JME-MMJKX-SRQ ORAL Take by mouth. - valACYclovir (VALTREX) [...] instructions from your clinician: SEQUENTIAL SCREENINGS [facility] offers sequential screenings for women who are interested in screenings for chromosomal abnormalities and certain defects during a . The sequential screen combines ultrasound and blood tests to determine the risk of chromosomal abnormalities, including Down's Syndrome (Trisomy 21) and Trisomy 18, as well as open neural tube defects including spina bifida. Ultrasound examination is performed (more content not included)... Normal [facility] CNOVon 06-12-2024 CNOV Office Visit (OBGYWM ) ----- JARVIS KING ([id number]) 1995 F Date Time Provider Department 06/12/24 [...] 06/12/2024 2:30 PM Signed SEQUENTIAL SCREENINGS [facility] offers sequential screenings for women who are [...] It will require an appointment with our air conditioning service technician. This is not an ultrasound performed [...] the above symptoms, contact our office at [phone] and ask to speak with a nurse. After hours, you can call doctors registry at [phone] OR call [facility] at [phone] and ask to have the doctor tongue binder paged. If you consider this an emergency, dial 9-6-1 or go to your nearest emergency department. NEED HELP? Are you dealing with a violent or abusive relationship? Are you a victim of rape or sexual assult? Call [facility] ([place]) 24 hour Crisis Hotline: 358.432.9049 or 357-660-3017. MANUAL Your Guide to a Healthy manual is now on-line. Visit [email or web address] to download your free copy [...] mg cap Take by mouth. - 25-IRON ACP-ANTZX-MHZ ORAL Take by mouth. - valACYclovir (VALTREX) [...] instructions from your clinician: SEQUENTIAL SCREENINGS [facility] offers sequential screenings for women who are [...] weeks gestational (more content not included)... Normal [facility] GLUCOSE GESTATIONAL, 1 HOURo n 06-07-2024 Glucose 1 Hr post Unsp challenge [Mass/Vol] 192 mg/dL High 74-179 [facility] Comment on above: Order Comment: Terra novak Type: BLOOD SPECIMENOrdering Facility: [facility] Address: [address] [place] [address] Result Comment: [facility] Congress of Obstetricians and Gynecologists (Andra/Halina) guidelines state gestational diabetes mellitus is present when 2 or more of the plasma glucose concentrations meet or exceed the following levels: fastin mg/dl, 1 hr: 180 mg/dl, 2 hr: 155 mg/dl, and 3 hr: 140 mg/dl. Performed By: #### G TGST1 ####[facility] LABCLIA [id number] [address] OF [facility] GLUCOSE GESTATIONAL, 2 HOURo n 06-07-2024 Glucose 2 Hr post Unsp challenge [Mass/Vol] 149 mg/dL Normal 74-154 [facility] Comment on above: Order Comment: Terra novak Type: BLOOD SPECIMENOrdering Facility: [facility] Address: [address] [place] [address] Result Comment: [facility] Congress of Obstetricians and Gynecologists (Andra/Halina) guidelines state gestational diabetes mellitus is present when 2 or more of the plasma glucose concentrations meet or exceed the following levels: fastin mg/dl, 1 hr: 180 mg/dl, 2 hr: 155 mg/dl, and 3 hr: 140 mg/dl. Performed By: #### G TGST2 ####[facility] LABCLIA [id number] [place] [address] GLUCOSE GESTATIONAL, 3 HOURo n 06-07-2024 Glucose 3 Hr post Unsp challenge [Mass/Vol] 99 mg/dL Normal 74-139 [facility] Comment on above: Order Comment: Terra novak Type: BLOOD SPECIMENOrdering Facility: [facility] Address: [address] [place] [address] Result Comment: [facility] Congress of Obstetricians and Gynecologists ([place]/Coustan) guidelines state gestational diabetes mellitus is present when 2 or more of the plasma glucose concentrations meet or exceed the following levels: fastin mg/dl, 1 hr: 180 mg/dl, 2 hr: 155 mg/dl, and 3 hr: 140 mg/dl. Performed By: #### G TGST3 ####[facility] LABCLIA [id number] [address] GLUCOSE GESTATIONAL, FASTING on 06-07-2024 Glucose post fast [Mass/Vol] 91 mg/dL Normal 74-94 [facility] Comment on above: Order Comment: Terra novak Type: BLOOD SPECIMENOrdering Facility: [facility] Address: [address] [place] [address] Result Comment: [facility] Congress of Obstetricians and Gynecologists ([place]/Coustan) guidelines state gestational diabetes mellitus is present when 2 or more of the plasma glucose concentrations meet or exceed the following levels: fastin mg/dl, 1 hr: 180 mg/dl, 2 hr: 155 mg/dl, and 3 hr: 140 mg/dl. Performed By: #### G TGSTF ####[facility] LABCLIA [id number] [address] OF [facility] CNPAngely 06-06-2024 CNPN Telephone (OBGYWM) ----- JARVIS KING ([id number]) 1995 F Date Time Provider Department 06/06/24 [...] 3-HR, 100 GM, FASTING [SQGTGST3] Order #: [id number] FUTURE Prescriptions as of 06/06/2024 - BABY ASPIRIN ORAL Take 81 mg by mouth once daily. - pyridoxine, vitamin B6, (VITAMIN B-6) 50 mg cap Take by mouth. - 25-IRON IIJ-CGTCO-QRI ORAL Take by mouth. - valACYclovir (VALTREX) [...] glucose complicating [O99.81*06/06/2024 Encounter Status:Closed by CONCHA BAIERS on 06/06/24 Normal [facility] [place] 06-05-2024 CNPN Telephone (OBGYWM) ----- CHRISTINEJARVIS R ([id number]) 1995 F Date Time Provider Department 06/05/24 [...] mg cap Take by mouth. - 25-IRON NUK-OEIXF-FUH ORAL Take by mouth. - valACYclovir (VALTREX) [...] Status:Closed by ELSIE LAUREN on 06/05/24 Normal [facility] CBC W Auto Differential pane l (Bld)on 06-03-2024 Basophils (Bld) [#/Vol] 0.03 10*3/uL Normal <0.11 [facility] Comment on above: Order Comment: Speci men Type: BLOOD SPECIMENOrdering Facility: [facility] Address: [address] [place] [address] Performed By: #### 5 7021-8 ####[facility] LABCLIA [id number] [place] [address] [place] Basophils/100 WBC (Bld) 0.3 % Normal [facility] Comment on above: Order Comment: Speci men Type: BLOOD SPECIMENOrdering Facility: [facility] Address: [address] [place] [address] Performed By: #### 5 7021-8 ####[facility] LABCLIA [id number] [place] [address] [place] Differential cell count method Nom (Bld) Auto Normal [facility] Comment on above: Order Comment: Speci men Type: BLOOD SPECIMENOrdering Facility: [facility] Address: [address] [place] [address] Performed By: #### 5 7021-8 ####[facility] LABCLIA [id number] [place] [address] [place] Eosinophils (Bld) [#/Vol] 0.09 10*3/uL Normal <0.46 [facility] Comment on above: Order Comment: Speci men Type: BLOOD SPECIMENOrdering Facility: [facility] Address: [address] [place] [address] Performed By: #### 5 7021-8 ####[facility] LABCLIA [id number] [place] [address] [place] Eosinophils/100 WBC (Bld) 1.0 % Normal [facility] Comment on above: Order Comment: Speci men Type: BLOOD SPECIMENOrdering Facility: [facility] Address: [address] [place] [address] Performed By: #### 5 7021-8 ####[facility] LABIA [id number] [place] [address] [place] Erythrocyte distribution width (RBC) [Ratio] 12.4 % Normal 11.5-15.0 [facility] Comment on above: Order Comment: Speci men Type: BLOOD SPECIMENOrdering Facility: [facility] Address: [address] [place] [address] Performed By: #### 5 7021-8 ####[facility] LABIA [id number] [place] [address] [place] Hematocrit (Bld) [Volume fraction] 34.4 % Low 36.0-46.0 [facility] Comment on above: Order Comment: Speci men Type: BLOOD SPECIMENOrdering Facility: [facility] Address: [address] [place] [address] Performed By: #### 5 7021-8 ####[facility] [id number] [place] [address] [place] Hemoglobin (Bld) [Mass/Vol] 11.3 g/dL Low 11.5-15.5 [facility] Comment on above: Order Comment: Speci men Type: BLOOD SPECIMENOrdering Facility: [facility] Address: [address] [place] [address] Performed By: #### 5 7021-8 ####[facility] LABIA [id number] [place] [address] [place] Immature granulocytes (Bld) [#/Vol] 0.19 10*3/uL High <0.10 [facility] Comment on above: Order Comment: Speci men Type: BLOOD SPECIMENOrdering Facility: [facility] Address: [address] [place] [address] Performed By: #### 5 7021-8 ####[facility] LABCLIA [id number] [place] [address] [place] Immature granulocytes/100 WBC (Bld) 2.1 % Normal [facility] Comment on above: Order Comment: Speci men Type: BLOOD SPECIMENOrdering Facility: [facility] Address: [address] [place] [address] Performed By: #### 5 7021-8 ####[facility] LABCLIA [id number] [place] [address] [place] Lymphocytes (Bld) [#/Vol] 1.71 10*3/uL Normal 1.00-4.00 [facility] Comment on above: Order Comment: Speci men Type: BLOOD SPECIMENOrdering Facility: [facility] Address: [address] [place] [address] Performed By: #### 5 7021-8 ####[facility] LABCLIA [id number] [place] [address] [place] Lymphocytes/100 WBC (Bld) 18.8 % Normal [facility] Comment on above: Order Comment: Speci men Type: BLOOD SPECIMENOrdering Facility: [facility] Address: [address] [place] [address] Performed By: #### 5 7021-8 ####[facility] LABCLIA [id number] [place] [address] [place] MCH (RBC) [Entitic mass] 31.6 pg Normal 26.0-34.0 [facility] Comment on above: Order Comment: Speci men Type: BLOOD SPECIMENOrdering Facility: [facility] Address: [address] [place] [address] Performed By: #### 5 7021-8 ####[facility] LABCLIA [id number] [place] [address] [place] MCHC (RBC) [Mass/Vol] 32.8 g/dL Normal 30.5-36.0 [facility] Comment on above: Order Comment: Speci men Type: BLOOD SPECIMENOrdering Facility: [facility] Address: [address] [place] [address] Performed By: #### 5 7021-8 ####[facility] LABIA [id number] [place] [address] [place] MCV (RBC) [Entitic vol] 96.1 fL Normal 80.0-100.0 [facility] Comment on above: Order Comment: Speci men Type: BLOOD SPECIMENOrdering Facility: [facility] Address: [address] [place] [address] Performed By: #### 5 7021-8 ####[facility] LABIA [id number] [place] [address] [place] Monocytes (Bld) [#/Vol] 0.96 10*3/uL High <0.87 [facility] Comment on above: Order Comment: Speci men Type: BLOOD SPECIMENOrdering Facility: [facility] Address: [address] [place] [address] Performed By: #### 5 7021-8 ####[facility] LABIA [id number] [place] [address] [place] Monocytes/100 WBC (Bld) 10.6 % Normal [facility] Comment on above: Order Comment: Speci men Type: BLOOD SPECIMENOrdering Facility: [facility] Address: [address] [place] [address] Performed By: #### 5 7021-8 ####[facility] LABIA [id number] [place] [address] [place] Neutrophils (Bld) [#/Vol] 6.10 10*3/uL Normal 1.45-7.50 [facility] Comment on above: Order Comment: Speci men Type: BLOOD SPECIMENOrdering Facility: [facility] Address: [address] [place] [address] Performed By: #### 5 7021-8 ####[facility] LABCLIA [id number] [place] [address] [place] Neutrophils/100 WBC (Bld) 67.2 % Normal [facility] Comment on above: Order Comment: Speci men Type: BLOOD SPECIMENOrdering Facility: [facility] Address: [address] [place] [address] Performed By: #### 5 7021-8 ####[facility] LABCLIA [id number] [place] [address] [place] Nucleated RBC (Bld) [#/Vol] 10*3/uL Normal <0.01 [facility] Comment on above: Order Comment: Speci men Type: BLOOD SPECIMENOrdering Facility: [facility] Address: [address] [place] [address] Performed By: #### 5 7021-8 ####[facility] LABIA [id number] [place] [address] [place] Nucleated RBC/100 WBC (Bld) [Ratio] 0.0 /100 WBC Normal [facility] Comment on above: Order Comment: Speci men Type: BLOOD SPECIMENOrdering Facility: [facility] Address: [address] [place] [address] Performed By: #### 5 7021-8 ####[facility] LABIA [id number] [place] [address] [place] Platelet mean volume (Bld) [Entitic vol] 10.9 fL Normal 9.0-12.7 [facility] Comment on above: Order Comment: Speci men Type: BLOOD SPECIMENOrdering Facility: [facility] Address: [address] [place] [address] Performed By: #### 5 7021-8 ####[facility] LABIA [id number] [place] [address] [place] Platelets (Bld) [#/Vol] 201 10*3/uL Normal 150-400 [facility] Comment on above: Order Comment: Speci men Type: BLOOD SPECIMENOrdering Facility: [facility] Address: [address] [place] [address] Performed By: #### 5 7021-8 ####[facility] LABCLIA [id number] [place] [address] [place] RBC (Bld) [#/Vol] 3.58 10*6/uL Low 3.90-5.20 [facility] Comment on above: Order Comment: Speci men Type: BLOOD SPECIMENOrdering Facility: [facility] Address: [address] [place] [address] Performed By: #### 5 7021-8 ####[facility] LABCLIA [id number] [place] [address] [place] WBC (Bld) [#/Vol] 9.08 10*3/uL Normal 3.70-11.00 [facility] Comment on above: Order Comment: Speci men Type: BLOOD SPECIMENOrdering Facility: [facility] Address: [address] [place] [address] Performed By: #### 5 7021-8 ####[facility] LABCLIA [id number] [place] [id number] [place] Examination level ultrasound on 06-03-2024 [facility] Radiology Study observation (narrative) [facility] GESTATIONAL GLUCOSE SCREEN, 1-HOUR, 50 GRAM, NON-FASTINGon 06-03-2024 Glucose [Mass/Vol] 174 mg/dL High 74-134 [facility] Comment on above: Order Comment: Speci men Type: BLOOD SPECIMENOrdering Facility: [facility] Address: [address] [place] [address] Result Comment: [facility] Congress of Obstetricians and Gynecologists (Andra/Halina) guidelines state a gestational diabetes mellitus positive screen is made, in women not previously diagnosed with overt diabetes, when the 1 hr plasma glucose level is equal to or above 140 mg/dL. [facility] Senior Application Programmer and [facility] [place] recommends a 135 mg/dL cutoff. Performed By: #### G LTGST ####[facility] LABIA [id number] [place] [address] [place] Reagin and Treponema pallidu m IgG and IgM [Interp]on 06-03-2024 T. pallidum IgG+IgM IA Ql (S) Non-Reactive Normal Nonreactive [facility] Comment on above: Order Comment: Speci men Type: BLOOD SPECIMENOrdering Facility: [facility] Address: [address] [place] [address] Performed By: #### 7 3752-8 ####[facility] LABIA [id number] [place] [address] [place] Reagin+T pallidum IgG+IgM Se rPl-Impon 06-03-2024 Reagin and Treponema pallidum IgG and IgM [Interp] Cannot exclude recent Treponemal infection if specimen collected within 7-10 days after appearance of suspect lesions or 2-3 weeks after an exposure. Clinical correlation is required. Normal [facility] Comment on above: Order Comment: Speci men Type: BLOOD SPECIMENOrdering Facility: [facility] Address: [address] [place] [address] Performed By: #### 7 3752-8 ####[facility] [id number] [place] [address] [place] Examination level ultrasound [...] Biometry Standard EFW by: [employer]lock (HC-AC-FL) Extended Technical Sales Representatives 6.5 mm Other Structures FHR 153 bpm Fetus B: Biometry Standard EFW by: [employer]lock (HC-AC-FL) Extended Technical Sales Representatives 4.9 mm Other Structures FHR 151 bpm Performed By: Leatha Pickett RDMS, RVT Read By: Stephanie Barrera MD. MATERNAL MEDICINE [facility] CNOVon 05-14-2024 CNOV Office Visit (OBGYWM ) ----- JARVIS KING ([id number]) 1995 F Date Time Provider Department 05/14/24 2:30 PM REBECCA FONTANEZ OBBARTWCeleste During your visit today, we recorded the following information about you: Blood pressure Weight 114/56 77.5 kg Phani Casiano MA 05/14/2024 1:17 PM Signed SEQUENTIAL SCREENINGS [facility] offers sequential screenings for women who are [...] It will require an appointment with our air conditioning service technician. This is not an ultrasound performed [...] the above symptoms, contact our office at [phone] and ask to speak with a nurse. After hours, you can call doctors registry at [phone] OR call [facility] at [phone] and ask to have the doctor tongue binder paged. If you consider this an emergency, dial [phone] or go to your nearest emergency department. NEED HELP? Are you dealing with a violent or abusive relationship? Are you a victim of rape or sexual assult? Call [facility] ([place]) 24 hour Crisis Hotline: 789.315.7040 or 677-693-2853. MANUAL Your Guide to a Healthy manual is now on-line. Visit [email or web address] to download your free copy Rebecca [...] of multiple gestation [O35.9XX2] Order(s): NON-STRESS TEST [[id number]] Order #: [id number] STANDING Prescriptions as of 05/14/2024 - BABY ASPIRIN ORAL Take 81 mg by mouth once daily. - pyridoxine, vitamin B6, (VITAMIN B-6) 50 mg cap Take by mouth. - 25-IRON [id number] ORAL Take by mouth. - valACYclovir (VALTREX) [...] pregnanc*02/05/2024 05/14/2024 (more content not included)... Normal [facility] Examination level ultrasound on 05-14-2024 Radiology Study observation (narrative) [facility] Examination level ultrasound on 05-06-2024 [facility] Radiology Study observation (narrative) [facility] CNOVon 04-15-2024 CNOV Office Visit (OBGYWM ) ----- JARVIS KING ([id number]) 1995 F Date Time Provider Department 04/15/24 2:30 PM BLANCA SKELTON During your visit today, we recorded the following information about you: Blood pressure Weight 108/64 74.4 kg Phani Casiano MA 04/15/2024 2:29 PM Signed SEQUENTIAL SCREENINGS [facility] offers sequential screenings for women who are [...] It will require an appointment with our air conditioning service technician. This is not an ultrasound performed [...] the above symptoms, contact our office at [phone] and ask to speak with a nurse. After hours, you can call doctors registry at [phone] OR call [facility] at [phone] and ask to have the doctor tongue binder paged. If you consider this an emergency, dial 1-4-4 or go to your nearest emergency department. NEED HELP? Are you dealing with a violent or abusive relationship? Are you a victim of rape or sexual assult? Call [facility] ([place]) 24 hour Crisis Hotline: 194.880.4570 or 748-626-8527. MANUAL Your Guide to a Healthy manual is now on-line. Visit [email or web address] to download your free copy [...] mg cap Take by mouth. - 25-IRON JIS-[id number] ORAL Take by mouth. - valACYclovir (VALTREX) [...] instructions from your clinician: SEQUENTIAL SCREENINGS [facility] offers sequential screenings for women who are interested in screenings for chromosomal abnormalities and certain defects during a . The sequential screen combines ultrasound and blood tests to determine the risk o (more content not included)... Normal [facility] ALPHA FETOPRO MATERNALon AFP, MATERNAL 0.60 MoM Normal [facility] Comment on above: Order Comment: Speci men Type: BLOOD SPECIMENOrdering Facility: [facility] Address: [address] [place] [address] Result Comment: 65.5 7 ng/mL Performed By: #### A FPMAT ####[facility] LABCLIA [id number] [place] [id number] [place] DATE OF COLLECTION #1 04/08/24 Normal [facility] Comment on above: Order Comment: Speci men Type: BLOOD SPECIMENOrdering Facility: [facility] Address: [address] [place] [address] Performed By: #### A FPMAT ####[facility] LABCLIA [id number] [place] [id number] [place] DATE RECEIVED 04/09/24 [facility] Comment on above: Order Comment: Speci men Type: BLOOD SPECIMENOrdering Facility: [facility] Address: [address] [place] [address] Performed By: #### A FPMAT ####[facility] LABCLIA [id number] [place] [id number] [place] LIZZY 09/01/24 Normal [facility] Comment on above: Order Comment: Speci men Type: BLOOD SPECIMENOrdering Facility: [facility] Address: [address] [place] [address] Performed By: #### A FPMAT ####[facility] LABCLIA [id number] [place] [address] [place] GESTATION AT DATE OF SAMPLE 19 weeks 1 days (by scan) Normal [facility] Comment on above: Order Comment: Speci men Type: BLOOD SPECIMENOrdering Facility: [facility] Address: [address] [place] [address] Performed By: #### A FPMAT ####[facility] LABCLIA [id number] [place] [address] [place] INSULIN DEPENDENT DIABETES None Normal [facility] Comment on above: Order Comment: Surendrai men Type: BLOOD SPECIMENOrdering Facility: [facility] Address: [address] [place] [address] Performed By: #### A FPMAT ####[facility] LABCLIA [id number] [place] [address] [place] IVF No Normal [facility] Comment on above: Order Comment: Terra novak Type: BLOOD SPECIMENOrdering Facility: [facility] Address: [address] [place] [address] Performed By: #### A FPMAT ####[facility] LABCLIA [id number] [place] [address] [place] MATERNAL AFP COMMENT See comments below Normal [facility] Comment on above: Order Comment: Speci men Type: BLOOD SPECIMENOrdering Facility: [facility] Address: [address] [place] [address] Result Comment: INTE RPRETATION Screening result : Screen negative Risk of NTD : 1 in 1,700 Comment : The interpretation is for NTD only A screen negative result does not exclude the possibility of a neural tube defect, because screening does not detect all affected pregnancies Performed By: #### A FPMAT ####[facility] LABCLIA [id number] [place] [address] [place] MATERNAL AGE AT LIZZY 29 years Normal [facility] Comment on above: Order Comment: Speci men Type: BLOOD SPECIMENOrdering Facility: [facility] Address: [address] [place] [address] Performed By: #### A FPMAT ####[facility] LABIA [id number] [place] [address] [place] PATIENT'S WEIGHT DAY OF COLLECTION 159 lb. Normal [facility] Comment on above: Order Comment: Terra novak Type: BLOOD SPECIMENOrdering Facility: [facility] Address: [address] [place] [address] Performed By: #### A FPMAT ####[facility] LABCLIA [id number] [place] [address] [place] INTERP-MATERNAL AFP Negative Normal Screen Negative [facility] Comment on above: Order Comment: Terra novak Type: BLOOD SPECIMENOrdering Facility: [facility] Address: [address] [place] [address] Performed By: #### A FPMAT ####[facility] LABCLIA [id number] [place] [address] [place] PREVIOUS NTD None Normal [facility] Comment on above: Order Comment: Terra novak Type: BLOOD SPECIMENOrdering Facility: [facility] Address: [address] [place] [address] Performed By: #### A FPMAT ####[facility] LABCLIA [id number] [place] [address] [place] RISK OF NTD ;1:1700 Normal [facility] Comment on above: Order Comment: Speci men Type: BLOOD SPECIMENOrdering Facility: [facility] Address: [address] [place] [address] Performed By: #### A FPMAT ####[facility] LABIA [id number] [address] SAMPLE #1 [id number] Normal [facility] Comment on above: Order Comment: Speci men Type: BLOOD SPECIMENOrdering Facility: [facility] Address: [address] [place] [address] Performed By: #### A FPMAT ####[facility] [id number] [address] STAFF REVIEW (MATERNAL SCREENS) Reviewed by Aron Gruber MD, Ph.D ([id number]) Normal [facility] Comment on above: Order Comment: Speci men Type: BLOOD SPECIMENOrdering Facility: [facility] Address: [address] [place] [address] Performed By: #### A FPMAT ####[facility] [id number] [address] CNPAngely 04-05-2024 CNPN Telephone (OBGYWM) ----- JARVIS KING ([id number]) 1995 F Date Time Provider Department 04/05/24 [...] twin in second trimester [O30.042] Order(s):OBSTETRIC ULTRASOUND [facility] [[id number]] Order #: [id number]: 1 FUTURE Prescriptions as of 04/05/2024 - pyridoxine, vitamin B6, (VITAMIN B-6) 50 mg cap Take by mouth. - 25-IRON [id number] ORAL Take by mouth. - valACYclovir (VALTREX) [...] Encounter Status:Closed by BLANCA SKELTON on 04/05/24 [facility] CNOVon 03-20-2024 CNOV Office Visit (OBGYWM ) ----- JARVIS KING ([id number]) 1995 F Date Time Provider Department 03/20/24 2:30 PM BLANCA SKELTON OBGYWM During your visit today, we recorded the following information about you: Blood pressure Weight 116/64 72 kg Phani Casiano MA 03/20/2024 2:34 PM Signed SEQUENTIAL SCREENINGS [facility] offers sequential screenings for women who are [...] It will require an appointment with our air conditioning service technician. This is not an ultrasound performed [...] the above symptoms, contact our office at [phone] and ask to speak with a nurse. After hours, you can call doctors registry at [phone] OR call [facility] at [phone] and ask to have the doctor tongue binder paged. If you consider this an emergency, dial 0-5-6 or go to your nearest emergency department. NEED HELP? Are you dealing with a violent or abusive relationship? Are you a victim of rape or sexual assult? Call [facility] ([place]) 24 hour Crisis Hotline: 447.844.2969 or 240-354-5839. MANUAL Your Guide to a Healthy manual is now on-line. Visit [email or web address] to download your free copy Blanca [...] mg cap Take by mouth. - 25-IRON [id number] ORAL Take by mouth. - valACYclovir (VALTREX) [...] instructions from your clinician: SEQUENTIAL SCREENINGS [facility] offers sequential screenings for women who are [...] our ul (more content not included)... Normal [facility] [id number] PLUSon 02-20-2024 Cell-free DNA./Cell-fiordaliza e DNA.total Dosage of chromosome-specifi c cfDNA (cfDNA) [Molar fraction] Normal [facility] Comment on above: Order Comment: Speci men Type: BLOOD SPECIMENOrdering Facility: [facility] Address: [address] [place] [address] Performed By: #### M AT21, [id number], MAT21C ####[facility] LABCLIA [id number] [place] [address] Chr 13+18+21+X+Y aneuploidy Dosage of chromosome-specifi c cfDNA Ql (cfDNA) Abnormal [facility] Comment on above: Order Comment: Speci men Type: BLOOD SPECIMENOrdering Facility: [facility] Address: [address] [place] [address] Result Comment: Test not performed. Performed By: #### M AT21, [id number], MAT21C ####[facility] LABCLIA [id number] [place] [address] Citation Jose Alfredo (Reference lab test) TNP Normal [facility] Comment on above: Order Comment: Speci men Type: BLOOD SPECIMENOrdering Facility: [facility] Address: [address] [place] [address] Result Comment: 1. P yadiel ROMERO, et al. Claudette Med. 2012;14(3):296-305. 2. Radha TATE, et al. Prenat Diag. 2013;33(6):591-597. 3. Estrada Young et al. Clin Chem. 2015 Apr;61(4):608-616. 4. Olman ROMERO, et al. Claudette Med. 2011;13(11):913-920. 5. ACOG/SMFM Practice Bulletin No. 226, Jul 2020. Performed By: #### M AT21, [id number], MAT21C ####[facility] LABCLIA [id number] [place] [address] Gestational age Estimated from conception date Twins Normal [facility] Comment on above: Order Comment: Speci scarlet Type: BLOOD SPECIMENOrdering Facility: [facility] Address: [address] [place] [address] Performed By: #### M AT21, [id number], MAT21C ####[facility] LABCLIA [id number] [place] [address] GESTATIONALAGE AGE > OR = 9W Yes Normal [facility] Comment on above: Order Comment: Terra novak Type: BLOOD SPECIMENOrdering Facility: [facility] Address: [address] [place] [address] Performed By: #### M AT21, [id number], MAT21C ####[facility] LABCLIA [id number] [place] [address] Laboratory comment Jose Alfredo (Report) [facility] Comment on above: Order Comment: Terra novak Type: BLOOD SPECIMENOrdering Facility: [facility] Address: [address] [place] [address] Result Comment: The MaterniT(R) 21 PLUS laboratory-developed test (LDT) analyzes circulating cell-free DNA from a maternal blood sample. This test is used for screening purposes and not diagnostic. Clinical correlation is recommended. Validation data on twin pregnancies is limited and the ability of this test to detect aneuploidy in higher multiple gestations has not yet been validated. Performed By: #### M AT21, [id number], MAT21C ####[facility] LABCLIA [id number] [place] [address] director search marketing strategies name Nom (Provider) [facility] Comment on above: Order Comment: Terra novak Type: BLOOD SPECIMENOrdering Facility: [facility] Address: [address] [place] [address] Result Comment: Test order updated. Sample processing and resulting under different accession number. No action needed. For inquiries, the physician may contact Client Services at [phone]. [facility] Pop Alatorre MD, PhD, Director, [employer] Performed By: #### M AT21, [id number], MAT21 ####[facility] LABCLIA [id number] [place] [address] LIMITATIONS OF THE TEST [facility] Normal [facility] Comment on above: Order Comment: Speci men Type: BLOOD SPECIMENOrdering Facility: [facility] Address: [address] [place] [address] Result Comment: Patricia driscoll the results of [...] and Fragmin(R)). Performed By: #### M AT21, 0651950, MAT21C ####[facility] LABCLIA [id number] [place] [id number] NEGATIVE PREDICTIVE VALUE TNP Normal [facility] Comment on above: Order Comment: Speci men Type: BLOOD SPECIMENOrdering Facility: [facility] Address: [address] [place] [address] Result Comment: The Negative Predictive Value (NPV) for trisomy 21, 18, and 13 is greater than 99%. The NPV for SCA and ESS cannot be calculated as SCA and ESS are only reported when an abnormality is detected. Performed By: #### M AT21, 7055465, MAT21C ####[facility] LABCLIA [id number] [place] [id number] NOTE TNP Normal [facility] Comment on above: Order Comment: Speci scarlet Type: BLOOD SPECIMENOrdering Facility: [facility] Address: [address] [place] [address] Result Comment: [employer]. is a subsidiary of [employer], using the brand [employer]. This test was developed and its performance characteristics determined by [employer]. It has not been cleared or approved by the Food and Drug Administration. This laboratory is certified under the Clinical Laboratory Improvement Amendments (CLIA) as qualified to perform high complexity clinical laboratory testing and accredited by the [employer] [place] (CAP). Performed By: #### M AT21, 4115491, MAT21C ####[facility] LABCLIA [id number] [place] [address] PERFORMANCE CHARACTERISTICS TNP Normal [facility] Comment on above: Order Comment: Terra novak Type: BLOOD SPECIMENOrdering Facility: [facility] Address: [address], [place] [address] Result Comment: ! Sex ! Accuracy: 99.4% [...] gestation only. Performed By: #### Celeste AT21, [id number], ALICIA21C ####[facility] LABBuildingOpsIA [id number] [place] [address] Reference Lab Test Method [facility] Normal [facility] Comment on above: Order Comment: Terra novak Type: BLOOD SPECIMENOrdering Facility: [facility] Address: [address] [place], [place] [address] Result Comment: Circ ulating cell-free DNA was [...] and 22. Performed By: #### M AT21, 0286452, MAT21C ####[facility] LABBuildingOpsIA [id number] [place] [address] Test performance information Jose Alfredo (Unsp spec) [place] Normal [facility] Comment on above: Order Comment: Terra novak Type: BLOOD SPECIMENOrdering Facility: [facility] Address: [address] [place] [address] Result Comment: The performance characteristics of the MaterniT(R) 21 PLUS laboratory-developed test (LDT) have been determined in a clinical validation study with women at increased risk for chromosomal aneuploidy.[1-4] Performed By: #### M AT21, 7959052, MAT21C ####[facility] LABCLIA [id number] [place] [address] [id number]???MULTIPLESon 02-20-2024 Cell-free DNA./Cell-fiordaliza e DNA.total Dosage of chromosome-specifi c cfDNA (cfDNA) [Molar fraction] 7% Normal [facility] Comment on above: Order Comment: Speci men Type: BLOOD SPECIMENOrdering Facility: [facility] Address: [address] [place] [address] Performed By: #### M AT21, 8245133, MAT21C ####[facility] LABCLIA [id number] [place] [address] Chr 13+18+21+X+Y aneuploidy Dosage of chromosome-specifi c cfDNA Ql (cfDNA) Negative Normal [facility] Comment on above: Order Comment: Speci men Type: BLOOD SPECIMENOrdering Facility: [facility] Address: [address] [place] [address] Performed By: #### M AT21, 5315807, MAT21C ####[facility] LABCLIA [id number] [place] [address] Chr 21 trisomy Dosage of chromosome-specifi c cfDNA Ql (cfDNA) Negative Normal [facility] Comment on above: Order Comment: Speci men Type: BLOOD SPECIMENOrdering Facility: [facility] Address: [address] [place] [address] Performed By: #### M AT21, 8652300, MAT21C ####[facility] LABCLIA [id number] [place] [address] Citation Jose Alfredo (Reference lab test) Comment Normal [facility] Comment on above: Order Comment: Speci men Type: BLOOD SPECIMENOrdering Facility: [facility] Address: [address] [place] [address] Result Comment: 1. P yadiel ROMERO, et al. Claudette Med. 2012;14(3):296-305. 2. Radha TATE et al. Prenat Diag. 2013;33(6):591-597. 3. Estrada C, et al. Clin Chem. 2015 Apr;61(4):608-616. 4. Olman ROMERO, et al. Claudette Med. 2011;13(11):913-920. 5. ACOG/SMFM Practice Bulletin No. 226, Jul 2020. Performed By: #### M AT21, 1674653, MAT21C ####[facility] LABCLIA [id number] [place] [id number] Laboratory comment Jose Alfredo (Report) Comment Normal [facility] Comment on above: Order Comment: Surendrai scarlet Type: BLOOD SPECIMENOrdering Facility: [facility] Address: [address] [place] [address] Result Comment: The MaterniT(R) 21 PLUS laboratory-developed test (LDT) analyzes circulating cell-free DNA from a maternal blood sample. This test is used for screening purposes and not diagnostic. Clinical correlation is recommended. Validation data on twin pregnancies is limited and the ability of this test to detect aneuploidy in higher multiple gestations has not yet been validated. Performed By: #### M AT21, 8709566, MAT21C ####[employer] [facility]BuildingOps[facility] [id number] [place] [id number] director search marketing strategies name Nom (Provider) Comment Normal [facility] Comment on above: Order Comment: Speci men Type: BLOOD SPECIMENOrdering Facility: [facility] Address: [address] [place] [address] Result Comment: This specimen showed an expected [...] information. Comment Pop Alatorre MD, PhD, Director, [employer] Performed By: #### M AT21, [id number], MAT21 ####[facility] LABCLIA [id number] [place] [address] LIMITATIONS OF THE TEST Comment Normal [facility] Comment on above: Order Comment: Speci men Type: BLOOD SPECIMENOrdering Facility: [facility] Address: [address] [place] [address] Result Comment: Patricia driscoll the results of [...] and Fragmin(R)). Performed By: #### M AT21, 2445292, MAT21C ####[facility] LABCLIA [id number] [place] [address] NEGATIVE PREDICTIVE VALUE Note Normal [facility] Comment on above: Order Comment: Speci men Type: BLOOD SPECIMENOrdering Facility: [facility] Address: [address] [place] [address] Result Comment: The Negative Predictive Value (NPV) for trisomy 21, 18, and 13 is greater than 99%. The NPV for SCA and ESS cannot be calculated as SCA and ESS are only reported when an abnormality is detected. Performed By: #### M AT21, 7091585, MAT21C ####[facility] LABCLIA [id number] [place] [id number] NOTE Comment Normal [facility] Comment on above: Order Comment: Speci men Type: BLOOD SPECIMENOrdering Facility: [facility] Address: [address] [place] [address] Result Comment: See Notes [employer]. is a subsidiary of [employer], using the brand [employer]. This test was developed and its performance characteristics determined by [employer]. It has not been cleared or approved by the Food and Drug Administration. This laboratory is certified under the Clinical Laboratory Improvement Amendments (CLIA) as qualified to perform high complexity clinical laboratory testing and accredited by the [employer] (CAP). Performed By: #### M AT21, 9508704, MAT21C ####[facility] LABCLIA [id number] [place] [address] PERFORMANCE CHARACTERISTICS Note Normal [facility] Comment on above: Order Comment: Speci men Type: BLOOD SPECIMENOrdering Facility: [facility] Address: [address], [place] [address] Result Comment: ! Sex ! Accuracy: 99.4% [...] gestation only. Performed By: #### M AT21, 3330320, MAT21C ####[employer] [facility] [employer] [facility]Ops[facility] [id number] [place] [address] POSITIVE PREDICTIVE VALUE N/A Normal [facility] Comment on above: Order Comment: Terra novak Type: BLOOD SPECIMENOrdering Facility: [facility] Address: [address] [place] [address] Performed By: #### M AT21, [id number], MAT21C ####[employer] [facility] [employer] LABCLIA [id number] [place] [address] Reference Lab Test Method Comment Normal [facility] Comment on above: Order Comment: Terra novak Type: BLOOD SPECIMENOrdering Facility: [facility] Address: [address] [place] [address] Result Comment: See Notes Circulating cell-free DNA [...] and 22. Performed By: #### M AT21, [id number], MAT21C ####[facility] LABCLIA [id number] [place] [address] Sex Dosage of chromosome-specifi c cfDNA Nom (cfDNA) Comment Normal [facility] Comment on above: Order Comment: Speci men Type: BLOOD SPECIMENOrdering Facility: [facility] [facility] Address: [address] [place] [address] Result Comment: Cons istent with Male Performed By: #### M AT21, [id number], MAT21C ####[facility] LABCLIA [id number] [place] [address] Test performance information Jose Alfredo (Unsp spec) Comment Normal [facility] Comment on above: Order Comment: Speci men Type: BLOOD SPECIMENOrdering Facility: [facility] Address: [address] [place] [address] Result Comment: The performance characteristics of the MaterniT(R) 21 PLUS laboratory-developed test (LDT) have been determined in a clinical validation study with women at increased risk for chromosomal aneuploidy.[1-4] Performed By: #### M AT21, [id number], MAT21C ####[facility] LABCLIA [id number] [place] [address] Trisomy 13 risk Dosage of chromosome-specifi c cfDNA Ql (cfDNA) [Interp] Negative Normal [facility] Comment on above: Order Comment: Speci men Type: BLOOD SPECIMENOrdering Facility: [facility] Address: [address] [place] [address] Performed By: #### M AT21, 4719580, MAT21C ####[facility] LABCLIA [id number] [place] [address] Trisomy 18 risk Dosage of chromosome-specifi c cfDNA Ql (Plasma cell-free+WBC DNA) [Interp] Negative Normal [facility] Comment on above: Order Comment: Speci men Type: BLOOD SPECIMENOrdering Facility: [facility] Address: [address] [place] [address] Performed By: #### M AT21, 7253177, MAT21C ####[facility] LABCLIA [id number] [place] [address] SPECIMEN STATUS REPORTon SPECIMEN STATUS REPORT Comment Normal [facility] Comment on above: Order Comment: Speci men Type: BLOOD SPECIMENOrdering Facility: [facility] Address: [address] [place] [address] Result Comment: Writ ten Authorization Written Authorization Written Authorization Received. Authorization received from ELSIE MORENO MD 02-23-2024 Logged by Sandeep Sotelo Performed By: #### M AT21, 9268661, MAT21C ####[facility] LABCLIA [id number] [place] [address] B-HCG SerPl-aCncon 4 HCG.beta subunit Qn 457180.0 m[IU]/mL High <5.0 [facility] Comment on above: Order Comment: Speci men Type: BLOOD SPECIMENOrdering Facility: [facility] Address: [address] [place] [address] Result Comment: LYLA TITATIVE HCG NORMAL RANGES Weeks of Gestation (Weeks Since LMP) 3 Weeks (5.8-71.2 mIU/mL) 4 Weeks (9.5-750 mIU/mL) 5 Weeks (217-7138 mIU/mL) 6 Weeks (158-91805 mIU/mL) 7 Weeks (3697-460766 mIU/mL) 8 Weeks (26244-455558 mIU/mL) 9 Weeks (55937-044203 mIU/mL) 10 Weeks (89546-438575 mIU/mL) 12 Weeks (25757-706841 mIU/mL) Referenced to 4th IS of [facility] Performed By: #### 2 1198-7 ####[facility] LABCLIA [id number] [place] [address] [place] CBC panel Auto (Bld)on 02-18 Erythrocyte distribution width (RBC) [Ratio] 12.1 % Normal 11.5-15.0 [facility] Comment on above: Order Comment: Speci men Type: BLOOD SPECIMENOrdering Facility: [facility] Address: [address] [place] [address] Performed By: #### 5 8410-2 ####[facility] TRUDYNCSHAKILAA [id number] [place] [address] [place] Hematocrit (Bld) [Volume fraction] 34.5 % Low 36.0-46.0 [facility] Comment on above: Order Comment: Speci men Type: BLOOD SPECIMENOrdering Facility: [facility] Address: [address] [place] [address] Performed By: #### 5 8410-2 ####[facility] VIPINNORTH WATERBORONCLIA [id number] [place] [address] [place] Hemoglobin (Bld) [Mass/Vol] 11.8 g/dL Normal 11.5-15.5 [facility] Comment on above: Order Comment: Speci men Type: BLOOD SPECIMENOrdering Facility: [facility] Address: [address] [place] [address] Performed By: #### 5 8410-2 ####[facility] ERNCLIA [id number] [place] [address] [place] MCH (RBC) [Entitic mass] 30.5 pg Normal 26.0-34.0 [facility] Comment on above: Order Comment: Speci men Type: BLOOD SPECIMENOrdering Facility: [facility] Address: [address] [place] [address] Performed By: #### 5 8410-2 ####[facility] ERNCLIA [id number] [place] [address] [place] MCHC (RBC) [Mass/Vol] 34.2 g/dL Normal 30.5-36.0 [facility] Comment on above: Order Comment: Speci men Type: BLOOD SPECIMENOrdering Facility: [facility] Address: [address] [place] [address] Performed By: #### 5 8410-2 ####[facility] VIPINMarlenaNCLIA [id number] [place] [address] [place] MCV (RBC) [Entitic vol] 89.1 fL Normal 80.0-100.0 [facility] Comment on above: Order Comment: Speci men Type: BLOOD SPECIMENOrdering Facility: [facility] Address: [address] [place] [address] Performed By: #### 5 8410-2 ####[facility] ERNCLIA [id number] [place] [address] [place] Nucleated RBC (Bld) [#/Vol] 10*3/uL Normal <0.01 [facility] Comment on above: Order Comment: Speci men Type: BLOOD SPECIMENOrdering Facility: [facility] Address: [address] [place] [address] Performed By: #### 5 8410-2 ####[facility] ERNCLIA [id number] [place] [address] [place] Platelet mean volume (Bld) [Entitic vol] 10.4 fL Normal 9.0-12.7 [facility] Comment on above: Order Comment: Speci men Type: BLOOD SPECIMENOrdering Facility: [facility] Address: [address] [place] [address] Performed By: #### 5 8410-2 ####[facility] ERNCLIA [id number] [place] [address] [place] Platelets (Bld) [#/Vol] 250 10*3/uL Normal 150-400 [facility] Comment on above: Order Comment: Speci men Type: BLOOD SPECIMENOrdering Facility: [facility] Address: [address] [place] [address] Performed By: #### 5 8410-2 ####[facility] [id number] [place] [address] [place] RBC (Bld) [#/Vol] 3.87 10*6/uL Low 3.90-5.20 [facility] Comment on above: Order Comment: Speci men Type: BLOOD SPECIMENOrdering Facility: [facility] Address: [address] [place] [address] Performed By: #### 5 8410-2 ####[facility] ERNCLIA [id number] [place] [address] [place] WBC (Bld) [#/Vol] 10.51 10*3/uL Normal 3.70-11.00 [facility] Comment on above: Order Comment: Speci men Type: BLOOD SPECIMENOrdering Facility: [facility] Address: [address] [place] [address] Performed By: #### 5 8410-2 ####[facility] VIPINNORTH WATERBORONCLIA [id number] OF [facility] CNPNon 02-19-2024 CNPN Telephone (OBGYWM) ----- JARVIS KING ([id number]) 1995 F Date Time Provider Department 02/19/24 [...] MA - Fully Assessed Reason for Visit: [id number] Order [Other] Primary Visit Diagnosis:Dichorionic diamniotic twin in first trimester [O30.041] Order(s):[id number] PLUS [SQMAT21] Order #: [id number] FUTURE Prescriptions as of 02/19/2024 - pyridoxine, vitamin B6, (VITAMIN B-6) 50 mg cap Take by mouth. - 25-IRON XRN-GNDSV-BPW ORAL Take by mouth. - valACYclovir (VALTREX) [...] Status:Closed by ELSIE MORENO on 02/19/24 Normal [facility] nuchal translucency me asured by Callie 02-19-2024 Indication First trimester screening Di-Di twins Impression REMOTE READ 1. Live, dichorionic/diamniotic twin . 2. Correll rump length measurement is consistent with the [...] Read By: Steph Seth M.D. MATERNAL MEDICINE [facility] Radiology Study observation (narrative) [facility] HBV surface Ag Ser Qlon 01-29 HBV surface Ag Ql (S) Negative Normal Negative [facility] Comment on above: Order Comment: Speci men Type: BLOOD SPECIMENOrdering Facility: [facility] Address: [address] [place] [address] Performed By: #### 5 195-3, 97434-1, 68331-5 ####[facility] LABCLIA [id number] [place] [address] [place] HCV Ab Ser Qlon 02-19-2024 HCV Ab Ql (S) Negative Normal Negative [facility] Comment on above: Order Comment: Speci men Type: BLOOD SPECIMENOrdering Facility: [facility] Address: [address] [place] [address] Result Comment: The result suggests no evidence of active infection with Hepatitis C virus. Should recent infection be suspected, repeat testing may be considered 4-6 weeks after this draw. Performed By: #### 1 6128-1 ####[facility] LABCLIA [id number] [place] [address] [place] HIV 1+2 Ab IA Qlon HIV 1 and 2 Ab IA.rapid Nom (S/P/Bld) Normal [facility] Comment on above: Order Comment: Speci men Type: BLOOD SPECIMENOrdering Facility: [facility] Address: [address] [place] [address] Result Comment: Test not indicated. Performed By: #### 5 195-3, 96546-6, 76935-3 ####[facility] LABCLIA [id number] [place] [address] [place] HIV 1+2 Ab+HIV1 p24 Ag IA Ql Non-Reactive Normal Nonreactive [facility] Comment on above: Order Comment: Speci men Type: BLOOD SPECIMENOrdering Facility: [facility] Address: [address] [place] [address] Performed By: #### 5 195-3, 72787-5, 27789-5 ####[facility] LABCLIA [id number] [place] [address] [place] HIV immunoassay testing algorithm interpretation (S/P/Bld) [Interp] Normal [facility] Comment on above: Order Comment: Speci men Type: BLOOD SPECIMENOrdering Facility: [facility] Address: [address] [place] [address] Result Comment: No e vidence of HIV-1 or HIV-2 infection. Should recent infection be suspected, repeat testing may be considered 2-3 weeks after this draw. [place] Rev. Code 3701.243(E): This information has been [...] or diagnoses. Performed By: #### 5 195-3, 90460-3, 26130-5 ####[facility] LABCLIA [id number] [address] [place] HbA1c (Bld)on 02-19-2024 Average glucose Estimated from glycated hemoglobin (Bld) [Mass/Vol] 108 mg/dL Normal [facility] Comment on above: Order Comment: [facility] Type: BLOOD SPECIMENOrdering Facility: [facility] Address: [address] [place] [address] Result Comment: eAG: (Estimated average glucose) is a calculated value from HgbA1c and is airport representative of the average blood glucose level in the last 2-3 month period. Performed By: #### 5 5454-3 ####[facility] LABIA [id number] [address] [place] HbA1c (Bld) [Mass fraction] 5.4 % Normal 4.3-5.6 [facility] Comment on above: Order Comment: Terra novak Type: BLOOD SPECIMENOrdering Facility: [facility] Address: [address] [place] [address] Result Comment: Amer [place] Diabetes Association guidelines indicate that patients with HgbA1c in the range 5.7-6.4% are at increased risk for development of diabetes, and intervention by lifestyle modification may be beneficial. HgbA1c greater or equal to 6.5% is considered diagnostic of diabetes. Performed By: #### 5 5454-3 ####[facility] LABCLIA [id number] [place] [address] [place] RUBELLA IGG ANTIBODYon 02-18 RUBELLA IGG AB, QUAL Positive Normal Positive [facility] Comment on above: Order Comment: Speci men Type: BLOOD SPECIMENOrdering Facility: [facility] Address: [address] [place] [address] Result Comment: The result suggests recent or past exposure to Rubella virus or history of Rubella vaccination. Positive result may also be seen due to presence of passively-transferred antibodies. Please correlate with patient's history. Performed By: #### R UBIGG ####[facility] LABCLIA [id number] [place] [address] [place] Reagin and Treponema pallidu m IgG and IgM [Interp]on 02-19-2024 T. pallidum IgG+IgM IA Ql (S) Non-Reactive Normal Nonreactive [facility] Comment on above: Order Comment: Speci men Type: BLOOD SPECIMENOrdering Facility: [facility] Address: [address] [place] [address] Performed By: #### 5 195-3, 57682-0, 13527-9 ####[facility] LABCLIA [id number] [place] [address] [place] Reagin+T pallidum IgG+IgM Se rPl-Impon 02-19-2024 Reagin and Treponema pallidum IgG and IgM [Interp] Cannot exclude recent Treponemal infection if specimen collected within 7-10 days after appearance of suspect lesions or 2-3 weeks after an exposure. Clinical correlation is required. Normal [facility] Comment on above: Order Comment: Speci men Type: BLOOD SPECIMENOrdering Facility: [facility] Address: [address] [place] [address] Performed By: #### 5 195-3, 19817-3, 32773-1 ####[facility] LABCLIA [id number] [place] [address] [place] TYPE + SCREEN PRENATALon ABO O Normal [facility] Comment on above: Order Comment: Speci men Type: BLOOD SPECIMENOrdering Facility: [facility] Address: [address] [place] [address] Performed By: #### T SPN ####[facility] BLOOD BANKCLIA [id number] [place] [address] [place] HISTORICAL AB SCR STATUS Negative Normal [facility] Comment on above: Order Comment: Speci men Type: BLOOD SPECIMENOrdering Facility: [facility] Address: [address] [place] [address] Performed By: #### T SPN ####[facility] BLOOD BANKIA [id number] [place] [address] [place] Rh Nom (Bld) Positive Normal [facility] Comment on above: Order Comment: Speci men Type: BLOOD SPECIMENOrdering Facility: [facility] Address: [address] [place] [address] Performed By: #### T SPN ####[facility] BLOOD BANKIA [id number] [place] [address] [place] TYPE AND SCREEN EXPIRATION 02/22/2024 23:59 Normal [facility] Comment on above: Order Comment: Speci men Type: BLOOD SPECIMENOrdering Facility: [facility] Address: [address] [place] [address] Performed By: #### T SPN ####[facility] BLOOD BANKCLIA [id number] [place] [address] [place] Bacteria Ur Culton 4 Bacteria identified Cx Nom (U) ORGANISM ID: 1 10,000 -<50,000 CFU/ml Normal urogenital virgilio Normal [facility] Comment on above: Performed By: #### 6 30-4 ####[facility] LABCLIA [id number] [place] [address] [place] C. trachomatis+N. gonorrhoea e DNA FELIX+probe Ql (Unsp spec)on 02-05-2024 C. trachomatis rRNA FELIX+probe Ql (Unsp spec) Negative Normal Negative for Chlamydia trachomatis by amplificaton [facility] Comment on above: Order Comment: Speci men Type: SWABOrdering Facility: [facility] Address: [address] [place] [address] Performed By: #### 3 6902-5 ####[facility] LABCLIA [id number] [address] [place] N. gonorrhoeae rRNA FELIX+probe Ql (Unsp spec) Negative Normal Negative for Neisseria gonorrhoeae by amplification [facility] Comment on above: Order Comment: Speci men Type: SWABOrdering Facility: [facility] Address: [address] [place] [address] Performed By: #### 3 6902-5 ####[facility] LABCLIA [id number] [address] [place] [facility] JARVIS KING ([id number]) 1995 F Date Time Provider Department 02/05/24 HISTORICAL OBGWSR During your visit today, we recorded the following information about you: Kirill Swan 02/05/2024 10:23 AM Signed Referral sent to [place] team to assist with scheduling. Allergies As of Date: 02/05/2024 (No Known Allergies) Date Reviewed: 02/05/2024 Reviewed by: Tamia Johnson MA - Fully Assessed Prescriptions as of 02/05/2024 - pyridoxine, vitamin B6, (VITAMIN B-6) 50 mg cap Take by mouth. - 25-IRON OBW-OLYGD-YQC ORAL Take by mouth. - valACYclovir (VALTREX) [...] Status:Closed by KIRILL SWAN on 02/05/24 Normal [facility] HIGH RISK HUMAN PAPILLOMA RUTHANN (HPV), PCR FOR DETECTION AND GENOTYPINGon 02-05-2024 HPV 16 Ag Ql (Unsp spec) Negative Normal Negative for HPV DNA high risk type 16 by PCR [facility] Comment on above: Order Comment: Speci men Type: FLUID SPECIMENOrdering Facility: [facility] Address: [address] [place] [address] Performed By: #### L [id number], HPVHRT ####[facility] LABCLIA [id number] [place] [address] [place] HPV 18 Ag Ql (Unsp spec) Negative Normal Negative for HPV DNA high risk type 18 by PCR [facility] Comment on above: Order Comment: Speci men Type: FLUID SPECIMENOrdering Facility: [facility] Address: [address] [place] [address] Performed By: #### L [id number], HPVHRT ####[facility] LABCLIA [id number] [place] [address] [place] HPV 31+33+35+39+45+51+ 52+56+58+59+66+68 DNA FELIX+probe Ql (Cvx) Negative for HPV DNA high risk types: 31,33,35,39,45,51,52,56,5 8,59,66,68 by PCR. Normal Negative for HPV DNA high risk types: 31,33,35,39,45,5 1,52,56,58,59,66 ,68 by PCR. [facility] Comment on above: Order Comment: Speci men Type: FLUID SPECIMENOrdering Facility: [facility] Address: [address] [place] [address] Performed By: #### L [id number], HPVHRT ####[facility] LABCLIA [id number] [place] [address] [place] PAP TESTon 02-05-2024 ADEQUACY Satisfactory for interpretation. Normal [facility] Comment on above: Order Comment: Speci men Type: FLUID SPECIMENOrdering Facility: [facility] Address: [address] [place] [address] Performed By: #### L [id number], HPVHRT ####[facility] LABCLIA [id number] [place] [address] [place] CASE REPORT Normal [facility] Comment on above: Order Comment: Speci men Type: FLUID SPECIMENOrdering Facility: [facility] Address: [address] [place] [address] Result Comment: Gyne cologic Cytology Report Case: [id number] Authorizing Provider: Blanca Skelton APRN.CNM Collected: 02/05/2024 09:32 AM Ordering Location: OB/Gynecology Received: 02/05/2024 12:24 PM First Screen: [place], [place], [place], [facility] Specimen: Pap Test, ThinPrep, Cervix Performed By: #### L [id number], HPVHRT ####[facility] LABCLIA [id number] [place] [address] [place] CLINICAL HISTORY, CYTOLOGY, PHYSICAL TESTING SUPERVISOR Routine Exam Normal [facility] Comment on above: Order Comment: Speci men Type: FLUID SPECIMENOrdering Facility: [facility] Address: [address] [place] [address] Performed By: #### L [id number], HPVHRT ####[facility] LABCLIA [id number] [place] [address] [place] FINAL PERFORMING LAB Normal [facility] Comment on above: Order Comment: Speci men Type: FLUID SPECIMENOrdering Facility: [facility] Address: [address] [place] [address] Result Comment: Tech nical component, surveyor geophysical prospecting screening performed at [facility], [address] [place], [place] [id number] CLIA# [id number] Diagnostic interpretation performed at [facility], [address] [place], [place] [id number] CLIA# [id number] Wind Tunnel Mechanic: Noel Seymour M.D. Performed By: #### L [id number], HPVHRT ####[facility] LABCLIA [id number] [place] [address] [place] HPV REFLEX Yes HPV Normal [facility] Comment on above: Order Comment: Speci men Type: FLUID SPECIMENOrdering Facility: [facility] Address: [address] [place] [address] Performed By: #### L [id number], HPVHRT ####[facility] LABCLIA [id number] [place] [address] [place] INTERPRETATION, CYTOLOGY, PHYSICAL TESTING SUPERVISOR Normal [facility] Comment on above: Order Comment: Speci men Type: FLUID SPECIMENOrdering Facility: [facility] Address: [address] [place] [address] Result Comment: Nega tive for intraepithelial lesion or malignancy. Performed By: #### L [id number], HPVHRT ####[facility] LABCLIA [id number] [address] [place] LMP 11/09/2023 Normal [facility] Comment on above: Order Comment: Speci men Type: FLUID SPECIMENOrdering Facility: [facility] Address: [address] [place] [address] Performed By: #### L [id number], HPVHRT ####[facility] LABCLIA [id number] [address] [place] PAP DISCLAIMER COMMENT The Pap Smear is a screening test for cervical cancer. False negative results occur with all screening tests, emphasizing the need for rescreening at recommended intervals, and clinical correlation. Normal [facility] Comment on above: Order Comment: Speci men Type: FLUID SPECIMENOrdering Facility: [facility] Address: [address] [place] [address] Performed By: #### L [id number], HPVHRT ####[facility] LABIA [id number] [address] [place] PAP RUBBISH COLLECTOR COMMENT This specimen has be en analyzed by the ThinPrep Imaging System, an automated imaging and review system, which assists the laboratory in evaluating cells on ThinPrep Pap tests. Following automated imaging, selected luque from every slide are reviewed by a surveyor geophysical prospecting. Normal [facility] Comment on above: Order Comment: Speci men Type: FLUID SPECIMENOrdering Facility: [facility] Address: [address] [place] [address] Performed By: #### L [id number], HPVHRT ####[facility] LABIA [id number] [address] [place]ma[place] 01-30-2024 [facility] Telephone (OBGYW) ----- JARVIS KING ([id number]) 1995 F Date Time Provider Department 01/30/24 [...] c/o brown spotting. Please transfer her to al or [facility] when she returns phone call Sophie Cadena RN 01/30/2024 3:12 PM Signed Patient called back and transferred to [facility] to complete intake questions. Sophie Cadena RN Allergies As of Date: 01/30/2024 (No Known Allergies) Date Reviewed: 10/17/2023 Reviewed by: Rochelle Ramos MD - Fully Assessed Reason for Visit: 02/04 NOB Intake Questions [Other] Prescriptions as of 01/30/2024 - miSOPROStol (CYTOTEC) 200 mcg tablet Please insert 4 tablets into vagina x1 - 25-IRON QLS-TNRYS-AQG ORAL Take by mouth. - valACYclovir (VALTREX) [...] Status:Closed by SOPHIE CADENA on 01/30/24 Normal [facility] B-HCG SerPl-aCncon HCG.beta subunit Qn 230955.0 m[IU]/mL High <5.0 [facility] Comment on above: Order Comment: Speci men Type: BLOOD SPECIMENOrdering Facility: [facility] Address: [address] [place] [address] Result Comment: LYLA TITATIVE HCG NORMAL RANGES Weeks of Gestation (Weeks Since LMP) 3 Weeks (5.8-71.2 mIU/mL) 4 Weeks (9.5-750 mIU/mL) 5 Weeks (217-7138 mIU/mL) 6 Weeks (158-53526 mIU/mL) 7 Weeks (3697-178238 mIU/mL) 8 Weeks (82684-657987 mIU/mL) 9 Weeks (67388-219530 mIU/mL) 10 Weeks (19022-997095 mIU/mL) 12 Weeks (23108-417338 mIU/mL) Referenced to 4th IS of NIBS Performed By: #### 2 1198-7 ####[facility] LABCLIA [id number] [place] [address] [place] [facility]CG [facility] 4 [place] [address].0 m[IU]/mL High <5.0 [facility] Comment on above: Order Comment: Speci men Type: BLOOD SPECIMENOrdering Facility: [facility] Address: [address] [place] [address] Result Comment: LYLA TITATIVE HCG NORMAL RANGES Weeks of Gestation (Weeks Since LMP) 3 Weeks (5.8-71.2 mIU/mL) 4 Weeks (9.5-750 mIU/mL) 5 Weeks (217-7138 mIU/mL) 6 Weeks (158-00355 mIU/mL) 7 Weeks (3697-284942 mIU/mL) 8 Weeks (66019-775713 mIU/mL) 9 Weeks (61165-442416 mIU/mL) 10 Weeks (01724-017166 mIU/mL) 12 Weeks (89932-147991 mIU/mL) Referenced to 4th IS of NIBSC Performed By: #### 2 1198-7 ####[facility] LABCLIA [id number] [place] [address] [address] [place] [facility] CNOVon 10-17-2023 CNOV Office Visit (OBGYWM ) ----- JARVIS KING ([id number]) 1995 F Date Time Provider Department 10/17/23 [...] Rojas Jennifer, RN 10/17/2023 11:15 AM Signed [facility] ASC DANDC POST-OP INSTRUCTIONS What you [...] nausea and (more content not included)... Normal [facility] SURGICAL PATHOLOGYon 023 CASE REPORT Normal [facility] Comment on above: Order Comment: Speci scarlet Type: TISSUE SPECIMENOrdering Facility: [facility] Address: [address] [place] [address] Result Comment: Surg ica Pathology Report Case: [id number] Authorizing Provider: Rochelle Ramos MD Collected: 10/17/2023 01:30 PM Ordering Location: OB/Gynecology Received: 10/17/2023 04:42 PM Pathologist: Tim Demarco MD Specimen: PRODUCTS OF CONCEPTION Performed By: #### S ####[facility] LABIA [id number] [place] [address] [place] CLINICAL HISTORY mab Normal [facility] Comment on above: Order Comment: Speci scarlet Type: TISSUE SPECIMENOrdering Facility: [facility] Address: [address] [place] [address] Performed By: #### S ####[facility] LABIA [id number] [place] [address] [place] FINAL DIAGNOSIS Normal [facility] Comment on above: Order Comment: Terra novak Type: TISSUE SPECIMENOrdering Facility: [facility] Address: [address] [place] [address] Result Comment: A. U terine contents, aspiration following missed : - Fragments of posse cellular mucin, benign endometrium, benign endocervical tissue, hemorrhage, fibrin, necrotic decidua, squamous mucosa, and possible degenerated chorionic villi; compatible with clinical history of remote/missed Performed By: #### S ####[facility] LABCLIA [id number] [address] OF [facility] FINAL PERFORMING LAB Normal [facility] Comment on above: Order Comment: Speci men Type: TISSUE SPECIMENOrdering Facility: [facility] Address: [address] [place] [address] Result Comment: Diag nostic interpretation performed at [facility], [address] [place] [address] CLIA# [id number] Wind Tunnel Mechanic: Noel Seymour M.D. Performed By: #### S ####[facility] LABCLIA [id number] [address] GROSS DESCRIPTION Normal [facility] Comment on above: Order Comment: Speci men Type: TISSUE SPECIMENOrdering Facility: [facility] Address: [address] [place] [address] Result Comment: A. P RODUCTS OF CONCEPTION Received in formalin labeled as products of conception , are multiple hemorrhagic soft tissue fragments aggregating to 3.5 x 2.5 x 0.5 cm. Definitive chorionic villi are not grossly appreciated. Vesicles and parts are not present. The entire specimen is submitted in A1-A2. [place] October 18, 2023 12:55 PM Gross examination performed at [facility], [address] [place] [address] CLIA# [id number] Performed By: #### S ####[facility] LABIA [id number] [address] OF [place] CNOVon 10-13-2023 CNOV Office Visit (OBGYWM ) ----- JARVIS KING ([id number]) 1995 F Date Time Provider Department 10/13/23 [...] changes, redness or skin retraction. Expanded ROS: PHYSICAL TESTING SUPERVISOR: SEE HPI Allergies and current medication updated:Yes [...] food.Disp: 2 capsuleRfl: 0 WHI (OFFICE IPAS) [[id number]] Order #: [id number] Prescriptions as of 10/13/2023 - ALPRAZolam (XANAX) [...] 4 tablets into vagina x1 - 25-IRON TYO-BUOGA-UPF ORAL Take by mouth. - valACYclovir (VALTREX) [...] Provider De (more content not included)... Normal [facility] OBSTETRIC ULTRASOUND WHIon 1 12-14-2022 [facility] B-HCG SerPl-aCncon 3 HCG.beta subunit Qn 29.5 m[IU]/mL High <5.0 [facility] Comment on above: Order Comment: Speci men Type: BLOOD SPECIMENOrdering Facility: [facility] Address: [address] [place] [address] Result Comment: LYLA TITATIVE HCG NORMAL RANGES Weeks of Gestation (Weeks Since LMP) 3 Weeks (5.8-71.2 mIU/mL) 4 Weeks (9.5-750 mIU/mL) 5 Weeks (217-7138 mIU/mL) 6 Weeks (158-95091 mIU/mL) 7 Weeks (3697-306244 mIU/mL) 8 Weeks (81813-263484 mIU/mL) 9 Weeks (72154-680051 mIU/mL) 10 Weeks (43002-408667 mIU/mL) 12 Weeks (16383-666173 mIU/mL) Referenced to 4th IS of [facility] Performed By: #### 2 1198-7 ####[facility] LABSTEFANO [id number] MARITZA ELAM [id number] [place], [place] [address] [place] CNOVon 10-06-2023 CNOV Office Visit (OBGYWM ) ----- JARVIS KING ([id number]) 1995 F Date Time Provider Department 10/06/23 [...] retraction. Expanded ROS: PAIN ASSESSMENT: Denies pain PHYSICAL TESTING SUPERVISOR: SEE HPI Allergies and current medication updated:Yes [...] Blanca Skelton APRN.CNM Referring Provider: BLANCA SKELTON [[id number]] Allergies As of Date: 10/06/2023 (No Known Allergies) Date Reviewed: 10/06/2023 Reviewed by: Phani Casiano Cma - Fully Assessed Reason for Visit: Follow Up [171] Cmt: Missed AB Primary Visit Diagnosis:Missed [O02.1] Order(s):miSOPROStol (CYTOTEC) 200 mcg tabletPlease insert 4 tablets into vagina x1Disp: 4 tabletRfl: 0 OBSTETRIC ULTRASOUND WHI [[id number]] Order #: [id number]: 1 FUTURE Prescriptions as of 10/06/2023 - miSOPROStol (CYTOTEC) 200 mcg tablet Please insert 4 tablets into vagina x1 - ibuprofen (MOTRIN) 800 mg tablet Take 1 tablet by mouth every 8 hours as needed for pain. - 25-IRON WSI-WUCHP-MNK ORAL Take by mouth. - valACYclovir (VALTREX) [...] for Encounter Date Provider Department Center 10/06/2023 [id number]-LMRCTPBLANCA SKELTON Silvia Carroll Encounter Status:Closed by BLANCA SKELTON on 10/06/23 Normal [facility] OBSTETRIC ULTRASOUND WHIon 1 12-07-2022 [facility] CNPNon 09-28-2023 CNPN Telephone (MARSGYWCeleste) ----- JARVIS KING ([id number]) 1995 F Date Time Provider Department 09/28/23 [...] and appreciative for call and discussion. scallop raker provider notified of plan of care this [...] hours as needed for pain. - 25-IRON QTB-UUGZL-SJC ORAL Take by mouth. - valACYclovir (VALTREX) [...] Encounter Status:Closed by BLANCA SKELTON on 09/28/23 [facility] [place] 09-18-2023 [facility] ----- JARVIS KING ([id number]) 1995 F Date Time Provider Department 09/18/23 [...] a day for 4 days. - 25-IRON RWO-OUBQA-SYA ORAL Take by mouth. - valACYclovir (VALTREX) [...] by NATALIE BA MA on 09/18/23 [facility] JARVIS [id number]) 1995 F Date Time Provider Department 09/18/23 [...] Jennifer RN 09/19/2023 4:36 PM Signed See [employer] message. Blanca Skelton APRN.CNM 09/20/2023 12:54 PM Signed Thank you! Blanca Skelton APRN.CNM Allergies As of Date: 09/18/2023 (No Known Allergies) Date Reviewed: 09/18/2023 Reviewed by: Blanca Skelton APRN.CNM - Fully Assessed Reason for Visit: Patient Update [1234] Prescriptions as of 09/20/2023 - 25-IRON WSD-VQKLP-YDL ORAL Take by mouth. - valACYclovir (VALTREX) [...] Status:Closed by BLANCA SKELTON on 09/20/23 Normal [facility] NUCHAL TRANSLUCENCY WHIon [facility] CNOVon 09-15-2023 CNOV Office Visit (FAMPWS ) ----- JARVIS KING ([id number]) 1995 F Date Time Provider Department 09/15/23 [...] File Prior to Visit Medication Sig 25-IRON UQE-BHTON-CYQ ORAL Take by mouth. valACYclovir (VALTREX) 500 [...] No history of dysuria, frequency or incontinence PHYSICAL TESTING SUPERVISOR: Negative for abnormal vaginal bleeding, abnormal vaginal [...] Normal. Lymph (more content not included)... Normal [facility] metabolic 2000 panelon 09-15-2023 Albumin [Mass/Vol] 4.1 g/dL 3.9 - 4.9 g/dL [facility] ALP [Catalytic activity/Vol] 52 U/L 34 - 123 U/L [facility] ALT [Catalytic activity/Vol] 10 U/L 7 - 38 U/L [facility] Anion gap [Moles/Vol] 10 mmol/L 9 - 18 mmol/L [facility] AST [Catalytic activity/Vol] 18 U/L 13 - 35 U/L [facility] Bilirubin [Mass/Vol] 0.5 mg/dL 0.2 - 1.3 mg/dL [facility] Calcium [Mass/Vol] 9.5 mg/dL 8.5 - 10.2 mg/dL [facility] Chloride [Moles/Vol] 103 mmol/L 97 - 105 mmol/L [facility] CO2 [Moles/Vol] 24 mmol/L 22 - 30 mmol/L [facility] Creatinine [Mass/Vol] 0.51 mg/dL Low 0.58 - 0.96 mg/dL [facility] Estimated Glomerular Filtration Rate 129 mL/min/1.73m >=60 mL/min/1.73m [facility] Glucose [Mass/Vol] 89 mg/dL 74 - 99 mg/dL [facility] Potassium [Moles/Vol] 4.3 mmol/L 3.7 - 5.1 mmol/L [facility] Protein [Mass/Vol] 7.3 g/dL 6.3 - 8.0 g/dL [facility] Sodium [Moles/Vol] 137 mmol/L 136 - 144 mmol/L [facility] Urea nitrogen [Mass/Vol] 5 mg/dL Low 7 - 21 mg/dL [facility] Albumin [Mass/Vol] 4.1 g/dL Normal 3.9-4.9 [facility] Comment on above: Order Comment: Speci men Type: BLOOD SPECIMENOrdering Facility: [facility] Address: [address] [place] [address] Performed By: #### 2 4323-8, 17455-4 ####[facility] LABCLIA [id number] [place] [address] [place] ALP [Catalytic activity/Vol] 52 U/L Normal 34-123 [facility] Comment on above: Order Comment: Speci men Type: BLOOD SPECIMENOrdering Facility: [facility] Address: [address] [place] [address] Performed By: #### 2 4323-8, 15252-8 ####[facility] LABCLIA [id number] [place] [address] [place] ALT [Catalytic activity/Vol] 10 U/L Normal 7-38 [facility] Comment on above: Order Comment: Speci men Type: BLOOD SPECIMENOrdering Facility: [facility] Address: [address] [place] [address] Performed By: #### 2 4323-8, 10457-1 ####[facility] LABCLIA [id number] [place] [address] [place] Anion gap [Moles/Vol] 10 mmol/L Normal 9-18 [facility] Comment on above: Order Comment: Speci men Type: BLOOD SPECIMENOrdering Facility: [facility] Address: [address] [place] [address] Performed By: #### 2 4323-8, 85454-1 ####[facility] LABCLIA [id number] [place] [address] [place] AST [Catalytic activity/Vol] 18 U/L Normal 13-35 [facility] Comment on above: Order Comment: Speci men Type: BLOOD SPECIMENOrdering Facility: [facility] Address: [address] [place] [address] Performed By: #### 2 4323-8, 52983-4 ####[facility] LABCLIA [id number] [place] [address] [place] Bilirubin [Mass/Vol] 0.5 mg/dL Normal 0.2-1.3 [facility] Comment on above: Order Comment: Speci men Type: BLOOD SPECIMENOrdering Facility: [facility] Address: [address] [place] [address] Performed By: #### 2 4323-8, 68240-3 ####[facility] LABCLIA [id number] [place] [address] [place] Calcium [Mass/Vol] 9.5 mg/dL Normal 8.5-10.2 [facility] Comment on above: Order Comment: Speci men Type: BLOOD SPECIMENOrdering Facility: [facility] Address: [address] [place] [address] Performed By: #### 2 4328, ####[facility] LABCLIA [id number] [place] [address] [place] Chloride [Moles/Vol] 103 mmol/L Normal 97-105 [facility] Comment on above: Order Comment: Speci men Type: BLOOD SPECIMENOrdering Facility: [facility] Address: [address] [place] [address] Performed By: #### 2 4323-8, ####[facility] LABCLIA [id number] [place] [address] [place] CO2 [Moles/Vol] 24 mmol/L Normal 22-30 [facility] Comment on above: Order Comment: Speci men Type: BLOOD SPECIMENOrdering Facility: [facility] Address: [address] [place] [address] Performed By: #### 2 4323-8, 96637-8 ####[facility] LABCLIA [id number] [place] [address] [place] Creatinine [Mass/Vol] 0.51 mg/dL Low 0.58-0.96 [facility] Comment on above: Order Comment: Terra novak Type: BLOOD SPECIMENOrdering Facility: [facility] Address: [address] [place] [address] Performed By: #### 2 4323-8, 25263-4 ####[facility] LABCLIA [id number] [address] Creatinine and Glomerular filtration rate.predicted panel (S/P/Bld) 129 mL/min/1.73m??? Normal >=60 [facility] Comment on above: Order Comment: Terra novak Type: BLOOD SPECIMENOrdering Facility: [facility] Address: [address] [place] [address] Result Comment: Katy mated Glomerular Filtration Rate [...] actual GFR. Performed By: #### 2 4323-8, 21535-9 ####[facility] LABCLIA [id number] [place] [address] [place] Glucose [Mass/Vol] 89 mg/dL Normal 74-99 [facility] Comment on above: Order Comment: Terra novak Type: BLOOD SPECIMENOrdering Facility: [facility] Address: [address] [place] [address] Result Comment: The [place] Diabetes Association (ADA) provides guidance for cutoff [...] Standards of Medical Care in Diabetes 2016, [place] [employer] Association. Diabetes Care. 2016.39(Suppl 1). Performed By: #### 2 4323-8, 54190-4 ####[facility] LABCLIA [id number] [address] [address] [place] Potassium [Moles/Vol] 4.3 mmol/L Normal 3.7-5.1 [facility] Comment on above: Order Comment: Speci men Type: BLOOD SPECIMENOrdering Facility: [facility] Address: [address] [place] [address] Performed By: #### 2 4323-8, 89706-9 ####[facility] LABCLIA [id number] [place] [address] [place] Protein [Mass/Vol] 7.3 g/dL Normal 6.3-8.0 [facility] Comment on above: Order Comment: Speci men Type: BLOOD SPECIMENOrdering Facility: [facility] Address: [address] [place] [address] Performed By: #### 2 4323-8, ####[facility] LABCLIA [id number] [place] [address] [place] Sodium [Moles/Vol] 137 mmol/L Normal 136-144 [facility] Comment on above: Order Comment: Speci men Type: BLOOD SPECIMENOrdering Facility: [facility] Address: [address] [place] [address] Performed By: #### 2 4323-8, 89172-5 ####[facility] LABCLIA [id number] [place] [address] [place] Urea nitrogen [Mass/Vol] 5 mg/dL Low 7-21 [facility] Comment on above: Order Comment: Speci men Type: BLOOD SPECIMENOrdering Facility: [facility] Address: [address] [place] [id number] Performed By: #### 2 4323-8, 88634-4 ####[facility] LABCLIA [id number] [place] [address] [place] Lipid 1996 panelon 3 Cholesterol [Mass/Vol] 195 mg/dL <200 mg/dL [facility] Cholesterol in HDL [Mass/Vol] 96 mg/dL >39 mg/dL [facility] Cholesterol in LDL [Mass/Vol] 91 mg/dL <100 mg/dL [facility] Cholesterol in LDL/Cholesterol in HDL [Mass ratio] 0.95 {ratio} <2.54 [facility] Cholesterol in VLDL [Mass/Vol] 8 mg/dL <30 mg/dL [facility] Cholesterol non HDL [Mass/Vol] 99 mg/dL <130 mg/dL [facility] Cholesterol.total/ Cholesterol in HDL [Mass ratio] 2.03 {ratio} <5.10 [facility] Fasting Time 14 hrs [facility] Triglyceride [Mass/Vol] 39 mg/dL <150 mg/dL [facility] Cholesterol [Mass/Vol] 195 mg/dL Normal <200 [facility] Comment on above: Order Comment: Speci men Type: BLOOD SPECIMENOrdering Facility: [facility] Address: [address] [place] [address] Result Comment: <200 mg/dL, Desirable 200-239 mg/dL, Borderline high >239 mg/dL, High Performed By: #### 2 4323-8, 79395-3 ####[facility] LABCLIA [id number] [place] [address] [place] Cholesterol in HDL [Mass/Vol] 96 mg/dL Normal >39 [facility] Comment on above: Order Comment: Speci men Type: BLOOD SPECIMENOrdering Facility: [facility] Address: [address] [place] [address] Result Comment: 40-5 9 mg/dL, Acceptable >59 mg/dL, High: Negative risk factor for coronary heart disease <40 mg/dL, Low: Positive risk factor for coronary heart disease Performed By: #### 2 4323-8, 08664-6 ####[facility] LABCLIA [id number] [place] [address] [place] Cholesterol in LDL [Mass/Vol] 91 mg/dL Normal <100 [facility] Comment on above: Order Comment: Speci men Type: BLOOD SPECIMENOrdering Facility: [facility] Address: [address] [place] [address] Result Comment: <100 mg/dL, Optimal 100-129 mg/dL, Near optimal/above optimal 130-159 mg/dL, Borderline high 160-189 mg/dL, High >189 mg/dL, Very high Secondary prevention optimal LDL Cholesterol levels are recommended to be < 70 mg/dL Performed By: #### 2 4323-8, 80452-0 ####[facility] LABCLIA [id number] [address] STATES [facility] Cholesterol in LDL/Cholesterol in HDL [Mass ratio] 0.95 {ratio} Normal <2.54 [facility] Comment on above: Order Comment: Speci men Type: BLOOD SPECIMENOrdering Facility: [facility] Address: [address] [place] [address] Result Comment: Refhugo moya: 1. National Cholesterol Education Program ATP III Guideline At-A-Glance Quick Desk Reference: National Heart, Lung, and Blood [place]. National Institutes of Health. 2001: NIH Publication No. 01-3305. 2. An International Atherosclerosis Society position paper: global recommendations for the management of dyslipidemia: executive summary, Atherosclerosis. 2014: 232(2):410-413. Performed By: #### 2 4323-8, 23561-1 ####[facility] LABCLIA [id number] [place] [address] [place] Cholesterol in VLDL [Mass/Vol] 8 mg/dL Normal <30 [facility] Comment on above: Order Comment: Surendrai men Type: BLOOD SPECIMENOrdering Facility: [facility] Address: [address] [place] [address] Performed By: #### 2 4323-8, 39752-4 ####[facility] LABCLIA [id number] [address] OF [place] Cholesterol non HDL [Mass/Vol] 99 mg/dL Normal <130 [facility] Comment on above: Order Comment: Speci men Type: BLOOD SPECIMENOrdering Facility: [facility] Address: [address] [place] [address] Result Comment: <130 mg/dL, Optimal 130-159 mg/dL, Near optimal/above optimal 160-189 mg/dL, Borderline high 190-219 mg/dL, High >219 mg/dL, Very high Secondary prevention optimal non HDL Cholesterol levels are recommended to be <100 mg/dL Performed By: #### 2 4323-8, 80272-9 ####[facility] LABCLIA [id number] [place] [address] [place] Cholesterol.total/ Cholesterol in HDL [Mass ratio] 2.03 {ratio} Normal <5.10 [facility] Comment on above: Order Comment: Speci men Type: BLOOD SPECIMENOrdering Facility: [facility] Address: [address] [place] [address] Performed By: #### 2 4323-8, 85988-6 ####[facility] LABCLIA [id number] [address] STATES OF [place] FASTING TIME 14 hrs Normal [facility] Comment on above: Order Comment: Speci men Type: BLOOD SPECIMENOrdering Facility: [facility] Address: [address] [place] [address] Performed By: #### 2 4323-8, 89802-4 ####[facility] LABCLIA [id number] [place] [address] [place] Triglyceride [Mass/Vol] 39 mg/dL Normal <150 [facility] Comment on above: Order Comment: Speci men Type: BLOOD SPECIMENOrdering Facility: [facility] Address: [address] [place] [address] Result Comment: <150 mg/dL, Normal 150-199 mg/dL, Borderline high 200-499 mg/dL, High >499 mg/dL, Very high Performed By: #### 2 4323-8, 58783-9 ####[facility] LABCLIA [id number] [facility] [id number] [address] [place] CBC panel Auto (Bld)on 09-01 Erythrocyte distribution width (RBC) [Ratio] 11.9 % Normal 11.5-15.0 [facility] Comment on above: Order Comment: Speci men Type: BLOOD SPECIMENOrdering Facility: [facility] Address: [address] [place] [address] Performed By: #### 5 8410-2 ####[facility] [id number] [place] [address] [place] Hematocrit (Bld) [Volume fraction] 35.4 % Low 36.0-46.0 [facility] Comment on above: Order Comment: Speci men Type: BLOOD SPECIMENOrdering Facility: [facility] Address: [address] [place] [address] Performed By: #### 5 8410-2 ####[facility] [id number] [place] [address] [place] Hemoglobin (Bld) [Mass/Vol] 12.2 g/dL Normal 11.5-15.5 [facility] Comment on above: Order Comment: Speci men Type: BLOOD SPECIMENOrdering Facility: [facility] Address: [address] [place] [address] Performed By: #### 5 8410-2 ####[facility] [id number] [place] [address] [place] MCH (RBC) [Entitic mass] 31.1 pg Normal 26.0-34.0 [facility] Comment on above: Order Comment: Speci men Type: BLOOD SPECIMENOrdering Facility: [facility] Address: [address] [place] [address] Performed By: #### 5 8410-2 ####[facility] [id number] [place] [address] [place] MCHC (RBC) [Mass/Vol] 34.5 g/dL Normal 30.5-36.0 [facility] Comment on above: Order Comment: Speci men Type: BLOOD SPECIMENOrdering Facility: [facility] Address: [address] [place] [address] Performed By: #### 5 8410-2 ####[facility] [id number] [place] [address] [place] MCV (RBC) [Entitic vol] 90.3 fL Normal 80.0-100.0 [facility] Comment on above: Order Comment: Speci men Type: BLOOD SPECIMENOrdering Facility: [facility] Address: [address] [place] [address] Performed By: #### 5 8410-2 ####[facility] [id number] [place] [address] [place] Nucleated RBC (Bld) [#/Vol] 10*3/uL Normal <0.01 [facility] Comment on above: Order Comment: Speci men Type: BLOOD SPECIMENOrdering Facility: [facility] Address: [address] [place] [address] Performed By: #### 5 8410-2 ####[facility] [id number] [place] [address] [place] Platelet mean volume (Bld) [Entitic vol] 10.3 fL Normal 9.0-12.7 [facility] Comment on above: Order Comment: Speci men Type: BLOOD SPECIMENOrdering Facility: [facility] Address: [address] [place] [address] Performed By: #### 5 8410-2 ####[facility] ERJAIROLIA [id number] [place] [address] [place] Platelets (Bld) [#/Vol] 237 10*3/uL Normal 150-400 [facility] Comment on above: Order Comment: Speci men Type: BLOOD SPECIMENOrdering Facility: [facility] Address: [address] [place] [address] Performed By: #### 5 8410-2 ####[facility] ERNCLIA [id number] [place] [address] [place] RBC (Bld) [#/Vol] 3.92 10*6/uL Normal 3.90-5.20 [facility] Comment on above: Order Comment: Speci men Type: BLOOD SPECIMENOrdering Facility: [facility] Address: [address] [place] [address] Performed By: #### 5 8410-2 ####[facility] ERNCA [id number] [place] [address] [place] WBC (Bld) [#/Vol] 7.07 10*3/uL Normal 3.70-11.00 [facility] Comment on above: Order Comment: Speci men Type: BLOOD SPECIMENOrdering Facility: [facility] Address: [address] [place] [address] Performed By: #### 5 8410-2 ####[facility] ERNCA [id number] [place] [address] [place] HBV surface Ag Ser Qlon HBV surface Ag Ql (S) Negative Normal Negative [facility] Comment on above: Order Comment: Speci men Type: BLOOD SPECIMENOrdering Facility: [facility] Address: [address] [place] [address] Performed By: #### 3 1201-7, 5195-3, 69951-6 ####[facility] LABCLIA [id number] [place] [address] [place] HCV Ab Ser Qlon 09-01-2023 HCV Ab Ql (S) Negative Normal Negative [facility] Comment on above: Order Comment: Speci men Type: BLOOD SPECIMENOrdering Facility: [facility] Address: [address] [place] [address] Result Comment: The result suggests no evidence of active infection with Hepatitis C virus. Should recent infection be suspected, repeat testing may be considered 4-6 weeks after this draw. Performed By: #### 1 6128-1 ####[facility] LABIA [id number] [place] [address] [place] HIV 1+2 Ab IA Qlon 3 HIV 1 and 2 Ab IA.rapid Nom Normal [facility] Comment on above: Order Comment: Speci men Type: BLOOD SPECIMENOrdering Facility: [facility] Address: [address] [place] [address] Result Comment: Test not indicated. Performed By: #### 3 1201-7, 5195-3, 37674-6 ####[facility] LABIA [id number] [place] [address] [place] HIV 1+2 Ab+HIV1 p24 Ag IA Ql Non-Reactive Normal Nonreactive [facility] Comment on above: Order Comment: Speci men Type: BLOOD SPECIMENOrdering Facility: [facility] Address: [address] [place] [address] Performed By: #### 3 1201-7, 5195-3, 18842-7 ####[facility] [id number] [place] [address] [place] HIV immunoassay testing algorithm interpretation (S/P/Bld) [Interp] Normal [facility] Comment on above: Order Comment: Speci men Type: BLOOD SPECIMENOrdering Facility: [facility] Address: [address] [place] [address] Result Comment: No e vidence of HIV-1 or HIV-2 infection. Should recent infection be suspected, repeat testing may be considered 2-3 weeks after this draw. [place] Rev. Code 3701.243(E): This information has been [...] diagnoses. Performed By: #### 3 1201-7, 5195-3, 70786-4 ####[facility] LABIA [id number] [place] [address] [place] RUBELLA IGG ABon 09-01-2023 RUBELLA IGG AB, QUAL Positive Normal Positive [facility] Comment on above: Order Comment: Speci men Type: BLOOD SPECIMENOrdering Facility: [facility] Address: [address] [place] [address] Result Comment: The result suggests recent or past exposure to Rubella virus or history of Rubella vaccination. Positive result may also be seen due to presence of passively-transferred antibodies. Please correlate with patient's history. Performed By: #### R UBIGG ####[facility] LABIA [id number] [place] [address] [place] Reagin and Treponema pallidu m IgG and IgM [Interp]on 09-01-2023 T. pallidum IgG+IgM IA Ql (S) Non-Reactive Normal Nonreactive [facility] Comment on above: Order Comment: Speci men Type: BLOOD SPECIMENOrdering Facility: [facility] Address: [address] [place] [address] Performed By: #### 3 1201-7, 5195-3, 36155-4 ####[facility] LABIA [id number] [place] [address] [place] Reagin+T pallidum IgG+IgM Se rPl-Impon 09-01-2023 Reagin and Treponema pallidum IgG and IgM [Interp] Cannot exclude recent Treponemal infection if specimen collected within 7-10 days after appearance of suspect lesions or 2-3 weeks after an exposure. Clinical correlation is required. Normal [facility] Comment on above: Order Comment: Speci men Type: BLOOD SPECIMENOrdering Facility: [facility] Address: [address] [place] [address] Performed By: #### 3 1201-7, 5195-3, 27034-2 ####[facility] LABCLIA [id number] [place] [address] [place] TSH SerPl-aCncon 09-01-2023 TSH Qn 0.699 m[IU]/L Normal 0.270-4.200 [facility] Comment on above: Order Comment: Speci men Type: BLOOD SPECIMENOrdering Facility: [facility] Address: [address] [place] [address] Result Comment: If t he patient is , TSH reference range varies by gestational period: First Trimester (weeks 9-12): 0.180-2.990 mIU/L Second Trimester: 0.110-3.980 mIU/L Third Trimester: 0.480-4.710 mIU/L Jesse Sheth et al. A Practical Approach for the Verifications and Determination of Site- and Trimester-Specific Reference Intervals for Thyroid Function tests in . Thyroid, 2019:29:3:412-420. Ranjit E, et al. 2017 Guidelines of the [place] Thyroid Association for the Diagnosis and Management of Thyroid Disease during and the . Thyroid, 2017:27:3:315-389. Performed By: #### 3 016-3 ####[facility] LABCLIA [id number] [place] [address] [place] TYPE + SCREEN PRENATALon ABO O Normal [facility] Comment on above: Order Comment: Speci men Type: BLOOD SPECIMENOrdering Facility: [facility] Address: [address] [place] [address] Performed By: #### T SPN ####[facility] BLOOD BANKIA [id number] [place] [address] [place] HISTORICAL AB SCR STATUS Negative Normal [facility] Comment on above: Order Comment: Speci men Type: BLOOD SPECIMENOrdering Facility: [facility] Address: [address] [place] [address] Performed By: #### T SPN ####[facility] BLOOD BANKCLIA [id number] [place] [address] [place] Rh Nom (Bld) Positive Normal [facility] Comment on above: Order Comment: Speci men Type: BLOOD SPECIMENOrdering Facility: [facility] Address: [address] [place] [address] Performed By: #### T SPN ####[facility] BLOOD BANKCLIA [id number] [place] [address] [place] TYPE AND SCREEN EXPIRATION 09/04/2023 23:59 Normal [facility] Comment on above: Order Comment: Speci men Type: BLOOD SPECIMENOrdering Facility: [facility] Address: [address] [place] [address] Performed By: #### T SPN ####[facility] BLOOD BANKCLIA [id number] [place] [address] [place] Bacteria Ur Culton Bacteria identified Cx Nom (U) ORGANISM ID: 1 <10,000 CFU/ml Normal urogenital virgilio Normal [facility] Comment on above: Performed By: #### 6 30-4 ####[facility] LABCLIA [id number] [place] [address] [place] C. trachomatis+N. gonorrhoea e DNA FELIX+probe Ql (Unsp spec)on 08-28-2023 C. trachomatis rRNA FELIX+probe Ql (Unsp spec) Negative Normal Negative for Chlamydia trachomatis by amplificaton [facility] Comment on above: Order Comment: Speci men Type: SWABOrdering Facility: [facility] Address: [address] [place] [address] Performed By: #### 3 6902-5 ####[facility] LABCLIA [id number] [place] [address] [place] N. gonorrhoeae rRNA FELIX+probe Ql (Unsp spec) Negative Normal Negative for Neisseria gonorrhoeae by amplification [facility] Comment on above: Order Comment: Speci men Type: SWABOrdering Facility: [facility] Address: [address] [place] [address] Performed By: #### 3 6902-5 ####[facility] LABCLIA [id number] [address] [place] [address] [place] No Panel Informationon 08-28 [facility] CNNURSEon 08-22-2023 [facility] Nurse Visit (OBGYWM) ----- BILLJARVIS OVALLE ([id number]) 1995 F Date Time Provider Department 08/22/23 9:00 AM NURSE PNOB [facility] OBGYWM During your visit today, we [...] use: No Multivitamin with Folic acid: Yes Protestant or heritage: No Would refuse blood transfusion if medically necessary: No Are you currently employed? 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 valACYclovir (VALTREX) 500 [...] they occur. (more content not included)... Normal [facility] Vital Signs Date Time Vital Sign Value Performing Clinician Rajii tommy 08-14-2024 14:05-0400 Body mass index (BMI) [Ratio] 33.12 kg/m2 Nohemy Lyn MD Work Phone: [facility] 08-14-2024 14:05-0400 Body weight 90.27 kg Nohemy Lyn MD Work Phone: [facility] 08-14-2024 14:05-0400 Diastolic blood pressure 82 mm[Hg] Nohemy Lyn MD Work Phone: [facility] 08-14-2024 14:05-0400 Systolic blood pressure 134 mm[Hg] Nohemy Lyn MD Work Phone: [facility] 08-07-2024 14:31-0400 Body mass index (BMI) [Ratio] 32.45 kg/m2 Blanca Skelton HEALTH AND NUTRITION SPECIALIST.CNM Work Phone: [facility] 08-07-2024 14:31-0400 Body weight 88.45 kg Blanca Skelton HEALTH AND NUTRITION SPECIALIST.CNM Work Phone: [facility] 08-07-2024 14:31-0400 Diastolic blood pressure 78 mm[Hg] Blanca Skelton HEALTH AND NUTRITION SPECIALIST.CNM Work Phone: [facility] 08-07-2024 14:31-0400 Systolic blood pressure 126 mm[Hg] Blanca Skelton HEALTH AND NUTRITION SPECIALIST.CNM Work Phone: [facility] 08-06-2024 14:25-0400 Body mass index (BMI) [Ratio] 32.28 kg/m2 Nohemy Lyn MD Work Phone: [facility] 08-06-2024 14:25-0400 Body weight 88 kg Nohemy Lyn MD Work Phone: [facility] 08-06-2024 14:25-0400 Diastolic blood pressure 77 mm[Hg] Nohemy Lyn MD Work Phone: [facility] 08-06-2024 14:25-0400 Systolic blood pressure 126 mm[Hg] Nohemy Lyn MD Work Phone: [facility] 07-31-2024 15:44-0400 Body mass index (BMI) [Ratio] 31.78 kg/m2 Blanca Skelton HEALTH AND NUTRITION SPECIALIST.CNM Work Phone: [facility] 07-31-2024 15:44-0400 Body weight 86.64 kg Blanca Plotsang HEALTH AND NUTRITION SPECIALIST.CNM Work Phone: [facility] 07-31-2024 15:44-0400 Diastolic blood pressure 70 mm[Hg] Blanca Westts HEALTH AND NUTRITION SPECIALIST.CNM Work Phone: [facility] 07-31-2024 15:44-0400 Systolic blood pressure 124 mm[Hg] Blanca Plotsang HEALTH AND NUTRITION SPECIALIST.CNM Work Phone: [facility] 07-24-2024 14:26-0400 Body mass index (BMI) [Ratio] 31.28 kg/m2 Rebecca Fontanez HEALTH AND NUTRITION SPECIALIST.CNM Work Phone: [facility] 07-24-2024 14:26-0400 Body weight 85.28 kg Rebecca Fontanez HEALTH AND NUTRITION SPECIALIST.CNM Work Phone: [facility] 07-24-2024 14:26-0400 Diastolic blood pressure 68 mm[Hg] Rebecca Fontanez HEALTH AND NUTRITION SPECIALIST.CNM Work Phone: [facility] 07-24-2024 14:26-0400 Systolic blood pressure 116 mm[Hg] Rebecca Fontanez HEALTH AND NUTRITION SPECIALIST.CNM Work Phone: [facility] 07-16-2024 08:09-0400 Body mass index (BMI) [Ratio] 30.95 kg/m2 Elsie Moreno MD Work Phone: [facility] 07-16-2024 08:09-0400 Body weight 84.37 kg Elsie Moreno MD Work Phone: [facility] 07-16-2024 08:09-0400 Diastolic blood pressure 60 mm[Hg] Elsie Moreno MD Work Phone: [facility] 07-16-2024 08:09-0400 Systolic blood pressure 120 mm[Hg] Elsie Moreno MD Work Phone: [facility] 07-03-2024 16:02-0400 Body mass index (BMI) [Ratio] 30.85 kg/m2 Blanca Skelton HEALTH AND NUTRITION SPECIALIST.CNM Work Phone: [facility] 07-03-2024 16:02-0400 Body weight 84.1 kg Blanca Skelton HEALTH AND NUTRITION SPECIALIST.CNM Work Phone: [facility] 07-03-2024 16:02-0400 Diastolic blood pressure 68 mm[Hg] Blanca Plotts HEALTH AND NUTRITION SPECIALIST.CNM Work Phone: [facility] 07-03-2024 16:02-0400 Systolic blood pressure 104 mm[Hg] Blanca Skelton HEALTH AND NUTRITION SPECIALIST.CNM Work Phone: [facility] 06-26-2024 14:39-0400 Body mass index (BMI) [Ratio] 30.62 kg/m2 Blanca Skelton HEALTH AND NUTRITION SPECIALIST.CNM Work Phone: [facility] 06-26-2024 14:39-0400 Body weight 83.46 kg Blanca Plotts HEALTH AND NUTRITION SPECIALIST.CNM Work Phone: [facility] 06-26-2024 14:39-0400 Diastolic blood pressure 64 mm[Hg] Blanca Plotts HEALTH AND NUTRITION SPECIALIST.CNM Work Phone: [facility] 06-26-2024 14:39-0400 Systolic blood pressure 116 mm[Hg] Blanca Plotts HEALTH AND NUTRITION SPECIALIST.CNM Work Phone: [facility] 06-17-2024 15:54-0400 Body mass index (BMI) [Ratio] 29.79 kg/m2 Concha Baires MD Work Phone: [facility] 06-17-2024 15:54-0400 Body weight 81.19 kg Concha Baires MD Work Phone: [facility] 06-17-2024 15:54-0400 Diastolic blood pressure 62 mm[Hg] Concha Baires MD Work Phone: [facility] 06-17-2024 15:54-0400 Systolic blood pressure 124 mm[Hg] Concha Baires MD Work Phone: [facility] 06-12-2024 14:32-0400 Body mass index (BMI) [Ratio] 29.95 kg/m2 Blanca Plotts HEALTH AND NUTRITION SPECIALIST.CNM Work Phone: [facility] 06-12-2024 14:32-0400 Body weight 81.65 kg Blanca Plotts HEALTH AND NUTRITION SPECIALIST.CNM Work Phone: [facility] 06-12-2024 14:32-0400 Diastolic blood pressure 62 mm[Hg] Blanca Plotts HEALTH AND NUTRITION SPECIALIST.CNM Work Phone: [facility] 06-12-2024 14:32-0400 Systolic blood pressure 114 mm[Hg] Blanca Plotts HEALTH AND NUTRITION SPECIALIST.CNM Work Phone: [facility] 06-03-2024 15:41-0400 Body mass index (BMI) [Ratio] 29.45 kg/m2 Elsie Moreno MD Work Phone: [facility] 06-03-2024 15:41-0400 Body weight 80.29 kg Elsie Moreno MD Work Phone: [facility] 06-03-2024 15:41-0400 Diastolic blood pressure 64 mm[Hg] Elsie Moreno MD Work Phone: [facility] 06-03-2024 15:41-0400 Systolic blood pressure 118 mm[Hg] Elsie Moreno MD Work Phone: [facility] 05-14-2024 13:17-0400 Body mass index (BMI) [Ratio] 28.42 kg/m2 Rebecca Fontanez HEALTH AND NUTRITION SPECIALIST.CNM Work Phone: [facility] 05-14-2024 13:17-0400 Body weight 77.47 kg Rebecca Fontanez HEALTH AND NUTRITION SPECIALIST.CNM Work Phone: [facility] 05-14-2024 13:17-0400 Diastolic blood pressure 56 mm[Hg] Rebecca Fontanez HEALTH AND NUTRITION SPECIALIST.CNM Work Phone: [facility] 05-14-2024 13:17-0400 Systolic blood pressure 114 mm[Hg] Rebecca Fontanez HEALTH AND NUTRITION SPECIALIST.CNM Work Phone: [facility] 05-14-2024 10:38-0400 Body mass index (BMI) [Ratio] 28.42 kg/m2 Stephanie Barrera MD Work Phone: [facility] 05-14-2024 10:38-0400 Body weight 77.47 kg Stephanie crawford MD Work Phone: [facility] 05-14-2024 10:38-0400 Diastolic blood pressure 56 mm[Hg] Stephanie Barrera MD Work Phone: [facility] 05-14-2024 10:38-0400 Systolic blood pressure 114 mm[Hg] Stephanie Barrera MD Work Phone: [facility] 05-06-2024 08:53-0400 Body mass index (BMI) [Ratio] 28.16 kg/m2 Concha Baires MD Work Phone: [facility] 05-06-2024 08:53-0400 Body weight 76.75 kg Concha Baires MD Work Phone: [facility] 05-06-2024 08:53-0400 Diastolic blood pressure 64 mm[Hg] Concha Baires MD Work Phone: [facility] 05-06-2024 08:53-0400 Systolic blood pressure 120 mm[Hg] Concha Baires MD Work Phone: [facility] 04-15-2024 14:30-0400 Body mass index (BMI) [Ratio] 27.29 kg/m2 Blanca Plotts HEALTH AND NUTRITION SPECIALIST.CNM Work Phone: [facility] 04-15-2024 14:30-0400 Body weight 74.39 kg Blanca Plotts HEALTH AND NUTRITION SPECIALIST.CNM Work Phone: [facility] 04-15-2024 14:30-0400 Diastolic blood pressure 64 mm[Hg] Blanca Plotts HEALTH AND NUTRITION SPECIALIST.CNM Work Phone: [facility] 04-15-2024 14:30-0400 Systolic blood pressure 108 mm[Hg] Blanca Plotts HEALTH AND NUTRITION SPECIALIST.CNM Work Phone: [facility] 04-08-2024 09:39-0400 Body mass index (BMI) [Ratio] 27.36 kg/m2 Concha Baires MD Work Phone: [facility] 04-08-2024 09:39-0400 Body weight 74.57 kg Concha Baires MD Work Phone: [facility] 04-08-2024 09:39-0400 Diastolic blood pressure 62 mm[Hg] Concha Baires MD Work Phone: [facility] 04-08-2024 09:39-0400 Systolic blood pressure 110 mm[Hg] Concha Baires MD Work Phone: [facility] 03-20-2024 16:39-0400 Body mass index (BMI) [Ratio] 26.43 kg/m2 Blanca Plotts HEALTH AND NUTRITION SPECIALIST.CNM Work Phone: [facility] 03-20-2024 16:39-0400 Body weight 72.03 kg Blanca Plotts HEALTH AND NUTRITION SPECIALIST.CNM Work Phone: [facility] 03-20-2024 16:39-0400 Diastolic blood pressure 64 mm[Hg] Blanca Plotts HEALTH AND NUTRITION SPECIALIST.CNM Work Phone: [facility] 03-20-2024 16:39-0400 Systolic blood pressure 116 mm[Hg] Blanca Plotts HEALTH AND NUTRITION SPECIALIST.CNM Work Phone: [facility] 03-04-2024 12:56-0400 Body mass index (BMI) [Ratio] 26.13 kg/m2 Elsie Moreno MD Work Phone: [facility] 03-04-2024 12:56-0400 Body weight 71.22 kg Elsie Moreno MD Work Phone: [facility] 03-04-2024 12:56-0400 Diastolic blood pressure 68 mm[Hg] Elsie Moreno MD Work Phone: [facility] 03-04-2024 12:56-0400 Systolic blood pressure 112 mm[Hg] Elsie Moreno MD Work Phone: [facility] 02-05-2024 08:47-0400 Body height 165.1 cm Blanca Plotts HEALTH AND NUTRITION SPECIALIST.CNM Work Phone: [facility] 02-05-2024 08:47-0400 Body weight 67.13 kg Blanca Plotts HEALTH AND NUTRITION SPECIALIST.CNM Work Phone: [facility] 02-05-2024 08:47-0400 Diastolic blood pressure 58 mm[Hg] Blanca Plotts HEALTH AND NUTRITION SPECIALIST.CNM Work Phone: [facility] 02-05-2024 08:47-0400 Systolic blood pressure 100 mm[Hg] Blanca Plotts HEALTH AND NUTRITION SPECIALIST.CNM Work Phone: [facility] 10-06-2023 14:35-0500 Body weight 67.59 kg Blanca Skelton HEALTH AND NUTRITION SPECIALIST.CNM Work Phone: [facility] 10-06-2023 14:35-0500 Diastolic blood pressure 64 mm[Hg] Blanca Westts HEALTH AND NUTRITION SPECIALIST.CNM Work Phone: [facility] 10-06-2023 14:35-0500 Systolic blood pressure 102 mm[Hg] Blanca Westsang HEALTH AND NUTRITION SPECIALIST.CNM Work Phone: [facility] 09-15-2023 08:50-0500 Body weight 67.68 kg Washington Tran MD Work Phone: [facility] 09-15-2023 08:50-0500 Diastolic blood pressure 62 mm[Hg] Washington Tran MD Work Phone: [facility] 09-15-2023 08:50-0500 Heart rate 70 /min Washington Tran MD Work Phone: [facility] 09-15-2023 08:50-0500 Respiratory rate 16 /min Washington Tran MD Work Phone: [facility] 09-15-2023 08:50-0500 SaO2% (BldA) [Mass fraction] 99 % Washington Tran MD Work Phone: [facility] 09-15-2023 08:50-0500 Systolic blood pressure 110 mm[Hg] Washington Tran MD Work Phone: [facility] 08-28-2023 08:47-0400 Body weight 66.59 kg Rebecca Fontanez HEALTH AND NUTRITION SPECIALIST.CNM Work Phone: [facility] 08-28-2023 08:47-0400 Diastolic blood pressure 64 mm[Hg] Rebecca Fontanez HEALTH AND NUTRITION SPECIALIST.CNM Work Phone: [facility] 08-28-2023 08:47-0400 Systolic blood pressure 112 mm[Hg] Rebecca Fontanez HEALTH AND NUTRITION SPECIALIST.CNM Work Phone: [facility] 08-26-2022 08:23-0400 Body height 167 cm Washington Tran MD Work Phone: [facility] 08-26-2022 08:23-0400 Body weight 64.59 kg Washington Tran MD Work Phone: [facility] 08-26-2022 08:23-0400 Diastolic blood pressure 70 mm[Hg] Washington Tran MD Work Phone: [facility] 08-26-2022 08:23-0400 Heart rate 66 /min Washington Tran MD Work Phone: [facility] 08-26-2022 08:23-0400 SaO2% (BldA) [Mass fraction] 99 % Washington Tran MD Work Phone: [facility] 08-26-2022 08:23-0400 Systolic blood pressure 108 mm[Hg] Washington Tran MD Work Phone: [facility] Encounters Encounter Date Encounter Type Care Provider Facility Start: 08-14-2024 End: 08-14-2024 Patient encounter procedure Nohemy Lyn MD Work Phone: OB/Gynecology Comment on above: Supervision of high risk in third trimester (Primary Dx); Dichorionic diamniotic twin in third trimester Start: 08-14-2024 End: 08-14-2024 ambulatory WASHINGTON TRAN Facility:[facility] Start: 08-07-2024 End: 08-07-2024 ambulatory WASHINGTON TRAN Facility:[facility] Start: 08-07-2024 End: 08-07-2024 Patient encounter procedure [...] Start: 08-06-2024 End: 08-06-2024 ambulatory WASHINGTON TRAN Facility:[facility] Start: 07-31-2024 End: 07-31-2024 Patient encounter procedure [...] Start: 07-31-2024 End: 07-31-2024 ambulatory WASHINGTON TRAN Facility:[facility] Start: 07-24-2024 End: 07-24-2024 [facility] Start: 07-24-2024 End: 07-24-2024 Patient encounter procedure Rebecca Fontanez APRN.CNM Work Phone: OB/Gynecology Comment on above: Supervision of high risk in third trimester (Primary Dx); Dichorionic diamniotic twin in second trimester; 34 weeks gestation of Start: 07-16-2024 End: 07-16-2024 ambulatory WASHINGTON TRAN Facility:[facility] Start: 07-16-2024 End: 07-16-2024 Patient encounter procedure [...] Start: 07-03-2024 End: 07-03-2024 ambulatory WASHINGTON TRAN Facility:[facility] Start: 07-03-2024 End: 07-03-2024 Patient encounter procedure [...] Start: 06-26-2024 End: 06-26-2024 ambulatory WASHINGTON TRAN Facility:[facility] Start: 06-26-2024 End: 06-26-2024 Patient encounter procedure Blanca Skelton APRN.CNM Work Phone: OB/Gynecology Comment on above: 30 weeks gestation o f (Primary Dx); Supervision of high risk in third trimester; Dichorionic diamniotic twin in third trimester Start: 06-18-2024 End: 06-18-2024 ambulatory Rebecca Fontanez APRN.CNM Work Phone: OB/Gynecology Comment on above: Non Stress Savannah t Start: 06-17-2024 End: 06-17-2024 ambulatory WASHINGTON TRAN Facility:[facility] Start: 06-17-2024 End: 06-17-2024 Patient encounter procedure [...] Start: 06-12-2024 End: 06-12-2024 ambulatory WASHINGTON TRAN Facility:[facility] Start: 06-07-2024 End: 06-07-2024 ambulatory [facility] Facility:[facility] Start: 06-06-2024 Telephone encounter Concha izaguirre MD [...] gestation of Start: 06-03-2024 End: 06-03-2024 [facility] Start: 05-14-2024 End: 05-14-2024 Patient encounter procedure [...] Start: 05-14-2024 End: 05-14-2024 ambulatory WASHINGTON TRAN Facility:[facility] Start: 05-07-2024 End: 05-07-2024 ambulatory Karen Dc [...] Start: 04-15-2024 End: 04-15-2024 ambulatory WASHINGTON TRAN Facility:[facility] Start: 04-15-2024 End: 04-15-2024 Patient encounter procedure [...] Start: 04-08-2024 End: 04-08-2024 ambulatory WASHINGTON TRAN Facility:[facility] Start: 04-05-2024 Telephone encounter Blanca cota APRN.CNM Work Phone: OB/Gynecology Comment on above: Orders Start: 03-20-2024 End: 03-20-2024 ambulatory WASHINGTON TRAN Facility:[facility] Start: 03-20-2024 End: 03-20-2024 Patient encounter procedure Blanca Skelton APRN.CNM Work Phone: OB/Gynecology Comment on above: Dichorionic diamniot ic twin in second trimester (Primary Dx); 16 weeks gestation of Start: 03-04-2024 End: 03-04-2024 ambulatory WASHINGTON TRAN Facility:[facility] Start: 03-04-2024 End: 03-04-2024 Patient encounter procedure Elsie Moreno MD Work Phone: OB/Gynecology Comment on above: 14 weeks gestation o f (Primary Dx); Dichorionic diamniotic twin in second trimester Start: 02-23-2024 Chart abstracting Ra[facility]em [facility] Work Phone: Genetic [facility] Comment on above: NIPT Update Start: 02-20-2024 End: 02-20-2024 ambulatory WASHINGTON TRAN Facility:[facility] Start: 02-19-2024 End: 02-19-2024 ambulatory WASHINGTON TRAN Facility:[facility] Start: 02-19-2024 Telephone encounter Elsie glasgow MD Work Phone: OB/Gynecology Comment on above: [id number] Order Start: 02-19-2024 End: 02-19-2024 Patient encounter procedure [facility] [place] [facility] Work Phone: OB/Gynecology Comment on above: Encounter for (NT) n uchal translucency scan (Primary Dx); Dichorionic diamniotic twin in first trimester; 12 weeks gestation of Start: 02-19-2024 End: 02-19-2024 ambulatory WASHINGTON TRAN Facility:[facility] Start: 02-05-2024 Telephone encounter Historical [facility] Start: 02-05-2024 End: 02-05-2024 ambulatory WASHINGTON TRAN Facility:[facility] Start: 02-05-2024 End: 02-05-2024 Patient encounter procedure [...] Start: 01-15-2024 End: 01-15-2024 ambulatory WASHINGTON TRAN Facility:[facility] Start: 01-12-2024 End: 01-12-2024 ambulatory Blanca Skelton APRN.CNM Work Phone: OB/Gynecology Comment on above: Possible second misc arriage Start: 10-17-2023 End: 10-17-2023 ambulatory ROCHELLE RAMOS Facility:[facility] Start: 10-13-2023 End: 10-13-2023 [facility] Start: 10-13-2023 End: 10-13-2023 Patient encounter procedure Blanca Skelton APRN.CHELA Work Phone: OB/Gynecology Comment on above: Missed (Theresa jim Dx); Retained products of conception after miscarriage Retained products of conception after miscarriage (Primary Dx); Missed Start: 10-09-2023 End: 10-09-2023 ambulatory WASHINGTON TRAN Facility:[facility] Start: 10-06-2023 End: 10-06-2023 ambulatory [facility] Facility:[facility] Start: 10-06-2023 End: 10-06-2023 Patient encounter procedure Blanca Skelton APRN.CNCeleste Work Phone: OB/Gynecology Comment on above: Missed (Theresa jim Dx) Missed Start: 09-28-2023 Telephone encounter Blanca cota APRN.CNM Work Phone: OB/Gynecology Comment on above: Patient Update Start: 09-19-2023 ambulatory Blanca johnson APRN.CNM Work Phone: OB/Gynecology Comment on above: Missed miscarriage Start: 09-18-2023 End: 09-18-2023 Patient encounter procedure [facility] [place] [facility] Work Phone: OB/Gynecology Comment on above: Missed [O02 .1] (Primary Dx); Supervision of normal first , antepartum; 9 weeks gestation of Start: 09-18-2023 End: 09-18-2023 ambulatory WASHINGTON TRAN Facility:[facility] Start: 09-15-2023 End: 09-15-2023 ambulatory WASHINGTON TRAN Facility:[facility] Start: 09-15-2023 End: 09-15-2023 Patient encounter procedure Washington Tran MD Work Phone: [facility] [place] Comment on above: Annual physical exam (Primary Dx); Impacted cerumen of right ear; 12 weeks gestation of ; 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 Start: 08-28-2023 End: 08-28-2023 Patient encounter procedure Rebecca Fontanez APRN.CNM Work Phone: OB/Gynecology Comment on above: Supervision of salty l first , antepartum (Primary Dx); 9 weeks gestation of ; with uncertain dates in first trimester Start: 08-28-2023 End: 08-28-2023 ambulatory WASHINGTON TRAN Facility:[facility] Start: 08-28-2023 End: 08-28-2023 [facility] WASHINGTON TRAN Facility:[facility] Start: 08-28-2023 End: 08-28-2023 Patient encounter procedure Rebecca Fontanez APRN.CNM Work Phone: OB/Gynecology Comment on above: Supervision of salty l first , antepartum (Primary Dx); 9 weeks gestation of ; Genital herpes simplex virus (HSV) infection in mother affecting ; Family history of thyroid disorder; Supervision of high risk in first trimester Start: 08-22-2023 End: 08-22-2023 ambulatory WASHINGTON TRAN Facility:[facility] Start: 08-22-2023 End: 08-22-2023 Nursing evaluation of patient and report Nurse Pnob [facility] Work Phone: OB/Gynecology Comment on above: Supervision of salty erna first , antepartum (Primary Dx); Herpes genitalis in women Start: 08-18-2023 Refill Washington Tran MD Work Phone: [facility] [place] Comment on above: Refill Request Start: 08-16-2023 Telephone encounter Rebecca espana HEALTH AND NUTRITION SPECIALIST.CNM Work Phone: Urology Comment on above: upcoming appointment Start: 07-11-2023 Refill Marysol Mchugh MD Work Phone: OB/Gynecology Comment on above: Refill Request; Refi ll Request Start: 11-16-2022 ambulatory Washington Tran MD Work Phone: Family [facility] [place] Comment on above: Billing Change Reque st Start: 11-04-2022 Telephone encounter Vasiliy Tran MD Work Phone: Family [facility] [place] Comment on above: Billing (Error in co de for annual physical) Start: 08-26-2022 End: 08-26-2022 Patient encounter procedure Washington Tran MD Work Phone: [facility] [place] Comment on above: Annual physical exam (Primary Dx); Herpes genitalis in women; Seasonal allergies; Need for COVID-19 vaccine Procedures Date Procedure Procedure Detail Performing Clinician Start: 07-31-2024 RSV VACCINE, BIVALEN T (ABRYSVO) Blanca Skelton HEALTH AND NUTRITION SPECIALIST.CNM Work Phone: Start: 07-03-2024 Us preg uterus after 1st trimest / gestation Concha Baires MD Work Phone: Start: 06-03-2024 Us preg uterus after 1st trimest 1/1st gestation Blanca Skelton HEALTH AND NUTRITION SPECIALIST.CNM Work Phone: Start: 05-14-2024 Us preg uterus after 1st trimest /1st gestation Concha Baires MD Work Phone: Start: 05-06-2024 Us preg uterus after 1st trimest 1/ gestation Concha Baires MD Work Phone: Start: 02-19-2024 Antibody screen DAYA TRAN Comment on above: Order Comment: Speci men Type: BLOOD SPECIMENOrdering Facility: [facility] Address: [address] [place] [address] Performed By: #### T SPN ####CC MAIN BLOOD BANKCLIA [id number] [place] [address] [place] Start: 02-19-2024 Us nuchal dominguez slucency 1st gestation Blanca Skelton HEALTH AND NUTRITION SPECIALIST.CNM Work Phone: Start: 10-13-2023 Us preg uterus after 1st trimest 1/ gestation Blanca Skelton HEALTH AND NUTRITION SPECIALIST.CNM Work Phone: Start: 10-06-2023 Us preg uterus after 1st trimest 1/1st gestation Blanca Skelton HEALTH AND NUTRITION SPECIALIST.CNM Work Phone: Start: 09-18-2023 Us nuchal dominguez slucency 1st gestation Rebecca Fontanez HEALTH AND NUTRITION SPECIALIST.CNM Work Phone: Start: 09-01-2023 Antibody screen DAYA TRAN Comment on above: Order Comment: Speci men Type: BLOOD SPECIMENOrdering Facility: [facility] Address: [address] [place] [address] Performed By: #### T SPN ####CC MAIN BLOOD BANKCLIA [id number] [place] [address] [place] Start: 08-28-2023 Us uterus l imited 1/> fetuses Rebecca Fontanez HEALTH AND NUTRITION SPECIALIST.CNM Work Phone: Start: 08-26-2022 [employer] COVI D-19 BIVALENT BOOSTER VACCINE, AGE 12+ YR Washington Tran MD Work Phone: Plan of Treatment Date Care Activity Detail Author Start: 07-03-2034 Urine microalbumin profile DTaP,Tdap,Td Vaccine (10 - Td or Tdap) [facility] Start: 03-20-2029 Urine microalbumin profile [facility] Start: 02-04-2029 Screening for malign ant neoplasm of cervix [facility] Start: 07-16-2026 Pap Testing Pap Testing [facility] Start: 07-16-2026 Screening for malign ant neoplasm of cervix Pap Testing [facility] Start: 10-01-2024 End: 10-01-2024 Patient encounter procedure 10/01/2024 9:00 AM EST Office Visit OB/Gynecology [address] [place], [place] [id number] Rochelle Ramos MD [address] [place] [id number] PP OB/Gynecology Comment on above: PP Start: 09-15-2024 Covid-19 Vaccine () Covid-19 Vaccine () [facility] Comment on above: Postponed from 06/30 (Declined at this time) Start: 09-15-2024 HPV Testing HPV Testing [facility] Comment on above: Postponed from 03/17 (Declined at this time) Start: 09-15-2024 Screening for malign ant neoplasm of cervix HPV Testing [facility] Comment on above: Postponed from 03/17 (Declined at this time) Start: 08-28-2024 End: 08-28-2024 Patient encounter procedure Maternal Medicine Comment on above: Growth u/s OB Start: 08-26-2024 End: 08-26-2024 Patient encounter procedure 08/26/2024 10:50 AM EDT Office Visit OB/Gynecology [address] [place] [id number] Nohemy Lyn MD [address] [place] [id number] PP OB/Gynecology Comment on above: PP Start: 08-21-2024 End: 08-21-2024 Patient encounter procedure 08/21/2024 2:30 PM EDT Office Visit OB/Gynecology [address] [place] [address] Rebecca Fontanez APRN.CNM [address] [place] [address] centering OB/Gynecology Comment on above: centering Start: 08-14-2024 End: 08-14-2024 Patient encounter procedure 08/14/2024 3:10 PM EDT Routine Office Visit OB/Gynecology [address] [place] [address] Nohemy Lyn MD [address] [place] [address] OB OB/Gynecology Comment on above: OB Start: 08-14-2024 End: 08-14-2024 Patient encounter procedure OB/Gynecology Comment on above: OB Encounter for superv ision of high risk in second trimester, antepartum [O09.92]; Dichorionic diamniotic twin in second trimester [O30.042] Start: 08-07-2024 End: 08-07-2024 Patient encounter procedure 08/07/2024 2:30 PM EDT Office Visit OB/Gynecology [address] [place] [address] Blanca Skelton APRN.CNM [address] [place] [address] centering OB/Gynecology Comment on above: centering Start: [...] folder Start: 07-16-2024 PAP TESTING PAP TESTING [facility] Start: 07-10-2024 End: 07-10-2024 Patient encounter procedure 07/10/2024 2:30 PM EDT Office Visit OB/Gynecology [address] [place] [address] Blanca Skelton APRN.CNM [address] [place] [address] centering OB/Gynecology Comment on above: centering Start: 07-07-2024 RSV Vaccine (1 - Ris k 1-dose series) RSV Vaccine (1 - Risk 1-dose series) [facility] Start: 07-03-2024 End: 07-03-2024 Patient encounter procedure OB/Gynecology Comment on above: Growth OB Start: 06-30-2024 Covid-19 Vaccine ( season) Covid-19 Vaccine ( season) [facility] Start: 06-30-2024 Covid-19 Vaccine ( season) Covid-19 Vaccine ( season) [facility] Start: 06-30-2024 Influenza vaccination Influenza Vacc ine (#1) [facility] Start: 06-30-2024 RSV Vaccine (1 - Ris k 1-dose series) RSV Vaccine (1 - Risk 1-dose series) [facility] Start: 06-26-2024 End: 06-26-2024 Patient encounter procedure 06/26/2024 2:30 PM EDT Office Visit OB/Gynecology [address] [place] [address] Blanca Skelton APRN.CNM [address] [place] [address] centering OB/Gynecology Comment on above: centering Start: 06-17-2024 End: 06-17-2024 Patient encounter procedure 06/17/2024 3:40 PM EDT Routine Office Visit OB/Gynecology [address] [place] [address] Concha Baires MD [address] [address] OB OB/Gynecology Comment on above: OB Start: 06-12-2024 End: 06-12-2024 Patient encounter procedure 06/12/2024 2:30 PM EDT Office Visit OB/Gynecology [address] [place] [address] Blanca Skelton APRN.CN [address] [place] [address] centering OB/Gynecology Comment on above: centering Start: 06-07-2024 End: 06-07-2024 ambulatory 06/07/2024 8:45 AM EDT Results Only [place] [facility] [address] [place] [address] Blood work, Abnormal glucose complicating [O99.810] [facility] Comment on above: Blood work, Abnormal glucose complicating [O99.810] Start: 06-06-2024 End: 09-05-2024 CBC W Auto Differential panel - Blood COMPLETE BLOOD COUNT AND DIFFERENTIAL Lab Routine 23 weeks gestation of Dichorionic diamniotic twin in second trimester Encounter for supervision of high risk in second trimester, antepartum Expected: 06/06/2024 (Approximate), Expires: 09/05/2024 [facility] Comment on above: Expected: 06/06/2024 (Approximate), Expires: 09/05/2024 Start: 06-06-2024 End: 09-05-2024 GEST GLUC GINI, 3-HR, 100 GM, FASTING GEST GLUC GINI, 3-HR, 100 GM, FASTING Lab Routine Abnormal glucose complicating Expected: 06/06/2024, Expires: 09/05/2024 [facility] Work Phone: Comment on above: Expected: 06/06/2024 , Expires: 09/05/2024 Start: 06-06-2024 End: 09-05-2024 GESTATIONAL GLUCOSE SCREEN, 1-HOUR, 50 GRAM, NON-FASTING GESTATIONAL GLUCOSE SCREEN, 1-HOUR, 50 GRAM, NON-FASTING Lab Routine 23 weeks gestation of Dichorionic diamniotic twin in second trimester Encounter for supervision of high risk in second trimester, antepartum Expected: 06/06/2024 (Approximate), Expires: 09/05/2024 [facility] Work Phone: Comment on above: Expected: 06/06/2024 (Approximate), Expires: 09/05/2024 Start: 06-06-2024 End: 09-05-2024 SYPHILIS TOTAL W/REFLEX SYPHILIS TOTAL W/REFLEX Lab Routine 23 weeks gestation of Dichorionic diamniotic twin in second trimester Encounter for supervision of high risk in second trimester, antepartum Expected: 06/06/2024 (Approximate), Expires: 09/05/2024 [facility] Comment on above: Expected: 06/06/2024 (Approximate), Expires: 09/05/2024 Start: 06-03-2024 End: 06-03-2024 Patient encounter procedure OB/Gynecology Comment on above: Twins Growth OB Start: 06-03-2024 End: 06-03-2024 ambulatory 06/03/2024 2:45 PM EDT Results Only [place] [facility] [address] [place] [address] Glucose Test [facility] Comment on above: Glucose Test Start: 05-21-2024 End: 05-21-2024 ambulatory Pediatric Cardiology Comment on above: 23 weeks gestation o f [Z3A.23] Start: 05-21-2024 End: 05-21-2024 Patient encounter procedure Pediatric Cardiology Comment on above: 23 weeks gestation o f [Z3A.23] Start: 05-14-2024 End: 05-14-2024 Patient encounter procedure 05/14/2024 2:30 PM EDT Office Visit OB/Gynecology [address] [place] [address] Rebecca Fontanez APRN.CN [address] [place] [address] centering OB/Gynecology Comment on above: centering Start: 05-14-2024 End: 05-14-2024 Patient encounter procedure 05/14/2024 10:30 AM EDT Routine Office Visit Maternal Medicine [address] [place] [address] Stephanie Barrera MD [address] [place], [place] [id number] MFM Consult- Twins Maternal Medicine Comment on above: MFM Consult- Twins Start: 05-06-2024 End: 05-06-2024 Patient encounter procedure OB/Gynecology Comment on above: Growth OB Growth twins Start: 04-15-2024 End: 04-15-2024 Patient encounter procedure 04/15/2024 2:30 PM EDT Office Visit OB/Gynecology [address] [place], [place] [id number] Blanca Skelton APRN.CNM [address] [place] [address] centering OB/Gynecology Comment on above: centering Start: 04-08-2024 End: 07-08-2024 ALPHA FETOPRO MATERNAL [facility] Work Phone: Comment on above: Expected: 04/08/2024 , Expires: 07/08/2024 Start: 04-08-2024 End: 04-08-2024 Patient encounter procedure OB/Gynecology Comment on above: Anatomy OB Start: 04-05-2024 End: 04-05-2025 OBSTETRIC ULTRASOUND WHI OBSTETRIC ULTRASOUND WHI Anc Imaging Routine Dichorionic diamniotic twin in second trimester Expected: 04/05/2024, Expires: 04/05/2025 [facility] Work Phone: Comment on above: Expected: 04/05/2024 , Expires: 04/05/2025 Start: 03-04-2024 End: 03-04-2024 Patient encounter procedure 03/04/2024 12:50 PM EDT Routine Office Visit OB/Gynecology [address] [place] [address] Elsie Moreno MD [address] [place] [address] OB OB/Gynecology Comment on above: OB Start: 02-19-2024 End: 05-20-2024 Chromosome 21 trisomy [Presence] in Blood or Tissue by Cytogenetics [id number] PLUS Lab Routine Dichorionic diamniotic twin in first trimester Expected: 02/19/2024, Expires: 05/20/2024 [facility] Work Phone: Comment on above: Expected: 02/19/2024 , Expires: 05/20/2024 Start: 02-05-2024 End: 05-06-2024 CBC panel - Blood by Automated count CBC Lab Routine Encounter for supervision of high risk in first trimester, antepartum Expected: 02/05/2024, Expires: 05/06/2024 [facility] Work Phone: Comment on above: Expected: 02/05/2024 , Expires: 05/06/2024 Start: 02-05-2024 End: 05-06-2024 Hemoglobin A1c in Blood HGB A1C Lab Routine Encounter for supervision of high risk in first trimester, antepartum Expected: 02/05/2024, Expires: 05/06/2024 [facility] Work Phone: Comment on above: Expected: 02/05/2024 , Expires: 05/06/2024 Start: 02-05-2024 End: 05-06-2024 Hepatitis B virus surface Ag [Presence] in Serum HEP B SURF AG SCRN Lab Routine Encounter for supervision of high risk in first trimester, antepartum Expected: 02/05/2024, Expires: 05/06/2024 [facility] Work Phone: Comment on above: Expected: 02/05/2024 , Expires: 05/06/2024 Start: 02-05-2024 End: 05-06-2024 Hepatitis C virus Ab [Presence] in Serum HEPATITIS C ANTIBODY IA WITH CONFIRMATION Lab Routine Encounter for supervision of high risk in first trimester, antepartum Expected: 02/05/2024, Expires: 05/06/2024 [facility] Work Phone: Comment on above: Expected: 02/05/2024 , Expires: 05/06/2024 Start: 02-05-2024 End: 05-06-2024 HIV 1+2 Ab [Presence] in Serum or Plasma by Immunoassay HIV 1 2 COMBO(AG/AB),WITH REFLEX TO DIFFERENTIATION Lab Routine Encounter for supervision of high risk in first trimester, antepartum Expected: 02/05/2024, Expires: 05/06/2024 [facility] Work Phone: Comment on above: Expected: 02/05/2024 , Expires: 05/06/2024 Start: 02-05-2024 End: 02-04-2025 NUCHAL TRANSLUCENCY WHI NUCHAL TRANSLUCENCY WHI Anc Imaging Routine Encounter for supervision of high risk in first trimester, antepartum with uncertain dates in first trimester Expected: 02/05/2024, Expires: 02/04/2025 [facility] Work Phone: Comment on above: Expected: 02/05/2024 , Expires: 02/04/2025 Start: 02-05-2024 End: 05-06-2024 RUBELLA IGG AB RUBELLA IGG AB Lab Routine Encounter for supervision of high risk in first trimester, antepartum Expected: 02/05/2024, Expires: 05/06/2024 [facility] Work Phone: Comment on above: Expected: 02/05/2024 , Expires: 05/06/2024 Start: 02-05-2024 End: 05-06-2024 SYPHILIS TOTAL W/REFLEX SYPHILIS TOTAL W/REFLEX Lab Routine Encounter for supervision of high risk in first trimester, antepartum Expected: 02/05/2024, Expires: 05/06/2024 [facility] Work Phone: Comment on above: Expected: 02/05/2024 , Expires: 05/06/2024 Start: 02-05-2024 End: 05-06-2024 TYPE + SCREEN TYPE + SCREEN Blood Bank Routine Encounter for supervision of high risk in first trimester, antepartum Expected: 02/05/2024, Expires: 05/06/2024 [facility] Work Phone: Comment on above: Expected: 02/05/2024 , Expires: 05/06/2024 Start: 10-30-2023 Behavioral Health Screening Behavioral Health Screening [facility] Start: 10-30-2023 Depression Assessment Depression Ass essment [facility] Start: 10-06-2023 End: 10-06-2024 OBSTETRIC ULTRASOUND WHI OBSTETRIC ULTRASOUND WHI Anc Imaging Routine Missed Expected: 10/06/2023, Expires: 10/06/2024 [facility] Work Phone: Comment on above: Expected: 10/06/2023 , Expires: 10/06/2024 Start: 09-20-2023 End: 09-20-2024 OBSTETRIC ULTRASOUND WHI OBSTETRIC ULTRASOUND WHI Anc Imaging Routine Missed Expected: 09/20/2023, Expires: 09/20/2024 [facility] Work Phone: Comment on above: Expected: 09/20/2023 , Expires: 09/20/2024 Start: 08-28-2023 End: 11-27-2023 CBC panel - Blood by Automated count CBC Lab Routine Supervision of normal first , antepartum 9 weeks gestation of Expected: 08/28/2023, Expires: 11/27/2023 [facility] Work Phone: Comment on above: Expected: 08/28/2023 , Expires: 11/27/2023 Start: 08-28-2023 End: 11-27-2023 Hepatitis B virus surface Ag [Presence] in Serum HEP B SURF AG SCRN Lab Routine Supervision of normal first , antepartum 9 weeks gestation of Expected: 08/28/2023, Expires: 11/27/2023 [facility] Work Phone: Comment on above: Expected: 08/28/2023 , Expires: 11/27/2023 Start: 08-28-2023 End: 11-27-2023 Hepatitis C virus Ab [Presence] in Serum HEPATITIS C ANTIBODY IA WITH CONFIRMATION Lab Routine Supervision of normal first , antepartum 9 weeks gestation of Expected: 08/28/2023, Expires: 11/27/2023 [facility] Work Phone: Comment on above: Expected: 08/28/2023 , Expires: 11/27/2023 Start: 08-28-2023 End: 11-27-2023 HIV 1+2 Ab [Presence] in Serum or Plasma by Immunoassay HIV 1 2 COMBO(AG/AB),WITH REFLEX TO DIFFERENTIATION Lab Routine Supervision of normal first , antepartum 9 weeks gestation of Expected: 08/28/2023, Expires: 11/27/2023 [facility] Work Phone: Comment on above: Expected: 08/28/2023 , Expires: 11/27/2023 Start: 08-28-2023 End: 08-28-2024 NUCHAL TRANSLUCENCY WHI NUCHAL TRANSLUCENCY WHI Anc Imaging Routine Supervision of normal first , antepartum 9 weeks gestation of Expected: 08/28/2023, Expires: 08/28/2024 [facility] Work Phone: Comment on above: Expected: 08/28/2023 , Expires: 08/28/2024 Start: 08-28-2023 End: 08-28-2024 OBSTETRIC ULTRASOUND WHI OBSTETRIC ULTRASOUND WHI Anc Imaging Routine Supervision of normal first , antepartum 9 weeks gestation of Expected: 08/28/2023, Expires: 08/28/2024 [facility] Work Phone: Comment on above: Expected: 08/28/2023 , Expires: 08/28/2024 Start: 08-28-2023 End: 11-27-2023 RUBELLA IGG AB RUBELLA IGG AB Lab Routine Supervision of normal first , antepartum 9 weeks gestation of Expected: 08/28/2023, Expires: 11/27/2023 [facility] Work Phone: Comment on above: Expected: 08/28/2023 , Expires: 11/27/2023 Start: 08-28-2023 End: 01-29-2024 SYPHILIS TOTAL W/REFLEX SYPHILIS TOTAL W/REFLEX Lab Routine Supervision of normal first , antepartum 9 weeks gestation of Expected: 08/28/2023, Expires: 11/27/2023 [facility] Work Phone: Comment on above: Expected: 08/28/2023 , Expires: 11/27/2023 Start: 08-28-2023 End: 11-27-2023 Thyrotropin [Units/volume] in Serum or Plasma TSH BLD Lab Routine Family history of thyroid disorder Expected: 08/28/2023, Expires: 11/27/2023 [facility] Work Phone: Comment on above: Expected: 08/28/2023 , Expires: 11/27/2023 Start: 08-28-2023 End: 11-27-2023 TYPE + SCREEN TYPE + SCREEN Blood Bank Routine Supervision of normal first , antepartum 9 weeks gestation of Expected: 08/28/2023, Expires: 11/27/2023 [facility] Work Phone: Comment on above: Expected: 08/28/2023 , Expires: 11/27/2023 Start: 06-30-2023 Covid-19 Vaccine ( season) Covid-19 Vaccine ( season) [facility] Start: 06-30-2023 Influenza vaccination Influenza Vacc ine (#1) [facility] Start: 04-28-2023 Influenza vaccination INFLUENZA (#1) [facility] Comment on above: Postponed from 06/30 (Declined at this time) Start: 2023 HPV Testing HPV Testing [facility] Start: 10-30-2022 DEPRESSION ASSESSMENT DEPRESSION ASS ESSMENT [facility] Start: 08-26-2022 End: 10-26-2022 CBC panel - Blood by Automated count [facility] Work Phone: Comment on above: Expected: 08/26/2022 , Expires: 10/26/2022 Start: 08-26-2022 End: 10-26-2022 Comprehensive metabolic 2000 panel - Serum or Plasma [facility] Work Phone: Comment on above: Expected: 08/26/2022 , Expires: 10/26/2022 Start: 08-26-2022 End: 10-26-2022 Lipid 1996 panel - Serum or Plasma [facility] Work Phone: Comment on above: Expected: 08/26/2022 , Expires: 10/26/2022 Start: 2011 Anxiety Screening Anxiety Screening [facility] Start: 2011 Depression Screening Depression Scre ening [facility] Bacteria identified in Urine by Culture URINE CULTURE Microbiology Routine Supervision of normal first , antepartum 9 weeks gestation of 08/28/2023 9:43 AM T [facility] Work Phone: Bacteria identified in Urine by Culture URINE CULTURE Microbiology Routine Encounter for supervision of high risk in first trimester, antepartum 02/05/2024 9:32 AM [facility] Work Phone: Chlamydia trachomatis+Neisseria gonorrhoeae DNA [Presence] in Unspecified specimen by FELIX with probe detection GONORRHEA/CHLAMYDIA NAAT Lab Routine Supervision of normal first , antepartum 9 weeks gestation of 08/28/2023 9:43 AM T [facility] Work Phone: Chlamydia trachomatis+Neisseria gonorrhoeae DNA [Presence] in Unspecified specimen by FELIX with probe detection GONORRHEA/CHLAMYDIA NAAT Lab Routine Encounter for supervision of high risk in first trimester, antepartum 02/05/2024 9:32 AM [facility] Work Phone: End: 09-19-2024 Choriogonadotropin.beta subunit [Units/volume] in Serum or Plasma HCG QUANTITATIVE Lab Routine Missed 2x per week for 10 Occurrences starting 09/20/2023 until 09/19/2024 [facility] Work Phone: Comment on above: 2x per week for 10 O ccurrences starting 09/20/2023 until 09/19/2024 End: 01-11-2025 Choriogonadotropin.beta subunit [Units/volume] in Serum or Plasma HCG QUANTITATIVE Lab Routine Bleeding in early 2x per week for 2 Occurrences starting 01/12/2024 until 01/11/2025 [facility] Work Phone: Comment on above: 2x per week for 2 Oc currences starting 01/12/2024 until 01/11/2025 Choriogonadotropin.b eta subunit [Units/volume] in Serum or Plasma HCG QUANTITATIVE Lab Routine Bleeding in early 01/12/2024 4:39 PM EDT [facility] Work Phone: End: 05-06-2025 ECHO [facility] Comment on above: 1 Occurrences starti ng 05/06/2024 until 05/06/2025 End: 09-16-2024 nonstress test NON-STRESS TEST Procedures Routine Encounter for supervision of high risk in second trimester, antepartum Dichorionic diamniotic twin in second trimester Once per week for 4 Occurrences starting 05/14/2024 until 09/16/2024 [facility] Work Phone: Comment on above: Once per week for 4 Occurrences starting 05/14/2024 until 09/16/2024 End: 07-24-2024 nonstress test NON-STRESS TEST Procedures Routine Supervision of high risk in third trimester Dichorionic diamniotic twin in second trimester Once per week for 5 Occurrences starting 07/24/2024 until 07/24/2024 [facility] Work Phone: Comment on above: Once per week for 5 Occurrences starting 07/24/2024 until 07/24/2024 End: 09-29-2024 OBSTETRIC ULTRASOUND WHI OBSTETRIC ULTRASOUND WHI Anc Imaging Routine 19 weeks gestation of Dichorionic diamniotic twin in second trimester Once per month for 4 Occurrences starting 04/08/2024 until 09/29/2024 [facility] Comment on above: Once per month for 4 Occurrences starting 04/08/2024 until 09/29/2024 PAP TEST PAP TEST Lab Rou judith 10 weeks gestation of Encounter for supervision of high risk in first trimester, antepartum 02/05/2024 9:32 AM EDT [facility] Work Phone: POC SOCIAL WELFARE ADMINISTRATOR ULTRASOUND POC SOCIAL WELFARE ADMINISTRATOR ULTRASO UND Anc Imaging Routine 10 weeks gestation of Encounter for supervision of high risk in first trimester, antepartum with uncertain dates in first trimester Ordered: 02/05/2024 [facility] Work Phone: Comment on above: Ordered: 02/05/2024 ROUTINE, GR OUP B STREP PCR ROUTINE, GROUP B STREP PCR Microbiology Routine 35 weeks gestation of Supervision of high risk in third trimester Dichorionic diamniotic twin in second trimester Ordered: 07/31/2024 [facility] Comment on above: Ordered: 07/31/2024 URINE OB DIP B/O URINE OB DIP B/ O Lab Routine Supervision of high risk in third trimester Dichorionic diamniotic twin in second trimester 34 weeks gestation of Ordered: 07/24/2024 [facility] Comment on above: Ordered: 07/24/2024 URINE OB DIP B/O URINE OB DIP B/ O Lab Routine 35 weeks gestation of Supervision of high risk in third trimester Dichorionic diamniotic twin in second trimester Ordered: 07/31/2024 [facility] Work Phone: Comment on above: Ordered: 07/31/2024 URINE OB DIP B/O URINE OB DIP B/ O Lab Routine Supervision of high risk in third trimester 36 weeks gestation of Ordered: 08/06/2024 [facility] Work Phone: Comment on above: Ordered: 08/06/2024 [facility] (OFFICE IPAS) WHI (OFFICE IP ) Procedures Routine Missed Ordered: 10/13/2023 [facility] Work Phone: Comment on above: Ordered: 10/13/2023 [facility] Immunizations Immunization Date Immunization Notes Care Provider Tutu ogden 07-31-2024 respiratory syncytia l virus (RSV) vaccine, bivalent (ABRYSVO) Blanca Skelton APRN.CNM Work Phone: [facility] 07-03-2024 tetanus toxoid, redu lópez diphtheria toxoid, and acellular pertussis vaccine, adsorbed Blanca Skelton APRN.CHELA Work Phone: [facility] 08-08-2023 influenza virus vaccine, unspecified formulation Washington Tran MD Work Phone: [facility] Work Phone: 08-26-2022 COVID-19 booster vaccine, age 12+ yr, bivalent (PFIZER-BIONTECH) Washington Tran MD Work Phone: [facility] 10-13-2021 COVID-19 original vaccine, age 12+ yr, monovalent (PFIZER-BIONTECH - PURPLE TOP) Washington Tran MD Work Phone: [facility] 08-02-2021 influenza, injectabl e, quadrivalent, contains preservative Washington Tran MD Work Phone: [facility] 08-02-2021 influenza virus vaccine, unspecified formulation Marysol Mchugh MD Work Phone: [facility] 07-25-2019 influenza virus vaccine, unspecified formulation Washington Tran MD Work Phone: [facility] Work Phone: 03-20-2019 tetanus toxoid, redu lópez diphtheria toxoid, and acellular pertussis vaccine, adsorbed Washington Tran MD Work Phone: [facility] 06-13-2011 meningococcal polysaccharide (groups A, C, Y and W-135) diphtheria toxoid conjugate vaccine (MCV4P) Washington Tran MD Work Phone: [facility] Work Phone: 05-18-2010 hepatitis A vaccine, pediatric/adolescent dosage, 2 dose schedule Washington Tran MD Work Phone: [facility] Work Phone: 05-18-2010 tetanus toxoid, redu lópez diphtheria toxoid, and acellular pertussis vaccine, adsorbed Washington Tran MD Work Phone: [facility] Work Phone: 10-19-2009 HPV, unspecified formulation Washington Tran MD Work Phone: [facility] Work Phone: 05-08-2009 hepatitis A vaccine, pediatric/adolescent dosage, 2 dose schedule Washington Tran MD Work Phone: [facility] Work Phone: 05-08-2009 HPV, unspecified formulation Washington Tran MD Work Phone: [facility] Work Phone: 11-04-2008 HPV, unspecified formulation Washington Tran MD Work Phone: [facility] Work Phone: 05-03-2005 meningococcal ACWY vaccine, unspecified formulation Washington Tran MD Work Phone: [facility] Work Phone: 05-11-2004 tetanus toxoid, redu lópez diphtheria toxoid, and acellular pertussis vaccine, adsorbed Washington Tran MD Work Phone: [facility] Work Phone: 08-16-2001 measles, mumps and rubella virus vaccine Washington Tran MD Work Phone: [facility] Work Phone: 06-04-1998 diphtheria, tetanus toxoids and pertussis vaccine Washington Tran MD Work Phone: [facility] Work Phone: 06-04-1998 poliovirus vaccine, unspecified formulation Washington Tran MD Work Phone: [facility] Work Phone: 07-18-1994 diphtheria, tetanus toxoids and pertussis vaccine Washington Tran MD Work Phone: [facility] Work Phone: 07-18-1994 haemophilus influenz ae type b vaccine, conjugate unspecified formulation Washington Tran MD Work Phone: [facility] Work Phone: 07-18-1994 measles, mumps and rubella virus vaccine [place]ignton Tran MD Work Phone: [facility] Work Phone: 1993 diphtheria, tetanus toxoids and pertussis vaccine Washington Tran MD Work Phone: [facility] Work Phone: 1993 haemophilus influenz ae type b vaccine, conjugate unspecified formulation Washington Tran MD Work Phone: [facility] Work Phone: 1993 hepatitis B vaccine, pediatric or pediatric/adolescent dosage Washington Tran MD Work Phone: [facility] Work Phone: 1993 poliovirus vaccine, unspecified formulation Washington Tran MD Work Phone: [facility] Work Phone: 1993 diphtheria, tetanus toxoids and pertussis vaccine Washington Tran MD Work Phone: [facility] Work Phone: 1993 haemophilus influenz ae type b vaccine, conjugate unspecified formulation Washington Tran MD Work Phone: [facility] Work Phone: 1993 hepatitis B vaccine, pediatric or pediatric/adolescent dosage Washington Tran MD Work Phone: [facility] Work Phone: 1993 poliovirus vaccine, unspecified formulation Washington Tran MD Work Phone: [facility] Work Phone: 1993 diphtheria, tetanus toxoids and pertussis vaccine Washington Tran MD Work Phone: [facility] Work Phone: 1993 haemophilus influenz ae type b vaccine, conjugate unspecified formulation Washington Tran MD Work Phone: [facility] Work Phone: 1993 hepatitis B vaccine, pediatric or pediatric/adolescent dosage Washington Tran MD Work Phone: [facility] Work Phone: 1993 poliovirus vaccine, unspecified formulation Washington Tran MD Work Phone: [facility] Work Phone: Payers Date Payer Category Payer Private Health Insurance [id number] 2021 Private Health Insurance [id number] Social History Date Type Detail Facility Start: 07-29-2022 Tobacco smoking stat [facility] Never smoked tobacco [facility] Start: 07-29-2022 Tobacco use and exposure Smoke less tobacco non-user [facility] Start: 08-26-2022 Alcohol intake Current drinke r of alcohol (finding) [facility] Start: 08-26-2022 End: 08-22-2023 Alcohol intake [facility] Start: 09-22-2021 History SDOH Alcohol Frequency 4 [facility] Start: 09-22-2021 End: 08-25-2022 History SDOH Alcohol Std Drinks 1 [facility] Start: 09-22-2021 History SDOH Social Connections Phone 5 [facility] Start: 09-22-2021 End: 08-25-2022 History SDOH Social Connections Get Together 2 [facility] Start: 09-22-2021 History SDOH Social Connections Living 7 [facility] Start: 1995 Sex Assigned At Not on file [facility] Start: 08-16-2022 End: 08-26-2022 Exposure to SARS-CoV-2 (event) Not sure [facility] Start: 09-22-2021 End: 08-22-2023 Social connection and isolation panel [facility] Do you belong to any clubs or organizations such as mormon groups, unions, fraternal or athletic groups, or school groups? No [facility] Attends Club or Organization Meetings Not on file [facility] Are you now , , , , never or living with a partner? Never [facility] How often to you hav e a drink containing alcohol? 2-3 time sa week [facility] How many standard dr inks containing alcohol do you have on a typical day? 1 or 2 [facility] How often do you hav e 6 or more drinks on 1 occasion? Never [facility] Do you feel stress - tense, restless, nervous, or anxious, or unable to sleep at night because your mind is troubled all the time - these days [OSQ] Not at all [facility] (I/We) worried wheth er (my/our) food would run out before (I/we) got money to buy more. Never true [facility] Start: 07-28-2022 Sexual orientation Heterosexual (jun simon) [facility] Start: 08-22-2023 End: 08-07-2024 Alcohol intake Ex-drinker (finding) [facility] Start: 08-22-2023 Education 18 [facility] Start: 07-07-2023 [facility] Do you belong to any clubs or organizations such as mormon groups, [employer], [employer] or athletic groups, or school groups? Yes [facility] Are you now , , , , never or living with a partner? [facility] Start: 09-15-2023 Alcohol Comment not during [facility] Goals Date Patient Goal Desired Activity /State Personal health goal Personal health goal Clinical Notes 08-26-2022 to 08-14-2024 Nohemy Lyn MD - 08/14/2024 3:09 PM EDTPrenatal Quick Notes - Nohemy Lyn MD - 08/14/2024 2:20 PM EDTPrenatal Quick Notes - Nohemy Lyn MD - 08/14/2024 2:20 PM EDT Note Date & Type Note Facility 08-14-2024 Note HNO ID: [id number] Author: NOHEMY LYN MD Service: ? Author [...] Baby B: Reactive SIGNATURE: Nohemy Lyn MD [facility] 08-14-2024 History of Presen t illness Narrative [...] Nohemy Lyn MD documented in this encounter [facility] 08-14-2024 Progress note Formatting of t his [...] NST reactive x2 . Nohemy Lyn M.D. [facility] 08-14-2024 Miscellaneous Notes RR- VB No. LOF [...] Nohemy Lyn M.D. documented in this encounter [facility] 08-07-2024 Instructions Melina Wilson, MA - 08/07/2024 2:31 PM EDT SEQUENTIAL SCREENINGS The [facility] offers sequential screenings for women who are [...] It will require an appointment with our air conditioning service technician. This is not an ultrasound performed [...] the above symptoms, contact our office at [phone] and ask to speak with a nurse. After hours, you can call doctors registry at [phone] OR call [facility] at [phone] and ask to have the doctor tongue binder paged. If you consider this an emergency, dial 9--1 or go to your nearest emergency department. NEED HELP? Are you dealing with a violent or abusive relationship? Are you a victim of rape or sexual assult? Call [facility] ([place]) 24 hour Crisis Hotline: 538.936.9329 or 213-170-4223. MANUAL Your Guide to a Healthy manual is now on-line. Visit [email or web address] to download your free copy documented in this encounter [facility] 08-07-2024 Progress note Formatting of t his [...] 1 week for NST/SHARATH Blanca Skelton APRN.CNM [facility] 08-07-2024 Miscellaneous Notes CP - CENTERМАРИНА S: [...] NST/SHARATH Skelton APRN.CNM documented in this encounter [facility] 08-06-2024 Note HNO ID: [id number] Author: NOHEMY LYN MD Service: ? Author [...] I and Reactive SIGNATURE: Nohemy Lyn MD [facility] 08-06-2024 History of Presen t illness Narrative [...] Nohemy Lyn MD documented in this encounter [facility] 08-06-2024 Progress note Formatting of t his [...] 1 week or prn Nohemy Lyn M.D. [facility] 08-06-2024 Miscellaneous Notes RR- VB No. LOF [...] Nohemy Lyn M.D. documented in this encounter [facility] 08-06-2024 Instructions Hilda Mitchell MA - 08/06/2024 2:24 PM EDT SEQUENTIAL SCREENINGS The [facility] offers sequential screenings for women who are [...] It will require an appointment with our air conditioning service technician. This is not an ultrasound performed [...] the above symptoms, contact our office at [phone] and ask to speak with a nurse. After hours, you can call doctors registry at [phone] OR call [facility] at [phone] and ask to have the doctor tongue binder paged. If you consider this an emergency, dial 9-1-1 or go to your nearest emergency department. NEED HELP? Are you dealing with a violent or abusive relationship? Are you a victim of rape or sexual assult? Call [facility] ([place]) 24 hour Crisis Hotline: 266.217.2422 or 046-147-6231. MANUAL Your Guide to a Healthy manual is now on-line. Visit [email or web address] to download your free copy documented in this encounter [facility] 07-31-2024 Progress note Formatting of t his [...] 1 week for SEBT/ SHARATH Skelton APRN.CNM [facility] 07-31-2024 Miscellaneous Notes S: Jarvis King is [...] SHARATH Skelton APRN.CNM documented in this encounter [facility] 07-31-2024 Instructions Melina Wilson MA - 07/31/2024 3:38 PM EDT SEQUENTIAL SCREENINGS The [facility] offers sequential screenings for women who are [...] It will require an appointment with our air conditioning service technician. This is not an ultrasound performed [...] the above symptoms, contact our office at [phone] and ask to speak with a nurse. After hours, you can call doctors registry at [phone] OR call [facility] at [phone] and ask to have the doctor tongue binder paged. If you consider this an emergency, dial 3-1-9 or go to your nearest emergency department. NEED HELP? Are you dealing with a violent or abusive relationship? Are you a victim of rape or sexual assult? Call [facility] ([place]) 24 hour Crisis Hotline: 890.355.8223 or 683-706-8008. MANUAL Your Guide to a Healthy manual is now on-line. Visit [email or web address] to download your free copy documented in this encounter [facility] 07-24-2024 Miscellaneous Notes [employer] S: Jarvis [...] Rebecca Fontanez APRN.CNM documented in this encounter [facility] 07-24-2024 Progress note Formatting of t his [...] -RTO in 2 weeks Rebecca Fontanez APRN.CNM [facility] 07-24-2024 Instructions Phani Casiano MA - 07/24/2024 2:24 PM EDT SEQUENTIAL SCREENINGS The [facility] offers sequential screenings for women who are [...] It will require an appointment with our air conditioning service technician. This is not an ultrasound performed [...] the above symptoms, contact our office at [phone] and ask to speak with a nurse. After hours, you can call doctors registry at [phone] OR call [facility] at [phone] and ask to have the doctor tongue binder paged. If you consider this an emergency, dial 9--7 or go to your nearest emergency department. NEED HELP? Are you dealing with a violent or abusive relationship? Are you a victim of rape or sexual assult? Call [facility] ([place]) 24 hour Crisis Hotline: 455.431.3244 or 547-609-7467. MANUAL Your Guide to a Healthy manual is now on-line. Visit [email or web address] to download your free copy documented in this encounter [facility] 07-17-2024 Telephone encounter Note FMLA paperwork is completed and patient notified. Patient would like to pick it up at her next appointment. Phani Casiano MA [facility] 07-17-2024 Miscellaneous Notes FMLA paperwork is completed and patient notified. Patient would like to pick it up at her next appointment. Phani Casiano MA FMLA completed and placed on providers desk for signature. Phani Casiano MA documented in this encounter [facility] 07-16-2024 Progress note Formatting of t his [...] ICD9: V23.9, ICD10: O09.93 Elsie Moreno MD [facility] 07-16-2024 Miscellaneous Notes S: Jarvis King is [...] Elsie Moreno MD documented in this encounter [facility] 07-16-2024 Instructions Raven Archibald MA - 07/16/2024 8:08 AM EDT SEQUENTIAL SCREENINGS The [facility] offers sequential screenings for women who are [...] It will require an appointment with our air conditioning service technician. This is not an ultrasound performed [...] the above symptoms, contact our office at [phone] and ask to speak with a nurse. After hours, you can call doctors registry at [phone] OR call [facility] at [phone] and ask to have the doctor tongue binder paged. If you consider this an emergency, dial 9-1-4 or go to your nearest emergency department. NEED HELP? Are you dealing with a violent or abusive relationship? Are you a victim of rape or sexual assult? Call [facility] ([place]) 24 hour Crisis Hotline: 145.796.3591 or 964-616-2609. MANUAL Your Guide to a Healthy manual is now on-line. Visit [email or web address] to download your free copy documented in this encounter [facility] 07-15-2024 Telephone encounter Note FMLA completed and placed on providers desk for signature. Phani Casiano MA [facility] 07-10-2024 Telephone encounter Note Called Pt and Pt states she definitely does feel dehydrated. Advised to go to L&D for NST and IV fluids. Voiced understanding. L&D notified. Malika Gaytan RN [facility] 07-10-2024 Miscellaneous Notes Called Pt and Pt [...] Leatha Alva RN documented in this encounter [facility] 07-10-2024 Telephone encounter Note Have her come in for NST and BP check and we ask she please put on a mask when she arrives. If she has decreased urine output to L&D for NST and IVF. If she thinks she can stay hydrated then immodium and push fluids and I can rx something for nausea. Nohemy Lyn MD [facility] Work Phone: 07-10-2024 Telephone encounter Note Patient [...] decreased movement in office? Leatha Alva RN [facility] 07-03-2024 Note Indication Evaluation of growth Di-Di [...] 8 oz EFW by: [facility] ([facility]-AC-FL) Extended Technical Sales Representatives 8.7 mm Extremities / Bony Struc [place] [...] 12 oz EFW by: Hadlock (HC-AC-[place]) Extended Technical Sales Representatives 5.1 mm Extremities / Bony Struc [place] [...] weeks repeat growth US Blanca Skelton APRN.CNM [facility] 07-03-2024 Miscellaneous Notes S: Jarvis King is [...] Blanca Skelton APRN.CNM documented in this encounter [facility] 07-03-2024 Note HNO ID: [id number] Author: MELINA WILSON MA Service: ? Author Type: Plane Tender Type: Progress Notes Filed: 07/03/2024 16:36 Note [...] severely ill: Yes Patient denies history of Guillain-Elmsford Syndrome (a severe paralytic illness): Yes Tdap Adacel injection was given without incident. See immunizations for details of immunizations administered today. VIS sheet provided: Yes Provider Blanca Skelton CNM was present in office at time of injection. Melina Wilson MA [facility] 07-03-2024 History of Presen t illness Narrative [...] severely ill: Yes Patient denies history of Guillain-Elmsford Syndrome (a severe paralytic illness): Yes Tdap Adacel injection was given without incident. See immunizations for details of immunizations administered today. VIS sheet provided: Yes Provider Blanca Skelton CNM was present in office at time of injection. Melina Wilson MA documented in this encounter [facility] 07-03-2024 Instructions Mony Cheema LPN - 07/03/2024 3:44 PM EDT SEQUENTIAL SCREENINGS The [facility] offers sequential screenings for women who are [...] It will require an appointment with our air conditioning service technician. This is not an ultrasound performed [...] the above symptoms, contact our office at [phone] and ask to speak with a nurse. After hours, you can call doctors registry at [phone] OR call [facility] at [phone] and ask to have the doctor tongue binder paged. If you consider this an emergency, dial 9-1-1 or go to your nearest emergency department. NEED HELP? Are you dealing with a violent or abusive relationship? Are you a victim of rape or sexual assult? Call [facility] ([facility] 24 hour Crisis Hotline: 777.777.7011 or 434-798-5286. MANUAL Your Guide to a Healthy manual is now on-line. Visit [email or web address] [email or web address] to download your free copy documented in this encounter [facility] 06-26-2024 Instructions Phani Casiano MA - 06/26/2024 2:36 PM EDT SEQUENTIAL SCREENINGS The [facility] offers sequential screenings for women who are [...] It will require an appointment with our air conditioning service technician. This is not an ultrasound performed [...] the above symptoms, contact our office at [phone] and ask to speak with a nurse. After hours, you can call doctors registry at [phone] OR call [facility] at [phone] and ask to have the doctor tongue binder paged. If you consider this an emergency, dial 9-1-4 or go to your nearest emergency department. NEED HELP? Are you dealing with a violent or abusive relationship? Are you a victim of rape or sexual assult? Call [facility] ([place]) 24 hour Crisis Hotline: 505.849.5454 or 282-419-8445. MANUAL Your Guide to a Healthy manual is now on-line. Visit [email or web address] [email or web address] to download your free copy documented in this encounter [facility] 06-26-2024 Miscellaneous Notes CP- CENTERING #6 S: [...] SHARATH Skelton APRN.CNM documented in this encounter [facility] 06-26-2024 Progress note Formatting of t his [...] weeks- growth US and SHARATH Skelton APRN.CNM [facility] 06-17-2024 Progress note Formatting of t his [...] - RTO 2 wks Concha Baires DO [facility] 06-17-2024 Miscellaneous Notes SW- Pt doing well. [...] Concha Baires DO documented in this encounter [facility] 06-17-2024 Instructions Hilda Mitchell MA - 06/17/2024 3:47 PM EDT SEQUENTIAL SCREENINGS The [facility] offers sequential screenings for women who are [...] It will require an appointment with our air conditioning service technician. This is not an ultrasound performed [...] the above symptoms, contact our office at [phone] and ask to speak with a nurse. After hours, you can call doctors registry at [phone] OR call [facility] at [phone] and ask to have the doctor tongue binder paged. If you consider this an emergency, dial 2-7-7 or go to your nearest emergency department. NEED HELP? Are you dealing with a violent or abusive relationship? Are you a victim of rape or sexual assult? Call [facility] ([place]) 24 hour Crisis Hotline: 250.975.2540 or 314-459-3104. MANUAL Your Guide to a Healthy manual is now on-line. Visit [email or web address] [email or web address] to download your free copy documented in this encounter [facility] 06-12-2024 Instructions Phani Casiano MA - 06/12/2024 2:30 PM EDT SEQUENTIAL SCREENINGS The [facility] offers sequential screenings for women who are [...] It will require an appointment with our air conditioning service technician. This is not an ultrasound performed [...] the above symptoms, contact our office at [phone] and ask to speak with a nurse. After hours, you can call doctors registry at [phone] OR call [facility] at [phone] and ask to have the doctor tongue binder paged. If you consider this an emergency, dial or go to your nearest emergency department. NEED HELP? Are you dealing with a violent or abusive relationship? Are you a victim of rape or sexual assult? Call [facility] ([place]) 24 hour Crisis Hotline: 615.468.1549 or 976-913-1595. MANUAL Your Guide to a Healthy manual is now on-line. Visit [email or web address] [email or web address] to download your free copy documented in this encounter [facility] 06-12-2024 Miscellaneous Notes CP- CENTERING GROUP #5 [...] Blanca Skelton APRN.CNM documented in this encounter [facility] 06-12-2024 Progress note Formatting of t his [...] 2) RTO 2 weeks Blanca Skelton APRN.CNM [facility] 06-06-2024 Telephone encounter Note See result note 3 hr GTT ordered [facility] 06-06-2024 Miscellaneous Notes See result note 3 hr GTT ordered documented in this encounter [facility] 06-05-2024 Telephone encounter Note Patient notified. US scheduled. Elsie Lauren, RN [facility] 06-05-2024 Miscellaneous Notes Patient notified. US scheduled. Elsie Lauren RN Left message for patient to call office. Pt needs ultrasound scheduled in 4 weeks. Malika Gaytan RN ----- Message from Rebecca Fontanez APRN.CNM sent at 06/05/2024 1:08 PM EDT ----- Reviewed, please update PN record. Repeat in 4 weeks. Rebecca Fontanez APRN.CNM documented in this encounter [facility] 06-05-2024 Telephone encounter Note Left message for patient to call office. Pt needs ultrasound scheduled in 4 weeks. Malika Gaytan RN [facility] 06-05-2024 Telephone encounter Note ----- Message from Rebecca Fontanez APRN.CNM sent at 06/05/2024 1:08 PM EDT ----- Reviewed, please update PN record. Repeat in 4 weeks. Rebecca Fontanez APRN.CNM [facility] 06-03-2024 Progress note Formatting of t his [...] ICD9: V22.2, ICD10: Z3A.26 Elsie Moreno MD [facility] 06-03-2024 Miscellaneous Notes S: Jarvis King is [...] Elsie Moreno MD documented in this encounter [facility] 06-03-2024 Note Indication Evaluation of dichorionic/diamniotic twins [...] 1 oz EFW by: Hadlock (HC-AC-[place]) Extended Technical Sales Representatives 6.4 mm Extremities / Bony Struc [place] [...] 6 oz EFW by: Hadlock (HC-[facility]-[place]) Extended Technical Sales Representatives 3.6 mm Extremities / Bony Struc [place] [...] 06/03/2024 3:40 PM EDT SEQUENTIAL SCREENINGS The [facility] offers sequential screenings for women who are [...] It will require an appointment with our air conditioning service technician. This is not an ultrasound performed [...] the above symptoms, contact our office at [phone] and ask to speak with a nurse. After hours, you can call doctors registry at [phone] OR call [facility] at [phone] and ask to have the doctor tongue binder paged. If you consider this an emergency, dial 2--7 or go to your nearest emergency department. NEED HELP? Are you dealing with a violent or abusive relationship? Are you a victim of rape or sexual assult? Call [facility] ([place]) 24 hour Crisis Hotline: 584.591.5271 or 903-083-9644. MANUAL Your Guide to a Healthy manual is now on-line. Visit [email or web address] [email or web address] to download your free copy documented in this encounter [facility] 05-14-2024 History of Presen t illness Narrative Images from the original note were not included. Senior Application Programmer [facility] [place] OUTPATIENT VISIT DATE May 15, 2024 OUTPATIENT VISIT TYPE CONSULT REFERRING PROVIDER: Blanca Skelton APRN.* Recommendations from today's consultation will be conveyed through the electronic medical record. History of Present Illness: 29 year old at 24w2d with Estimated Date of Delivery: 09/01/24 presenting for consultation with Maternal- Medicine at the [facility] in the setting of dichorionic twins. She [...] HX wisdom S NEEDLE I-PASS 3 DISP [id number] 09/2023 Medications: Current Outpatient Medications on File Prior to Visit Medication Sig BABY ASPIRIN ORAL Take 81 mg by mouth once daily. pyridoxine, vitamin B6, (VITAMIN B-6) 50 mg cap Take by mouth. 25-IRON OHF-FMAUY-DTE ORAL Take by mouth. valACYclovir (VALTREX) 500 [...] which included preparing to see the patient, pibn-bi-umpn patient care, completing clinical documentation, obtaining and/or reviewing separately obtained history, performing a medically appropriate examination, counseling and educating the patient/family/caregiver, and ordering medications, tests, or procedures. SIGNATURE: Stephanie Barrera MD PATIENT NAME: Jarvis King DATE: May 15, 2024 TIME: 9:56 AM documented in this encounter [facility] 05-14-2024 Note HNO ID: [id number] Author: STEPHANIE BARRERA MD Service: ? Author Type: Physician Type: Progress Notes Filed: 05/15/2024 10:14 Note Text: Senior Application Programmer [facility] [place] OUTPATIENT VISIT DATE May 15, 2024 OUTPATIENT VISIT TYPE CONSULT REFERRING PROVIDER: Blanca Skelton APRN.* Recommendations from today's consultation will be conveyed through the electronic medical record. History of Present Illness: 29 year old at 24w2d with Estimated Date of Delivery: 09/01/24 presenting for consultation with Maternal- Medicine at the [facility] in the setting of dichorionic twins. She [...] 50 mg cap Take by mouth. 25-IRON DKD-VYYKB-MOE ORAL Take by mouth. valACYclovir (VALTREX) 500 [...] service which included (more content not included)... [facility] 05-14-2024 Progress note Formatting of t his [...] -RTO in 4 weeks Rebecca Fontanez APRN.CNM [facility] 05-14-2024 Miscellaneous Notes ABRAM-Centering Group #4 S: [...] Rebecca Fontanez APRN.CNM documented in this encounter [facility] 05-14-2024 Note HNO ID: [id number] Author: REBECCA FONTANEZ APRN.CNM Service: ? Author Type: Horticultural Technical Officer Type: Progress Notes Filed: 05/14/2024 16:03 Note Text: ABRAM- [facility] 05-14-2024 History of Presen t illness Narrative ABRAM- documented in this encounter [facility] 05-14-2024 Instructions Phani Casiano MA - 05/14/2024 1:17 PM EDT SEQUENTIAL SCREENINGS The [facility] offers sequential screenings for women who are [...] It will require an appointment with our air conditioning service technician. This is not an ultrasound performed [...] the above symptoms, contact our office at [phone] and ask to speak with a nurse. After hours, you can call doctors registry at [phone] OR call [facility] at [phone] and ask to have the doctor tongue binder paged. If you consider this an emergency, dial 06-30- or go to your nearest emergency department. NEED HELP? Are you dealing with a violent or abusive relationship? Are you a victim of rape or sexual assult? Call [facility] ([place]) 24 hour Crisis Hotline: 699.576.9774 or 008-529-6064. MANUAL Your Guide to a Healthy manual is now on-line. Visit [email or web address] [email or web address] to download your free copy documented in this encounter [facility] 05-07-2024 History of Presen t illness Narrative NAME: Jarvis King [facility] Number.: [id number] Date of : 1995 Date of Visit: [...] We discussed these findings with Ms. Jarvis King. In addition, the limitations of the echocardiogram [...] which included preparing to see the patient, gapp-wu-bocc patient care, completing clinical documentation, obtaining and/or reviewing separately obtained history, counseling and educating the patient/family/caregiver, communicating with other HCPs (not separately reported), and communicating results to the patient/family/caregiver. Sincerely, Karen Dc MD May 07, 2024 documented in this encounter [facility] 05-06-2024 Telephone encounter Note Patient called in asking if they will do the echo for both twins even though possible abnormality was only found in one? States if only one needs done if she could get it done at another location then sooner then what she is scheduled for at [facility]. Sophie Cadena RN [facility] 05-06-2024 Miscellaneous Notes Patient called in asking if they will do the echo for both twins even though possible abnormality was only found in one? States if only one needs done if she could get it done at another location then sooner then what she is scheduled for at [facility]. Sophie Cadena RN I am sorry I did not realize she would be limited on location given twin gestation. I think it is reasonable, but I know she is probably anxious to have it completed 23w1d Patient called and said that because it's twins, her echo needs done at [facility] [place]. Soonest appointment is 05/21/24. Patient asking if there is anything we can do to get her visit moved up. Is this appointment time reasonable or does she need it sooner? Elsie Lauren RN documented in this encounter [facility] 05-06-2024 Telephone encounter Note I am sorry I did not realize she would be limited on location given twin gestation. I think it is reasonable, but I know she is probably anxious to have it completed [facility] Work Phone: 05-06-2024 Telephone encounter Note 23w1d Patient called and said that because it's twins, her echo needs done at [facility]. Soonest appointment is 05/21/24. Patient asking if there is anything we can do to get her visit moved up. Is this appointment time reasonable or does she need it sooner? Elsie Lauren RN [facility] 05-06-2024 Note Indication Evaluation of growth. Evaluation [...] 3 oz EFW by: Hadlock (HC-AC-[place]) Extended Technical Sales Representatives 5.7 mm Extremities / Bony Struc [place] [...] 4 oz EFW by: Hadlock (HC-AC-[place]) Extended Technical Sales Representatives 4.7 mm Extremities / Bony Struc [place] [...] Ultrasound today and final report pending. Per school cleaner possible abnormality of heart baby B. echo ordered and instructed patient to schedule. Will wait for final report. 28 wk labs ordered. Start baby ASA. RTO 4 wks. Concha Baires DO [facility] Work Phone: 05-06-2024 Miscellaneous Notes SW- pt doing well. No pain, vb, lof. +FM x 2. Ultrasound today and final report pending. Per school cleaner possible abnormality of heart baby B. echo ordered and instructed patient to schedule. Will wait for final report. 28 wk labs ordered. Start baby ASA. RTO 4 wks. Concha Baires DO documented in this encounter [facility] 05-06-2024 Instructions Melina Wilson MA - 05/06/2024 8:19 AM EDT SEQUENTIAL SCREENINGS The [facility] offers sequential screenings for women who are [...] It will require an appointment with our air conditioning service technician. This is not an ultrasound performed [...] the above symptoms, contact our office at [phone] and ask to speak with a nurse. After hours, you can call doctors registry at [phone] OR call [facility] at [phone] and ask to have the doctor tongue binder paged. If you consider this an emergency, dial 9-4-4 or go to your nearest emergency department. NEED HELP? Are you dealing with a violent or abusive relationship? Are you a victim of rape or sexual assult? Call [facility] ([place]) 24 hour Crisis Hotline: 705.183.7557 or 793-893-1261. MANUAL Your Guide to a Healthy manual is now on-line. Visit [email or web address] [email or web address] to download your free copy documented in this encounter [facility] 04-15-2024 Miscellaneous Notes CENTERING #2 S: Jarvis [...] Blanca Skelton APRN.CNM documented in this encounter [facility] 04-15-2024 Progress note Formatting of t his [...] or sooner if needed Blanca Skelton APRN.CNM [facility] 04-15-2024 Instructions Phani Casiano MA - 04/15/2024 2:29 PM EDT SEQUENTIAL SCREENINGS The [facility] offers sequential screenings for women who are [...] It will require an appointment with our air conditioning service technician. This is not an ultrasound performed [...] the above symptoms, contact our office at [phone] and ask to speak with a nurse. After hours, you can call [facility] registry at [phone] OR call [facility] at [phone] and ask to have the doctor tongue binder paged. If you consider this an emergency, dial 3-6-6 or go to your nearest emergency department. NEED HELP? Are you dealing with a violent or abusive relationship? Are you a victim of rape or sexual assult? Call [facility] ([place]) 24 hour Crisis Hotline: 513.648.4431 or 197-146-1465. MANUAL Your Guide to a Healthy manual is now on-line. Visit [email or web address] [email or web address] to download your free copy documented in this encounter [facility] 04-08-2024 Progress note Formatting of t his note might be different from the original. SW- pt doing well. No complaints. No pain, vb, lof. She is not sure she is feeling FM yet. Serial growth US's ordered. AFP today. RTO 4 weeks for US and visit after. Concha Baires DO [facility] Work Phone: 04-08-2024 Miscellaneous Notes SW- pt doing well. No complaints. No pain, vb, lof. She is not sure she is feeling FM yet. Serial growth US's ordered. AFP today. RTO 4 weeks for US and visit after. Concha Baires DO documented in this encounter [facility] 04-08-2024 Instructions Melina Wilson MA - 04/08/2024 9:30 AM EDT SEQUENTIAL SCREENINGS The [facility] offers sequential screenings for women who are [...] It will require an appointment with our air conditioning service technician. This is not an ultrasound performed [...] the above symptoms, contact our office at [phone] and ask to speak with a nurse. After hours, you can call doctors registry at [phone] OR call [facility] at [phone] and ask to have the doctor tongue binder paged. If you consider this an emergency, dial or go to your nearest emergency department. NEED HELP? Are you dealing with a violent or abusive relationship? Are you a victim of rape or sexual assult? Call [facility] ([place]) 24 hour Crisis Hotline: 656.407.8269 or 821-558-6395. MANUAL Your Guide to a Healthy manual is now on-line. Visit [email or web address] [email or web address] to download your free copy documented in this encounter [facility] 04-05-2024 Telephone encounter Note Please file anatomy u/s order. Patient is scheduled on Monday. Sophei Cadena RN [facility] 04-05-2024 Miscellaneous Notes Please file anatomy u/s order. Patient is scheduled on Monday. Sophie Cadena RN documented in this encounter [facility] 03-20-2024 Progress note Formatting of t his [...] for anatomy US and SHARATH Skelton APRN.CNM [facility] 03-20-2024 Miscellaneous Notes CP CENTERING #1 S: [...] SHARATH Skelton APRN.CNM documented in this encounter [facility] 03-20-2024 Instructions Phani Casiano MA - 03/20/2024 2:34 PM EDT SEQUENTIAL SCREENINGS The [facility] offers sequential screenings for women who are [...] It will require an appointment with our air conditioning service technician. This is not an ultrasound performed [...] the above symptoms, contact our office at [phone] and ask to speak with a nurse. After hours, you can call doctors registry at [phone] OR call [facility] at [phone] and ask to have the doctor tongue binder paged. If you consider this an emergency, dial 8-5-8 or go to your nearest emergency department. NEED HELP? Are you dealing with a violent or abusive relationship? Are you a victim of rape or sexual assult? Call [facility] ([place]) 24 hour Crisis Hotline: 546.682.4993 or 208-642-7543. MANUAL Your Guide to a Healthy manual is now on-line. Visit [email or web address] [email or web address] to download your free copy documented in this encounter [facility] 03-04-2024 Progress note Formatting of t his note might be different from the original. VB No. LOF No. CTXS No. Movement: absent. Other c/o: Yes: GI: nausea, does better when snacking frequently. Vomiting with brushing teeth. [id number] low risk. Suspect boy/girl. Would like to do centering. Anatomy us already scheduled Medication list reviewed. Physical Exam See Flow Sheet A/P 14w1d Estimated Date of Delivery: 09/01/24 Anatomy US, Scheduled centering appointment HSV prophylaxis at 36 weeks or sooner if suspect PTL. Elsie Moreno M.D. [facility] 03-04-2024 Miscellaneous Notes VB No. LOF No. CTXS No. Movement: absent. Other c/o: Yes: GI: nausea, does better when snacking frequently. Vomiting with brushing teeth. [id number] low risk. Suspect boy/girl. Would like to do centering. Anatomy us already scheduled Medication list reviewed. Physical Exam See Flow Sheet A/P 14w1d Estimated Date of Delivery: 09/01/24 Anatomy US, Scheduled centering appointment HSV prophylaxis at 36 weeks or sooner if suspect PTL. Elsie Moreno M.D. documented in this encounter [facility] 03-04-2024 Instructions Tamia Johnson MA - 03/04/2024 12:53 PM EDT SEQUENTIAL SCREENINGS The [facility] offers sequential screenings for women who are [...] It will require an appointment with our air conditioning service technician. This is not an ultrasound performed [...] the above symptoms, contact our office at [phone] and ask to speak with a nurse. After hours, you can call doctors registry at [phone] OR call [facility] at [phone] and ask to have the doctor tongue binder paged. If you consider this an emergency, dial 9-1-6 or go to your nearest emergency department. NEED HELP? Are you dealing with a violent or abusive relationship? Are you a victim of rape or sexual assult? Call [facility] ([place]) 24 hour Crisis Hotline: 369.723.7361 or 692-471-9432. MANUAL Your Guide to a Healthy manual is now on-line. Visit [email or web address] [email or web address] to download your free copy documented in this encounter [facility] 02-23-2024 Note HNO ID: [id number] Author: RAHEEM TEJADA LGC Service: ? Author Type: Genetic Counselor Type: Progress Notes Filed: 02/23/2024 18:16 Note Text: Received notification from [facility] that patient's NIPT was not processing as [id number] was ordered for a twin gestation. Informed [facility] to run sample as [id number]. This has been updated on the lab's end and the sample is processing. Edited results should be available when complete. This provider will track these results to ensure they get into EMR and patient is aware. A Pixalatet message will be sent to the patient notifying her of this in case abnormal [id number] result is released before results are available. Of note, result is not abnormal, but is flagged as abnormal as the test order was updated and is running under a different accession number. Ordering provider has been notified. Raheem Tejada CGC [facility] 02-23-2024 History of Presen t illness Narrative Received notification from [facility] that patient's NIPT was not processing as [id number] was ordered for a twin gestation. Informed [facility] to run sample as [id number]. This has been updated on the lab's end and the sample is processing. Edited results should be available when complete. This provider will track these results to ensure they get into EMR and patient is aware. A Pixalatet message will be sent to the patient notifying her of this in case abnormal [id number] result is released before results are available. Of note, result is not abnormal, but is flagged as abnormal as the test order was updated and is running under a different accession number. Ordering provider has been notified. Raheem Tejada CGC documented in this encounter [facility] 02-19-2024 Telephone encounter Note 12w1d Patient with Di/Di twins here for US and wants Materni 21 ordered. Order pending with the # of fetus changed to two. Please file. Thank you. Elsie Lauren RN [place] [address]-22-2024 Miscellaneous Notes 12w1d Patient with Di/Di twins here for US and wants Materni 21 ordered. Order pending with the # of fetus changed to two. Please file. Thank you. Elsie Lauren, RN documented in this encounter [facility] 02-05-2024 Miscellaneous Notes Referral sent to Silvia team to assist with scheduling. documented in this encounter [facility] 02-05-2024 Miscellaneous Notes Patient seen for NOB. TAUS completed. DI/DI twins visualized. US tech to room for verification and dating. See progress note. Blanca Skelton APRN.CNM documented in this encounter [facility] 02-05-2024 Note HNO ID: [id number] Author: TAMIA JOHNSON MA Service: ? Author Type: Plane Tender Type: Progress Notes Filed: 02/05/2024 09:52 Note Text: OB point of care ultrasound was performed. See imaging tab for details. 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 valACYclovir (VALTREX) 500 [...] Your guide to a health and the Rock Crusher Operator. Discussed aneuploidy screening, nuchal translucency/first trimester early anatomy ultrasound and NIPT. The risks/benefits and limitations of NIPT/aneuploidy screening were reviewed including the potential for false negative and false positive results. The availability of genetic counseling was reviewed. Information on aneuploidy screening was provided. The patient chooses to proceed with First trimester early anatomy ultrasound (12-13w6d) and NIPT (10 weeks) Reviewed midwifery and head baggage porter services that are available. 2) Patient offered option of Virtual Visits. Patient prefers in person visits. 3) DI/DI TWINS- CONSULT MFM Follow up in 2 weeks for NT US and 4 week SHARATH Blanca Skelton APRN.CNM documented in this encounter [facility] 01-30-2024 Note HNO ID: [id number] Author: BLANCA SKELTON APRN.CNM Service: ? 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 valACYclovir (VALTREX) 500 [...] Fever or C (more content not included)... [facility] 01-30-2024 Instructions Tejal Ladn MA - 01/30/2024 3:14 PM EDT Please select the following link to access the [facility] Your Guide to a Healthy . [email or web address] documented in this encounter [facility] 01-30-2024 Miscellaneous Notes Patient called back and transferred to [facility] to complete intake questions. Sophie Cadena RN Left message for patient to return phone call. Patient has an appointment with Blanca Skelton for NOB appointment. I attempted to call her to get an update on how she is doing and get intake questions completed. Patient had quant HCG's done 01/11 and 01/14 for c/o brown spotting. Please transfer her to me or [facility] when she returns phone call documented in this encounter [facility] 01-12-2024 Miscellaneous Notes HCG ordered and I sent message to patient. Blanca Skelton APRN.CNM Do you want quants done? Leatha Alva RN documented in this encounter [facility] 10-17-2023 Note HNO ID: [id number] Author: Rochelle Ramos MD Service: ? Author [...] if desired by patient Rochelle Ramos MD [facility] 10-13-2023 Note HNO ID: [id number] Author: Blanca Skelton APRN.CNM Service: ? Author Type: Horticultural Technical Officer Type: Progress Notes Filed: 10/13/2023 4:27 PM [...] changes, redness or skin retraction. Expanded ROS: PHYSICAL TESTING SUPERVISOR: SEE HPI Allergies and current medication updated:Yes [...] 10/17/23 - Support provided Blanca Skelton APRN.CNM [facility] 10-13-2023 History of Presen t illness Narrative [...] changes, redness or skin retraction. Expanded ROS: PHYSICAL TESTING SUPERVISOR: SEE HPI Allergies and current medication updated:Yes [...] Blanca Skelton APRN.CNM documented in this encounter [facility] 10-06-2023 Note HNO ID: [id number] Author: Blanca Skelton APRN.CNM Service: ? Author Type: Horticultural Technical Officer Type: Progress Notes Filed: 10/06/2023 4:51 PM [...] retraction. Expanded ROS: PAIN ASSESSMENT: Denies pain PHYSICAL TESTING SUPERVISOR: SEE HPI Allergies and current medication updated:Yes [...] for US and follow up [facility] History of Presen t illness Narrative [...] retraction. Expanded ROS: PAIN ASSESSMENT: Denies pain PHYSICAL TESTING SUPERVISOR: SEE HPI Allergies and current medication updated:Yes [...] Blanca Skelton APRN.CNM documented in this encounter [facility] 09-28-2023 Miscellaneous Notes Patient interested in now [...] and appreciative for call and discussion. scallop raker provider notified of plan of care this weekend. Blanca Skelton APRN.CNM documented in this encounter [facility] 09-20-2023 Miscellaneous Notes Yes! This is fine. [...] Blanca Skelton APRN.CNM documented in this encounter [facility] 09-15-2023 Note HNO ID: [id number] Author: Washington Tran MD Service: ? Author [...] File Prior to Visit Medication Sig 25-IRON [id number] ORAL Take by mouth. valACYclovir (VALTREX) 500 [...] No history of dysuria, frequency or incontinence PHYSICAL TESTING SUPERVISOR: Negative for abnormal vaginal bleeding, abnormal vaginal [...] 07/16/2026 DTaP,Tdap,Td Vacc (more content not included)... [facility] 09-15-2023 History of Presen t illness Narrative [...] File Prior to Visit Medication Sig 25-IRON [id number]-[id number] ORAL Take by mouth. valACYclovir (VALTREX) 500 [...] No history of dysuria, frequency or incontinence PHYSICAL TESTING SUPERVISOR: Negative for abnormal vaginal bleeding, abnormal vaginal [...] diet of 1000 mg/day for under 50, 1770-7477 mg/day for 50+ - Follow up for [...] without need for antihistamines. Call if worsening. Washington Tran MD documented in this encounter [facility] 08-30-2023 Miscellaneous Notes Patient called in and re scheduled appointments for week before. Petrona Carranza RN documented in this encounter [facility] 08-28-2023 Note HNO ID: [id number] Author: Rebecca Fontanez APRN.CNM Service: ? Author Type: Horticultural Technical Officer Type: Progress Notes Filed: 08/28/2023 10:07 AM Note Text: OB point of care ultrasound was performed. See imaging tab for details. Rebecca Fontanez APRN.CNM [facility] 08-28-2023 History of Presen t illness Narrative OB point of care ultrasound was performed. See imaging tab for details. Rebecca Fontanez APRN.CNM documented in this encounter [facility] 08-28-2023 Miscellaneous Notes NOB. See progress note. Would like NIPT, declines carrier screening. Interested in Centering, will send dates once outlined. NT US and to verify dating. Rebecca Fontanez APRN.CNM documented in this encounter [facility] 08-28-2023 History of Presen t illness [...] use: No Multivitamin with Folic acid: Yes Protestant or heritage: No Would refuse blood transfusion if medically necessary: No Are you currently employed? 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 valACYclovir (VALTREX) 500 [...] Your guide to a health and the Rock Crusher Operator. Discussed aneuploidy and carrier screening. Regarding aneuploidy [...] prefers in person visits. Reviewed midwifery and head baggage porter services that are available. 2) Discussed Aspirin for prevention, one moderate risk factor but reviewed may take after 12 weeks 3) Dating inconsistent with LMP, will confirm at NT US 4) HSV, taking valtrex for suppressive therapy. Follow up in 4 weeks or sooner prnikolay Fontanez APRN.CNM documented in this encounter [facility] 08-28-2023 Note HNO ID: [id number] Author: Rebecca Fontanez APRN.CNM Service: ? Author Type: Horticultural Technical Officer Type: Progress Notes Filed: 08/28/2023 10:06 AM [...] use: No Multivitamin with Folic acid: Yes Protestant or heritage: No Would refuse blood transfusion if medically necessary: No Are you currently employed? 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 valACYclovir (VALTREX) 500 [...] Joint swelling NEUROLOGIC/PS (more content not included)... [facility] 08-28-2023 Instructions Rebecca Fontanez APRN.CNM - 08/28/2023 8:30 AM EDT Please select the following link to access the [facility] Your Guide to a Healthy . [email or web address] Aspirin 81mg once daily after 12 weeks documented in this encounter [facility] 08-22-2023 Miscellaneous Notes DISTANCE HEALTH VISIT This [...] coverage.Greer Dolan RN documented in this encounter [facility] 08-22-2023 Note HNO ID: [id number] Author: Greer Dolan RN Service: ? 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 valACYclovir (VALTREX) 500 [...] penicillin allergy: No documented in this encounter [facility] 08-18-2023 Miscellaneous Notes Patient phones requesting refills as follows: Requested Prescriptions Pending Prescriptions Disp Refills valACYclovir (VALTREX) 500 mg tablet 90 tablet 3 Sig: Take 1 tablet by mouth once daily. JOSEY-08/26/23 Labs-08/26/23 NOV-09/15/23 Please review and advise. Noelle Neri LPN documented in this encounter [facility] 08-16-2023 Miscellaneous Notes Pt scheduled. Patient is [...] schedule PNOB appointment. documented in this encounter [facility] 07-11-2023 Miscellaneous Notes Please see pharmacy generated refill request below. Pt sent mychart message that she will be due for her yearly exam after 07/29/23. Breanne Apple LPN documented in this encounter [facility] 11-04-2022 Miscellaneous Notes Patient returned call and went over notes below from Dr Tran with understanding. Patient asking me when will she know if will be corrected, told her I have no access to billing will need to check with billing office. VM left for pt to call PCP office for message below. Diane Sánchez [place] [id number] which is preventative screening based on her [...] patient to advise. documented in this encounter [facility] 08-26-2022 History of Presen t illness Narrative Chief Complaint Patient presents with: Physical: Biometric screening (waist measurement 29 11/02 )- valacyclovir to [facility] [place] due to [facility] too costly HPI Jarvis King is a 27 year old female who presents here today for Above Complaints. Patient has biometric screening forms through her employer. Is fasting today. No questions or concerns today. Up to date on cervical cancer screening with normal pap June 2021.No recent flares of her genital herpes. Started on Valtrex suppression dose at OV with PHYSICAL TESTING SUPERVISOR in June, but has not filled yet [...] No history of dysuria, frequency or incontinence PHYSICAL TESTING SUPERVISOR: Negative for abnormal vaginal bleeding, abnormal vaginal [...] diet of 1000 mg/day for under 50, 1028-6383 mg/day for 50+ - Counseled patient on [...] Washington Tran MD documented in this encounter [facility] Evaluation note Diagnosis Annual physical exam- Primary Routine general medical examination at a health care facility Herpes genitalis in women Genital herpes, unspecified Seasonal allergies Allergic rhinitis, cause unspecified Need for COVID-19 vaccine [facility] Medication refill Issue of repeat prescriptions [facility] Diagnosis Herpes genitalis in women Genital herpes, unspecified [facility] Diagnosis Supervision of normal first , antepartum- Primary Herpes genitalis in women Genital herpes, unspecified [facility] Supervision of normal first , antepartum- Primary 9 weeks gestation of state, incidental Genital herpes simplex virus (HSV) infection in mother affecting Family history of thyroid disorder Family history of other endocrine and metabolic diseases Supervision of high risk in first trimester Unspecified high-risk [facility] Supervision of normal first , antepartum- Primary 9 weeks gestation of state, incidental with uncertain dates in first trimester [facility] Diagnosis Annual physical exam- Primary Routine general medical examination at a health care facility Impacted cerumen of right ear Impacted cerumen 12 weeks gestation of state, incidental Genital herpes simplex virus (HSV) infection in mother affecting Seasonal allergies Allergic rhinitis, cause unspecified [facility] Diagnosis Missed [O02.1]- Primary Missed Supervision of normal first , antepartum 9 weeks gestation of state, incidental [facility] Diagnosis Missed - Primary [facility] Diagnosis Missed - Primary [facility]ed [facility] Diagnosis Missed - Primary Retained products of conception after miscarriage [facility] Diagnosis Retained products of conception after miscarriage- Primary Missed documented in this encounter [facility] note* Diagnosis Bleeding in early - Primary Unspecified hemorrhage in early , unspecified as to episode of care documented in this encounter [facility] note* Diagnosis 10 weeks gestation of - Primary state, incidental Encounter for supervision of high risk in first trimester, antepartum with uncertain dates in first trimester Dichorionic diamniotic twin in first trimester Twin , antepartum Genital herpes simplex virus (HSV) infection in mother affecting documented in this encounter [facility] note* Diagnosis Dichorionic diamniotic twin in first trimester- Primary Twin , antepartum documented in this encounter [facility] note* Diagnosis Encounter for (NT) nuchal translucency scan- Primary Other specified screening Dichorionic diamniotic twin in first trimester Twin , antepartum 12 weeks gestation of state, incidental documented in this encounter [facility] note* Diagnosis 14 weeks gestation of - Primary state, incidental Dichorionic diamniotic twin in second trimester Twin , antepartum documented in this encounter [facility] note* Diagnosis Dichorionic diamniotic twin in second trimester- Primary Twin , antepartum 16 weeks gestation of state, incidental documented in this encounter [facility] note* Diagnosis Dichorionic diamniotic twin in second trimester- Primary Twin , antepartum documented in this encounter [facility] note* Diagnosis 19 weeks gestation of - Primary state, incidental Dichorionic diamniotic twin in second trimester Twin , antepartum documented in this encounter [facility] note* Diagnosis 20 weeks gestation of - Primary state, incidental Dichorionic diamniotic twin in second trimester Twin , antepartum Encounter for supervision of high risk in second trimester, antepartum Genital herpes simplex virus (HSV) infection in mother affecting documented in this encounter [facility] note* Diagnosis 23 weeks gestation of - Primary state, incidental Dichorionic diamniotic twin in second trimester Twin , antepartum Encounter for supervision of high risk in second trimester, antepartum documented in this encounter [facility] note* Diagnosis Dichorionic diamniotic twin in second trimester- Primary Twin , antepartum Suspected anomaly, antepartum, fetus 2 of multiple gestation 23 weeks gestation of state, incidental [facility] Diagnosis abnormality affecting management of mother, fetus 1 of multiple gestation- Primary 23 weeks gestation of state, incidental Dichorionic diamniotic twin in second trimester Twin , antepartum Encounter for supervision of high risk in second trimester, antepartum abnormality affecting management of mother, fetus 2 of multiple gestation [facility] Diagnosis Encounter for supervision of high risk in second trimester, antepartum- Primary Dichorionic diamniotic twin in second trimester Twin , antepartum 24 weeks gestation of state, incidental Genital herpes simplex virus (HSV) infection in mother affecting abnormality affecting management of mother, fetus 2 of multiple gestation [facility] Diagnosis Dichorionic diamniotic twin in second trimester- Primary Twin , antepartum 24 weeks gestation of state, incidental screening for malformation using ultrasonics Encounter for routine screening for malformation using ultrasonics [facility] Diagnosis Encounter for supervision of high risk in second trimester, antepartum- Primary Dichorionic diamniotic twin in second trimester Twin , antepartum 26 weeks gestation of state, incidental [facility] Diagnosis Dichorionic diamniotic twin in second trimester- Primary Twin , antepartum Encounter for ultrasound to check growth Encounter for routine screening for malformation using ultrasonics 27 weeks gestation of state, incidental [facility] Diagnosis Abnormal glucose complicating - Primary Abnormal maternal glucose tolerance, complicating , childbirth, or the puerperium, unspecified as to episode of care [facility] Diagnosis 28 weeks gestation of - Primary state, incidental Supervision of high risk in third trimester Unspecified high-risk Dichorionic diamniotic twin in second trimester Twin , antepartum [facility] Diagnosis Supervision of high risk in [...] Twin , antepartum [facility] Diagnosis 31 weeks gestation of - Primary state, incidental Supervision of high risk in third trimester Unspecified high-risk Dichorionic diamniotic twin in third trimester Twin , antepartum Need for vaccination Need for prophylactic vaccination and inoculation against unspecified single disease Heartburn during in third trimester [facility] Diagnosis Encounter for ultrasound to check growth- Primary Encounter for routine screening for malformation using ultrasonics Dichorionic diamniotic twin in second trimester Twin , antepartum 31 weeks gestation of state, incidental [facility] Diagnosis Dichorionic diamniotic twin in third trimester- Primary Twin , antepartum 33 weeks gestation of state, incidental Supervision of high risk in third trimester Unspecified high-risk [facility] Supervision of high risk in third trimester- Primary Unspecified high-risk Dichorionic diamniotic twin in second trimester Twin , antepartum 34 weeks gestation of state, incidental [facility] Diagnosis 35 weeks gestation of - Primary state, incidental Supervision of high risk in third trimester Unspecified high-risk Dichorionic diamniotic twin in second trimester Twin , antepartum History of herpes genitalis Personal history of other infectious and parasitic disease Genital herpes simplex virus (HSV) infection in mother affecting Supervision of high risk in first trimester Unspecified high-risk [facility] Diagnosis Supervision of high risk in third trimester- Primary Unspecified high-risk Dichorionic diamniotic twin in third trimester Twin , antepartum 36 weeks gestation of state, incidental Herpes genitalis in women Genital herpes, unspecified [facility] Diagnosis Supervision of high risk in third trimester- Primary Unspecified high-risk Dichorionic diamniotic twin in third trimester Twin , antepartum 36 weeks gestation of state, incidental History of herpes genitalis Personal history of other infectious and parasitic disease [facility] Diagnosis Supervision of high risk in third trimester- Primary Unspecified high-risk Dichorionic diamniotic twin in third trimester Twin , antepartum documented in this encounter [facility] for referral (narrative)* Diagnostic Procedure Only (Routine) - Authorized Specialty Diagnoses / Procedures Referred By Contac t Referred To Contact [facility] Diagnoses Supervision of normal first , antepartum 9 weeks gestation of Procedures NUCHAL TRANSLUCENCY WHI US NUCHAL TRANSLUCENCY 1ST GESTATION Rebecca Fontanez APRN.CNM [address] [place] [address] [facility] [employer] [place] [id number] Referral ID Status Reason Start Date Expiration Date Visits Requested Visits Authorized [id number] Authorized Auto-Generat ed Referral 3 08/27/2024 1 1 * Diagnostic Procedure Only (Routine) - Pending Review Specialty Diagnoses / Procedures Referred By Contac t Referred To Contact [facility] Diagnoses Supervision of normal first , antepartum 9 weeks gestation of Procedures OBSTETRIC ULTRASOUND WHI US PREG UTERUS AFTER 1ST TRIMEST GESTATION Rebecca Fontanez APRN.CNM [address] [place] [address] [facility] [address] [place] [address] Referral ID Status Reason Start Date Expiration Date Visits Requested Visits Authorized [id number] Pending Review Auto-Generat ed Referral 3 08/27/2024 1 1 [facility] for referral (narrative)* Diagnostic Procedure Only (Routine) - Authorized Specialty Diagnoses / Procedures Referred By Contac t Referred To Contact [facility] Diagnoses Missed Procedures OBSTETRIC ULTRASOUND WHI US PREG UTERUS AFTER 1ST TRIMEST GESTATION Blanca Skelton APRN.CNM [address] [place] [address] [facility] [address] [place] [address] Referral ID Status Reason Start Date Expiration Date Visits Requested Visits Authorized [id number] Authorized Auto-Generat ed Referral 09/19/2024 1 1 [facility] for referral (narrative)* Diagnostic Procedure Only (Routine) - Authorized Specialty Diagnoses / Procedures Referred By Contac t Referred To Contact [facility] Diagnoses Missed Procedures OBSTETRIC ULTRASOUND WHI US PREG UTERUS AFTER 1ST TRIMEST GESTATION Blanca Skelton APRN.CNM [address] [place] [address] [facility] [address] [place] [address] Referral ID Status Reason Start Date Expiration Date Visits Requested Visits Authorized [id number] Authorized Auto-Generat ed Referral 10/06/2023 10/05/2024 1 1 [facility] for referral (narrative)* Diagnostic Procedure Only (Routine) - Pending Review Specialty Diagnoses / Procedures Referred By Contac t Referred To Contact [facility] Diagnoses Dichorionic diamniotic twin in second trimester Procedures OBSTETRIC ULTRASOUND WHI US PREG UTERUS AFTER 1ST TRIMEST GESTATION Blanca Skelton APRN.CNM [address] [place] [address] [facility] [address] [place] [address] Referral ID Status Reason Start Date Expiration Date Visits Requested Visits Authorized [id number] Pending Review Auto-Generat ed Referral 04/05/2024 04/05/2025 1 1 [facility] for referral (narrative)* Diagnostic Procedure Only (Routine) - Authorized Specialty Diagnoses / Procedures Referred By Contac t Referred To Contact [facility] Diagnoses 19 weeks gestation of Dichorionic diamniotic twin in second trimester Procedures OBSTETRIC ULTRASOUND WHI US PREG UTERUS AFTER 1ST TRIMEST GESTATION Concha Baires MD [address] [place] [address] [facility] [address] [place] [address] Referral ID Status Reason Start Date Expiration Date Visits Requested Visits Authorized [id number] Authorized Auto-Generat ed Referral 04/08/2024 04/08/2025 4 1 T [facility] for referral (narrative)* Outpatient Procedure (Routine) - Authorized Specialty Diagnoses / Procedures Referred By Contac t Referred To Contact [facility] Diagnoses 23 weeks gestation of Dichorionic diamniotic twin in second trimester Encounter for supervision of high risk in second trimester, antepartum Procedures ECHO Concha Baires MD [address] [place] [address] [facility] [address] [place] [address] Referral ID Status Reason Start Date Expiration Date Visits Requested Visits Authorized [id number] Authorized Auto-Generat ed Referral 05/06/2024 05/06/2025 1 1 [facility] for referral (narrative)* Outpatient Procedure (Routine) - Authorized Specialty Diagnoses / Procedures Referred By Contac t Referred To Contact [facility] Diagnoses Dichorionic diamniotic twin in second trimester [place] [address] [place] [address] [facility] [address] [place] [address] Referral ID Status Reason Start Date Expiration Date Visits Requested Visits Authorized [id number] Authorized Auto-Generat ed Referral 05/06/2024 05/06/2025 1 1 [facility] for referral (narrative)* Outpatient Procedure (Routine) - New Request Specialty Diagnoses / Procedures Referred By Alice powell Referred To Contact [facility] Diagnoses Encounter for supervision of high risk in second trimester, antepartum Dichorionic diamniotic twin in second trimester Procedures NON-STRESS TEST NON-STRESS TEST Rebecca Fontanez APRN.CNM [address] [place] [address] [facility] [address] [place] [address] Referral ID Status Reason Start Date Expiration Date Visits Requested Visits Authorized [id number] New Request Auto-Generat ed Referral 05/14/2024 05/14/2025 4 1 [facility] for referral (narrative)* Outpatient Procedure (Routine) - New Request Specialty Diagnoses / Procedures Referred By Alice powell Referred To Contact [facility] Diagnoses Supervision of high risk in first trimester Dichorionic diamniotic twin in second trimester Procedures NON-STRESS TEST NON-STRESS TEST Rebecca Fontanez APRN.CNM [address] [place] [address] [facility] [address] [place] [address] Referral ID Status Reason Start Date Expiration Date Visits Requested Visits Authorized [id number] New Request Auto-Generat ed Referral 07/24/2024 07/24/2025 5 1 [facility] for visit Narrative* Diagnostic Procedure Only (Routine) - Closed Specialty Diagnoses / Procedures Referred By Alice powell Referred To Contact [facility] Diagnoses Encounter for supervision of high risk in first trimester, antepartum with uncertain dates in first trimester Procedures NUCHAL TRANSLUCENCY WHI US NUCHAL TRANSLUCENCY 1ST GESTATION Blanca Skelton APRN.CNM [address] [place] [address] [facility] [address] [place] [address] Referral ID Status Reason Start Date Expiration Date V isits Requested Visits Authorized [id number] Closed Auto-Generate d Referral 02/19/2024 10/29/2024 1 1 [facility] Outpatient Procedure (Routine) - Closed Specialty Diagnoses / Procedures Referred By Alice powell Referred To Contact [facility] Diagnoses 23 weeks gestation of Dichorionic diamniotic twin in second trimester Encounter for supervision of high risk in second trimester, antepartum Procedures ECHO Concha Baires MD [address] [place] [address] [facility] [address] [place] [address] Referral ID Status Reason Start Date Expiration Date V isits Requested Visits Authorized [id number] Closed Auto-Generate d Referral 05/06/2024 05/06/2025 1 1 [facility] Health Concerns Problem Noted Date Diagnosed Date [...] Blanca Skelton APRN.CN [address] [place] [place] [address] Referral ID Status Reason Start Date Expiration Date Visits Re quested Visits Authorized [id number] Closed 1 1 Specialty Diagnoses / Procedures Referred By Alice t Referred To Contact Diagnoses 10 weeks gestation of Dichorionic diamniotic twin in first trimester Procedures CONSULT TO MATERNAL MEDI OFFICE/OUTPATIENT NEW HIGH MDM 60 MINUTES Blanca Skelton APRN.CNCeleste [address] [place] [place] [address] Referral ID Status Reason Start Date Expiration Date Visits Requested Visits Authorized [id number] Authorized PCP Requested Referral Auto-Generate d Referral 02/05/2024 02/04/2025 1 1 Specialty Diagnoses / Procedures Referred By Alice powell Referred To Contact [facility] Diagnoses Encounter for supervision of high risk in first trimester, antepartum with uncertain dates in first trimester Procedures NUCHAL TRANSLUCENCY WHI US NUCHAL TRANSLUCENCY 1ST GESTATION MarianoBlanca domínguez APRN.CHELA [address] [place] [address] [facility] [address] [place] [address] Referral ID Status Reason Start Date Expiration Date Visits Requested Visits Authorized [id number] Pending Review Auto-Generat ed Referral 02/05/2024 02/04/2025 [...] or prosecute any alcohol or drug abuse patient.[facility] the event this information is protected by the Federal Confidentiality of Alcohol and Drug Abuse Patient Records regulations: The Federal rules restrict any use of the information to criminally investigate or prosecute any alcohol or drug abuse patient.[facility] the event this information is protected by the Federal Confidentiality of Alcohol and Drug Abuse Patient Records regulations: The Federal rules restrict any use of the information to criminally investigate or prosecute any alcohol or drug abuse patient.[facility] the event this information is protected by the Federal Confidentiality of Alcohol and Drug Abuse Patient Records regulations: The Federal rules restrict any use of the information to criminally investigate or prosecute any alcohol or drug abuse patient.[facility] the event this information is protected by the Federal Confidentiality of Alcohol and Drug Abuse Patient Records regulations: The Federal rules restrict any use of the information to criminally investigate or prosecute any alcohol or drug abuse patient.[facility] the event this information is protected by the Federal Confidentiality of Alcohol and Drug Abuse Patient Records regulations: The Federal rules restrict any use of the information to criminally investigate or prosecute any alcohol or drug abuse patient.[facility]In the event this information is protected by the Federal Confidentiality of Alcohol and Drug Abuse Patient Records regulations: The Federal rules restrict any use of the information to criminally investigate or prosecute any alcohol or drug abuse patient.[facility] the event this information is protected by the Federal Confidentiality of Alcohol and Drug Abuse Patient Records regulations: The Federal rules restrict any use of the information to criminally investigate or prosecute any alcohol or drug abuse patient.[facility] the event this information is protected by the Federal Confidentiality of Alcohol and Drug Abuse Patient Records regulations: The Federal rules restrict any use of the information to criminally investigate or prosecute any alcohol or drug abuse patient.[facility] the event this information is protected by the Federal Confidentiality of Alcohol and Drug Abuse Patient Records regulations: The Federal rules restrict any use of the information to criminally investigate or prosecute any alcohol or drug abuse patient.[facility] the event this information is protected by the Federal Confidentiality of Alcohol and Drug Abuse Patient Records regulations: The Federal rules restrict any use of the information to criminally investigate or prosecute any alcohol or drug abuse patient.[facility]In the event this information is protected by the Federal Confidentiality of Alcohol and Drug Abuse Patient Records regulations: The Federal rules restrict any use of the information to criminally investigate or prosecute any alcohol or drug abuse patient.[facility] the event this information is protected by the Federal Confidentiality of Alcohol and Drug Abuse Patient Records regulations: The Federal rules restrict any use of the information to criminally investigate or prosecute any alcohol or drug abuse patient.[facility]In the event this information is protected by the Federal Confidentiality of Alcohol and Drug Abuse Patient Records regulations: The Federal rules restrict any use of the information to criminally investigate or prosecute any alcohol or drug abuse patient.[facility]In the event this information is protected by the Federal Confidentiality of Alcohol and Drug Abuse Patient Records regulations: The Federal rules restrict any use of the information to criminally investigate or prosecute any alcohol or drug abuse patient.[facility]In the event this information is protected by the Federal Confidentiality of Alcohol and Drug Abuse Patient Records regulations: The Federal rules restrict any use of the information to criminally investigate or prosecute any alcohol or drug abuse patient.[facility]In the event this information is protected by the Federal Confidentiality of Alcohol and Drug Abuse Patient Records regulations: The Federal rules restrict any use of the information to criminally investigate or prosecute any alcohol or drug abuse patient.[facility]In the event this information is protected by the Federal Confidentiality of Alcohol and Drug Abuse Patient Records regulations: The Federal rules restrict any use of the information to criminally investigate or prosecute any alcohol or drug abuse patient.[facility]In the event this information is protected by the Federal Confidentiality of Alcohol and Drug Abuse Patient Records regulations: The Federal rules restrict any use of the information to criminally investigate or prosecute any alcohol or drug abuse patient.[facility]In the event this information is protected by the Federal Confidentiality of Alcohol and Drug Abuse Patient Records regulations: The Federal rules restrict any use of the information to criminally investigate or prosecute any alcohol or drug abuse patient.[facility]In the event this information is protected by the Federal Confidentiality of Alcohol and Drug Abuse Patient Records regulations: The Federal rules restrict any use of the information to criminally investigate or prosecute any alcohol or drug abuse patient.[facility]In the event this information is protected by the Federal Confidentiality of Alcohol and Drug Abuse Patient Records regulations: The Federal rules restrict any use of the information to criminally investigate or prosecute any alcohol or drug abuse patient.[facility]In the event this information is protected by the Federal Confidentiality of Alcohol and Drug Abuse Patient Records regulations: The Federal rules restrict any use of the information to criminally investigate or prosecute any alcohol or drug abuse patient.[facility]In the event this information is protected by the Federal Confidentiality of Alcohol and Drug Abuse Patient Records regulations: The Federal rules restrict any use of the information to criminally investigate or prosecute any alcohol or drug abuse patient.[facility]In the event this information is protected by the Federal Confidentiality of Alcohol and Drug Abuse Patient Records regulations: The Federal rules restrict any use of the information to criminally investigate or prosecute any alcohol or drug abuse patient.[facility]In the event this information is protected by the Federal Confidentiality of Alcohol and Drug Abuse Patient Records regulations: The Federal rules restrict any use of the information to criminally investigate or prosecute any alcohol or drug abuse patient.[facility]In the event this information is protected by the Federal Confidentiality of Alcohol and Drug Abuse Patient Records regulations: The Federal rules restrict any use of the information to criminally investigate or prosecute any alcohol or drug abuse patient.[facility]In the event this information is protected by the Federal Confidentiality of Alcohol and Drug Abuse Patient Records regulations: The Federal rules restrict any use of the information to criminally investigate or prosecute any alcohol or drug abuse patient.[facility]In the event this information is protected by the Federal Confidentiality of Alcohol and Drug Abuse Patient Records regulations: The Federal rules restrict any use of the information to criminally investigate or prosecute any alcohol or drug abuse patient.[facility]In the event this information is protected by the Federal Confidentiality of Alcohol and Drug Abuse Patient Records regulations: The Federal rules restrict any use of the information to criminally investigate or prosecute any alcohol or drug abuse patient.[facility]In the event this information is protected by the Federal Confidentiality of Alcohol and Drug Abuse Patient Records regulations: The Federal rules restrict any use of the information to criminally investigate or prosecute any alcohol or drug abuse patient.[facility]In the event this information is protected by the Federal Confidentiality of Alcohol and Drug Abuse Patient Records regulations: The Federal rules restrict any use of the information to criminally investigate or prosecute any alcohol or drug abuse patient.[facility]In the event this information is protected by the Federal Confidentiality of Alcohol and Drug Abuse Patient Records regulations: The Federal rules restrict any use of the information to criminally investigate or prosecute any alcohol or drug abuse patient.[facility]In the event this information is protected by the Federal Confidentiality of Alcohol and Drug Abuse Patient Records regulations: The Federal rules restrict any use of the information to criminally investigate or prosecute any alcohol or drug abuse patient.[facility]In the event this information is protected by the Federal Confidentiality of Alcohol and Drug Abuse Patient Records regulations: The Federal rules restrict any use of the information to criminally investigate or prosecute any alcohol or drug abuse patient.[facility]In the event this information is protected by the Federal Confidentiality of Alcohol and Drug Abuse Patient Records regulations: The Federal rules restrict any use of the information to criminally investigate or prosecute any alcohol or drug abuse patient.[facility]In the event this information is protected by the Federal Confidentiality of Alcohol and Drug Abuse Patient Records regulations: The Federal rules restrict any use of the information to criminally investigate or prosecute any alcohol or drug abuse patient.[facility]In the event this information is protected by the Federal Confidentiality of Alcohol and Drug Abuse Patient Records regulations: The Federal rules restrict any use of the information to criminally investigate or prosecute any alcohol or drug abuse patient.[facility]In the event this information is protected by the Federal Confidentiality of Alcohol and Drug Abuse Patient Records regulations: The Federal rules restrict any use of the information to criminally investigate or prosecute any alcohol or drug abuse patient.[facility]In the event this information is protected by the Federal Confidentiality of Alcohol and Drug Abuse Patient Records regulations: The Federal rules restrict any use of the information to criminally investigate or prosecute any alcohol or drug abuse patient.[facility]In the event this information is protected by the Federal Confidentiality of Alcohol and Drug Abuse Patient Records regulations: The Federal rules restrict any use of the information to criminally investigate or prosecute any alcohol or drug abuse patient.[facility]In the event this information is protected by the Federal Confidentiality of Alcohol and Drug Abuse Patient Records regulations: The Federal rules restrict any use of the information to criminally investigate or prosecute any alcohol or drug abuse patient.[facility]In the event this information is protected by the Federal Confidentiality of Alcohol and Drug Abuse Patient Records regulations: The Federal rules restrict any use of the information to criminally investigate or prosecute any alcohol or drug abuse patient.[facility]In the event this information is protected by the Federal Confidentiality of Alcohol and Drug Abuse Patient Records regulations: The Federal rules restrict any use of the information to criminally investigate or prosecute any alcohol or drug abuse patient.[facility]In the event this information is protected by the Federal Confidentiality of Alcohol and Drug Abuse Patient Records regulations: The Federal rules restrict any use of the information to criminally investigate or prosecute any alcohol or drug abuse patient.[facility]In the event this information is protected by the Federal Confidentiality of Alcohol and Drug Abuse Patient Records regulations: The Federal rules restrict any use of the information to criminally investigate or prosecute any alcohol or drug abuse patient.[facility]In the event this information is protected by the Federal Confidentiality of Alcohol and Drug Abuse Patient Records regulations: The Federal rules restrict any use of the information to criminally investigate or prosecute any alcohol or drug abuse patient.[facility]In the event this information is protected by the Federal Confidentiality of Alcohol and Drug Abuse Patient Records regulations: The Federal rules restrict any use of the information to criminally investigate or prosecute any alcohol or drug abuse patient.[facility] Hospital[facility] the event this information is protected by the Federal Confidentiality of Alcohol and Drug Abuse Patient Records regulations: The Federal rules restrict any use of the information to criminally investigate or prosecute any alcohol or drug abuse patient.[facility] Hospital[facility] the event this information is protected by the Federal Confidentiality of Alcohol and Drug Abuse Patient Records regulations: The Federal rules restrict any use of the information to criminally investigate or prosecute any alcohol or drug abuse patient.[facility] Hospital[facility] the event this information is protected by the Federal Confidentiality of Alcohol and Drug Abuse Patient Records regulations: The Federal rules restrict any use of the information to criminally investigate or prosecute any alcohol or drug abuse patient.[facility] the event this information is protected by the Federal Confidentiality of Alcohol and Drug Abuse Patient Records regulations: The Federal rules restrict any use of the information to criminally investigate or prosecute any alcohol or drug abuse patient.[facility] Hospital[facility] the event this information is protected by the Federal Confidentiality of Alcohol and Drug Abuse Patient Records regulations: The Federal rules restrict any use of the information to criminally investigate or prosecute any alcohol or drug abuse patient.[facility] HospitalIn the event this information is protected by the Federal Confidentiality of Alcohol and Drug Abuse Patient Records regulations: The Federal rules restrict any use of the information to criminally investigate or prosecute any alcohol or drug abuse patient.[facility] Reason for Visit (unrecogniz ed section and content) 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 [address] [place] [address] Referral ID Status Reason Start Date Expiration Date V isits Requested Visits Authorized [id number] Closed Auto-Generate d Referral 10/06/2023 10/05/2024 1 1 Reason Comments Physical Biometric screening (waist measurement 29 11/02 )- valacyclovir to [facility] [place] due [facility] too costly Reason Comments Billing Error in code for an nual physical Reason Onset Date Comments Refill Request Refill Request 07/17/2023 Reason Comments upcoming appointment Reason Onset Date Comments Refill Request 08/18/2023 Reason Comments Care Reason Comments Physical Reason Comments US Specialty Diagnoses / Procedures Referred By Contac t Referred To Contact [facility] Diagnoses Supervision of normal first , antepartum 9 weeks gestation of Procedures NUCHAL TRANSLUCENCY WHI US NUCHAL TRANSLUCENCY 1ST GESTATION Rebecca Fontanez APRN.CN [address] [place] [address] [id number] [place] [address] Referral ID Status Reason Start Date Expiration Date V isits Requested Visits Authorized [id number] Closed Auto-Generate d Referral 08/28/2023 08/27/2024 1 1 Reason Comments Patient Update Reason Comments Follow Up Missed AB Reason Comments Miscarriage Referral ID Status Reason Start Date Expiration Date V isits Requested Visits Authorized [id number] Closed Auto-Generate d Referral 09/20/2023 09/19/2024 1 1 Reason Comments Follow Up MAB Reason Comments 02/04 NOB Intake Questions Reason Comments Initial OB Visit Reason Comments [id number] Order Reason Comments NIPT Update Reason Onset Date Comments Care 03/04/2024 Reason Onset Date Comments Care 03/20/2024 Reason Comments Orders Reason Onset Date Comments Care 04/08/2024 Reason Onset Date Comments Care 04/15/2024 Reason Onset Date Comments Care 05/06/2024 Reason Comments US Specialty Diagnoses / Procedures Referred By Contac t Referred To Contact [facility] Diagnoses 19 weeks gestation of Dichorionic diamniotic twin in second trimester Procedures OBSTETRIC ULTRASOUND WHI US PREG UTERUS AFTER 1ST TRIMEST GESTATION Concha Baires MD [address] [place] [address] [address] Referral ID Status Reason Start Date Expiration Date V isits Requested Visits Authorized [id number] Closed Auto-Generate d Referral 04/08/2024 04/08/2025 4 1 Reason Onset Date Comments Care 05/14/2024 Reason Comments US Routine Specialty Diagnoses / Procedures Referred By Alice t Referred To Contact Diagnoses 10 weeks gestation of Dichorionic diamniotic twin in first trimester Procedures CONSULT TO MATERNAL MEDI OFFICE/OUTPATIENT NEW HIGH MDM 60 MINUTES Blanca Skelton APRN.Celeste [address] [place] [address] Referral ID Status Reason Start Date Expiration Date V isits Requested Visits Authorized [id number] Closed PCP Requested Referral Auto-Generated Referral 02/05/2024 02/04/2025 1 1 Reason Onset Date Comments Care 06/03/2024 Specialty Diagnoses / Procedures Referred By Alice powell Referred To Contact [facility] Diagnoses Dichorionic diamniotic twin in second trimester Procedures OBSTETRIC ULTRASOUND WHI US PREG UTERUS AFTER 1ST TRIMEST GESTATION Blanca Skelton APRN.CHELA [address] [place] [address] [facility] [address] [place] [address] Referral ID Status Reason Start Date Expiration Date V isits Requested Visits Authorized [id number] Closed Auto-Generate d Referral 04/05/2024 04/05/2025 1 1 Reason Comments Orders Reason Onset Date Comments Care 06/12/2024 Reason Onset Date Comments Care 06/17/2024 Reason Onset Date Comments Care 06/26/2024 Reason Onset Date Comments Care 07/03/2024 Specialty Diagnoses / Procedures Referred By Alice powell Referred To Contact [facility] Diagnoses 19 weeks gestation of Dichorionic diamniotic twin in second trimester Procedures OBSTETRIC ULTRASOUND WHI US PREG UTERUS AFTER 1ST TRIMEST GESTATION Concha Baires MD [address] [place] [address] [facility] [address] [place] [address] Reason Comments OB-decreased movement Reason Onset Date Comments Care 07/16/2024 Reason Onset Date Comments Care 07/24/2024 Reason Onset Date Comments Care 07/31/2024 Reason Onset Date Comments Care 08/06/2024 Reason Onset Date Comments Care 08/07/2024 Care Teams (unrecognized sec tion and content) Business Account Leader Relationship Specialty Start Date End Date Washington Tran MD [address] [place] [address] PCP - General Family Medicine 09/22/21 Business Account Leader Relationship Specialty Start Date End Date Washington Tran MD [address] [place] [address] PCP - General Family Medicine 09/22/21 Business Account Leader Relationship Specialty Start Date End Date Washington Tran MD [address] [place] [address] PCP - General Family Medicine 09/22/21 Business Account Leader Relationship Specialty Start Date End Date Washington Tran MD [address] [place] [address] PCP - General Family Medicine 09/22/21 Business Account Leader Relationship Specialty Start Date End Date Washington Tran MD [address] [place] [address] PCP - General Family Medicine 09/22/21 Business Account Leader Relationship Specialty Start Date End Date Washington Tran MD [address] [place] [address] PCP - General Family Medicine 09/22/21 Business Account Leader Relationship Specialty Start Date End Date Washington Tran MD [address] [place] [address] PCP - General Family Medicine 09/22/21 Business Account Leader Relationship Specialty Start Date End Date Washington Tran MD [address] [place] [address] PCP - General Family Medicine 09/22/21 Business Account Leader Relationship Specialty Start Date End Date Washington Tran MD [address] [place] [address] PCP - General Family Medicine 09/22/21 Business Account Leader Relationship Specialty Start Date End Date Washington Tran MD [address] [place] [address] PCP - General Family Medicine 09/22/21 Business Account Leader Relationship Specialty Start Date End Date Washington Tran MD [address] [place] [address] PCP - General Family Medicine 09/22/21 Business Account Leader Relationship Specialty Start Date End Date Washington Tran MD [address] [place] [address] PCP - General Family Medicine 09/22/21 Business Account Leader Relationship Specialty Start Date End Date Washington Tran MD [address] [place] [address] PCP - General Family Medicine 09/22/21 Business Account Leader Relationship Specialty Start Date End Date Washington Tran MD [address] [place] [address] PCP - General Family Medicine 09/22/21 Business Account Leader Relationship Specialty Start Date End Date Washington Tran MD [address] [place] [address] PCP - General Family Medicine 09/22/21 Business Account Leader Relationship Specialty Start Date End Date Washington Tran MD [address] [place] [address] PCP - General Family Medicine 09/22/21 Business Account Leader Relationship Specialty Start Date End Date Washington Tran MD [address] [place] [address] PCP - General Family Medicine 09/22/21 Business Account Leader Relationship Specialty Start Date End Date Washington Tran MD [address] [place] [address] PCP - General Family Medicine 09/22/21 Business Account Leader Relationship Specialty Start Date End Date Washington Tran MD [address] [place] [address] PCP - General Family Medicine 09/22/21 Business Account Leader Relationship Specialty Start Date End Date Washington Tran MD [address] [place] [address] PCP - General Family Medicine 09/22/21 Business Account Leader Relationship Specialty Start Date End Date Washington Tran MD [address] [place] [address] PCP - General Family Medicine 09/22/21 Business Account Leader Relationship Specialty Start Date End Date Washington Tran MD [address] [place] [address] PCP - General Family Medicine 09/22/21 Business Account Leader Relationship Specialty Start Date End Date Washington Tran MD [address] [place] [address] PCP - General Family Medicine 09/22/21 Business Account Leader Relationship Specialty Start Date End Date Washington Tran MD [address] [place] [address] PCP - General Family Medicine 09/22/21 Business Account Leader Relationship Specialty Start Date End Date Washington Tran MD [address] [place] [address] PCP - General Family Medicine 09/22/21 Business Account Leader Relationship Specialty Start Date End Date Washington Tran MD [address] [place] [address] PCP - General Family Medicine 09/22/21 Business Account Leader Relationship Specialty Start Date End Date Washington Tran MD [address] [place] [address] PCP - General Family Medicine 09/22/21 Business Account Leader Relationship Specialty Start Date End Date Washington Tran MD [address] [place] [address] PCP - General Family Medicine 09/22/21 Business Account Leader Relationship Specialty Start Date End Date Washington Tran MD [address] [place] [address] PCP - General Family Medicine 09/22/21 Business Account Leader Relationship Specialty Start Date End Date Washington Tran MD [address] [place] [address] PCP - General Family Medicine 09/22/21 Business Account Leader Relationship Specialty Start Date End Date Washington Tran MD [address] [place] [address] PCP - General Family Medicine 09/22/21 Business Account Leader Relationship Specialty Start Date End Date Washington Tran MD [address] [place] [address] PCP - General Family Medicine 09/22/21 Business Account Leader Relationship Specialty Start Date End Date Washington Tran MD [address] [place] [address] PCP - General Family Medicine 09/22/21 Business Account Leader Relationship Specialty Start Date End Date Washington Tran MD [address] [place] [address] PCP - General Family Medicine 09/22/21 Business Account Leader Relationship Specialty Start Date End Date Washington Tran MD [address] [place] [address] PCP - General Family Medicine 09/22/21 Business Account Leader Relationship Specialty Start Date End Date Washington Tran MD [address] [place] [address] PCP - General Family Medicine 09/22/21 INFORMATION SOURCE (unrecogn ized section and content) DATE CREATED AUTHOR 08/16/2024 [facility] FOR RECORDS PERTAINING TO PATIENTS WHO ARE [...] BE BASED ON THE PRIMARY CLINICAL RECORDS. [facility]. provides no warranty or guarantee of the accuracy or completeness of information in this document.
[2024-08-19] MEDS: miSOPROStol 25 MCG TABLET VAGINAL (00:52)
--- NOTE | 2024-08-19 08:27 | PCM.PN.OB ---
Subjective Subjective Sitting up in bed comfortable, contractions mild Objective Data Objective Data Vital Signs: Vital Signs Temp Pulse Resp BP Pulse Ox 98.4 F 68 16 121/87 H 97 08/19/24 07:16 08/19/24 07:16 08/19/24 07:16 08/19/24 07:16 08/19/24 07:16 Weight: 199 lb 6.4 oz Body Mass Index (BMI) 33.1 Intake & Output: Intake and Output for Last 24 Hours 08/17/24 08/18/24 08/19/24 23:59 23:59 23:59 Intake Total 1.25 / 1.25 Balance 1.25 / 1.25 Lab / Micro Data 08/18/24 20:00 Labs: Laboratory Results - last 24 hr 08/18/24 20:00: WBC 8.8, RBC 3.30 L, Hgb 10.4 L, Hct 30.3 L, MCV 91.8, MCH 31.5, MCHC 34.3, RDW Std Deviation 42.4, RDW Coeff of William 13.1, Plt Count 197, MPV 12.3 H, Immature Gran % (Auto) 0.500, Neut % (Auto) 65.7, Lymph % (Auto) 24.0, [place] % (Auto) 8.9, Eos % (Auto) 0.6, Baso % (Auto) 0.3, Absolute Neuts (auto) 5.8, Absolute Lymphs (auto) 2.10, Nucleated RBC % 0, Syphilis Total Ab Non-reactive, Antibody Screen NEGATIVE Physical Exam Manual OB Exam: presentation cephalic, dilated 1.5cm that then progressed to 3cm during exam and avery placement, effaced 80%, station -2 and other Avery inserted through cervix, 30ml NS instilled, tolerated well. Consented to vaginal exam. NST FHR Rate Baby A Baseline: 125 Variability:: Moderate Accelerations:: 15 x 15 Decelerations:: None FHR Category:: Category I Uterine Activity:: Every 3-4 minutes, strong Assessment & Plan (1) Encounter for induction of labor: (2) Dichorionic diamniotic twin in third trimester: PLAN: Plan 1) Active management, avery inserted and start pitocin 2) Continuous EFM 3) Epidural upon request 4) collaborative physician and notified of above patient assessment, status and plan.
[2024-08-19] MEDS: Oxytocin 15 Units/NS 250ml 15 UNITS/250 ML IV.SOLN 2 UNITS IV (08:39)
[2024-08-19] MEDS: 0.9% Normal Saline Single 100 ML IV.SOLN. 50 ML INTRA-UTER (08:57)
--- NOTE | 2024-08-19 11:02 | NURSING ---
Iv fluid bolus given from primary bag of LR d/t fluid shortage
[2024-08-19] MEDS: fentaNYL-bupivacaine (epidural) 100 ML BAG EPIDURAL (11:57)
--- NOTE | 2024-08-19 12:21 | PCM.PN.OB ---
Subjective Subjective Resting in bed after epidural placement, becoming more comfortable. at bedside. Objective Data Objective Data Vital Signs: Vital Signs Temp Pulse Resp BP Pulse Ox 99.0 F 73 18 119/62 93 08/19/24 12:06 08/19/24 12:19 08/19/24 12:03 08/19/24 12:19 08/19/24 12:17 Weight: 199 lb 6.4 oz Body Mass Index (BMI) 33.1 Intake & Output: Intake and Output for Last 24 Hours 08/17/24 08/18/24 08/19/24 23:59 23:59 23:59 Intake Total 1.25 / 1.25 627.84 / 627.84 Balance 1.25 / 1.25 627.84 / 627.84 Lab / Micro Data 08/18/24 20:00 Labs: Laboratory Results - last 24 hr 08/18/24 20:00: WBC 8.8, RBC 3.30 L, Hgb 10.4 L, Hct 30.3 L, MCV 91.8, MCH 31.5, MCHC 34.3, RDW Std Deviation 42.4, RDW Coeff of William 13.1, Plt Count 197, MPV 12.3 H, Immature Gran % (Auto) 0.500, Neut % (Auto) 65.7, Lymph % (Auto) 24.0, [place] % (Auto) 8.9, Eos % (Auto) 0.6, Baso % (Auto) 0.3, Absolute Neuts (auto) 5.8, Absolute Lymphs (auto) 2.10, Nucleated RBC % 0, Syphilis Total Ab Non-reactive, Antibody Screen NEGATIVE NST FHR Rate Baby A Baseline: 125 Variability:: Moderate Accelerations:: 15 x 15 Decelerations:: None FHR Category:: Category I Uterine Activity:: every 2-3 minutes FHR Rate Baby B Baseline: 130 Variability:: Moderate Accelerations:: 15 x 15 Decelerations:: None FHR Category:: Category I Uterine Activity:: every 2-3 minutes Assessment & Plan (1) 38 weeks gestation of : (2) Dichorionic diamniotic twin in third trimester: (3) Encounter for induction of labor: PLAN: Plan 1) Continue with active management 2) AROM clear fluid 3) Epidural pain management 4) collaborative physician and notified of above patient status, assessment and plan.
[2024-08-19] MEDS: Lactated Ringers 1,000 ML 999 ML IV (14:49)
[2024-08-19] MEDS: Ondansetron 4 MG/2 ML Vial IV (15:51)
--- NOTE | 2024-08-19 17:05 | PLAC_PTH ---
PATHOLOGY RESULTS PATIENT: JARVIS KING LOC: WP U#:[id number] AGE/SX: 29/F ROOM: WP004 RE08/18/[address]: Rebecca Fontanez CNM : 1995 BED: 1 DIS: 08/21/2024 SPEC #: [id number] RECD: 08/20/24 09:53 STATUS: FANI GRUBERJeimy #: [id number] ZAINA: 08/19/24 17:[address]: Rebecca Fontanez DEPT: SURGICAL PATHOLOGY RECD BY: Ayesha Smith ENTERED: 08/20/24 09:55 SP TYPE: PLACENTA OTHR DR: Dr. Vasiliy Tran MD Tissues: Placenta, NOS Procedures: Surgery Specimen Level V HEADER OPERATION: Vaginal delivery PRE-OP DIAGNOSIS: Twin TISSUE SUBMITTED: Placenta MICROSCOPIC DIAGNOSIS Diamniotic, monochorionic twin placenta: Twin placenta A- (461gm) Umbilical cord - Trivascular with no evidence of inflammation Peripheral membranes - No pathologic change Placental disc - Regina-Julio Cesar change, intervillous congestion and mildly increased intraparenchymal fibrin plaques. Twin placenta B- (428gm) Umbilical cord - Trivascular with no evidence of inflammation Peripheral membranes - No pathologic change Placental disc - Organizing intraparenchymal hemorrhage, Regina-Julio Cesar change, intervillous congestion and increased intraparenchymal fibrin plaques. AM: 08/22/2024 MICROSCOPIC DESCRIPTION Slides are reviewed. GROSS DESCRIPTION SPECIMEN: TWIN PLACENTA / CLINICAL INFORMATION: Label says clamp but not specified on placenta A or B. Twin placenta is received consisting of two placental discs, two umbilical cords, and two membrane sacs. Dividing membrane septum is present between two membrane sacs. Placenta with clamp presumes to be placenta A. A. Weight: A - 2.875kg; B - 2.94 kg B. Gestational Age: 38 weeks C. Sex: A- Male, B- Female PLACENTAL WEIGHT (POST FIXATION): A- 461gm, B- 428gm PLACENTAL DIMENSIONS: A- 22.0 x 19.0 x 2.5cm, B- 17.5 x 17.5 x 4.0cm PLACENTAL SHAPE: Usual ovoid PLACENTAL WEIGHT FOR GESTATIONAL AGE: Within 10-99th percentile (over/under percentile) PLACENTA A: MEMBRANES - Present A. Insertion: Marginal B. Site of rupture from edge: 9.0cm from edge of placental disc C. Color of membrane: Kim-goncalves D. Abnormalities: None UMBILICAL CORD - Present A. Color: Kim-goncalves B. Insertion: Central C. Length: 40.0cm D. Diameter: 1.0 to 2.0cm E. Number of vessels: Three F. Abnormalities: None PLACENTA B: MEMBRANES - Present A. Insertion: Marginal B. Site of rupture from edge: 7.0 cm from edge of placental disc C. Color of membrane: Kim-mucoidy D. Abnormalities: None UMBILICAL CORD - Present A. Color: Kim-goncalves B. Insertion: Paracentral C. Length: 33.0cm D. Diameter: 1.2cm E. Number of vessels: Three F. Abnormalities: None PLACENTAL DISC - Present A. Color of surface: Kim-goncalves B. surface abnormalities: Sections reveal a plaque like area on the surface measuring 1.0cm in greatest dimension. C. Maternal cotyledons: Intact with minimal tears D. Attached retro placental clot: No clot E. Cut surface: Dark red and spongy F. Lesions: None G. Separate clot: Absent SECTIONS SUBMITTED: 11 cassettes (Dr. Navarro) 1 - Dividing membranous septum, 2-6 - placenta A (2 - membrane roll, 3 - umbilical cord, end notched inked black, 4-6 - body of the placenta including maternal and surfaces), 7-11 - placenta B (7 - membrane roll, 8 - umbilical cord, end notched inked black, 9-11 - body of the placenta including maternal and surfaces) (cassette 9 contains plaque like lesion). 08/21/2024 TC:5 CPT: 95669 x2
--- NOTE | 2024-08-19 17:12 | EX.PCM.OBRPT ---
Assessment & Plan (1) Twin , delivered: (2) Dichorionic diamniotic twin in third trimester: (3) Second degree perineal laceration: Maternal Data Information Final LIZZY: 09/02/24 Vaginal Delivery Maternal Presentation Maternal Presentation: Medically Indicated Induction (Di Di twin gestation) Type of Induction: Pitocin, Shaw Bulb and Cytotec Operative Information Date of Procedure: 08/19/24 Pre-Operative Diagnosis: Induction of labor for Di/Di twin gestation Post-Operative Diagnosis: Vaginal delivery of Di/Di twins, second degree perineal laceration Surgery / Procedure Performed: Spontaneous Vaginal Delivery Type of Anesthesia: Epidural Drain: Shaw to straight drain Estimated Blood Loss: 500 ml Time of Delivery: 16:45 (Baby A 1645, Baby 1654) Findings Description of Procedure: Progressed to complete with urge to push. Epidural for pain management. Vaginal delivery of viable maleinfant over second degree perineal laceration. APGARS 9,9 respectively. Infant head delivered with body immediately forthcoming, CAN x1 loose, delivered through. Placed on maternal abdomen, strong cry. Mouth and nares suctioned for secretions. Cord doubly clamped and cut by FOB after pulsations ceased, delayed cord clamping. Awaiting delivery of Baby B. Vaginal exam with complete dilation and vertex of Baby B, AROM clear fluid. Strong pushing efforts with rapid decent from -2 station to +1. of viable female infant over 2nd dgree perineal laceration . APGARS 8,9 respectively. head delivered with body immediately forthcoming CAN x1 tight without compression and around right foot. Placed on Maternal abdomen, weak cry and tone. Mouth and nares suctioned for secretions. Cord doubly clamped and cut by FOB. Pitocin started for active 3rd stage management.Placentas delivered intact via sanchez, 3 vessel cord intact x 2 Perineum inspected and revealed second degree perineal laceration. Repaired with 3.0 vicryl rapide and epidural. Fundus firm and hemostasis achieved. EBL 500ml. Mom and baby stable, planning to breastfeed. Family bonding well. present for delivery. Presentation: Vertex and SANJUANA Amniotic Membrane Rupture Type: Artificial Amniotic Fluid Description: Clear Placental Delivery Description: Spontaneous Placenta Disposition: Routine to Lab Cord Vessel Description: 3 Vessels Cord Entanglement: Around neck x 1, loose Nuchal Cord Compression: Without compression Infant A Gender: Male (1 minute): 9 (5 minute): 9 Delayed Cord Clamping: Yes Post Vaginal Delivery Medications Given After Delivery: IV Pitocin Episiotomy Description: None Laceration: Perineal Extension/lac and 2nd degree Complication Complications: None Baby B Information Amniotic Membrane Rupture Type: Artificial Presentation: Vertex and CARLEY Operative Information Mode of Delivery: Vaginal Cord Vessel Description: 3 Vessels Cord Entanglement: Around neck x 1, tight Nuchal Cord Compression: Without compression Infant B gender: Female (1 minute): 8 (5 minute): 9 Delayed Cord Clamping: Yes
[2024-08-19] MEDS: Oxytocin 15 Units/NS 250ml 15 UNITS/250 ML IV.SOLN 83 UNITS IV (17:35)
[2024-08-19 18:16] LABS: Pathology Specimen OB SEE PATHOLOGY REPORT
[2024-08-20 04:00] VITALS: BP 117/80; PULSE 75; RESP 16; TEMP 36.2; O2SAT 96
[2024-08-20] MEDS: Ibuprofen 600 MG Tablet PO ×3 (04:21→18:12)
--- NOTE | 2024-08-20 08:39 | PCM.PN.OB ---
Subjective Subjective Denies complaints Objective Data Objective Data Vital Signs: Vital Signs Temp Pulse Resp BP Pulse Ox O2 Del Method 97.2 F L 75 16 117/80 96 Room Air 08/20/24 04:00 08/20/24 04:00 08/20/24 04:00 08/20/24 04:00 08/20/24 04:00 08/20/24 04:00 Oxygen Delivery Method Room Air Weight: 199 lb 6.4 oz Body Mass Index (BMI) 33.1 Intake & Output: Intake and Output for Last 24 Hours 08/18/24 08/19/24 08/20/24 23:59 23:59 23:59 Intake Total 1.25 / 1.25 1905.97 / 1905.97 Output Total 1840 / 1840 500 / 500 Balance 1.25 / 1.25 65.97 / 65.97 -500 / -500 Lab / Micro Data 08/18/24 20:00 Physical Exam Const alert, oriented x3 and no apparent distress HEENT normocephalic GI soft to palpation, non-tender and non-distended GI Narrative: fundus firm, mid & below umbilicus Extremity normal to inspection and no calf tenderness Assessment & Plan (1) Twin , delivered: COMMENT: PPD#1 PLAN: Plan Routine care
[2024-08-20 08:43] VITALS: BP 122/86; PULSE 60; RESP 16; TEMP 36.7; O2SAT 99
[2024-08-20] MEDS: Senna/Docusate Sodium 1 Tablet PO (11:11)
[2024-08-20 12:35] VITALS: BP 122/72; RESP 16; TEMP 36.7
[2024-08-20] MEDS: Benzocaine/Lanolin/Aloe Vera 85 GM Spray 1 SPRAY TOPICAL (18:16)
[2024-08-20 20:37] VITALS: BP 121/75; PULSE 76; RESP 16; TEMP 36.4; O2SAT 99
[2024-08-21] MEDS: Ibuprofen 600 MG Tablet PO ×2 (00:46→06:30)
[2024-08-21 02:20] VITALS: BP 123/86; PULSE 67; RESP 16; O2SAT 95
[2024-08-21 08:21] VITALS: BP 116/77; PULSE 75; RESP 16; TEMP 36.4; O2SAT 99
--- NOTE | 2024-08-21 08:28 | PCM.PN.OB ---
Subjective Subjective Doing well. Ambulating and voiding without difficulty. Mild lochia. Breast feeding. Objective Data Objective Data Vital Signs: Vital Signs Temp Pulse Resp BP Pulse Ox O2 Del Method 97.5 F L 75 16 116/77 99 Room Air 08/21/24 08:21 08/21/24 08:21 08/21/24 08:21 08/21/24 08:21 08/21/24 08:21 08/21/24 08:21 Oxygen Delivery Method Room Air Weight: 90.446 kg Body Mass Index (BMI) 33.1 Intake & Output: Intake and Output for Last 24 Hours 08/19/24 08/20/24 08/21/24 23:59 23:59 23:59 Intake Total 1905.97 / 1905.97 Output Total 1840 / 1840 500 / 500 Balance 65.97 / 65.97 -500 / -500 Lab / Micro Data 08/18/24 20:00 ROS Constitutional Constitutional: Denies fatigue, fever(s) or malaise Eyes Eyes: Denies change in vision ENT HEENT: Denies dizziness or headache(s) Cardiovascular Cardiovascular: Denies chest pain, dyspnea or lightheadedness Respiratory/Chest Respiratory/Chest: Denies cough or dyspnea Gastrointestinal Gastrointestinal: Denies change in bowel habits Genitourinary Genitourinary: Denies burning urination or genital lesions Integumentary Integumentary: Denies rash Neurologic Neurologic: Denies confusion, dizziness, headache(s), numbness or weakness Physical Exam Const alert and no apparent distress Narrative: Fundus firm, below umbilicus. Assessment & Plan (1) Twin , delivered: COMMENT: PPD#1 (2) (spontaneous vaginal delivery): PLAN: Plan Discharge home
--- NOTE | 2024-08-21 08:30 | PCM.DC.SUM ---
Providers Date of Admission: 08/18/24 Date of Discharge: 08/21/24 Primary Care Physician: Dr. Vasiliy Tran MD Reason For Visit: VAGINAL Diagnosis Discharge Diagnosis (1) Twin , delivered: Status: Acute Code(s): O30.009 - Twin , unspecified number of placenta and unspecified number of amniotic sacs, unspecified trimester (2) (spontaneous vaginal delivery): Status: Acute Code(s): O80 - Encounter for full-term uncomplicated delivery Plan Discharge home Medications at Discharge Home Medications vit no.95-ferrous fumarate 28 mg-folic acid 800 mcg tablet () 1 tab PO DAILY 07/10/24 Hospital Course Operations None Procedures None Summary of Care Provided Minutes Spent on Discharge: 21 Hospital Course: Induction of labor for twins. for both. No complications. Breast feeding Physical Exam Const alert and no apparent distress Narrative: Fundus firm, below umbilicus. Weight / BMI Weight Weight: 90.446 kg Body Mass Index (BMI) 33.1 ABG / Lab / Microbiology Data 08/18/24 20:00 D/C Instructions May resume sexual activity in: 6 weeks Please Follow Up With: Judith Bermeo MD When: Follow up with our office in 1-2 and 6 weeks or as needed. [phone] Meaningful Use Info Meaningful Use Meaningful Use Diagnoses (Choose all that apply): None applicable Ischemic Stroke Statin Dosing Therapy Reference: STATIN DOSE THERAPY REFERENCE: * Patients > 75 years receive moderate or high dose statin therapy. * Patients 75 years or YOUNGER should receive HIGH intensity statin dose unless contraindicated. You will be required to document reason for non-treatment if statin daily dose does not meet guidelines. HIGH DOSE STATIN THERAPY DAILY Atorvastatin > than or = to 40 mg Rosuvastatin > than or = to 20 mg Amlodipine + Atorvastatin > than or = to 2.5/40 mg Ezetimibe + Simvastatin 10/80 mg Simvastatin 80mg Discharge Plan Admission Admit Date/Time: 08/18/24 19:23 Primary Reason for Your Visit: labor Attending Provider: Rebecca Fnotanez Primary Care Provider: Vasiliy Tran Discharge Orders/Prescriptions Prescriptions: Continued PNV cmb#95-ferrous fumarate-FA [] 28 mg iron- 800 mcg tablet 1 tab PO DAILY Discontinued valacyclovir 500 mg tablet 500 mg PO Q12H aspirin [Adult Low Dose Aspirin] 81 mg tablet,delayed release (DR/EC) 81 mg PO DAILY diphenhydramine HCl [Benadryl] 25 mg capsule 25 mg PO Q8H PRN (Reason: allergic reaction) Referrals / Follow Up: Vasiliy Tran MD [Primary Care Provider] - Disposition Disposition (needs filled in before D/C Order can be placed): Home, Self Care
[2024-08-21 11:47] VITALS: BP 122/75; PULSE 69; RESP 14; TEMP 36.9; O2SAT 98
== END 2024-08-21 13:55 | disposition home or self-care (01) | DRG 807 ==
PROVIDERS: Obstetrics & Gynecology; Admitting Provider Advanced Practice Midwife; PCP Family Medicine; Referring Provider Advanced Practice Midwife; Visit Provider Advanced Practice Midwife
DX: O30.043 Twin pregnancy, dichorionic/diamniotic, third trimester (principal); Z37.2 Twins, both liveborn; O70.1 Second degree perineal laceration during delivery; O69.81X1 Labor and delivery complicated by cord around neck, without compression, fetus 1; O69.81X2 Labor and delivery complicated by cord around neck, without compression, fetus 2; Z3A.38 38 weeks gestation of pregnancy
CPT/HCPCS: 59025; 59050; 76815; 85025; 86780; 86850; 86900; 86901; 88307; 99221; J7120; G0378; J2405